=== PATIENT | male | born 1950 | race Caucasian/White ===

== ENCOUNTER → 2018-12-05 10:11 | Outpatient (CLI) | payer MEDICARE, OTHER, SELFPAY ==
[2015-08-01 06:24] VITALS: BMI 40.6
[2018-12-05 11:59] LABS: Absolute Lymphocyte Count 2.41 X10^3/ul (0.83-4.51); Absolute Neutrophil Count 4.5 X10^3/uL (2.0-7.7); Basophil# 0.05 X10^3/uL; Basophil% 0.6 % (0-1); Eosinophils% 2.6 % (0-5); Hematocrit 49.7 % (40-54); Hemoglobin 17.2 g/dl (13.0-16.5); Lymphocyte # 2.41 X10^3/ul (4.0); Lymphocyte % 31.1 % (19-41); Mean Corp Hgb Conc 34.6 g/gl (32-36); Mean Corpuscular Hgb 31.5 pg (27.0-32.0); Mean Platelet Vol. 10.7 fl (6.2-12.0); Monocyte# 0.63 X10^3/uL; Monocyte% 8.1 % (0-10); Neutrophil # 4.45 X10^3/uL (2.7-7.7); Neutrophil % 57.5 % (47-70); Platelet Count 287 K/mm3 (150-450); RBC Distribution Width CV 12.7 % (11.6-14.6); RBC Distribution Width SD 42.2 fl (35.1-43.9); Red Blood Count 5.46 M/mm3 (4.6-6.2); White Blood Count 7.8 K/mm3 (4.4-11.0)
[2018-12-05 12:04] LABS: POSITIVE COUNT NO; POSITIVE DIFFERENTIAL NO; POSITIVE MORPHOLOGY NO
[2018-12-05 12:33] LABS: AST(SGOT) 21 U/L (15-37); Alanine Aminotransfer ALT/SGPT 34 U/L (16-61); Albumin, Serum 3.6 g/dL (3.2-5.0); Alkaline Phosphatase 85 U/L (45-117); Bilirubin, Direct 0.07 mg/dL (0.00-0.30); Globulin 4.1 g/dL (2.2-4.2); Protein, Total 7.7 g/dL (6.4-8.2)
== END ==
PROVIDERS: Family Provider Family Medicine; PCP Family Medicine; Referring Provider Dermatology; Visit Provider Dermatology
DX: Z79.899 Other long term (current) drug therapy (principal)
CPT/HCPCS: 36415; 80076; 85025

== ENCOUNTER → 2019-07-11 14:01 | Outpatient (CLI) | payer MEDICARE, OTHER, SELFPAY ==
--- NOTE | 2019-07-11 14:05 | CT_ITS ---
STUDY: CT ABDOMEN AND PELVIS WITHOUT CONTRAST REASON FOR EXAM: Male, 68 years old. Right lower quadrant pain. RADIATION DOSAGE (If Supplied By Facility): CTDIvol = ( 17.58 ) mGy, DLP = ( 919.71 ) mGycm TECHNIQUE: Transaxial images were obtained from the dome of the diaphragm to the symphysis pubis without oral contrast, and without intravenous contrast. Sagittal and coronal images were reconstructed. Individualized dose optimization techniques were used for this CT. COMPARISON: 07/15/2015 FINDINGS: Evaluation of the abdominal viscera is limited in the absence of intravenous contrast. The visualized lung bases are clear. The visualized portions of the heart and pericardium are within normal limits. There are subcentimeter calcified gallstones present. The liver demonstrates an unremarkable unenhanced appearance. The spleen is normal in size. The pancreas demonstrates an unremarkable unenhanced appearance. The adrenal glands are within normal limits. There are punctate bilateral nonobstructing renal collecting system stones. There are no ureteral stones. There is no hydronephrosis. Normal visualized stomach. There is no bowel obstruction or inflammation. The appendix is visualized and appears normal. The aorta is normal in caliber. There is no free air, free fluid or fluid collection. There is stable borderline retroperitoneal lymphadenopathy. There are no destructive osseous lesions. There are stable degenerative changes noted in the spine. CT/Abdomen/Pelvis without Cont IMPRESSION: Gallstones. No bowel obstruction or inflammation. Normal appendix. Punctate bilateral nonobstructing renal collecting system stones. No ureteral stones. No hydronephrosis. Stable borderline retroperitoneal lymphadenopathy. Electronically Signed: Dima Flaherty, at 21:57 EST Tel , Service support ,
== END ==
PROVIDERS: PCP Family Medicine; Referring Provider Nurse Practitioner Adult Health; Visit Provider Nurse Practitioner Adult Health
DX: R10.9 Unspecified abdominal pain (principal); Z87.442 Personal history of urinary calculi
CPT/HCPCS: 74176

== ENCOUNTER 2020-04-11 15:14 | Inpatient (IN) | payer MEDICARE, OTHER, SELFPAY ==
[2020-04-11] VITALS (7 sets, daily range): BP systolic 132–168; BP diastolic 76–90; PULSE 83–89; RESP 14–20; TEMP 36.6–38.2; O2SAT 88–98; BMI 39.2; BMI 38.0
--- NOTE | 2020-04-11 15:40 | EKG12_ITS ---
Test Reason : Blood Pressure : / mmHG Vent. Rate : 084 BPM Atrial Rate : 084 BPM P-R Int : 186 ms QRS Dur : 112 ms QT Int : 374 ms P-R-T Axes : -03 -06 009 degrees QTc Int : 441 ms Normal sinus rhythm ST & T wave abnormality, consider anterior ischemia Abnormal ECG Confirmed by SUNDAR MIR, LUCIAN ([id number]), editor & co founder SUNITA THOMAS ([id number]) on 04/14/2020 2:21:13 PM Referred By: CL Confirmed By:LUCIAN KWOK MD
--- NOTE | 2020-04-11 15:41 | ED.VIS.GEN ---
History of Present Illness Chief Complaint: Cough Informant: Patient Narrative: 69-year-old male with past medical history of psoriatic arthritis presents with concern for worsening coronavirus infection. Patient was diagnosed 14 days ago with coronavirus. States he has been worsening. Patient has been monitoring his pulse oximetry at home. States that every time that he gets up to move it drops into the mid 80s. States he has had fever, chills, cough, nausea, chest pain. Past Medical History - Allergies and Home Meds Allergies/Adverse Reactions: Allergies No Known Allergies Allergy (Verified 04/11/20 15:15) Past Medical History: - - psoriatic arthritis Lives: With Family Smoking Status: Current some day smoker Alcohol: None Drugs: None Review of Systems General: Reports: Chills, Fever. Denies: Sweats Eyes: Denies: Visual changes - bilaterally, Diplopia ENT: Denies: Rhinorrhea, Sore throat Cardiovascular: Reports: Chest pain. Denies: Palpitations Respiratory: Reports: Dyspnea, Cough. Denies: Dyspnea on exertion Gastrointestinal: Denies: Abdominal pain, Nausea, Vomiting, Diarrhea, Melena, Hematochezia Genitourinary: Denies: Dysuria, Hematuria, Frequency Musculoskeletal: Denies: Back pain, Extremity Pain Skin: Denies: Rash, Wounds Neurological: Denies: Headache, Weakness, Numbness Physical Exam Vital Signs/Narrative: Vital Signs Temp Pulse Resp BP Pulse Ox 04/11/20 15:26 99.5 F H 83 14 143/90 H 96 04/11/20 15:17 99.5 F H 85 20 H 143/90 H 88 Inital Vital Signs reviewed: Yes General: Well nourished, Well developed, No Acute Distress Head: Normocephalic, Atraumatic Eyes: Perrl, EOMI ENT: Moist mucous membranes, No rhinorrhea Neck: Supple, Nontender Cardiovascular: Regular rate, Regular rhythm, No murmurs Respiratory: No distress, CTA bilaterally, Chest nontender Abdomen: Soft, Nontender, Nondistended, Normal bowel sounds Back: Nontender, Normal Inspection Extremities: Nontender, No edema Skin: Normal color, No rash Neurological: Alert, Oriented x3, Cranial nerves II-XII grossly intact, Normal Strength, Normal Sensation Psychological: Normal affect, Normal Mood Diagnostic/Tx/Re-eval Chest X-Ray - ED: 1 View, Read by ED Physician, Read by Radiologist, Normal Clinical Impression(s) from Imaging Studies Chest X-Ray 04/11/20 16:00 IMPRESSION: No active disease. Electronically Signed: Frank Vicente MD at 16:24 EST Tel , Service support , Chest CTA 04/11/20 16:17 IMPRESSION: 1. No CT evidence of pulmonary embolism. 2. Bilateral diffuse subsegmental atelectasis or pneumonitis. Imaging features can be seen with Covid 19 pneumonia, though are nonspecific and can occur with a variety of infectious and noninfectious processes. Electronically Signed: Frank Vicente MD at 17:26 EST Tel , Service support , Laboratory Data 04/11/20 04/11/20 04/11/20 15:20 15:20 15:20 WBC 9.8 RBC 5.52 Hgb 16.6 H Hct 48.9 MCV 88.6 MCH 30.1 MCHC 33.9 RDW Std Deviation 39.4 RDW Coeff of Arthur 12.0 Plt Count 391 MPV 10.4 Immature Gran % (Auto) 0.400 Neut % (Auto) 77.9 H Lymph % (Auto) 12.7 L [place] % (Auto) 7.5 Eos % (Auto) 1.2 Baso % (Auto) 0.3 Absolute Neuts (auto) 7.6 Absolute Lymphs (auto) 1.25 Nucleated RBC % 0 D-Dimer Quant (PE/DVT) 0.87 H* Sodium 134 L Potassium 3.1 L Chloride 101 Carbon Dioxide 28.0 Anion Gap 5 BUN 14 Creatinine 1.02 Estim Creat Clear Calc 67.99 Est GFR (MDRD) Af Amer 94 Est GFR (MDRD) Non-Af 77 BUN/Creatinine Ratio 13.7 Glucose 123 H Lactic Acid Calcium 9.0 Total Bilirubin 0.70 AST 25 ALT 29 Alkaline Phosphatase 62 Lactate Dehydrogenase 377 H Troponin I < 0.015 Total Protein 8.4 H Albumin 2.5 L Globulin 5.9 H Albumin/Globulin Ratio 0.4 L 04/11/20 15:20 WBC RBC Hgb Hct MCV MCH MCHC RDW Std Deviation RDW Coeff of Arthur Plt Count MPV Immature Gran % (Auto) Neut % (Auto) Lymph % (Auto) [place] % (Auto) Eos % (Auto) Baso % (Auto) Absolute Neuts (auto) Absolute Lymphs (auto) Nucleated RBC % D-Dimer Quant (PE/DVT) Sodium Potassium Chloride Carbon Dioxide Anion Gap BUN Creatinine Estim Creat Clear Calc Est GFR (MDRD) Af Amer Est GFR (MDRD) Non-Af BUN/Creatinine Ratio Glucose Lactic Acid 1.9 Calcium Total Bilirubin AST ALT Alkaline Phosphatase Lactate Dehydrogenase Troponin I Total Protein Albumin Globulin Albumin/Globulin Ratio - Rhythm Strip Rhythm Strip: Sinus Rhythm Rate: 84 Ectopy: None - EKG Initial EKG Interpretation: Sinus Rhythm - Sinus rhythm at 84 bpm. HI interval of 186 ms. QTC of [address] changes. - Medical Decision Making Patient appears well and nontoxic. Patient has evidence of hypoxemia and was placed on 3 L. Chest x-ray negative. Lab work somewhat within normal limits. X-ray of the chest shows no evidence of pulmonary embolism. Bilateral diffuse groundglass opacities. Given the patient's coronavirus with hypoxemia he will be admitted for further treatment and evaluation. Patient given Decadron. Admitted in stable condition. Impression: 1. COVID pneumonia 2. Hypoxemia ED Disposition - Plan for ED Patient: Disposition: Acute Care [facility]
[2020-04-11 15:59] LABS: Absolute Lymphocyte Count 1.25 X10^3/uL (0.83-4.51); Absolute Neutrophil Count 7.6 X10^3/uL (2.0-7.7); Basophil# 0.03 X10^3/uL; Basophil% 0.3 % (0-1); Eosinophil# 0.12 X10^3/uL; Eosinophils% 1.2 % (0-5); Hematocrit 48.9 % (40-54); Hemoglobin 16.6 g/dL (13.0-16.5); Lymphocyte # 1.25 X10^3/ul (4.0); Lymphocyte % 12.7 % (19-41); Mean Corp Hgb Conc 33.9 g/dL (32-36); Mean Corpuscular Hgb 30.1 pg (27.0-32.0); Mean Corpuscular Volume 88.6 fL (80-94); Mean Platelet Vol. 10.4 fl (6.2-12.0); Monocyte# 0.74 X10^3/uL; Monocyte% 7.5 % (0-10); NRBC Flagged by Analyzer 0 % (0-5); Neutrophil # 7.64 X10^3/uL (2.7-7.7); Neutrophil % 77.9 % (47-70); Platelet Count 391 K/mm3 (150-450); RBC Distribution Width SD 39.4 fl (35.1-43.9); Red Blood Count 5.52 M/mm3 (4.6-6.2); White Blood Count 9.8 K/mm3 (4.4-11.0)
--- NOTE | 2020-04-11 16:00 | RAD_ITS ---
STUDY: X-RAY CHEST REASON FOR EXAM: Male, 69 years old. day 14 of covid and has gotten worse. TECHNIQUE: Single AP portable view of the chest. COMPARISON: None. FINDINGS: The lungs are clear and expanded. Elevated right hemidiaphragm. Normal size heart. Normal mediastinum and bashir. Normal visualized pulmonary arteries. Normal visualized aortic arch and descending thoracic aorta. Normal visualized thoracic spine. Normal visualized ribs, clavicles, and shoulders. There is no demonstrated abnormality of the visualized soft tissue structures of the upper abdomen. RAD/Chest 1 View (Portable) IMPRESSION: No active disease. Electronically Signed: Frank Vicente MD at 16:24 EST Tel , Service support ,
[2020-04-11 16:14] LABS: Lactic Acid 1.9 mmol/L (0.4-1.9)
[2020-04-11 16:15] LABS: D-Dimer Quantitative (DVT/PE) 0.87 FEU/ug/m (0.27-0.49)
--- NOTE | 2020-04-11 16:17 | CT_ITS ---
STUDY: CTA CHEST REASON FOR EXAM: Male, 69 years old. Dyspnea, cough, COVID day 14, sore throat, hypoxia on exertion. RADIATION DOSAGE (If Supplied By Facility): CTDIvol = ( 12.58 ) mGy, DLP = ( 494.93 ) mGycm TECHNIQUE: The examination was performed with the intravenous administration of IV 100mL [id number]-370. Post-processing of the angiographic images was performed, with multiplanar reformation and 3D reconstruction. Individualized dose optimization techniques were used for this CT. COMPARISON: None. FINDINGS: Normal enhancement of the main pulmonary artery and right and left pulmonary arteries. Normal enhancement of the bilateral peripheral pulmonary arteries. There is no demonstrated pulmonary embolism. Normal thoracic aorta and visualized great vessels. There is no demonstrated aortic dissection. Normal heart and pericardium. Normal mediastinum. Normal hilar regions. Normal visualized trachea and bronchi. The lungs are well expanded. Bilateral diffuse groundglass opacities consistent with subsegmental atelectasis or pneumonitis. Normal pleura. Normal chest wall structures. Normal osseous structures. Gallstones in dependent portion the gallbladder consistent with cholelithiasis. CT/CTA Chest W/WO Contrast IMPRESSION: 1. No CT evidence of pulmonary embolism. 2. Bilateral diffuse subsegmental atelectasis or pneumonitis. Imaging features can be seen with Covid 19 pneumonia, though are nonspecific and can occur with a variety of infectious and noninfectious processes. Electronically Signed: Frank Vicente MD at 17:26 EST Tel , Service support ,
[2020-04-11] MEDS: Acetaminophen 500 MG Tablet 1000 MG PO (16:22)
[2020-04-11 16:23] LABS: ALB/GLOB Ratio 0.4 RATIO (0.9-2.4); AST(SGOT) 25 U/L (15-37); Alanine Aminotransfer ALT/SGPT 29 U/L (16-61); Albumin, Serum 2.5 g/dL (3.2-5.0); Alkaline Phosphatase 62 U/L (45-117); Anion Gap 5 (5-15); BUN 14 mg/dL (7-18); BUN/Creat Ratio 13.7 RATIO (10-20); Chloride 101 mmol/L (98-107); Creatinine, Serum 1.02 mg/dL (0.70-1.30); EST Glomerular Filtration Rate 77 mL/min (>60); Est Glom Filt Rate - Afr Amer 94 mL/min (>60); Estimated Creatinine Clearance 67.99 ml/min; Globulin 5.9 g/dL (2.2-4.2); Glucose 123 mg/dL (74-106); LDH 377 U/L (87-241); Potassium 3.1 mmol/L (3.5-5.1); Protein, Total 8.4 g/dL (6.4-8.2); Sodium Level 134 mmol/L (136-145)
--- NOTE | 2020-04-11 18:44 | HP.PCM_ITS ---
Problem List (1) GERD (gastroesophageal reflux disease) Status: Chronic (2) Obesity (BMI 35.0-39.9 without comorbidity) Status: Chronic (3) Erectile dysfunction Status: Chronic (4) BPH (benign prostatic hyperplasia) Status: Chronic (5) Meniere disease Status: Chronic (6) Psoriasis Status: Chronic Comment: on immunosupression (7) COVID-19 Status: Acute (8) Acute respiratory insufficiency Status: Acute (9) Hypokalemia Status: Acute (10) Hyponatremia Status: Acute History of Present Illness Date of Admission: 04/11/20 Chief Complaint: SOB Mr Rodriguez is a 69 year old WM who presented to the ED on 04/11/2020 with worsening SOB and hypoxemia. He had been monitoring his O2 sats at home and his O2 dropped to the mid 80'2 with any exertion. He was diagnosed on 03/31 and his sx started about 14 days ago. His son and granddaughter had it prior to him getting infected. He has chills and low grade fevers, he had diarrhea and vomiting for 1 day on 04/08 and he has had severe fatigue and decreased appetite. Sense of smell has been WNL. He is afebrile in the ED with a Tmax of 99.5 and was 88% on RA at rest. He was 97% on 3 L. The rest of his vitals were WNL. D-dimer was elevated but CTA was neg for PE but showed B patchy, diffuse infiltrates. He appeared hemoconcentrated slightly with a hgb of 16.6. Na was 134 and K was 3.1. He was given decadron in the ED. Past Medical History Past Medical History (Chronic Problems): Chronic Problems GERD (gastroesophageal reflux disease) (Chronic) Obesity (BMI 35.0-39.9 without comorbidity) (Chronic) Erectile dysfunction (Chronic) BPH (benign prostatic hyperplasia) (Chronic) Meniere disease (Chronic) Psoriasis (Chronic) on immunosupression Allergies No Known Allergies Allergy (Verified 04/11/20 15:15) Home Medications: Ambulatory Orders Medication Instructions Recorded Multivitamins,Therapeutic 1 tablet PO DAILY 07/25/15 [Multivitamin] Cholecalciferol (Vitamin D3) 1,000 unit PO DAILY 04/11/20 [Vitamin D3] Citalopram [Celexa] 20 mg PO DAILY 04/11/20 Ixekizumab [Taltz Autoinjector] 80 mg SQ QMONTH 04/11/20 Naproxen 500 mg PO BID 04/11/20 Testosterone Cypionate 1 ml IM QMONTH 04/11/20 Zinc Sulfate (50mg elemental) 220 mg PO DAILY 04/11/20 [Zinc Sulfate] Lives: With Family Smoking Status: Current some day smoker Tobacco Use: Cigars Alcohol: None Drugs: None Review of Systems Constitutional: Reports: Anorexia, Chills, Fever, Malaise, Weakness, Fatigue. Denies: Night Sweats, Weight Change Eyes: Denies: Blurred vision, Cataracts, Drainage, Eyelid Inflammation, Pain, Redness, Vision Change HEENT: Reports: Post Nasal Drip, Sinus Congestion, Sinus Drainage. Denies: Difficulty Hearing, Difficulty Swallowing, Ear Pain, Eye Pain, Head Aches, Nasal bleeding, Nasal Congestion, Sore Throat, Visual Changes Cardiovascular: Denies: Chest Pain, Claudication, Chest Pressure, Chest Tightness, Edema, Heaviness, Light Headedness, Orthopnea, Palpitations, Paroxysmal Noc. Dyspnea, Syncope Respiratory: Reports: Cough, Shortness of Breath, Shortness of breath at rest, Shortness of breath upon exertion. Denies: Hemoptysis, Pleuritic Pain, Sputum production, Wheezing Gastrointestinal: Reports: Diarrhea, Nausea, Vomiting. Denies: Abdominal Pain, Constipation, Dyspepsia, Hematemesis, Hematochezia, Melena Genitourinary: Denies: Dysuria, Frequency, Hematuria, Hesitancy, Incontinence, Nocturia, Retention, Urgency Musculoskeletal: Denies: Back Pain, Joint Pain, Joint stiffness, Joint swelling, Joint Tenderness, Leg Pain, Muscle pain, Neck Pain Skin: Reports: Rash - psoriasis. Denies: Dryness, Jaundice, Lesions, Pruritis, Skin Changes, Wounds Neurological: Denies: Balance problems, Blurred vision, Double vision, Change in Speech, Slurred speech, Confusion, Difficulty swallowing, Focal weakness, Headaches, Incoordination, Numbness, Tingling, Tremor, Seizures Psychiatric: Denies: Anxiety, Depression Endocrine: Denies: Change in Body Habitus, Heat/ Cold Intolerance, Polydipsia, Polyuria Hematologic/ Lymphatic: Denies: Adenopathy, Anemia, Easy Bruising, Easy Bleeding, Petechiae, Purpura VTE Information - Inpt Only VTE Present on Admission: No VTE Mechan Device Prophylaxis: None VTE Pharm Prophylaxis ordered?: Yes - Physical Exam Vitals/I&O's: Vital Signs Temp Pulse Resp BP Pulse Ox 98.5 F 85 19 H 168/79 H 97 04/11/20 18:07 04/11/20 18:07 04/11/20 18:07 04/11/20 18:07 04/11/20 18:07 Oxygen Flow Rate (L/min) 3 Oxygen Delivery Method Nasal Cannula Weight: 117.1 kg Body Mass Index (BMI) 39.2 General: Alert, Oriented x3, Cooperative, No apparent distress, Well developed, Well nourished, - - Obese WM lying in bed, appears ill but non toxic HEENT: Atraumatic, PERRLA, EOMI, Normocephalic, EAC Clear Oral: No Gingival or Mucosal Lesions/ Ulcerations, Dry Mucosa, - - Mallampati 3 Neck: Supple, No JVD, Negative Carotid Bruits, Negative Hepatojugular Reflux, No Nodes, No Nuchal Rigidity, Trachea Midline, Thyroid Normal Size and Texture Lungs: No rhonchi, No wheeze, - - scattered crackles Cardiovascular: Regular rate, Regular Rhythm, Normal S1, Normal S2, No murmurs, No Ectopic Activity, No rub noted, No Gallop Abdomen: Bowel Sounds Present, Soft, Non Tender, Non-Distended, No Hepato- splenomegaly, Obese, No hernias noted Extremities: No clubbing, No cyanosis, No edema, Capillary Refill Less than 3 Seconds, Peripheral Pulses Normal Skin: No rashes, No breakdown Musculoskeletal: No Tenderness to Palpation of Joints or Extremities, No Muscle Wasting, Arthritic Changes Lymphatic: No Cervical, Supraclavicular, or Inguinal Adenopathy Neurological: Cranial nerves II-XII grossly intact, Deep Tendon Reflexes 2+/4 and Symmetrical, Neuro grossly intact, Motor Exam 5/5 strength throughout, Muscle tone normal, Sensory exam intact to light touch and pain, Coordination normal Psych/Mental Status: Normal Affect, Appropriate Laboratory Results 04/11/20 15:20: WBC 9.8, RBC 5.52, Hgb 16.6 H, Hct 48.9, MCV 88.6, MCH 30.1, MCHC 33.9, RDW Std Deviation 39.4, RDW Coeff of Arthur 12.0, Plt Count 391, MPV 10.4, Immature Gran % (Auto) 0.400, Neut % (Auto) 77.9 H, Lymph % (Auto) 12.7 L, [place] % (Auto) 7.5, Eos % (Auto) 1.2, Baso % (Auto) 0.3, Absolute Neuts (auto) 7.6, Absolute Lymphs (auto) 1.25, Nucleated RBC % 0 04/11/20 15:20: D-Dimer Quant (PE/DVT) 0.87 H* 04/11/20 15:20: Sodium 134 L, Potassium 3.1 L, Chloride 101, Carbon Dioxide 28.0, Anion Gap 5, BUN 14, Creatinine 1.02, Estim Creat Clear Calc 67.99, Est GFR (MDRD) Af Amer 94, Est GFR (MDRD) Non-Af 77, BUN/Creatinine Ratio 13.7, Glucose 123 H, Calcium 9.0, Total Bilirubin 0.70, AST 25, ALT 29, Alkaline Phosphatase 62, Lactate Dehydrogenase 377 H, Troponin I < 0.015, Total Protein 8.4 H, Albumin 2.5 L, Globulin 5.9 H, Albumin/Globulin Ratio 0.4 L 04/11/20 15:20: Lactic Acid 1.9 04/11/20 15:20: Fibrinogen Pending Current Medications Iopamidol (Contrast Allergy Safety Check) 0 ml IV X1 [place] Assessment/Plan All Active Problems COVID-19 (Acute) Acute respiratory insufficiency (Acute) Hypokalemia (Acute) Hyponatremia (Acute) Acute Respiratory Insufficiency 2/2 COVID-19 -no O2 at baseline -now on 3 L -wean as able -Eliquis 5 mg BID -Start Decadron -?Remdesivir and plasma -pt is immunosuppressed at baseline -ID consult Hypokalemia -replace and recheck in am -mag in am Hyponatremia -suspect 2/2 COVID -mild -monitor D-Dimer Elevation -CTA neg for PE -Eliquis BID Obesity -BMI 38 -recommend wgt loss Immunocompromised state -on TALTZ for psoriasis -hold Psoriasis -hold home meds Depression cont Celexa DVT Prophylaxis -Eliquis BID Code Status -FUll Inpatient E&M: 25905 Init Hosp L3
[2020-04-11 19:13] LABS: Fibrinogen > 900 mg/dl (203-444)
[2020-04-11] MEDS: dexAMETHasone 4 MG Tablet 6 MG PO (22:05)
[2020-04-11] MEDS: APIXABAN 5 MG TABLET PO (22:05)
[2020-04-11] MEDS: Acetaminophen 325 MG Tablet 650 MG PO (22:05)
[2020-04-12] VITALS (9 sets, daily range): BP systolic 134–148; BP diastolic 67–76; PULSE 63–81; RESP 18–20; TEMP 35.8–36.7; O2SAT 89–94
[2020-04-12] MEDS: BENZOCAINE/MENTHOL 1 LOZENGE MUCOUS MEM (06:12)
[2020-04-12 09:15] LABS: Absolute Lymphocyte Count 0.71 X10^3/uL (0.83-4.51); Absolute Neutrophil Count 6.6 X10^3/uL (2.0-7.7); Basophil# 0.02 X10^3/uL; Basophil% 0.3 % (0-1); Hematocrit 45.3 % (40-54); Hemoglobin 15.4 g/dL (13.0-16.5); Lymphocyte # 0.71 X10^3/ul (4.0); Lymphocyte % 9.1 % (19-41); Mean Corpuscular Hgb 30.5 pg (27.0-32.0); Mean Corpuscular Volume 89.7 fL (80-94); Mean Platelet Vol. 10.6 fl (6.2-12.0); Monocyte# 0.45 X10^3/uL; Monocyte% 5.8 % (0-10); NRBC Flagged by Analyzer 0 % (0-5); Neutrophil # 6.61 X10^3/uL (2.7-7.7); Neutrophil % 84.4 % (47-70); Platelet Count 400 K/mm3 (150-450); RBC Distribution Width CV 12.3 % (11.6-14.6); RBC Distribution Width SD 40.6 fl (35.1-43.9); Red Blood Count 5.05 M/mm3 (4.6-6.2); White Blood Count 7.8 K/mm3 (4.4-11.0)
[2020-04-12 09:47] LABS: ALB/GLOB Ratio 0.4 RATIO (0.9-2.4); AST(SGOT) 25 U/L (15-37); Alanine Aminotransfer ALT/SGPT 26 U/L (16-61); Albumin, Serum 2.1 g/dL (3.2-5.0); Alkaline Phosphatase 58 U/L (45-117); Anion Gap 5 (5-15); BUN 13 mg/dL (7-18); BUN/Creat Ratio 14.6 RATIO (10-20); Calcium,Total 8.6 mg/dL (8.5-10.1); Chloride 104 mmol/L (98-107); Creatinine, Serum 0.89 mg/dL (0.70-1.30); EST Glomerular Filtration Rate 91 mL/min (>60); Est Glom Filt Rate - Afr Amer 110 mL/min (>60); Estimated Creatinine Clearance 77.92 ml/min; Globulin 5.8 g/dL (2.2-4.2); Glucose 187 mg/dL (74-106); Magnesium 2.6 mg/dL (1.6-2.6); Phosphorus 2.1 mg/dL (2.5-4.9); Protein, Total 7.9 g/dL (6.4-8.2); Sodium Level 134 mmol/L (136-145)
[2020-04-12] MEDS: dexAMETHasone 4 MG Tablet 6 MG PO (10:36)
[2020-04-12] MEDS: Citalopram 20 MG Tablet PO (10:36)
[2020-04-12] MEDS: APIXABAN 5 MG TABLET PO (10:37)
[2020-04-12] MEDS: Multivitamins,Therapeutic Tablet 1 TABLET PO (10:37)
--- NOTE | 2020-04-12 13:28 | PCM.PROGNOTE ---
Patient Problems: Active and Suspected Problems COVID-19 (Acute) Acute respiratory insufficiency (Acute) Hypokalemia (Acute) Hyponatremia (Acute) Subjective: Patient was seen and examined today, he appears comfortable at rest, he is requiring 5 L via nasal cannula at this time. I talked briefly with infectious diseases by phone today-they did not recommend any additional treatment at this time such as remdesivir or convalescent plasma. - Physical Exam Vitals/I&O's: Vital Signs Temp Pulse Resp BP Pulse Ox 97.7 F L 71 20 H 148/71 H 92 04/12/20 10:38 04/12/20 10:38 04/12/20 10:38 04/12/20 10:38 04/12/20 10:38 Oxygen Flow Rate (L/min) 5 Oxygen Delivery Method Nasal Cannula Weight: 113.443 kg Body Mass Index (BMI) 38.0 General: Alert, Oriented x3, Cooperative, No apparent distress, Well developed, Well nourished HEENT: Atraumatic, PERRLA, EOMI, Normocephalic Oral: Moist Mucosa Neck: Supple, No JVD, Trachea Midline, Thyroid Normal Size and Texture Lungs: Clear to auscultation, Normal air movement, No rhonchi, No wheeze, No rales Cardiovascular: Regular rate, Regular Rhythm, Normal S1, Normal S2, No murmurs, PMI Normal, No rub noted, No Gallop Abdomen: Bowel Sounds Present, Soft, Non Tender, Non-Distended Extremities: No clubbing, No cyanosis, No edema, Capillary Refill Less than 3 Seconds Skin: No rashes, No breakdown Musculoskeletal: No Tenderness to Palpation of Joints or Extremities Neurological: Cranial nerves II-XII grossly intact, Neuro grossly intact, Sensory exam intact to light touch and pain, Coordination normal Psych/Mental Status: Normal Affect, Appropriate, Alert and oriented to time, place, person, mood and affect Laboratory Results 04/11/20 15:20: WBC 9.8, RBC 5.52, Hgb 16.6 H, Hct 48.9, MCV 88.6, MCH 30.1, MCHC 33.9, RDW Std Deviation 39.4, RDW Coeff of Arthur 12.0, Plt Count 391, MPV 10.4, Immature Gran % (Auto) 0.400, Neut % (Auto) 77.9 H, Lymph % (Auto) 12.7 L, [place] % (Auto) 7.5, Eos % (Auto) 1.2, Baso % (Auto) 0.3, Absolute Neuts (auto) 7.6, Absolute Lymphs (auto) 1.25, Nucleated RBC % 0 04/11/20 15:20: D-Dimer Quant (PE/DVT) 0.87 H* 04/11/20 15:20: Sodium 134 L, Potassium 3.1 L, Chloride 101, Carbon Dioxide 28.0, Anion Gap 5, BUN 14, Creatinine 1.02, Estim Creat Clear Calc 67.99, Est GFR (MDRD) Af Amer 94, Est GFR (MDRD) Non-Af 77, BUN/Creatinine Ratio 13.7, Glucose 123 H, Calcium 9.0, Total Bilirubin 0.70, AST 25, ALT 29, Alkaline Phosphatase 62, Lactate Dehydrogenase 377 H, Troponin I < 0.015, Total Protein 8.4 H, Albumin 2.5 L, Globulin 5.9 H, Albumin/Globulin Ratio 0.4 L 04/11/20 15:20: Lactic Acid 1.9 04/11/20 15:20: Fibrinogen > 900 H 04/12/20 08:30: WBC 7.8, RBC 5.05, Hgb 15.4, Hct 45.3, MCV 89.7, MCH 30.5, MCHC 34.0, RDW Std Deviation 40.6, RDW Coeff of Arthur 12.3, Plt Count 400, MPV 10.6, Immature Gran % (Auto) 0.400, Neut % (Auto) 84.4 H, Lymph % (Auto) 9.1 L, [place] % (Auto) 5.8, Eos % (Auto) 0.0, Baso % (Auto) 0.3, Absolute Neuts (auto) 6.6, Absolute Lymphs (auto) 0.71 L, Nucleated RBC % 0 04/12/20 08:30: Sodium 134 L, Potassium 4.0, Chloride 104, Carbon Dioxide 25.0, Anion Gap 5, BUN 13, Creatinine 0.89, Estim Creat Clear Calc 77.92, Est GFR (MDRD) Af Amer 110, Est GFR (MDRD) Non-Af 91, BUN/Creatinine Ratio 14.6, Glucose 187 H, Calcium 8.6, Phosphorus 2.1 L, Magnesium 2.6, Total Bilirubin 0.50, AST 25, ALT 26, Alkaline Phosphatase 58, Total Protein 7.9, Albumin 2.1 L, Globulin 5.8 H, Albumin/Globulin Ratio 0.4 L Current Medications Acetaminophen (Acetaminophen 325 Mg Tablet) 650 mg PO Q6H PRN PRN PRN Reason: Pain Score 1-10/Temp > 100.7 F Last Admin: 04/11/20 22:05 Dose: 650 mg Documented by: Al Hydroxide/Mg Hydroxide (Mag Hydrox/Al Hydrox/Simeth 30 Ml Udc) 30 ml PO Q6H PRN PRN PRN Reason: Gastric Burning Albuterol Sulfate (Albuterol 2.5 Mg/3 Ml Vial.Neb.) 2.5 mg INHALATION Q2H PRN PRN PRN Reason: Shortness of Breath/Wheezing Apixaban (Apixaban 5 Mg Tablet) 5 mg PO BID [facility] Last Admin: 04/12/20 10:37 Dose: 5 mg Documented by: Citalopram Hydrobromide (Citalopram 20 Mg Tablet) 20 mg PO DAILY [facility] Last Admin: 04/12/20 10:36 Dose: 20 mg Documented by: Dexamethasone (Dexamethasone 4 Mg Tablet) 6 mg PO DAILY@0800 [facility] Last Admin: 04/12/20 10:36 Dose: 6 mg Documented by: Labetalol HCl (Labetalol (Prefilled) 20 Mg/4 Ml) 20 mg IV Q4H PRN PRN PRN Reason: SBP>160 Melatonin (Melatonin 3 Mg Tablet) 3 mg PO QHS PRN PRN PRN Reason: INSOMNIA Multivitamins (Multivitamins,Therapeutic Tablet) 1 tablet PO DAILY [facility] Last Admin: 04/12/20 10:37 Dose: 1 tablet Documented by: Nicotine (Nicotine 14 Mg Patch) 14 mg TRANSDERM. DAILY [facility] Last Admin: 04/12/20 11:29 Dose: Not Given Documented by: Ondansetron HCl (Ondansetron 4 Mg/2 Ml Vial) 4 mg IV Q8H PRN PRN PRN Reason: NAUSEA/VOMITING Senna/Docusate Sodium (Senna/Docusate Sodium 1 Tablet) 2 tablet PO BID PRN PRN PRN Reason: Constipation Sodium Chloride (0.9% Saline Lock 10 Ml Syringe) 10 - 40 ml IV UD PRN PRN Reason: SALINE FLUSH Throat Lozenges (Benzocaine/Menthol 1 Lozenge) 1 lozenge MUCOUS MEM Q2H PRN PRN PRN Reason: SORE THROAT Last Admin: 04/12/20 06:12 Dose: 1 lozenge Documented by: Zinc Sulfate (Zinc Sulfate (50mg Elemental) 220 Mg Capsule) 220 mg PO DAILY [place] Last Admin: 04/12/20 10:37 Dose: 220 mg Documented by: Medical Necessity - Tobacco Use Smoking Status: Current some day smoker Tobacco Use: Cigars Assessment/Plan All Active Problems COVID-19 (Acute) Acute respiratory insufficiency (Acute) Hypokalemia (Acute) Hyponatremia (Acute) #1 COVID-19 pneumonia-continue dexamethasone at this time, as needed aerosol treatments #2 hypoxic respiratory failure secondary to COVID-19 pneumonia-O2 sat will be monitored #3 psoriasis #4 hypokalemia-patient's potassium this morning was normal Patient's Eliquis was stopped, he was placed on Lovenox for DVT prophylaxis/Covid VTE prophylaxis Inpatient E&M: 27022 Subs Hosp L2
[2020-04-12] MEDS: Enoxaparin 40 MG/0.4 ML Syringe SC (20:12)
[2020-04-13] MEDS: Acetaminophen 325 MG Tablet 650 MG PO (00:16)
[2020-04-13 02:10] VITALS: BP 124/68; PULSE 62; RESP 18; TEMP 36.7; O2SAT 93
[2020-04-13 08:10] VITALS: BP 126/88; PULSE 64; RESP 16; TEMP 35.9; O2SAT 90
[2020-04-13 08:31] VITALS: O2SAT 93
[2020-04-13] MEDS: Enoxaparin 40 MG/0.4 ML Syringe SC ×2 (08:37→19:59)
[2020-04-13] MEDS: dexAMETHasone 4 MG Tablet 6 MG PO (08:38)
[2020-04-13] MEDS: Citalopram 20 MG Tablet PO (08:39)
--- NOTE | 2020-04-13 09:27 | PCM.PROGNOTE ---
Patient Problems: Active and Suspected Problems COVID-19 (Acute) Acute respiratory insufficiency (Acute) Hypokalemia (Acute) Hyponatremia (Acute) Subjective: Patient was seen and examined today, his oxygen requirement is now at 6 L, he does not complain of any shortness of breath at rest, he has no complaints of any chills, fever, or chest pain. Objective: General: Alert, Oriented x3, Cooperative, No apparent distress, Well developed, Well nourished HEENT: Atraumatic, PERRLA, EOMI, Normocephalic Oral: Moist Mucosa Neck: Supple, No JVD, Trachea Midline, Thyroid Normal Size and Texture Lungs: Clear to auscultation, Normal air movement, No rhonchi, No wheeze, No rales Cardiovascular: Regular rate, Regular Rhythm, Normal S1, Normal S2, No murmurs, PMI Normal, No rub noted, No Gallop Abdomen: Bowel Sounds Present, Soft, Non Tender, Non-Distended Extremities: No clubbing, No cyanosis, No edema, Capillary Refill Less than 3 Seconds Skin: No rashes, No breakdown Musculoskeletal: No Tenderness to Palpation of Joints or Extremities Neurological: Cranial nerves II-XII grossly intact, Neuro grossly intact, Sensory exam intact to light touch and pain, Coordination normal Psych/Mental Status: Normal Affect, Appropriate, Alert and oriented to time, place, person, mood and affect - Physical Exam Vitals/I&O's: Vital Signs Temp Pulse Resp BP Pulse Ox 96.6 F L 64 16 126/88 H 93 04/13/20 08:10 04/13/20 08:10 04/13/20 08:10 04/13/20 08:10 04/13/20 08:31 Oxygen Flow Rate (L/min) 6 Oxygen Delivery Method Nasal Cannula Weight: 113.443 kg Body Mass Index (BMI) 38.0 Intake and Output for Last 24 Hours 04/11/20 04/12/20 04/13/20 23:59 23:59 23:59 Intake Total 780 / 780 Balance 780 / 780 Laboratory Results 04/12/20 08:30: Sodium 134 L, Potassium 4.0, Chloride 104, Carbon Dioxide 25.0, Anion Gap 5, BUN 13, Creatinine 0.89, Estim Creat Clear Calc 77.92, Est GFR (MDRD) Af Amer 110, Est GFR (MDRD) Non-Af 91, BUN/Creatinine Ratio 14.6, Glucose 187 H, Calcium 8.6, Phosphorus 2.1 L, Magnesium 2.6, Total Bilirubin 0.50, AST 25, ALT 26, Alkaline Phosphatase 58, Total Protein 7.9, Albumin 2.1 L, Globulin 5.8 H, Albumin/Globulin Ratio 0.4 L Current Medications Acetaminophen (Acetaminophen 325 Mg Tablet) 650 mg PO Q6H PRN PRN PRN Reason: Pain Score 1-10/Temp > 100.7 F Last Admin: 04/13/20 00:16 Dose: 650 mg Documented by: Albuterol Sulfate (Albuterol 2.5 Mg/3 Ml Vial.Neb.) 2.5 mg INHALATION Q2H PRN PRN PRN Reason: Shortness of Breath/Wheezing Citalopram Hydrobromide (Citalopram 20 Mg Tablet) 20 mg PO DAILY [facility] Last Admin: 04/13/20 08:39 Dose: 20 mg Documented by: Dexamethasone (Dexamethasone 4 Mg Tablet) 6 mg PO DAILY@0800 [facility] Last Admin: 04/13/20 08:38 Dose: 6 mg Documented by: Enoxaparin Sodium (Enoxaparin 40 Mg/0.4 Ml Syringe) 40 mg SC BID [facility] Last Admin: 04/13/20 08:37 Dose: 40 mg Documented by: Melatonin (Melatonin 3 Mg Tablet) 3 mg PO QHS PRN PRN PRN Reason: INSOMNIA Nicotine (Nicotine 14 Mg Patch) 14 mg TRANSDERM. DAILY [facility] Last Admin: 04/13/20 08:39 Dose: Not Given Documented by: Ondansetron HCl (Ondansetron 4 Mg/2 Ml Vial) 4 mg IV Q8H PRN PRN PRN Reason: NAUSEA/VOMITING Senna/Docusate Sodium (Senna/Docusate Sodium 1 Tablet) 2 tablet PO BID PRN PRN PRN Reason: Constipation Sodium Chloride (0.9% Saline Lock 10 Ml Syringe) 10 - 40 ml IV UD PRN PRN Reason: SALINE FLUSH Throat Lozenges (Benzocaine/Menthol 1 Lozenge) 1 lozenge MUCOUS MEM Q2H PRN PRN PRN Reason: SORE THROAT Last Admin: 04/12/20 06:12 Dose: 1 lozenge Documented by: Zinc Sulfate (Zinc Sulfate (50mg Elemental) 220 Mg Capsule) 220 mg PO DAILY [facility] Last Admin: 04/13/20 08:39 Dose: 220 mg Documented by: Medical Necessity - Tobacco Use Smoking Status: Current some day smoker Tobacco Use: Cigars Assessment/Plan All Active Problems COVID-19 (Acute) Acute respiratory insufficiency (Acute) Hypokalemia (Acute) Hyponatremia (Acute) #1 COVID-19 pneumonia-continue dexamethasone at this time, as needed aerosol treatments #2 hypoxic respiratory failure secondary to COVID-19 pneumonia-O2 sat will be monitored #3 psoriasis #4 hypokalemia-resolved Inpatient E&M: 29181 Subs Hosp L2
[2020-04-13 10:04] VITALS: BP 161/80; PULSE 68; RESP 20; TEMP 35.9; O2SAT 92
[2020-04-13 13:32] VITALS: BP 145/67; PULSE 60; RESP 20; TEMP 36; O2SAT 94
[2020-04-13 19:56] VITALS: BP 159/76; PULSE 72; RESP 18; TEMP 36.5; O2SAT 94
[2020-04-13] MEDS: MELATONIN 3 MG TABLET PO (19:59)
[2020-04-14 01:48] VITALS: BP 139/65; PULSE 69; RESP 20; TEMP 36.5; O2SAT 94
[2020-04-14 08:32] VITALS: BP 147/72; PULSE 59; RESP 18; TEMP 36.4; O2SAT 93
[2020-04-14] MEDS: dexAMETHasone 4 MG Tablet 6 MG PO (08:37)
[2020-04-14] MEDS: Citalopram 20 MG Tablet PO (08:38)
[2020-04-14] MEDS: Enoxaparin 40 MG/0.4 ML Syringe SC ×2 (08:38→20:03)
[2020-04-14] MEDS: 0.9% Saline Lock 10 ML Syringe IV (08:39)
[2020-04-14 08:44] LABS: Absolute Lymphocyte Count 1.04 X10^3/uL (0.83-4.51); Absolute Neutrophil Count 10.9 X10^3/uL (2.0-7.7); Basophil# 0.02 X10^3/uL; Basophil% 0.2 % (0-1); Hematocrit 42.4 % (40-54); Hemoglobin 14.5 g/dL (13.0-16.5); Lymphocyte # 1.04 X10^3/ul (4.0); Mean Corp Hgb Conc 34.2 g/dL (32-36); Mean Corpuscular Hgb 30.3 pg (27.0-32.0); Mean Corpuscular Volume 88.5 fL (80-94); Mean Platelet Vol. 10.4 fl (6.2-12.0); Monocyte# 0.92 X10^3/uL; Monocyte% 7.1 % (0-10); NRBC Flagged by Analyzer 0 % (0-5); Neutrophil % 84.1 % (47-70); Platelet Count 519 K/mm3 (150-450); RBC Distribution Width CV 11.9 % (11.6-14.6); RBC Distribution Width SD 38.3 fl (35.1-43.9); Red Blood Count 4.79 M/mm3 (4.6-6.2)
--- NOTE | 2020-04-14 08:55 | PCM.PROGNOTE ---
Patient Problems: Active and Suspected Problems COVID-19 (Acute) Acute respiratory insufficiency (Acute) Hypokalemia (Acute) Hyponatremia (Acute) Subjective: Patient was seen and examined today, he still requires oxygen at 6 L to maintain his pulse ox. Patient has no complaints of any fevers, chills, or chest discomfort. Patient does not complain of any increased shortness of breath from yesterday. Objective: General: Alert, Oriented x3, Cooperative, No apparent distress, Well developed, Well nourished HEENT: Atraumatic, PERRLA, EOMI, Normocephalic Oral: Moist Mucosa Neck: Supple, No JVD, Trachea Midline, Thyroid Normal Size and Texture Lungs: Clear to auscultation, Normal air movement, No rhonchi, No wheeze, No rales Cardiovascular: Regular rate, Regular Rhythm, Normal S1, Normal S2, No murmurs, PMI Normal, No rub noted, No Gallop Abdomen: Bowel Sounds Present, Soft, Non Tender, Non-Distended Extremities: No clubbing, No cyanosis, No edema, Capillary Refill Less than 3 Seconds Skin: No rashes, No breakdown Musculoskeletal: No Tenderness to Palpation of Joints or Extremities Neurological: Cranial nerves II-XII grossly intact, Neuro grossly intact, Sensory exam intact to light touch and pain, Coordination normal Psych/Mental Status: Normal Affect, Appropriate, Alert and oriented to time, place, person, mood and affect - Physical Exam Vitals/I&O's: Vital Signs Temp Pulse Resp BP Pulse Ox 97.5 F L 59 L 18 147/72 H 93 04/14/20 08:32 04/14/20 08:32 04/14/20 08:32 04/14/20 08:32 04/14/20 08:32 Oxygen Flow Rate (L/min) 6 Oxygen Delivery Method Nasal Cannula Weight: 113.443 kg Body Mass Index (BMI) 38.0 Intake and Output for Last 24 Hours 04/12/20 04/13/20 04/14/20 23:59 23:59 23:59 Intake Total 780 / 780 900 / 900 Balance 780 / 780 900 / 900 Microbiology Past 72 Hours 04/11/20 15:20 Blood Culture (Wb) - Anticubital Left Blood Culture - Preliminary No growth in 48 hours. 04/11/20 15:25 Blood Culture (Wb) - Right Hand Blood Culture - Preliminary No growth in 48 hours. Laboratory Results 04/14/20 08:23: WBC 13.0 H, RBC 4.79, Hgb 14.5, Hct 42.4, MCV 88.5, MCH 30.3, MCHC 34.2, RDW Std Deviation 38.3, RDW Coeff of Arthur 11.9, Plt Count 519 H, MPV 10.4, Immature Gran % (Auto) 0.600, Neut % (Auto) 84.1 H, Lymph % (Auto) 8.0 L, [place] % (Auto) 7.1, Eos % (Auto) 0.0, Baso % (Auto) 0.2, Absolute Neuts (auto) 10.9 H, Absolute Lymphs (auto) 1.04, Nucleated RBC % 0 04/14/20 08:23: Sodium Pending, Potassium Pending, Chloride Pending, Carbon Dioxide Pending, Anion Gap Pending, BUN Pending, Creatinine Pending, Est GFR (MDRD) Af Amer Pending, Est GFR (MDRD) Non-Af Pending, BUN/Creatinine Ratio Pending, Glucose Pending, Calcium Pending, Phosphorus Pending, Total Bilirubin Pending, AST Pending, ALT Pending, Alkaline Phosphatase Pending, Total Protein Pending, Albumin Pending Current Medications Acetaminophen (Acetaminophen 325 Mg Tablet) 650 mg PO Q6H PRN PRN PRN Reason: Pain Score 1-10/Temp > 100.7 F Last Admin: 04/13/20 00:16 Dose: 650 mg Documented by: Albuterol Sulfate (Albuterol 2.5 Mg/3 Ml Vial.Neb.) 2.5 mg INHALATION Q2H PRN PRN PRN Reason: Shortness of Breath/Wheezing Citalopram Hydrobromide (Citalopram 20 Mg Tablet) 20 mg PO DAILY [facility] Last Admin: 04/14/20 08:38 Dose: 20 mg Documented by: Dexamethasone (Dexamethasone 4 Mg Tablet) 6 mg PO DAILY@0800 [facility] Last Admin: 04/14/20 08:37 Dose: 6 mg Documented by: Enoxaparin Sodium (Enoxaparin 40 Mg/0.4 Ml Syringe) 40 mg SC BID [facility] Last Admin: 04/14/20 08:38 Dose: 40 mg Documented by: Melatonin (Melatonin 3 Mg Tablet) 3 mg PO QHS PRN PRN PRN Reason: INSOMNIA Last Admin: 04/13/20 19:59 Dose: 3 mg Documented by: Nicotine (Nicotine 14 Mg Patch) 14 mg TRANSDERM. DAILY [facility] Last Admin: 04/14/20 08:38 Dose: Not Given Documented by: Ondansetron HCl (Ondansetron 4 Mg/2 Ml Vial) 4 mg IV Q8H PRN PRN PRN Reason: NAUSEA/VOMITING Senna/Docusate Sodium (Senna/Docusate Sodium 1 Tablet) 2 tablet PO BID PRN PRN PRN Reason: Constipation Sodium Chloride (0.9% Saline Lock 10 Ml Syringe) 10 - 40 ml IV UD PRN PRN Reason: SALINE FLUSH Last Admin: 04/14/20 08:39 Dose: 10 ml Documented by: Throat Lozenges (Benzocaine/Menthol 1 Lozenge) 1 lozenge MUCOUS MEM Q2H PRN PRN PRN Reason: SORE THROAT Last Admin: 04/12/20 06:12 Dose: 1 lozenge Documented by: Zinc Sulfate (Zinc Sulfate (50mg Elemental) 220 Mg Capsule) 220 mg PO DAILY [facility] Last Admin: 04/14/20 08:38 Dose: 220 mg Documented by: Medical Necessity - Tobacco Use Smoking Status: Current some day smoker Tobacco Use: Cigars Assessment/Plan All Active Problems COVID-19 (Acute) Acute respiratory insufficiency (Acute) Hypokalemia (Acute) Hyponatremia (Acute) #1 COVID-19 pneumonia-continue dexamethasone at this time, as needed aerosol treatments #2 hypoxic respiratory failure secondary to COVID-19 pneumonia-O2 sat will be monitored, patient's oxygen requirement is too high for discharge home at this time. #3 psoriasis #4 hypokalemia-resolved Inpatient E&M: 14560 Subs Hosp L2
[2020-04-14 09:06] LABS: ALB/GLOB Ratio 0.4 RATIO (0.9-2.4); AST(SGOT) 15 U/L (15-37); Alanine Aminotransfer ALT/SGPT 29 U/L (16-61); Albumin, Serum 2.2 g/dL (3.2-5.0); Alkaline Phosphatase 57 U/L (45-117); Anion Gap 5 (5-15); BUN 22 mg/dL (7-18); BUN/Creat Ratio 25.5 RATIO (10-20); Calcium,Total 8.7 mg/dL (8.5-10.1); Chloride 102 mmol/L (98-107); Creatinine, Serum 0.86 mg/dL (0.70-1.30); EST Glomerular Filtration Rate 94 mL/min (>60); Est Glom Filt Rate - Afr Amer 113 mL/min (>60); Estimated Creatinine Clearance 80.64 ml/min; Globulin 5.1 g/dL (2.2-4.2); Glucose 182 mg/dL (74-106); Phosphorus 2.8 mg/dL (2.5-4.9); Potassium 3.9 mmol/L (3.5-5.1); Protein, Total 7.3 g/dL (6.4-8.2); Sodium Level 135 mmol/L (136-145)
[2020-04-14 13:22] VITALS: BP 118/70; PULSE 75; RESP 20; TEMP 36.4; O2SAT 90
--- NOTE | 2020-04-14 15:05 | CASEMGMT ---
RN CM called patient for initial transition planning/care coordination assessment. RN CM introduced self and role at [facility]. Patient is alert and oriented. Patient willing to participate in assessment and is able to answer all questions appropriately. Care providers, pharmacy, and demographics verified. Patient wishes to discharge home, denies need for home health at this time. Patient states he has no further needs or concerns at this time. CM to follow for discharge planning needs that may arise. PCP: Jay Specialists: none Preferred Pharmacy: [facility] at discharge. Insurance: [facility], [facility] [place] Benefit: yes Living Will/HPOA: yes, son Bacilio Rodriguez LNOK: , son Living Arrangements: Patient lives with in a single story home with 2 steps and railing to enter the home. Patient states he is independent at home. Patient states he and isolating at home. Patient states he has someone that can bring supplies and groceries to house. Transportation: self DME/HHC: Patient state they have shower chair, raised toilet, cane, and walker at home. Patient prefers [employer] for oxygen needs. Will monitor for need for home oxygen. Disposition Plan: Patient to discharge home with family support and follow-up plans in place. Sharon SABILLON, RN, CM
[2020-04-14 15:25] VITALS: O2SAT 89
[2020-04-14 16:41] VITALS: BP 152/88; PULSE 64; RESP 18; TEMP 36.4; O2SAT 94
--- NOTE | 2020-04-14 17:02 | CON.PCM_ITS ---
Problem List (1) COVID-19 Status: Acute Reason for Consult: covid Consulted by: Dr. Quezada History of Present Illness: The patient is a 69 year old M started 03/28 to have fever, chills, headache, change in taste, aches, cough, dyspnea, loss of appetite, and fatigue. Had one day of diarrhea. was sick with covid in the spring. Sx persisted until they got so bad he had EMS take him to [facility] on 04/11. On dex, feeling better today. Full ROS Performed and neg except as noted above. - Medical History Past Medical History (Chronic Problems): Chronic Problems GERD (gastroesophageal reflux disease) (Chronic) Obesity (BMI 35.0-39.9 without comorbidity) (Chronic) Erectile dysfunction (Chronic) BPH (benign prostatic hyperplasia) (Chronic) Meniere disease (Chronic) Psoriasis (Chronic) on immunosupression Allergies/Adverse Reactions: Allergies No Known Allergies Allergy (Verified 04/11/20 15:15) Home Medications: Ambulatory Orders Medication Instructions Recorded Multivitamins,Therapeutic 1 tablet PO DAILY 07/25/15 [Multivitamin] Cholecalciferol (Vitamin D3) 1,000 unit PO DAILY 04/11/20 [Vitamin D3] Citalopram [Celexa] 20 mg PO DAILY 04/11/20 Ixekizumab [Taltz Autoinjector] 80 mg SQ QMONTH 04/11/20 Naproxen 500 mg PO BID 04/11/20 Testosterone Cypionate 1 ml IM QMONTH 04/11/20 Zinc Sulfate (50mg elemental) 220 mg PO DAILY 04/11/20 [Zinc Sulfate] - Social History SMOKING STATUS:: Current some day smoker Vital Signs Temp Pulse Resp BP Pulse Ox 97.6 F L 64 18 152/88 H 94 04/14/20 16:41 04/14/20 16:41 04/14/20 16:41 04/14/20 16:41 04/14/20 16:41 Oxygen Flow Rate (L/min) 8 Oxygen Delivery Method Nasal Cannula Weight: 113.443 kg Body Mass Index (BMI) 38.0 Microbiology Past 72 Hours 04/11/20 15:20 Blood Culture - Preliminary Blood Culture (Wb) - Anticubital Left No growth in 48 hours. 04/11/20 15:25 Blood Culture - Preliminary Blood Culture (Wb) - Right Hand No growth in 48 hours. Laboratory Tests Past 24 Hrs 04/14/20 04/14/20 08:23 08:23 WBC 13.0 H RBC 4.79 Hgb 14.5 Hct 42.4 MCV 88.5 MCH 30.3 MCHC 34.2 RDW Std Deviation 38.3 RDW Coeff of Arthur 11.9 Plt Count 519 H MPV 10.4 Immature Gran % (Auto) 0.600 Neut % (Auto) 84.1 H Lymph % (Auto) 8.0 L [place] % (Auto) 7.1 Eos % (Auto) 0.0 Baso % (Auto) 0.2 Absolute Neuts (auto) 10.9 H Absolute Lymphs (auto) 1.04 Nucleated RBC % 0 Sodium 135 L Potassium 3.9 Chloride 102 Carbon Dioxide 28.0 Anion Gap 5 BUN 22 H Creatinine 0.86 Estim Creat Clear Calc 80.64 Est GFR (MDRD) Af Amer 113 Est GFR (MDRD) Non-Af 94 BUN/Creatinine Ratio 25.5 H Glucose 182 H Calcium 8.7 Phosphorus 2.8 Total Bilirubin 0.50 AST 15 ALT 29 Alkaline Phosphatase 57 Total Protein 7.3 Albumin 2.2 L Globulin 5.1 H Albumin/Globulin Ratio 0.4 L - Other Studies Radiology: [] reviewed Other Studies: [] Route of nutrition/ use of supplements: [] Nutritional Intake: [] IV Site: [] Cast Catheter: [] - Physical Exam General: Alert, Oriented x3, Cooperative, No apparent distress HEENT: Atraumatic, PERRLA, EOMI Neck: Supple, No Nodes Lungs: Clear to auscultation, Diminished Cardiovascular: Regular rate, Regular Rhythm Abdomen: Soft, Non Tender, Non-Distended Extremities: No edema Skin: No rashes Musculoskeletal: No Tenderness to Palpation of Joints or Extremities Neurological: Cranial nerves II-XII grossly intact - Assessment/Plan Antibiotics: [] Assessment/Plan: [] Active and Suspected Problems COVID-19 (Acute) Acute respiratory insufficiency (Acute) Hypokalemia (Acute) Hyponatremia (Acute) covid with hypoxia - sx stated 03/28, improving on dex. No fever overnight. CT neg for PE. Covid (+) 03/31. Plan on 10 days total dex. Checking BNP in AM. Will follow, thank you
[2020-04-14 20:09] VITALS: BP 163/89; PULSE 65; RESP 18; TEMP 36.5; O2SAT 92
[2020-04-14] MEDS: MELATONIN 3 MG TABLET PO (20:09)
[2020-04-14] MEDS: Senna/Docusate Sodium 1 Tablet 2 TABLET PO (20:09)
[2020-04-15] VITALS (7 sets, daily range): BP systolic 107–157; BP diastolic 76–88; PULSE 55–63; RESP 18–20; TEMP 35.8–36.6; O2SAT 89–95
[2020-04-15 06:44] LABS: Absolute Lymphocyte Count 1.32 X10^3/uL (0.83-4.51); Absolute Neutrophil Count 9.5 X10^3/uL (2.0-7.7); Basophil# 0.02 X10^3/uL; Basophil% 0.2 % (0-1); Eosinophil# 0.01 X10^3/uL; Eosinophils% 0.1 % (0-5); Hematocrit 44.8 % (40-54); Hemoglobin 15.3 g/dL (13.0-16.5); Lymphocyte # 1.32 X10^3/ul (4.0); Lymphocyte % 10.9 % (19-41); Mean Corp Hgb Conc 34.2 g/dL (32-36); Mean Corpuscular Hgb 30.4 pg (27.0-32.0); Mean Corpuscular Volume 88.9 fL (80-94); Mean Platelet Vol. 10.3 fl (6.2-12.0); Monocyte# 1.08 X10^3/uL; NRBC Flagged by Analyzer 0 % (0-5); Neutrophil # 9.49 X10^3/uL (2.7-7.7); Neutrophil % 78.6 % (47-70); Platelet Count 516 K/mm3 (150-450); RBC Distribution Width CV 11.9 % (11.6-14.6); RBC Distribution Width SD 39.2 fl (35.1-43.9); Red Blood Count 5.04 M/mm3 (4.6-6.2); White Blood Count 12.1 K/mm3 (4.4-11.0)
[2020-04-15 07:11] LABS: ALB/GLOB Ratio 0.4 RATIO (0.9-2.4); AST(SGOT) 11 U/L (15-37); Alanine Aminotransfer ALT/SGPT 30 U/L (16-61); Albumin, Serum 2.2 g/dL (3.2-5.0); Alkaline Phosphatase 59 U/L (45-117); Anion Gap 6 (5-15); BUN 22 mg/dL (7-18); BUN/Creat Ratio 27.9 RATIO (10-20); Chloride 102 mmol/L (98-107); Creatinine, Serum 0.79 mg/dL (0.70-1.30); EST Glomerular Filtration Rate 104 mL/min (>60); Est Glom Filt Rate - Afr Amer 126 mL/min (>60); Estimated Creatinine Clearance 69.35 ml/min; Globulin 5.2 g/dL (2.2-4.2); Glucose 195 mg/dL (74-106); Potassium 4.4 mmol/L (3.5-5.1); Protein, Total 7.4 g/dL (6.4-8.2); Sodium Level 135 mmol/L (136-145)
[2020-04-15] MEDS: Enoxaparin 40 MG/0.4 ML Syringe SC ×2 (08:21→20:42)
[2020-04-15 08:22] LABS: BNP,B-Type NATRIURETIC PEPTIDE 91.3 pg/mL (0-100)
[2020-04-15] MEDS: dexAMETHasone 4 MG Tablet 6 MG PO (08:23)
[2020-04-15] MEDS: Citalopram 20 MG Tablet PO (08:23)
[2020-04-15] MEDS: 0.9% Saline Lock 10 ML Syringe IV (08:23)
--- NOTE | 2020-04-15 14:59 | PN_ITS ---
Patient Problems: Active and Suspected Problems COVID-19 (Acute) Acute respiratory insufficiency (Acute) Hypokalemia (Acute) Hyponatremia (Acute) Subjective: Patient was seen and examined today, he does not complain of any chills, fever, or severe shortness of breath-patient is on 8 to 9 L of oxygen however to maintain his pulse ox. Objective: General: Alert, Oriented x3, Cooperative, No apparent distress, Well developed, Well nourished HEENT: Atraumatic, PERRLA, EOMI, Normocephalic Oral: Moist Mucosa Neck: Supple, No JVD, Trachea Midline, Thyroid Normal Size and Texture Lungs: Clear to auscultation, Normal air movement, No rhonchi, No wheeze, No rales Cardiovascular: Regular rate, Regular Rhythm, Normal S1, Normal S2, No murmurs, PMI Normal, No rub noted, No Gallop Abdomen: Bowel Sounds Present, Soft, Non Tender, Non-Distended Extremities: No clubbing, No cyanosis, No edema, Capillary Refill Less than 3 Seconds Skin: No rashes, No breakdown Musculoskeletal: No Tenderness to Palpation of Joints or Extremities Neurological: Cranial nerves II-XII grossly intact, Neuro grossly intact, Sensory exam intact to light touch and pain, Coordination normal Psych/Mental Status: Normal Affect, Appropriate, Alert and oriented to time, place, person, mood and affect - Physical Exam Vitals/I&O's: Vital Signs Temp Pulse Resp BP Pulse Ox 97.6 F L 59 L 18 137/76 H 95 04/15/20 14:36 04/15/20 14:36 04/15/20 14:36 04/15/20 14:36 04/15/20 14:36 Oxygen Flow Rate (L/min) 9 Oxygen Delivery Method Nasal Cannula Weight: 113.443 kg Body Mass Index (BMI) 38.0 Intake and Output for Last 24 Hours 04/13/20 04/14/20 04/15/20 23:59 23:59 23:59 Intake Total 900 / 900 600 / 600 Balance 900 / 900 600 / 600 Microbiology Past 72 Hours 04/11/20 15:20 Blood Culture (Wb) - Anticubital Left Blood Culture - Preliminary No growth in 48 hours. 04/11/20 15:25 Blood Culture (Wb) - Right Hand Blood Culture - Preliminary No growth in 48 hours. Laboratory Results 04/15/20 06:12: WBC 12.1 H, RBC 5.04, Hgb 15.3, Hct 44.8, MCV 88.9, MCH 30.4, MCHC 34.2, RDW Std Deviation 39.2, RDW Coeff of Arthur 11.9, Plt Count 516 H, MPV 10.3, Immature Gran % (Auto) 1.200 H, Neut % (Auto) 78.6 H, Lymph % (Auto) 10.9 L, [place] % (Auto) 9.0, Eos % (Auto) 0.1, Baso % (Auto) 0.2, Absolute Neuts (auto) 9.5 H, Absolute Lymphs (auto) 1.32, Nucleated RBC % 0 04/15/20 06:12: Sodium 135 L, Potassium 4.4, Chloride 102, Carbon Dioxide 27.0, Anion Gap 6, BUN 22 H, Creatinine 0.79, Estim Creat Clear Calc 69.35, Est GFR (MDRD) Af Amer 126, Est GFR (MDRD) Non-Af 104, BUN/Creatinine Ratio 27.9 H, Glucose 195 H, Calcium 9.0, Total Bilirubin 0.40, AST 11 L, ALT 30, Alkaline Phosphatase 59, Total Protein 7.4, Albumin 2.2 L, Globulin 5.2 H, [place] min/Globulin Ratio 0.4 L 04/15/20 06:12: B-Natriuretic Peptide 91.3 Current Medications Acetaminophen (Acetaminophen 325 Mg Tablet) 650 mg PO Q6H PRN PRN PRN Reason: Pain Score 1-10/Temp > 100.7 F Last Admin: 04/13/20 00:16 Dose: 650 mg Documented by: Albuterol Sulfate (Albuterol 2.5 Mg/3 Ml Vial.Neb.) 2.5 mg INHALATION Q2H PRN PRN PRN Reason: Shortness of Breath/Wheezing Citalopram Hydrobromide (Citalopram 20 Mg Tablet) 20 mg PO DAILY [facility] Last Admin: 04/15/20 08:23 Dose: 20 mg Documented by: Dexamethasone (Dexamethasone 4 Mg Tablet) 6 mg PO DAILY [facility] Enoxaparin Sodium (Enoxaparin 40 Mg/0.4 Ml Syringe) 40 mg SC BID [facility] Last Admin: 04/15/20 08:21 Dose: 40 mg Documented by: Melatonin (Melatonin 3 Mg Tablet) 3 mg PO QHS PRN PRN PRN Reason: INSOMNIA Last Admin: 04/14/20 20:09 Dose: 3 mg Documented by: Nicotine (Nicotine 14 Mg Patch) 14 mg TRANSDERM. DAILY [facility] Last Admin: 04/15/20 08:23 Dose: Not Given Documented by: Ondansetron HCl (Ondansetron 4 Mg/2 Ml Vial) 4 mg IV Q8H PRN PRN PRN Reason: NAUSEA/VOMITING Senna/Docusate Sodium (Senna/Docusate Sodium 1 Tablet) 2 tablet PO BID PRN PRN PRN Reason: Constipation Last Admin: 04/14/20 20:09 Dose: 2 tablet Documented by: Sodium Chloride (0.9% Saline Lock 10 Ml Syringe) 10 - 40 ml IV UD PRN PRN Reason: SALINE FLUSH Last Admin: 04/15/20 08:23 Dose: 10 ml Documented by: Throat Lozenges (Benzocaine/Menthol 1 Lozenge) 1 lozenge MUCOUS MEM Q2H PRN PRN PRN Reason: SORE THROAT Last Admin: 04/12/20 06:12 Dose: 1 lozenge Documented by: Zinc Sulfate (Zinc Sulfate (50mg Elemental) 220 Mg Capsule) 220 mg PO DAILY [facility] Last Admin: 04/15/20 08:23 Dose: 220 mg Documented by: Medical Necessity - Tobacco Use Smoking Status: Current some day smoker Tobacco Use: Cigars Assessment/Plan All Active Problems COVID-19 (Acute) Acute respiratory insufficiency (Acute) Hypokalemia (Acute) Hyponatremia (Acute) #1 COVID-19 pneumonia-continue dexamethasone at this time, as needed aerosol treatments #2 hypoxic respiratory failure secondary to COVID-19 pneumonia-O2 sat will be monitored, patient's oxygen requirement is too high for discharge home at this time. #3 psoriasis #4 hypokalemia-resolved Inpatient E&M: 25379 Subs Hosp L2
[2020-04-15] MEDS: Acetaminophen 325 MG Tablet 650 MG PO (15:35)
[2020-04-15] MEDS: MELATONIN 3 MG TABLET PO (20:42)
[2020-04-16] VITALS (9 sets, daily range): BP systolic 119–139; BP diastolic 73–95; PULSE 61–73; RESP 16–18; TEMP 36.5–36.8; O2SAT 92–96
[2020-04-16] MEDS: Citalopram 20 MG Tablet PO (09:36)
[2020-04-16] MEDS: Enoxaparin 40 MG/0.4 ML Syringe SC ×2 (09:36→22:28)
[2020-04-16] MEDS: dexAMETHasone 4 MG Tablet 6 MG PO (09:36)
--- NOTE | 2020-04-16 14:22 | PN_ITS ---
Patient Problems: Active and Suspected Problems COVID-19 (Acute) Acute respiratory insufficiency (Acute) Hypokalemia (Acute) Hyponatremia (Acute) Subjective: Doing well, feels better than when he came in. Continues to require 8 L nasal cannula and become short of breath with ambulation Vitals/I&O's: Vital Signs Temp Pulse Resp BP Pulse Ox 97.7 F L 73 16 125/78 H 94 04/16/20 12:43 04/16/20 12:43 04/16/20 12:43 04/16/20 12:43 04/16/20 12:43 Oxygen Flow Rate (L/min) 8 Oxygen Delivery Method Nasal Cannula Weight: 250 lb 1.6 oz Body Mass Index (BMI) 38.0 Intake and Output for Last 24 Hours 04/14/20 04/15/20 04/16/20 23:59 23:59 23:59 Intake Total 600 / 1095 1015 / 1015 Balance 600 / 1095 1015 / 1015 General: Alert, Oriented x3, Cooperative, No apparent distress HEENT: Atraumatic, PERRLA, EOMI, Normocephalic Oral: Moist Mucosa Neck: Supple, No JVD Lungs: Clear to auscultation, Normal air movement, No rhonchi, No wheeze, No rales, Diminished Cardiovascular: Regular rate, Regular Rhythm, Normal S1, Normal S2, No murmurs Abdomen: Soft, Non Tender, Non-Distended, No Hepato-splenomegaly Extremities: No edema, Capillary Refill Less than 3 Seconds Skin: No rashes, No breakdown Neurological: Neuro grossly intact, Sensory exam intact to light touch and pain Psych/Mental Status: Normal Affect, Appropriate Microbiology Past 72 Hours 04/11/20 15:20 Blood Culture (Wb) - Anticubital Left Blood Culture - Preliminary No growth in 48 hours. 04/11/20 15:25 Blood Culture (Wb) - Right Hand Blood Culture - Preliminary No growth in 48 hours. Current Medications Acetaminophen (Acetaminophen 325 Mg Tablet) 650 mg PO Q6H PRN PRN PRN Reason: Pain Score 1-10/Temp > 100.7 F Last Admin: 04/15/20 15:35 Dose: 650 mg Documented by: Albuterol Sulfate (Albuterol 2.5 Mg/3 Ml Vial.Neb.) 2.5 mg INHALATION Q2H PRN PRN PRN Reason: Shortness of Breath/Wheezing Citalopram Hydrobromide (Citalopram 20 Mg Tablet) 20 mg PO DAILY [facility] Last Admin: 04/16/20 09:36 Dose: 20 mg Documented by: Dexamethasone (Dexamethasone 4 Mg Tablet) 6 mg PO DAILY [facility] Last Admin: 04/16/20 09:36 Dose: 6 mg Documented by: Enoxaparin Sodium (Enoxaparin 40 Mg/0.4 Ml Syringe) 40 mg SC BID [facility] Last Admin: 04/16/20 09:36 Dose: 40 mg Documented by: Melatonin (Melatonin 3 Mg Tablet) 3 mg PO QHS PRN PRN PRN Reason: INSOMNIA Last Admin: 04/15/20 20:42 Dose: 3 mg Documented by: Nicotine (Nicotine 14 Mg Patch) 14 mg TRANSDERM. DAILY [facility] Last Admin: 04/16/20 09:37 Dose: Not Given Documented by: Ondansetron HCl (Ondansetron 4 Mg/2 Ml Vial) 4 mg IV Q8H PRN PRN PRN Reason: NAUSEA/VOMITING Senna/Docusate Sodium (Senna/Docusate Sodium 1 Tablet) 2 tablet PO BID PRN PRN PRN Reason: Constipation Last Admin: 04/14/20 20:09 Dose: 2 tablet Documented by: Sodium Chloride (0.9% Saline Lock 10 Ml Syringe) 10 - 40 ml IV UD PRN PRN Reason: SALINE FLUSH Last Admin: 04/15/20 08:23 Dose: 10 ml Documented by: Throat Lozenges (Benzocaine/Menthol 1 Lozenge) 1 lozenge MUCOUS MEM Q2H PRN PRN PRN Reason: SORE THROAT Last Admin: 04/12/20 06:12 Dose: 1 lozenge Documented by: Zinc Sulfate (Zinc Sulfate (50mg Elemental) 220 Mg Capsule) 220 mg PO DAILY [facility] Last Admin: 04/16/20 09:36 Dose: 220 mg Documented by: STROKE Vital Signs/Narrative: Vital Signs Temp Pulse Resp BP Pulse Ox 04/16/20 12:43 97.7 F L 73 16 125/78 H 94 Medical Necessity - Tobacco Use Smoking Status: Current some day smoker Tobacco Use: Cigars Assessment/Plan All Active Problems COVID-19 (Acute) Acute respiratory insufficiency (Acute) Hypokalemia (Acute) Hyponatremia (Acute) 1. Acute hypoxic respiratory failure secondary to COVID-19 pneumonia -Continue with Decadron, ID has been consulted -Symptoms started almost 20 days ago therefore he is unlikely to have any benefit for remdesivir convalescent plasma -Have an elevated D-dimer with a normal CTA -Continue with Lovenox -Continue with incentive spirometer 2. Psoriasis -He has had a little bit of an immunocompromised state as he is on ixekizumab for his psoriasis 3. Anxiety/depression -Stable -Continue with Celexa DVT: Lovenox Inpatient E&M: 01933 Subs Hosp L2
--- NOTE | 2020-04-16 16:16 | PCM.PN.ID ---
Patient Problems: Active and Suspected Problems COVID-19 (Acute) Acute respiratory insufficiency (Acute) Hypokalemia (Acute) Hyponatremia (Acute) Subjective: Feeling a little better, no fever, breathing about the same, mild cough. - Physical Exam Vitals/I&O's: Vital Signs Temp Pulse Resp BP Pulse Ox 97.7 F L 73 16 125/78 H 94 04/16/20 12:43 04/16/20 12:43 04/16/20 12:43 04/16/20 12:43 04/16/20 12:43 Oxygen Flow Rate (L/min) 8 Oxygen Delivery Method Nasal Cannula Weight: 113.443 kg Body Mass Index (BMI) 38.0 Intake and Output for Last 24 Hours 04/14/20 04/15/20 04/16/20 23:59 23:59 23:59 Intake Total 600 / 1095 1015 / 1015 Balance 600 / 1095 1015 / 1015 General: Alert, Cooperative, No apparent distress Lungs: Diminished Cardiovascular: Regular rate, Regular Rhythm Abdomen: Soft, Non Tender, Non-Distended Skin: No rashes Current Medications Acetaminophen (Acetaminophen 325 Mg Tablet) 650 mg PO Q6H PRN PRN PRN Reason: Pain Score 1-10/Temp > 100.7 F Last Admin: 04/15/20 15:35 Dose: 650 mg Documented by: Albuterol Sulfate (Albuterol 2.5 Mg/3 Ml Vial.Neb.) 2.5 mg INHALATION Q2H PRN PRN PRN Reason: Shortness of Breath/Wheezing Citalopram Hydrobromide (Citalopram 20 Mg Tablet) 20 mg PO DAILY [facility] Last Admin: 04/16/20 09:36 Dose: 20 mg Documented by: Dexamethasone (Dexamethasone 4 Mg Tablet) 6 mg PO DAILY [facility] Last Admin: 04/16/20 09:36 Dose: 6 mg Documented by: Enoxaparin Sodium (Enoxaparin 40 Mg/0.4 Ml Syringe) 40 mg SC BID [facility] Last Admin: 04/16/20 09:36 Dose: 40 mg Documented by: Melatonin (Melatonin 3 Mg Tablet) 3 mg PO QHS PRN PRN PRN Reason: INSOMNIA Last Admin: 04/15/20 20:42 Dose: 3 mg Documented by: Nicotine (Nicotine 14 Mg Patch) 14 mg TRANSDERM. DAILY [facility] Last Admin: 04/16/20 09:37 Dose: Not Given Documented by: Ondansetron HCl (Ondansetron 4 Mg/2 Ml Vial) 4 mg IV Q8H PRN PRN PRN Reason: NAUSEA/VOMITING Senna/Docusate Sodium (Senna/Docusate Sodium 1 Tablet) 2 tablet PO BID PRN PRN PRN Reason: Constipation Last Admin: 04/14/20 20:09 Dose: 2 tablet Documented by: Sodium Chloride (0.9% Saline Lock 10 Ml Syringe) 10 - 40 ml IV UD PRN PRN Reason: SALINE FLUSH Last Admin: 04/15/20 08:23 Dose: 10 ml Documented by: Throat Lozenges (Benzocaine/Menthol 1 Lozenge) 1 lozenge MUCOUS MEM Q2H PRN PRN PRN Reason: SORE THROAT Last Admin: 04/12/20 06:12 Dose: 1 lozenge Documented by: Zinc Sulfate (Zinc Sulfate (50mg Elemental) 220 Mg Capsule) 220 mg PO DAILY [facility] Last Admin: 04/16/20 09:36 Dose: 220 mg Documented by: Medical Necessity - Tobacco Use Smoking Status: Current some day smoker Tobacco Use: Cigars Route of nutrition/ use of supplements: [] Nutritional Intake: [] IV Site: [] Cast Catheter: [] - Assessment/Plan Antibiotics: [] Assessment/Plan: [] Active and Suspected Problems COVID-19 (Acute) Acute respiratory insufficiency (Acute) Hypokalemia (Acute) Hyponatremia (Acute) covid with hypoxia - sx stated 03/28, improving on dex. No fever overnight. CT neg for PE. Covid (+) 03/31. Plan on 10 days total dex. On 8L today. Will follow
[2020-04-16] MEDS: MELATONIN 3 MG TABLET PO (22:27)
[2020-04-17] VITALS (10 sets, daily range): BP systolic 104–137; BP diastolic 67–84; PULSE 61–75; RESP 18–22; TEMP 36.4–36.6; O2SAT 90–95
[2020-04-17] MEDS: Enoxaparin 40 MG/0.4 ML Syringe SC ×2 (09:45→21:50)
[2020-04-17] MEDS: dexAMETHasone 4 MG Tablet 6 MG PO (09:45)
[2020-04-17] MEDS: Citalopram 20 MG Tablet PO (09:45)
[2020-04-17] MEDS: NYSTATIN 500,000 UNIT/5 ML UDC 500000 UNIT PO ×3 (12:02→21:50)
--- NOTE | 2020-04-17 12:13 | PCM.PN.HOSP ---
Patient Problems: Active and Suspected Problems COVID-19 (Acute) Acute respiratory insufficiency (Acute) Hypokalemia (Acute) Hyponatremia (Acute) Subjective: Well, no issues overnight. Still needs 8 L nasal cannula Vitals/I&O's: Vital Signs Temp Pulse Resp BP Pulse Ox 97.5 F L 72 20 H 110/72 94 04/17/20 11:40 04/17/20 11:40 04/17/20 11:40 04/17/20 11:40 04/17/20 11:40 Oxygen Flow Rate (L/min) 8 Oxygen Delivery Method Nasal Cannula Weight: 250 lb 1.6 oz Body Mass Index (BMI) 38.0 Intake and Output for Last 24 Hours 04/15/20 04/16/20 04/17/20 23:59 23:59 23:59 Intake Total 600 / 1095 1615 / 2415 1040 / 1040 Balance 600 / 1095 1615 / 2415 1040 / 1040 General: Alert, Oriented x3, Cooperative, No apparent distress HEENT: Atraumatic, PERRLA, EOMI, Normocephalic Oral: Moist Mucosa Neck: Supple, No JVD Lungs: Clear to auscultation, Normal air movement, No rhonchi, No wheeze, No rales, Diminished Cardiovascular: Regular rate, Regular Rhythm, Normal S1, Normal S2, No murmurs Abdomen: Soft, Non Tender, Non-Distended, No Hepato-splenomegaly Extremities: No edema, Capillary Refill Less than 3 Seconds Skin: No rashes, No breakdown Neurological: Neuro grossly intact, Sensory exam intact to light touch and pain Psych/Mental Status: Normal Affect, Appropriate Microbiology Past 72 Hours 04/11/20 15:20 Blood Culture (Wb) - Anticubital Left Blood Culture - Final No growth in 5 days. 04/11/20 15:25 Blood Culture (Wb) - Right Hand Blood Culture - Final No growth in 5 days. Current Medications Acetaminophen (Acetaminophen 325 Mg Tablet) 650 mg PO Q6H PRN PRN PRN Reason: Pain Score 1-10/Temp > 100.7 F Last Admin: 04/15/20 15:35 Dose: 650 mg Documented by: Albuterol Sulfate (Albuterol 2.5 Mg/3 Ml Vial.Neb.) 2.5 mg INHALATION Q2H PRN PRN PRN Reason: Shortness of Breath/Wheezing Citalopram Hydrobromide (Citalopram 20 Mg Tablet) 20 mg PO DAILY [facility] Last Admin: 04/17/20 09:45 Dose: 20 mg Documented by: Dexamethasone (Dexamethasone 4 Mg Tablet) 6 mg PO DAILY [facility] Last Admin: 04/17/20 09:45 Dose: 6 mg Documented by: Enoxaparin Sodium (Enoxaparin 40 Mg/0.4 Ml Syringe) 40 mg SC BID [facility] Last Admin: 04/17/20 09:45 Dose: 40 mg Documented by: Melatonin (Melatonin 3 Mg Tablet) 3 mg PO QHS PRN PRN PRN Reason: INSOMNIA Last Admin: 04/16/20 22:27 Dose: 3 mg Documented by: Nicotine (Nicotine 14 Mg Patch) 14 mg TRANSDERM. DAILY [facility] Last Admin: 04/17/20 09:44 Dose: Not Given Documented by: Nystatin (Nystatin 500,000 Unit/5 Ml Udc) 500,000 unit PO 4X/DAY [facility] Last Admin: 04/17/20 12:02 Dose: 500,000 unit Documented by: Ondansetron HCl (Ondansetron 4 Mg/2 Ml Vial) 4 mg IV Q8H PRN PRN PRN Reason: NAUSEA/VOMITING Senna/Docusate Sodium (Senna/Docusate Sodium 1 Tablet) 2 tablet PO BID PRN PRN PRN Reason: Constipation Last Admin: 04/14/20 20:09 Dose: 2 tablet Documented by: Sodium Chloride (0.9% Saline Lock 10 Ml Syringe) 10 - 40 ml IV UD PRN PRN Reason: SALINE FLUSH Last Admin: 04/15/20 08:23 Dose: 10 ml Documented by: Throat Lozenges (Benzocaine/Menthol 1 Lozenge) 1 lozenge MUCOUS MEM Q2H PRN PRN PRN Reason: SORE THROAT Last Admin: 04/12/20 06:12 Dose: 1 lozenge Documented by: Zinc Sulfate (Zinc Sulfate (50mg Elemental) 220 Mg Capsule) 220 mg PO DAILY [facility] Last Admin: 04/17/20 09:45 Dose: 220 mg Documented by: STROKE Vital Signs/Narrative: Vital Signs Temp Pulse Resp BP Pulse Ox 04/17/20 11:40 97.5 F L 72 20 H 110/72 94 04/17/20 09:40 97.7 F L 75 22 H 137/70 H 91 Medical Necessity - Tobacco Use Smoking Status: Current some day smoker Tobacco Use: Cigars Assessment/Plan All Active Problems COVID-19 (Acute) Acute respiratory insufficiency (Acute) Hypokalemia (Acute) Hyponatremia (Acute) 1. Acute hypoxic respiratory failure secondary to COVID-19 pneumonia -Continue with Decadron, ID has been consulted -Symptoms started almost 20 days ago therefore he is unlikely to have any benefit for remdesivir convalescent plasma -Have an elevated D-dimer with a normal CTA -Continue with Lovenox -Continue with incentive spirometer 2. Psoriasis -He has had a little bit of an immunocompromised state as he is on ixekizumab for his psoriasis 3. Anxiety/depression -Stable -Continue with Celexa DVT: Lovenox Inpatient E&M: 11775 Subs Hosp L2
[2020-04-17] MEDS: MELATONIN 3 MG TABLET PO (21:50)
[2020-04-17] MEDS: 0.9% Saline Lock 10 ML Syringe IV (21:50)
[2020-04-18] VITALS (9 sets, daily range): BP systolic 108–127; BP diastolic 65–76; PULSE 63–75; RESP 18–20; TEMP 35.4–36.6; O2SAT 85–95
[2020-04-18 06:00] LABS: Basophil# 0.03 X10^3/uL; Basophil% 0.2 % (0-1); Eosinophil# 0.02 X10^3/uL; Eosinophils% 0.1 % (0-5); Hematocrit 47.7 % (40-54); Hemoglobin 16.2 g/dL (13.0-16.5); Lymphocyte % 12.2 % (19-41); Mean Corpuscular Hgb 29.8 pg (27.0-32.0); Mean Corpuscular Volume 87.7 fL (80-94); Mean Platelet Vol. 9.9 fl (6.2-12.0); Monocyte# 1.19 X10^3/uL; Monocyte% 7.6 % (0-10); NRBC Flagged by Analyzer 0 % (0-5); Neutrophil # 12.03 X10^3/uL (2.7-7.7); Neutrophil % 77.2 % (47-70); Platelet Count 608 K/mm3 (150-450); RBC Distribution Width CV 11.9 % (11.6-14.6); Red Blood Count 5.44 M/mm3 (4.6-6.2); White Blood Count 15.6 K/mm3 (4.4-11.0)
[2020-04-18 06:34] LABS: Anion Gap 6 (5-15); BUN 24 mg/dL (7-18); BUN/Creat Ratio 26.8 RATIO (10-20); Calcium,Total 8.8 mg/dL (8.5-10.1); Chloride 95 mmol/L (98-107); Creatinine, Serum 0.89 mg/dL (0.70-1.30); EST Glomerular Filtration Rate 90 mL/min (>60); Est Glom Filt Rate - Afr Amer 109 mL/min (>60); Estimated Creatinine Clearance 77.92 ml/min; Glucose 205 mg/dL (74-106); Potassium 4.3 mmol/L (3.5-5.1); Sodium Level 130 mmol/L (136-145)
[2020-04-18] MEDS: Citalopram 20 MG Tablet PO (09:37)
[2020-04-18] MEDS: dexAMETHasone 4 MG Tablet 6 MG PO (09:37)
[2020-04-18] MEDS: NYSTATIN 500,000 UNIT/5 ML UDC 500000 UNIT PO ×4 (09:38→20:40)
[2020-04-18] MEDS: Enoxaparin 40 MG/0.4 ML Syringe SC ×2 (09:38→20:40)
--- NOTE | 2020-04-18 10:52 | PN_ITS ---
Patient Problems: Active and Suspected Problems COVID-19 (Acute) Acute respiratory insufficiency (Acute) Hypokalemia (Acute) Hyponatremia (Acute) Subjective: Doing very well, he is down from 8 L to 4 L nasal cannula to maintain his oxygen sat Vitals/I&O's: Vital Signs Temp Pulse Resp BP Pulse Ox 97.6 F L 69 18 108/65 93 04/18/20 09:30 04/18/20 09:30 04/18/20 09:30 04/18/20 09:30 04/18/20 10:46 Oxygen Flow Rate (L/min) [ 4 AMBULATING on Room Air] Oxygen Flow Rate (L/min) [ 6 AMBULATION with Oxygen] Oxygen Flow Rate (L/min) [At 4 REST on Room Air] Oxygen Flow Rate (L/min) 4 Oxygen Delivery Method Nasal Cannula Weight: 250 lb 1.584 oz Body Mass Index (BMI) 38.0 Intake and Output for Last 24 Hours 04/16/20 04/17/20 04/18/20 23:59 23:59 23:59 Intake Total 1615 / 2415 1540 / 1540 200 / 200 Balance 1615 / 2415 1540 / 1540 200 / 200 General: Alert, Oriented x3, Cooperative, No apparent distress HEENT: Atraumatic, PERRLA, EOMI, Normocephalic Oral: Moist Mucosa Neck: Supple, No JVD Lungs: Clear to auscultation, Normal air movement, No rhonchi, No wheeze, No rales, Diminished Cardiovascular: Regular rate, Regular Rhythm, Normal S1, Normal S2, No murmurs Abdomen: Soft, Non Tender, Non-Distended, No Hepato-splenomegaly Extremities: No edema, Capillary Refill Less than 3 Seconds Skin: No rashes, No breakdown Neurological: Neuro grossly intact, Sensory exam intact to light touch and pain Psych/Mental Status: Normal Affect, Appropriate Microbiology Past 72 Hours 04/11/20 15:20 Blood Culture (Wb) - Anticubital Left Blood Culture - Final No growth in 5 days. 04/11/20 15:25 Blood Culture (Wb) - Right Hand Blood Culture - Final No growth in 5 days. Laboratory Results 04/18/20 05:34: WBC 15.6 H, RBC 5.44, Hgb 16.2, Hct 47.7, MCV 87.7, MCH 29.8, MCHC 34.0, RDW Std Deviation 38.0, RDW Coeff of Arthur 11.9, Plt Count 608 H, MPV 9.9, Immature Gran % (Auto) 2.700 H, Neut % (Auto) 77.2 H, Lymph % (Auto) 12.2 L , [place] % (Auto) 7.6, Eos % (Auto) 0.1, Baso % (Auto) 0.2, Absolute Neuts (auto) 12.0 H, Absolute Lymphs (auto) 1.90, Nucleated RBC % 0 04/18/20 05:34: Sodium 130 L, Potassium 4.3, Chloride 95 L, Carbon Dioxide 29.0, Anion Gap 6, BUN 24 H, Creatinine 0.89, Estim Creat Clear Calc 77.92, Est GFR (MDRD) Af Amer 109, Est GFR (MDRD) Non-Af 90, BUN/Creatinine Ratio 26.8 H, Glucose 205 H, Calcium 8.8 Current Medications Acetaminophen (Acetaminophen 325 Mg Tablet) 650 mg PO Q6H PRN PRN PRN Reason: Pain Score 1-10/Temp > 100.7 F Last Admin: 04/15/20 15:35 Dose: 650 mg Documented by: Albuterol Sulfate (Albuterol 2.5 Mg/3 Ml Vial.Neb.) 2.5 mg INHALATION Q2H PRN PRN PRN Reason: Shortness of Breath/Wheezing Citalopram Hydrobromide (Citalopram 20 Mg Tablet) 20 mg PO DAILY [facility] Last Admin: 04/18/20 09:37 Dose: 20 mg Documented by: Dexamethasone (Dexamethasone 4 Mg Tablet) 6 mg PO DAILY [facility] Last Admin: 04/18/20 09:37 Dose: 6 mg Documented by: Enoxaparin Sodium (Enoxaparin 40 Mg/0.4 Ml Syringe) 40 mg SC BID [facility] Last Admin: 04/18/20 09:38 Dose: 40 mg Documented by: Melatonin (Melatonin 3 Mg Tablet) 3 mg PO QHS PRN PRN PRN Reason: INSOMNIA Last Admin: 04/17/20 21:50 Dose: 3 mg Documented by: Nicotine (Nicotine 14 Mg Patch) 14 mg TRANSDERM. DAILY [facility] Last Admin: 04/18/20 09:38 Dose: Not Given Documented by: Nystatin (Nystatin 500,000 Unit/5 Ml Udc) 500,000 unit PO 4X/DAY [facility] Last Admin: 04/18/20 09:38 Dose: 500,000 unit Documented by: Ondansetron HCl (Ondansetron 4 Mg/2 Ml Vial) 4 mg IV Q8H PRN PRN PRN Reason: NAUSEA/VOMITING Senna/Docusate Sodium (Senna/Docusate Sodium 1 Tablet) 2 tablet PO BID PRN PRN PRN Reason: Constipation Last Admin: 04/14/20 20:09 Dose: 2 tablet Documented by: Sodium Chloride (0.9% Saline Lock 10 Ml Syringe) 10 - 40 ml IV UD PRN PRN Reason: SALINE FLUSH Last Admin: 04/17/20 21:50 Dose: 10 ml Documented by: Throat Lozenges (Benzocaine/Menthol 1 Lozenge) 1 lozenge MUCOUS MEM Q2H PRN PRN PRN Reason: SORE THROAT Last Admin: 04/12/20 06:12 Dose: 1 lozenge Documented by: Zinc Sulfate (Zinc Sulfate (50mg Elemental) 220 Mg Capsule) 220 mg PO DAILY [facility] Last Admin: 04/18/20 09:37 Dose: 220 mg Documented by: STROKE Vital Signs/Narrative: Vital Signs Temp Pulse Resp BP Pulse Ox Pulse Ox Pulse Ox 04/18/20 10:46 86 90 04/18/20 09:32 85 04/18/20 09:30 97.6 F L 69 18 108/65 90 04/18/20 08:43 92 Pulse Ox 04/18/20 10:46 93 04/18/20 09:32 91 04/18/20 09:30 04/18/20 08:43 Medical Necessity - Tobacco Use Smoking Status: Current some day smoker Tobacco Use: Cigars Assessment/Plan All Active Problems COVID-19 (Acute) Acute respiratory insufficiency (Acute) Hypokalemia (Acute) Hyponatremia (Acute) 1. Acute hypoxic respiratory failure secondary to COVID-19 pneumonia -Continue with Decadron, ID has been consulted -Symptoms started almost 20 days ago therefore he is unlikely to have any benefit for remdesivir convalescent plasma -Have an elevated D-dimer with a normal CTA -Continue with Lovenox -Continue with incentive spirometer -Continue with Decadron on discharge, will obtain an ambulatory pulse ox discharge planning 2. Psoriasis -He has had a little bit of an immunocompromised state as he is on ixekizumab for his psoriasis 3. Anxiety/depression -Stable -Continue with Celexa DVT: Lovenox Inpatient E&M: 65529 Subs Hosp L2
--- NOTE | 2020-04-18 14:57 | CASEMGMT ---
GER MOLINA Note: patient told PT that his gets therapy through [facility] and he also would like this when he goes home. Call to [facility] in [place] and this is only aide service company. Called to patient to discuss this. Patient said a nurse comes out and therapy for his . GER MOLINA asked if this was a different company because [facility] in [place] does not provide skilled services for RN or therapy. GER MOLINA also asked patient what he felt he needed on discharge and began to review therapy notes stating no therapy was recommended. Pt states the [facility] was from [place] but now I'm pissed so forget it. GER MOLINA offered to contact them, but patient refused and declined further home health discussion. Andrew SABILLON RN ACM
--- NOTE | 2020-04-18 15:43 | PN.ID_ITS ---
Patient Problems: Active and Suspected Problems COVID-19 (Acute) Acute respiratory insufficiency (Acute) Hypokalemia (Acute) Hyponatremia (Acute) Subjective: Feeling better, O2 much improved, no fever - Physical Exam Vitals/I&O's: Vital Signs Temp Pulse Resp BP Pulse Ox 97.6 F L 69 18 108/65 93 04/18/20 09:30 04/18/20 09:30 04/18/20 09:30 04/18/20 09:30 04/18/20 10:46 Oxygen Flow Rate (L/min) [ 4 AMBULATING on Room Air] Oxygen Flow Rate (L/min) [ 6 AMBULATION with Oxygen] Oxygen Flow Rate (L/min) [At 4 REST on Room Air] Oxygen Flow Rate (L/min) 4 Oxygen Delivery Method Nasal Cannula Weight: 113.443 kg Body Mass Index (BMI) 38.0 Intake and Output for Last 24 Hours 04/16/20 04/17/20 04/18/20 23:59 23:59 23:59 Intake Total 1615 / 2415 1540 / 1540 200 / 200 Balance 1615 / 2415 1540 / 1540 200 / 200 General: Alert, Cooperative, No apparent distress Lungs: Clear to auscultation, Diminished Cardiovascular: Regular rate, Regular Rhythm Abdomen: Soft, Non Tender, Non-Distended Skin: No rashes Microbiology Past 72 Hours 04/11/20 15:20 Blood Culture (Wb) - Anticubital Left Blood Culture - Final No growth in 5 days. 04/11/20 15:25 Blood Culture (Wb) - Right Hand Blood Culture - Final No growth in 5 days. Laboratory Results 04/18/20 05:34: WBC 15.6 H, RBC 5.44, Hgb 16.2, Hct 47.7, MCV 87.7, MCH 29.8, MCHC 34.0, RDW Std Deviation 38.0, RDW Coeff of Arthur 11.9, Plt Count 608 H, MPV 9.9, Immature Gran % (Auto) 2.700 H, Neut % (Auto) 77.2 H, Lymph % (Auto) 12.2 L , [place] % (Auto) 7.6, Eos % (Auto) 0.1, Baso % (Auto) 0.2, Absolute Neuts (auto) 12.0 H, Absolute Lymphs (auto) 1.90, Nucleated RBC % 0 04/18/20 05:34: Sodium 130 L, Potassium 4.3, Chloride 95 L, Carbon Dioxide 29.0, Anion Gap 6, BUN 24 H, Creatinine 0.89, Estim Creat Clear Calc 77.92, Est GFR (MDRD) Af Amer 109, Est GFR (MDRD) Non-Af 90, BUN/Creatinine Ratio 26.8 H, Glucose 205 H, Calcium 8.8 Current Medications Acetaminophen (Acetaminophen 325 Mg Tablet) 650 mg PO Q6H PRN PRN PRN Reason: Pain Score 1-10/Temp > 100.7 F Last Admin: 04/15/20 15:35 Dose: 650 mg Documented by: Albuterol Sulfate (Albuterol 2.5 Mg/3 Ml Vial.Neb.) 2.5 mg INHALATION Q2H PRN PRN PRN Reason: Shortness of Breath/Wheezing Citalopram Hydrobromide (Citalopram 20 Mg Tablet) 20 mg PO DAILY [facility] Last Admin: 04/18/20 09:37 Dose: 20 mg Documented by: Dexamethasone (Dexamethasone 4 Mg Tablet) 6 mg PO DAILY [facility] Last Admin: 04/18/20 09:37 Dose: 6 mg Documented by: Enoxaparin Sodium (Enoxaparin 40 Mg/0.4 Ml Syringe) 40 mg SC BID [facility] Last Admin: 04/18/20 09:38 Dose: 40 mg Documented by: Melatonin (Melatonin 3 Mg Tablet) 3 mg PO QHS PRN PRN PRN Reason: INSOMNIA Last Admin: 04/17/20 21:50 Dose: 3 mg Documented by: Nicotine (Nicotine 14 Mg Patch) 14 mg TRANSDERM. DAILY [facility] Last Admin: 04/18/20 09:38 Dose: Not Given Documented by: Nystatin (Nystatin 500,000 Unit/5 Ml Udc) 500,000 unit PO 4X/DAY [facility] Last Admin: 04/18/20 15:41 Dose: 500,000 unit Documented by: Ondansetron HCl (Ondansetron 4 Mg/2 Ml Vial) 4 mg IV Q8H PRN PRN PRN Reason: NAUSEA/VOMITING Senna/Docusate Sodium (Senna/Docusate Sodium 1 Tablet) 2 tablet PO BID PRN PRN PRN Reason: Constipation Last Admin: 04/14/20 20:09 Dose: 2 tablet Documented by: Sodium Chloride (0.9% Saline Lock 10 Ml Syringe) 10 - 40 ml IV UD PRN PRN Reason: SALINE FLUSH Last Admin: 04/17/20 21:50 Dose: 10 ml Documented by: Throat Lozenges (Benzocaine/Menthol 1 Lozenge) 1 lozenge MUCOUS MEM Q2H PRN PRN PRN Reason: SORE THROAT Last Admin: 04/12/20 06:12 Dose: 1 lozenge Documented by: Zinc Sulfate (Zinc Sulfate (50mg Elemental) 220 Mg Capsule) 220 mg PO DAILY [facility] Last Admin: 04/18/20 09:37 Dose: 220 mg Documented by: Medical Necessity - Tobacco Use Smoking Status: Current some day smoker Tobacco Use: Cigars Route of nutrition/ use of supplements: [] Nutritional Intake: [] IV Site: [] Cast Catheter: [] - Assessment/Plan Antibiotics: [] Assessment/Plan: [] Active and Suspected Problems COVID-19 (Acute) Acute respiratory insufficiency (Acute) Hypokalemia (Acute) Hyponatremia (Acute) covid with hypoxia - sx stated 03/28, improving on dex. No fever overnight. CT neg for PE. Covid (+) 03/31. Plan on 10 days total dex. On 4L today,much improved. Will follow
[2020-04-18] MEDS: 0.9% Saline Lock 10 ML Syringe IV ×2 (15:49→20:42)
[2020-04-18] MEDS: MELATONIN 3 MG TABLET PO (20:40)
[2020-04-19 04:26] VITALS: BP 104/66; PULSE 61; RESP 18; TEMP 36.4; O2SAT 94
[2020-04-19 07:42] VITALS: O2SAT 91
[2020-04-19 08:49] VITALS: BP 112/70; PULSE 62; RESP 14; TEMP 36.2; O2SAT 96
--- NOTE | 2020-04-19 09:53 | DCINST_ITS ---
- Discharge Diagnoses Current Active Problems: Current Active and Chronic Problems GERD (gastroesophageal reflux disease) (Chronic) Obesity (BMI 35.0-39.9 without comorbidity) (Chronic) Erectile dysfunction (Chronic) BPH (benign prostatic hyperplasia) (Chronic) Meniere disease (Chronic) Psoriasis (Chronic) on immunosupression COVID-19 (Acute) Acute respiratory insufficiency (Acute) Hypokalemia (Acute) Hyponatremia (Acute) You will use the following diet at home:: Regular Your food should be the consistency of: Regular Your liquids should be the consistency of: Regular/Thin Discharge Activity: Return to Normal Activity Call your doctor if you observe: Fever of 101 or Higher, Shortness of breath, Dizziness, Fainting spells, Swelling in the ankles, Chest pain, Increased palpitations (irregular heartbeat) Allergies/Adverse Reactions: Allergies No Known Allergies Allergy (Verified 04/11/20 15:15) Medications to take at Discharge Multivitamins,Therapeutic [Multivitamin] 1 tablet PO DAILY 07/25/15 Cholecalciferol (Vitamin D3) [Vitamin D3] 1,000 unit PO DAILY 04/11/20 Citalopram [Celexa] 20 mg PO DAILY 04/11/20 Ixekizumab [Taltz Autoinjector] 80 mg SQ QMONTH 04/11/20 Naproxen 500 mg PO BID 04/11/20 Testosterone Cypionate 1 ml IM QMONTH 04/11/20 Zinc Sulfate (50mg elemental) [Zinc Sulfate] 220 mg PO DAILY 04/11/20 Aspirin 81 mg PO DAILY #14 tab.chew 04/19/20 Dexamethasone [Decadron] 6 mg PO DAILY #3 tab 04/19/20 The following prescriptions were given: Aspirin 81 mg PO DAILY #14 tab.chew Transmission Status: Pending to [facility] Dexamethasone [Decadron] 6 mg PO DAILY #3 tab Transmission Status: Pending to [facility] Primary Care Physician: Leeroy Thompson DO [Primary Care Provider] - Please follow up with your Primary Care Physician in: 3-5 days Test Results: Test results from this visit will be discussed in further detail at your follow- up appointment, if applicable. Please Follow Up With: Ritesh Chou MD - For O2 evaluation When: 2 weeks
[2020-04-19] MEDS: dexAMETHasone 4 MG Tablet 6 MG PO (10:01)
[2020-04-19] MEDS: Citalopram 20 MG Tablet PO (10:01)
[2020-04-19] MEDS: NYSTATIN 500,000 UNIT/5 ML UDC 500000 UNIT PO (10:02)
[2020-04-19] MEDS: Enoxaparin 40 MG/0.4 ML Syringe SC (10:02)
[2020-04-19] MEDS: 0.9% Saline Lock 10 ML Syringe IV (10:06)
--- NOTE | 2020-04-19 10:45 | CM.UR ---
Addendum entered by Ricarda Jimenez 04/19/20 11:10: [facility] returned call stating they are working on it. Jose Jimeenz RN, CCM. Original Note: Vet has discharge order in. Completed order for home o2 and faxed to Alberto at [phone]. Called and lvm on [facility] and faxed to number on fax cover left with green sheet. [facility] gave another phone number to call for urgent needs. Called that number [phone] and spoke with rep to set up o2. He asked that I fax information to [phone]. Completed at this time. Jose Jimenez RN, CCM.
--- NOTE | 2020-04-19 13:07 | DS.PCM_ITS ---
Discharge Date and Diagnosis - Problem List Patient Problems: Active and Suspected Problems COVID-19 (Acute) Acute respiratory insufficiency (Acute) Hypokalemia (Acute) Hyponatremia (Acute) Date of Admission: 04/11/20 Date of Discharge: 04/19/20 - Primary Discharge Diagnosis Acute Problems: Active Problems COVID-19 (Acute) Acute respiratory insufficiency (Acute) Hypokalemia (Acute) Hyponatremia (Acute) - Secondary Discharge Diagnosis Chronic Problems: Chronic Problems GERD (gastroesophageal reflux disease) (Chronic) Obesity (BMI 35.0-39.9 without comorbidity) (Chronic) Erectile dysfunction (Chronic) BPH (benign prostatic hyperplasia) (Chronic) Meniere disease (Chronic) Psoriasis (Chronic) on immunosupression Hospital Course and Treatment Imaging Results: Clinical Impression(s) from Imaging Studies Chest X-Ray 04/11/20 16:00 IMPRESSION: No active disease. Electronically Signed: Frank Vicente MD at 16:24 EST Tel , Service support , Chest CTA 04/11/20 16:17 IMPRESSION: 1. No CT evidence of pulmonary embolism. 2. Bilateral diffuse subsegmental atelectasis or pneumonitis. Imaging features can be seen with Covid 19 pneumonia, though are nonspecific and can occur with a variety of infectious and noninfectious processes. Electronically Signed: Frank Vicente MD at 17:26 EST Tel , Service support , Consults: ID Operations: None Procedures: None Summary of Care Provided: Per HPI: Mr Rodriguez is a 69 year old WM who presented to the ED on 04/11/2020 with worsening SOB and hypoxemia. He had been monitoring his O2 sats at home and his O2 dropped to the mid 80'2 with any exertion. He was diagnosed on 03/31 and his sx started about 14 days ago. His son and granddaughter had it prior to him getting infected. He has chills and low grade fevers, he had diarrhea and vomiting for 1 day on 04/08 and he has had severe fatigue and decreased appetite. Sense of smell has been WNL. He is afebrile in the ED with a Tmax of 99.5 and was 88% on RA at rest. He was 97% on 3 L. The rest of his vitals were WNL. D- dimer was elevated but CTA was neg for PE but showed B patchy, diffuse infiltrates. He appeared hemoconcentrated slightly with a hgb of 16.6. Na was 134 and K was 3.1. He was given decadron in the ED. Hospital Course: 1. Acute hypoxic respiratory failure secondary to COVID-19 pneumonia -Continue with Decadron, ID has been consulted -Symptoms started almost 20 days ago therefore he is unlikely to have any benefit for remdesivir convalescent plasma -Have an elevated D-dimer with a normal CTA -Continue with Lovenox -Continue with incentive spirometer -He has had improved oxygen requirements and he is down to 3 L nasal cannula. He will require oxygen to go home with. Plan will be to complete 10 days of Decadron, so he will need 2 more doses. Given his elevated D-dimer we will proceed with aspirin daily for 2 weeks. I discussed with him the plan for discharge today and he expressed understanding of the risks and benefits of going home. 2. Psoriasis -He has had a little bit of an immunocompromised state as he is on ixekizumab for his psoriasis 3. Anxiety/depression -Stable -Continue with Celexa Patient Problems: Active and Suspected Problems COVID-19 (Acute) Acute respiratory insufficiency (Acute) Hypokalemia (Acute) Hyponatremia (Acute) - Physical Exam Vitals/I&O's: Vital Signs Temp Pulse Resp BP Pulse Ox 97.2 F L 62 14 112/70 96 04/19/20 08:49 04/19/20 08:49 04/19/20 08:49 04/19/20 08:49 04/19/20 08:49 Oxygen Flow Rate (L/min) [ 4 AMBULATING on Room Air] Oxygen Flow Rate (L/min) [ 6 AMBULATION with Oxygen] Oxygen Flow Rate (L/min) [At 4 REST on Room Air] Oxygen Flow Rate (L/min) 3 Oxygen Delivery Method Nasal Cannula Weight: 250 lb 1.584 oz Body Mass Index (BMI) 38.0 Intake and Output for Last 24 Hours 04/17/20 04/18/20 04/19/20 23:59 23:59 23:59 Intake Total 1540 / 1540 700 / 1300 1400 / 1400 Balance 1540 / 1540 700 / 1300 1400 / 1400 General: Alert, Oriented x3, Cooperative, No apparent distress HEENT: Atraumatic, PERRLA, EOMI, Normocephalic Oral: Moist Mucosa Neck: Supple, No JVD Lungs: Clear to auscultation, Normal air movement, No rhonchi, No wheeze, No rales, Diminished Cardiovascular: Regular rate, Regular Rhythm, Normal S1, Normal S2, No murmurs Abdomen: Soft, Non Tender, Non-Distended, No Hepato-splenomegaly Extremities: No edema, Capillary Refill Less than 3 Seconds Skin: No rashes, No breakdown Neurological: Neuro grossly intact, Sensory exam intact to light touch and pain Psych/Mental Status: Normal Affect, Appropriate Microbiology Past 72 Hours 04/11/20 15:20 Blood Culture (Wb) - Anticubital Left Blood Culture - Final No growth in 5 days. 04/11/20 15:25 Blood Culture (Wb) - Right Hand Blood Culture - Final No growth in 5 days. Current Medications Acetaminophen (Acetaminophen 325 Mg Tablet) 650 mg PO Q6H PRN PRN PRN Reason: Pain Score 1-10/Temp > 100.7 F Last Admin: 04/15/20 15:35 Dose: 650 mg Documented by: Albuterol Sulfate (Albuterol 2.5 Mg/3 Ml Vial.Neb.) 2.5 mg INHALATION Q2H PRN PRN PRN Reason: Shortness of Breath/Wheezing Citalopram Hydrobromide (Citalopram 20 Mg Tablet) 20 mg PO DAILY COUNTS INCLUDE 234 BEDS AT THE [facility] Last Admin: 04/19/20 10:01 Dose: 20 mg Documented by: Dexamethasone (Dexamethasone 4 Mg Tablet) 6 mg PO DAILY COUNTS INCLUDE 234 BEDS AT THE [facility] Last Admin: 04/19/20 10:01 Dose: 6 mg Documented by: Enoxaparin Sodium (Enoxaparin 40 Mg/0.4 Ml Syringe) 40 mg SC BID COUNTS INCLUDE 234 BEDS AT THE [facility] Last Admin: 04/19/20 10:02 Dose: 40 mg Documented by: Melatonin (Melatonin 3 Mg Tablet) 3 mg PO QHS PRN PRN PRN Reason: INSOMNIA Last Admin: 04/18/20 20:40 Dose: 3 mg Documented by: Nicotine (Nicotine 14 Mg Patch) 14 mg TRANSDERM. DAILY COUNTS INCLUDE 234 BEDS AT THE [facility] Last Admin: 04/19/20 10:02 Dose: Not Given Documented by: Nystatin (Nystatin 500,000 Unit/5 Ml Udc) 500,000 unit PO 4X/DAY COUNTS INCLUDE 234 BEDS AT THE [facility] Last Admin: 04/19/20 10:02 Dose: 500,000 unit Documented by: Ondansetron HCl (Ondansetron 4 Mg/2 Ml Vial) 4 mg IV Q8H PRN PRN PRN Reason: NAUSEA/VOMITING Senna/Docusate Sodium (Senna/Docusate Sodium 1 Tablet) 2 tablet PO BID PRN PRN PRN Reason: Constipation Last Admin: 04/14/20 20:09 Dose: 2 tablet Documented by: Sodium Chloride (0.9% Saline Lock 10 Ml Syringe) 10 - 40 ml IV UD PRN PRN Reason: SALINE FLUSH Last Admin: 04/19/20 10:06 Dose: 10 ml Documented by: Throat Lozenges (Benzocaine/Menthol 1 Lozenge) 1 lozenge MUCOUS MEM Q2H PRN PRN PRN Reason: SORE THROAT Last Admin: 04/12/20 06:12 Dose: 1 lozenge Documented by: Zinc Sulfate (Zinc Sulfate (50mg Elemental) 220 Mg Capsule) 220 mg PO DAILY COUNTS INCLUDE 234 BEDS AT THE [facility] Last Admin: 04/19/20 10:02 Dose: 220 mg Documented by: Discharge Activity: Return to Normal Activity Call your doctor if you observe: Fever of 101 or Higher, Shortness of breath, Dizziness, Fainting spells, Swelling in the ankles, Chest pain, Increased palpitations (irregular heartbeat) Home Medications: Medications to take at Discharge Multivitamins,Therapeutic [Multivitamin] 1 tablet PO DAILY 07/25/15 Cholecalciferol (Vitamin D3) [Vitamin D3] 1,000 unit PO DAILY 04/11/20 Citalopram [Celexa] 20 mg PO DAILY 04/11/20 Ixekizumab [Taltz Autoinjector] 80 mg SQ QMONTH 04/11/20 Naproxen 500 mg PO BID 04/11/20 Testosterone Cypionate 1 ml IM QMONTH 04/11/20 Zinc Sulfate (50mg elemental) [Zinc Sulfate] 220 mg PO DAILY 04/11/20 Aspirin 81 mg PO DAILY #14 tab.chew 04/19/20 Dexamethasone [Decadron] 6 mg PO DAILY #3 tab 04/19/20 Following Prescriptions Were Given to Patient: Aspirin 81 mg PO DAILY #14 tab.chew Transmission Status: Received by [facility] Dexamethasone [Decadron] 6 mg PO DAILY #3 tab Transmission Status: Received by [facility] Primary Care Physician: Leeroy Thompson DO [Primary Care Provider] - Please follow up with your Primary Care Physician in: 3-5 days Please Follow Up With: Ritesh Chou MD - For O2 evaluation When: 2 weeks Disposition: Home Minutes spent on discharge:: 35 Patient Condition:: Stable Medical Necessity - Tobacco Use Smoking Status: Current some day smoker Tobacco Use: Cigars Meaningful Use Info Meaningful Use Diagnoses (Choose all that apply): None applicable Inpatient E&M: 32460 Disch Hosp
[2020-04-19 14:09] VITALS: BP 124/72; PULSE 51; RESP 16; TEMP 36.2; O2SAT 95
== END 2020-04-19 14:55 | disposition home or self-care (01) | DRG 177 ==
LOC: ED 15:54 → MS2 18:40
PROVIDERS: Internal Medicine; Internal Medicine Infectious Disease; Admitting Provider Internal Medicine; Emergency Provider Emergency Medicine; PCP Family Medicine; Visit Provider Family Medicine
DX: U07.1 COVID-19 (principal); J96.01 Acute respiratory failure with hypoxia; J12.89 Other viral pneumonia; E43 Unspecified severe protein-calorie malnutrition; E87.1 Hypo-osmolality and hyponatremia; L40.50 Arthropathic psoriasis, unspecified; F17.290 Nicotine dependence, other tobacco product, uncomplicated; K21.9 Gastro-esophageal reflux disease without esophagitis; E66.9 Obesity, unspecified; N40.0 Benign prostatic hyperplasia without lower urinary tract symptoms; Z68.39 Body mass index [BMI] 39.0-39.9, adult; E87.6 Hypokalemia; F32.9 Major depressive disorder, single episode, unspecified; F41.9 Anxiety disorder, unspecified
CPT/HCPCS: 36415; 71045; 71275; 80048; 80053; 83605; 83615; 83735; 83880; 84100; 84484; 85025; 85379; 85384; 87040; 93005; 97110; 97116; 97162; 97530; 97802; 97803; 99251; 99285; 99406; J7030; Q9967; A4216; G0463

== ENCOUNTER → 2020-08-04 10:47 | Outpatient (CLI) | payer MEDICARE, OTHER, SELFPAY ==
[2020-04-24 10:14] VITALS: BMI 39.5
--- NOTE | 2020-08-04 14:01 | PFTCOMP ---
COMPLETE PULMONARY FUNCTION TEST INTERPRETATION Brief HPI: Patient is a 69 year old male, currently under the care of myself, who presents to [facility] for complete pulmonary function tests secondary to diagnosis of dyspnea with recent COVID-19. Respiratory therapist reports good effort and reproducible results. Interpretation: Forced expiration spirometry shows no large airways obstructive ventilatory defect with an FEV1 of 131% predicted. There is no significant bronchodilator response by strict ATS criteria. Spirograms are of good quality and plateau normally. The respiratory flow volume loop shows a normal pattern. Lung volumes by body plethysmography show an elevated total lung capacity at 7.46 L, 123% predicted. All other lung volumes are within normal limits. Diffusion capacity by carbon monoxide is normal at 93% predicted. The airway resistance is normal. No previous pulmonary function tests were available for review. Impression: These pulmonary function tests are within normal limits.
== END ==
PROVIDERS: PCP Family Medicine; Referring Provider Internal Medicine Critical Care Medicine; Visit Provider Internal Medicine Critical Care Medicine
DX: U07.1 COVID-19 (principal)
CPT/HCPCS: 94060; 94726; 94729

== ENCOUNTER → 2020-08-05 11:07 | Outpatient (CLI) | payer MEDICARE, OTHER, SELFPAY ==
[2020-04-24 10:14] VITALS: BMI 39.5
[2020-08-05 11:30] VITALS: PULSE 101; PULSE 103; PULSE 104; PULSE 107; PULSE 108; PULSE 75; PULSE 79; O2SAT 92; O2SAT 93; O2SAT 94; O2SAT 95; O2SAT 97; O2SAT 98
--- NOTE | 2020-08-05 13:40 | PCM.PSN.6M ---
PSN 6 Minute Walk Test - 6 Minute Walk Test 6 Minute Walk Test: 6 Minute Walk Test PSN:6-Minute Walk Test Start: 08/05/20 11:29 Freq: Status: Active Protocol: [id number].6MINW Document 08/05/20 11:30 FR (Rec: 08/05/20 11:34 FR [id number]) 6 Minute Walk Test Date Performed 08/05/20 Time Performed 11:15 Height 5 ft 8 in Weight: 120.202 kg Weight in Pounds 265.[address]: Dr. Chou Assistive device used: None Pre-test Oxygen Delivery Method Room Air Pulse Ox (%) 98 Pulse Rate (60-100 beats/min) 75 Dyspnea Alfredo Scale (0-10) 1.5 Exertion Alfredo Scale (6-20) 8 1st minute Oxygen Delivery Method Room Air Pulse Ox (%) 97 Pulse Rate (60-100 beats/min) 101 H 2nd minute Oxygen Delivery Method Room Air Pulse Ox (%) 95 Pulse Rate (60-100 beats/min) 107 H 3rd minute Oxygen Delivery Method Room Air Pulse Ox (%) 92 Pulse Rate (60-100 beats/min) 101 H 4th minute Oxygen Delivery Method Room Air Pulse Ox (%) 94 Pulse Rate (60-100 beats/min) 104 H 5th minute Oxygen Delivery Method Room Air Pulse Ox (%) 93 Pulse Rate (60-100 beats/min) 108 H 6th minute Oxygen Delivery Method Room Air Pulse Ox (%) 94 Pulse Rate (60-100 beats/min) 103 H Dyspnea Alfrdeo Scale (0-10) 1.5 Exertion Alfredo Scale (6-20) 8 Post-test Oxygen Delivery Method Room Air Pulse Ox (%) 97 Pulse Rate (60-100 beats/min) 79 Full Laps Walked 23 Partial Lap, Number of Tiles Walked 9 Total Distance Walked (ft) 1366 - Interpretation Interpretation: The patient was able to ambulate 1366 feet over the course of 6 minutes on room air with no assistive devices or breaks. The patient did experience significant desaturation from a baseline of 98 to as low as 92%. Patient did have persistent tachycardia throughout testing with a peak heart rate of 108 bpm. These findings are consistent with a respiratory limitation exercise tolerance. - Recommendations Recommendations: No supplemental oxygen is indicated at this time.
== END ==
PROVIDERS: PCP Family Medicine; Referring Provider Internal Medicine Critical Care Medicine; Visit Provider Internal Medicine Critical Care Medicine
DX: U07.1 COVID-19 (principal)
CPT/HCPCS: 94618

== ENCOUNTER → 2020-11-18 13:11 | Outpatient (CLI) | payer MEDICARE, OTHER, SELFPAY ==
[2020-08-27 10:00] VITALS: BMI 40.3
[2020-11-18 13:58] LABS: Absolute Lymphocyte Count 2.39 X10^3/uL (0.83-4.51); Absolute Neutrophil Count 3.8 X10^3/uL (2.0-7.7); Basophil# 0.05 X10^3/uL; Basophil% 0.7 % (0-1); Eosinophil# 0.19 X10^3/uL; Eosinophils% 2.7 % (0-5); Hematocrit 46.1 % (40-54); Hemoglobin 15.9 g/dL (13.0-16.5); Lymphocyte # 2.39 X10^3/ul (0.83-4.51); Lymphocyte % 34.5 % (19-41); Mean Corp Hgb Conc 34.5 g/dL (32-36); Mean Corpuscular Hgb 30.9 pg (27.0-32.0); Mean Corpuscular Volume 89.7 fL (80-94); Mean Platelet Vol. 10.5 fl (6.2-12.0); Monocyte# 0.49 X10^3/uL; Monocyte% 7.1 % (0-10); NRBC Flagged by Analyzer 0 % (0-5); Neutrophil # 3.79 X10^3/uL (2.7-7.7); Neutrophil % 54.7 % (47-70); Platelet Count 303 K/mm3 (150-450); RBC Distribution Width CV 12.2 % (11.6-14.6); RBC Distribution Width SD 40.1 fl (35.1-43.9); Red Blood Count 5.14 M/mm3 (4.6-6.2); White Blood Count 6.9 K/mm3 (4.4-11.0)
[2020-11-18 14:22] LABS: AST(SGOT) 28 U/L (15-37); Alanine Aminotransfer ALT/SGPT 50 U/L (16-61); Albumin, Serum 3.7 g/dL (3.2-5.0); Alkaline Phosphatase 87 U/L (45-117); Bilirubin, Direct 0.16 mg/dL (0.00-0.30); Globulin 3.9 g/dL (2.2-4.2); Protein, Total 7.6 g/dL (6.4-8.2)
[2020-11-21 03:07] LABS: QNTFERON TB Mitogen Value > 10.00 IU/mL (.); QNTFERON TB Nil Value 0 IU/mL (.); QNTFERON TB1+ Ag Value 0 IU/mL (.); QNTFERON TB2+ Ag Value 0.02 IU/mL (.)
[2020-11-21 08:03] LABS: QNTIFERON TB Positive Criteria Negative (Negative)
== END ==
PROVIDERS: PCP Family Medicine; Referring Provider Dermatology; Visit Provider Dermatology
DX: L40.0 Psoriasis vulgaris (principal); L40.8 Other psoriasis; Z79.899 Other long term (current) drug therapy
CPT/HCPCS: 36415; 80076; 85025; 86480

== ENCOUNTER 2022-02-21 12:08 | Inpatient (IN) | payer MEDICARE, OTHER, SELFPAY ==
[2022-02-21] VITALS (9 sets, daily range): BP systolic 112–172; BP diastolic 71–116; PULSE 64–76; RESP 14–20; TEMP 36.1–36.5; O2SAT 97–99; BMI 38.7; BMI 37.0
--- NOTE | 2022-02-21 12:26 | EKG12_ITS ---
Test Reason : CP Blood Pressure : / mmHG Vent. Rate : 071 BPM Atrial Rate : 071 BPM P-R Int : 188 ms QRS Dur : 104 ms QT Int : 382 ms P-R-T Axes : -09 -16 011 degrees QTc Int : 415 ms Sinus rhythm with occasional Premature ventricular complexes Nonspecific ST abnormality Abnormal ECG Confirmed by KRISTINE MIR, JESSICA ([id number]), metropolitan editor SUNITA THOMAS ([id number]) on 02/22/2022 10:49:24 AM Referred By: Confirmed By:JESSICA CARMONA MD
--- NOTE | 2022-02-21 12:35 | ED.VIS.CHEST ---
HPI <CLEMENT Nash - Last Filed: 02/21/22 13:45> History of Present Illness Chief Complaint: Chest Pain Narrative Narrative: 71-year-old male with PMH of DM2, GERD presents with chest pain. He states in December he had his first episode of midsternal chest squeezing while he was sitting and he vomited. Since then he has had them intermittently but it seem more frequent this month. It often is during exertion such as walking his dogs but it also could occur at night or after eating. He often dry heaves and has difficulty breathing. Last night he developed midsternal chest squeezing while having sex and the pain radiated to his jaw. He had similar pain with radiation to the jaw this morning while walking his dogs which prompted him to come in. Pain lasted 10 minutes and is now subsided. He states he had a stress test many years ago but has no known cardiac history. He smokes a cigar on the weekends. His dad and paternal grandfather had heart attacks in their 50s. PFSH <CLEMENT Nash - Last Filed: 02/21/22 13:45> [facility] Medical History (Updated 02/21/22 @ 13:44 by CLEMENT Nash) Acute respiratory insufficiency BPH (benign prostatic hyperplasia) COVID-19 Erectile dysfunction GERD (gastroesophageal reflux disease) Hypokalemia Hyponatremia Meniere disease Obesity (BMI 35.0-39.9 without comorbidity) Psoriasis Home Medications citalopram 20 mg tablet 20 mg PO DAILY DEPRESSION 04/11/20 [History Last Taken 2 Days Ago ~04/09/20] ixekizumab 80 mg/mL subcutaneous auto-injector 80 mg SQ QMONTH AUTO IMMUNE 04/11/20 [History Last Taken 03/20/20] naproxen 500 mg tablet,delayed release 500 mg PO BID PAIN 04/11/20 [History Last Taken 2 Days Ago ~04/09/20] testosterone cypionate 200 mg/mL intramuscular oil 1 ml IM QMONTH TESTOSTERONE 04/11/20 [History Last Taken 1 Month Ago ~03/11/20] Allergy/AdvReac Type Severity Reaction Status Date / Time No Known Allergies Allergy Verified 02/21/22 12:11 Family History Father Small cell carcinoma Mother Sepsis Surgical History H/O knee surgery H/O rotator cuff surgery H/O shoulder surgery Social History (Updated 08/27/20 @ 11:[address] Ritesh Chou MD) Smoking Status: Current some day smoker tobacco type: cigars ROS <CLEMENT Nash - Last Filed: 02/21/22 13:45> ROS ED ROS Narrative Constitutional: Negative for fever, chills, malaise. Eyes: Negative for visual change. ENT: Negative for sore throat, ear pain, rhinorrhea. CVS: Positive for chest pain. Negative for syncope. Respiratory: Positive for shortness of breath. Negative for cough, orthopnea. GI: Positive for nausea. Negative for vomiting. : Negative for dysuria, hematuria or frequency. Neuro: Negative for headache, motor/sensory dysfunction. Skin: Negative for rash, abscess, or wound. Musc: Negative for joint pain, swelling, trauma. Heme: Negative for easy bruising, bleeding, lymphadenopathy. EXAM <CLEMENT Nash - Last Filed: 02/21/22 13:45> Physical Exam Narrative Exam Narrative: CONST: Patient sitting in no acute distress. EYES: Normal inspection. NECK: Normal inspection. RESP: No respiratory distress, CTAB. CVS: Regular rate and rhythm, no murmur, no gallop. ABD: Soft and nontender, no guarding or rebound, nondistended. SKIN: Color normal, no rash, warm, dry, intact. EXTREMITIES: Normal appearance, no pedal edema. NEURO: Oriented x4. PSYCH: Normal affect. Const Vital Signs: 02/21/22 12:09 02/21/22 12:16 02/21/22 12:16 Temperature 97.0 F L Temperature Source Temporal Pulse Rate 76 76 Respiratory Rate 20 H 15 Respiratory Effort Normal Non-Labored Blood Pressure 172/116 H 158/72 H Blood Pressure Mean 134 100 Pulse Ox 98 Oxygen Delivery Method Room Air 02/21/22 12:36 Temperature Temperature Source Pulse Rate Respiratory Rate Respiratory Effort Blood Pressure Blood Pressure Mean Pulse Ox Oxygen Delivery Method Room Air <Dr. Juan M Gomez DO - Last Filed: 02/21/22 13:55> Physical Exam Const Vital Signs: 02/21/22 12:09 02/21/22 12:16 02/21/22 12:16 Temperature 97.0 F L Temperature Source Temporal Pulse Rate 76 76 Respiratory Rate 20 H 15 Respiratory Effort Normal Non-Labored Blood Pressure 172/116 H 158/72 H Blood Pressure Mean 134 100 Pulse Ox 98 Oxygen Delivery Method Room Air 02/21/22 12:36 Temperature Temperature Source Pulse Rate Respiratory Rate Respiratory Effort Blood Pressure Blood Pressure Mean Pulse Ox Oxygen Delivery Method Room Air <CLEMENT Nash - Last Filed: 02/21/22 13:45> Heart Score History: Highly Suspicious ECG: Nonspecific Repolarization Age: >/= 65 years Risk Factors: 1 or 2 Risk Factors Troponin: >/=3 x Normal Limit Score: 8 <Dr. Juan M Gomez DO - Last Filed: 02/21/22 13:55> Heart Score ECG: Normal Score: 7 MDM <CLEMENT Nash - Last Filed: 02/21/22 13:45> MDM MDM Narrative Medical decision making narrative: Patient presents with intermittent chest pain over the last few months that worsened today with radiation to his jaw. He appears well and nontoxic with normal vital signs. EKG is sinus rhythm with nonspecific ST changes. No STEMI. Labs show glucose of 234 with known history of diabetes. First troponin elevated 83. Delta is pending. Patient is chest pain-free at this time. He had received aspirin upon arrival and cardiology recommended initiating heparin for NSTEMI. Case discussed with the hospitalist for admission. Lab Data Attestation: I reviewed the patient's lab results. Labs: Laboratory Results - last 24 hr 02/21/22 02/21/22 12:35 12:35 WBC 7.0 RBC 4.87 Hgb 15.2 Hct 43.9 MCV 90.1 MCH 31.2 MCHC 34.6 RDW Std Deviation 38.9 RDW Coeff of Arthur 11.9 Plt Count 291 MPV 10.4 Immature Gran % (Auto) 0.100 Neut % (Auto) 63.8 Lymph % (Auto) 24.4 Slope % (Auto) 8.7 Eos % (Auto) 2.3 Baso % (Auto) 0.7 Absolute Neuts (auto) 4.5 Absolute Lymphs (auto) 1.72 Nucleated RBC % 0 Sodium 140 Potassium 4.0 Chloride 106 Carbon Dioxide 28.0 Anion Gap 6 BUN 17 Creatinine 0.84 Estim Creat Clear Calc 80.30 Est GFR (MDRD) Af Amer 116 Est GFR (MDRD) Non-Af 96 BUN/Creatinine Ratio 20.1 H Glucose 234 H Calcium 8.9 Troponin I High Sens 83 H Radiography Chest X-Ray - ED: 1 View, Read by ED Physician, Read by Radiologist and Normal Diagnostic Testing: Clinical Impression(s) from Imaging Studies Chest X-Ray 02/21/22 12:40 IMPRESSION: No active disease. Electronically Signed: Frank Vicente MD at 12:58 EDT , ED attending interpretation of 1 view chest shows normal heart size, no acute infiltrate, edema, or effusion. <Dr. Juan M Gomez, DO - Last Filed: 02/21/22 13:55> MDM MDM Narrative Medical decision making narrative: This patient was seen with a PA/RESIDENTIAL SALES ASSOCIATE Individually assessed they patient including history and physical. I have reviewed everything on the chart that is available and agree with the documentation provided by the PA/RESIDENTIAL SALES ASSOCIATE including discussion about the assessment, treatment plan, discussion, and return precautions. 71-year-old male with history of chest pain which feels like pressure and has been going on for months now. It is episodic. HEART score 7. Patient does admit to family history of cardiac disease. He has no known cardiac disease himself. Patient states today it was worse and he noted some radiation to the jaw. EKG was obtained and on my interpretation this is a sinus rhythm with a ventricular rate of 71 bpm with occasional PVCs. Lab work done today shows a normal CBC and BMP with exception of an elevated glucose at 234. Patient has no history of diabetes. There is no anion gap noted. Chest x-ray on my interpretation shows no acute cardiopulmonary process and the radiologist does agree. High-sensitivity troponin elevated 83. Patient was discussed with cardiology and the hospitalist for admission. Cardiology recommended heparin drip. Impression: 1. NSTEMI 2. Hyperglycemia Lab Data Labs: Laboratory Results - last 24 hr 02/21/22 02/21/22 12:35 12:35 WBC 7.0 RBC 4.87 Hgb 15.2 Hct 43.9 MCV 90.1 MCH 31.2 MCHC 34.6 RDW Std Deviation 38.9 RDW Coeff of Arthur 11.9 Plt Count 291 MPV 10.4 Immature Gran % (Auto) 0.100 Neut % (Auto) 63.8 Lymph % (Auto) 24.4 Slope % (Auto) 8.7 Eos % (Auto) 2.3 Baso % (Auto) 0.7 Absolute Neuts (auto) 4.5 Absolute Lymphs (auto) 1.72 Nucleated RBC % 0 Sodium 140 Potassium 4.0 Chloride 106 Carbon Dioxide 28.0 Anion Gap 6 BUN 17 Creatinine 0.84 Estim Creat Clear Calc 80.30 Est GFR (MDRD) Af Amer 116 Est GFR (MDRD) Non-Af 96 BUN/Creatinine Ratio 20.1 H Glucose 234 H Calcium 8.9 Troponin I High Sens 83 H Radiography Diagnostic Testing: Clinical Impression(s) from Imaging Studies Chest X-Ray 02/21/22 12:40 IMPRESSION: No active disease. Electronically Signed: Frank Vicente MD at 12:58 EDT , Treatment and Re-Evaluation Narrative: Patient presents with intermittent chest pain over the last few months that worsened today with radiation to his jaw. He appears well and nontoxic with normal vital signs. EKG is sinus rhythm with nonspecific ST changes. No STEMI. Labs show glucose of 234 with known history of diabetes. First troponin elevated 83. Delta is pending. Patient is chest pain-free at this time. He had received aspirin upon arrival and cardiology recommended initiating heparin for NSTEMI. Case discussed with the hospitalist for admission. Discharge Plan Triage Chief Complaint: Chest Pain ED Midlevel Provider: Kelle Larkin ED Provider: Juan M Gomez Dx/Rx/DC Orders Clinical Impression: Non-ST elevation MN (NSTEMI), Diabetes mellitus with hyperglycemia Prescriptions: No Action ixekizumab 80 MG/ML auto-injector 80 mg SQ QMONTH citalopram 20 MG tablet 20 mg PO DAILY naproxen 500 MG tablet,delayed release (DR/EC) 500 mg PO BID testosterone cypionate 200 MG/ML oil 1 ml IM QMONTH Primary Care Provider: Leeroy Thompson Referrals: Leeroy Thompson DO [Primary Care Provider] - Disposition Disposition: Acute Care Hospital
[2022-02-21] MEDS: Aspirin 81 MG TAB.CHEW 324 MG PO (12:37)
--- NOTE | 2022-02-21 12:40 | RAD_ITS ---
STUDY: X-RAY CHEST REASON FOR EXAM: Male, 71 years old. chest pain TECHNIQUE: Single AP portable view of the chest. COMPARISON: 04/11/2020 FINDINGS: The lungs are clear and expanded. Elevated right hemidiaphragm which is unchanged. Normal size heart. Normal mediastinum and bashir. Normal visualized pulmonary arteries. Normal visualized aortic arch and descending thoracic aorta. Normal visualized thoracic spine. Normal visualized ribs, clavicles, and shoulders. There is no demonstrated abnormality of the visualized soft tissue structures of the upper abdomen. RAD/Chest 1 View (Portable) IMPRESSION: No active disease. Electronically Signed: Frank Vicente MD at 12:58 EDT ,
[2022-02-21 12:55] LABS: Absolute Lymphocyte Count 1.72 X10^3/uL (0.83-4.51); Absolute Neutrophil Count 4.5 X10^3/uL (2.0-7.7); Basophil# 0.05 X10^3/uL; Basophil% 0.7 % (0-1); Eosinophil# 0.16 X10^3/uL; Eosinophils% 2.3 % (0-5); Hematocrit 43.9 % (40-54); Hemoglobin 15.2 g/dL (13.0-16.5); Lymphocyte # 1.72 X10^3/ul (0.83-4.51); Lymphocyte % 24.4 % (19-41); Mean Corp Hgb Conc 34.6 g/dL (32-36); Mean Corpuscular Hgb 31.2 pg (27.0-32.0); Mean Corpuscular Volume 90.1 fL (80-94); Mean Platelet Vol. 10.4 fl (6.2-12.0); Monocyte# 0.61 X10^3/uL; Monocyte% 8.7 % (0-10); NRBC Flagged by Analyzer 0 % (0-5); Neutrophil # 4.49 X10^3/uL (2.7-7.7); Neutrophil % 63.8 % (47-70); Platelet Count 291 K/mm3 (150-450); RBC Distribution Width CV 11.9 % (11.6-14.6); RBC Distribution Width SD 38.9 fl (35.1-43.9); Red Blood Count 4.87 M/mm3 (4.6-6.2)
[2022-02-21 13:12] LABS: Anion Gap 6 (5-15); BUN 17 mg/dL (7-18); BUN/Creat Ratio 20.1 RATIO (10-20); Calcium,Total 8.9 mg/dL (8.5-10.1); Chloride 106 mmol/L (98-107); Creatinine, Serum 0.84 mg/dL (0.70-1.30); EST Glomerular Filtration Rate 96 mL/min (>60); Est Glom Filt Rate - Afr Amer 116 mL/min (>60); Glucose 234 mg/dL (74-106); Sodium Level 140 mmol/L (136-145); Troponin-I HS (w/2H Reflex) 83 pg/mL (3.0-78.0)
--- NOTE | 2022-02-21 13:39 | HP.PCM.HOS_ITS ---
HPI - General General Date of Admission: 02/21/22 HPI Narrative JESSICA RANDALL, is a 71 M who presents to the hospital with chest pain. He says that he had chest pain for the first time in December while he was just sitting down and this led to an episode of emesis. Since then he has been having it intermittently but it seems to get also been getting more frequent recently. He says with these episode he gets shortness of breath and has difficulty breathing. He presented today because last night he developed some midsternal chest pain while having sex and this pain radiated to his jaw, and then he had a similar pain today while walking his dogs which also led to radiation to his jaw. He says that the pain today lasted for about 10 minutes and is now subsided. [facility] Medical History (Updated 02/21/22 @ 13:44 by CLEMENT Nash) Acute respiratory insufficiency BPH (benign prostatic hyperplasia) COVID-19 Erectile dysfunction GERD (gastroesophageal reflux disease) Hypokalemia Hyponatremia Meniere disease Obesity (BMI 35.0-39.9 without comorbidity) Psoriasis Home Medications citalopram 20 mg tablet 20 mg PO DAILY DEPRESSION 04/11/20 [History Last Taken 2 Days Ago ~04/09/20] ixekizumab 80 mg/mL subcutaneous auto-injector 80 mg SQ QMONTH AUTO IMMUNE 04/11/20 [History Last Taken 03/20/20] naproxen 500 mg tablet,delayed release 500 mg PO BID PAIN 04/11/20 [History Last Taken 2 Days Ago ~04/09/20] testosterone cypionate 200 mg/mL intramuscular oil 1 ml IM QMONTH TESTOSTERONE 04/11/20 [History Last Taken 1 Month Ago ~03/11/20] Allergy/AdvReac Type Severity Reaction Status Date / Time No Known Allergies Allergy Verified 02/21/22 12:11 Family History Father Small cell carcinoma Mother Sepsis Surgical History H/O knee surgery H/O rotator cuff surgery H/O shoulder surgery Social History (Updated 08/27/20 @ 11:[address] Ritesh Chou MD) Smoking Status: Current some day smoker tobacco type: cigars ROS Constitutional Constitutional: Denies chills, fatigue, fever(s) or malaise Eyes Eyes: Denies blurry vision ENT HEENT: Denies headache(s) or nasal discharge Cardiovascular Cardiovascular: Reports chest pain; Denies dyspnea on exertion or syncope Respiratory/Chest Respiratory/Chest: Reports shortness of breath at rest; Denies cough or shortness of breath with exertion Gastrointestinal Gastrointestinal: Denies constipation, diarrhea, nausea or vomiting Genitourinary Genitourinary: Denies dysuria Neurologic Neurologic: Denies focal weakness, numbness or tremor(s) Psychiatric Psychiatric: Denies anxiety or depression Vital Signs Vital Signs Vital Signs: 02/21/22 12:09 02/21/22 12:16 02/21/22 12:16 Temperature 97.0 F L Temperature Source Temporal Pulse Rate 76 76 Respiratory Rate 20 H 15 Respiratory Effort Normal Non-Labored Blood Pressure 172/116 H 158/72 H Blood Pressure Mean 134 100 Pulse Ox 98 Oxygen Delivery Method Room Air 02/21/22 12:36 Temperature Temperature Source Pulse Rate Respiratory Rate Respiratory Effort Blood Pressure Blood Pressure Mean Pulse Ox Oxygen Delivery Method Room Air Weight Weight: 255 lb Body Mass Index (BMI) 38.7 Physical Exam Narrative General: Alert, Oriented x3, Cooperative, No apparent distress HEENT: Atraumatic, PERRLA, EOMI, Normocephalic Oral: Moist Mucosa Neck: Supple, No JVD Lungs: Clear to auscultation, Normal air movement, No rhonchi, No wheeze, No rales Cardiovascular: Regular rate, Regular Rhythm, Normal S1, Normal S2, No murmurs Abdomen: Soft, Non Tender, Non-Distended, No Hepato-splenomegaly Extremities: No edema, Capillary Refill Less than 3 Seconds Skin: No rashes, No breakdown Musculoskeletal: No Tenderness to Palpation of Joints or Extremities Neurological: Cranial nerves II-XII grossly intact, Motor Exam 5/5 strength throughout, Sensory exam intact to light touch and pain Psych/Mental Status: Normal Affect, Appropriate Results Lab / Micro Data Result Diagrams: 02/21/22 12:35 02/21/22 12:35 Labs: Laboratory Results - last 24 hr 02/21/22 12:35: WBC 7.0, RBC 4.87, Hgb 15.2, Hct 43.9, MCV 90.1, MCH 31.2, MCHC 34.6, RDW Std Deviation 38.9, RDW Coeff of Arthur 11.9, Plt Count 291, MPV 10.4, Immature Gran % (Auto) 0.100, Neut % (Auto) 63.8, Lymph % (Auto) 24.4, [place] % (Auto) 8.7, Eos % (Auto) 2.3, Baso % (Auto) 0.7, Absolute Neuts (auto) 4.5, Absolute Lymphs (auto) 1.72, Nucleated RBC % 0 02/21/22 12:35: Sodium 140, Potassium 4.0, Chloride 106, Carbon Dioxide 28.0, Anion Gap 6, BUN 17, Creatinine 0.84, Estim Creat Clear Calc 80.30, Est GFR (MDRD) Af Amer 116, Est GFR (MDRD) Non-Af 96, BUN/Creatinine Ratio 20.1 H, Glucose 234 H, Calcium 8.9, Troponin I High Sens 83 H Radiology Impression Chest X-Ray 02/21/22 12:40 IMPRESSION: No active disease. Electronically Signed: Frank Vicente MD at 12:58 EDT , Assessment & Plan Assessment/Plan (1) Non-STEMI (non-ST elevated myocardial infarction): PLAN: Plan 1. Non-STEMI ? Fairly significant family history of cardiac disease in his father and grandfather ? Initial troponin on admission was 83, will recheck ? We will consult cardiology ? We will place him on a heparin drip ? He did receive a dose of aspirin in the ER ? Currently pain is resolved 2. Psoriasis ? Stable ? He is on monoclonal antibodies every month 3. Anxiety/depression ? Stable ? Continue citalopram DVT: Heparin drip Charges/Coding Visit Charges Inpatient E&M: 93372 Init Hosp L2
[2022-02-21] MEDS: Nitroglycerin SL (ED/IMG/CATH) 0.4 MG TABLET SL (14:17)
[2022-02-21] MEDS: HEPARIN/D5w 25,000 UNITS 25,000 UNITS/250 ML IV.SOLN. 16 UNITS CONT INF (14:29)
[2022-02-21] MEDS: Heparin Injection (Vial) 5,000 UNIT/ML VIAL 9500 UNIT IV (14:30)
[2022-02-21 14:38] LABS: International Normalized Ratio 1.1; Partial Thromboplast Time 25.7 Seconds (24.1-36.2); Prothrombin Time (Protime)PT. 14.1 SECONDS (11.7-14.9)
[2022-02-21 14:43] LABS: Reflex Troponin-HS? (from REC) Y
[2022-02-21 15:28] LABS: Troponin-I HS 149 pg/mL (3.0-78.0)
--- NOTE | 2022-02-21 15:39 | EKG12_ITS ---
Test Reason : CP REPEAT Blood Pressure : / mmHG Vent. Rate : 058 BPM Atrial Rate : 058 BPM P-R Int : 228 ms QRS Dur : 106 ms QT Int : 396 ms P-R-T Axes : 010 -09 030 degrees QTc Int : 388 ms Sinus bradycardia with 1st degree A-V block Nonspecific ST abnormality Abnormal ECG When compared with ECG of 21-FEB-2022 12:15, MANUAL COMPARISON REQUIRED, DATA IS UNCONFIRMED Confirmed by KRISTINE MIR, JESSICA ([id number]), multimedia editor DARA PEREZ ([id number]) on 02/22/2022 1:51:20 PM Referred By: Confirmed By:JESSICA CARMONA MD
[2022-02-21 18:46] LABS: Troponin-I HS 159 pg/mL (3.0-78.0)
[2022-02-21 21:38] LABS: Partial Thromboplast Time 105.7 Seconds (24.1-36.2)
[2022-02-22] VITALS (16 sets, daily range): BP systolic 98–151; BP diastolic 54–93; PULSE 57–96; RESP 16; TEMP 36.3–37.1; O2SAT 94–100
--- NOTE | 2022-02-22 05:00 | EKG12_ITS ---
Test Reason : AM EKG Blood Pressure : / mmHG Vent. Rate : 062 BPM Atrial Rate : 062 BPM P-R Int : 222 ms QRS Dur : 106 ms QT Int : 398 ms P-R-T Axes : -04 -12 010 degrees QTc Int : 403 ms Sinus rhythm with 1st degree A-V block Nonspecific ST abnormality Abnormal ECG When compared with ECG of 21-FEB-2022 16:19, MANUAL COMPARISON REQUIRED, DATA IS UNCONFIRMED Confirmed by KRISTINE MIR, JESSICA ([id number]), senior technical editor DARA PEREZ ([id number]) on 02/22/2022 1:50:34 PM Referred By: Confirmed By:JESSICA CARMONA MD
[2022-02-22 06:45] LABS: Absolute Neutrophil Count 3.9 X10^3/uL (2.0-7.7); Basophil# 0.06 X10^3/uL; Basophil% 0.9 % (0-1); Hematocrit 43.5 % (40-54); Hemoglobin 14.8 g/dL (13.0-16.5); Lymphocyte % 29.6 % (19-41); Mean Corpuscular Hgb 31.2 pg (27.0-32.0); Mean Corpuscular Volume 91.8 fL (80-94); Mean Platelet Vol. 10.3 fl (6.2-12.0); Monocyte# 0.61 X10^3/uL; NRBC Flagged by Analyzer 0 % (0-5); Neutrophil # 3.86 X10^3/uL (2.7-7.7); Neutrophil % 57.2 % (47-70); Platelet Count 262 K/mm3 (150-450); RBC Distribution Width CV 11.9 % (11.6-14.6); RBC Distribution Width SD 40.2 fl (35.1-43.9); Red Blood Count 4.74 M/mm3 (4.6-6.2); White Blood Count 6.8 K/mm3 (4.4-11.0)
[2022-02-22 07:05] LABS: Partial Thromboplast Time 42.8 Seconds (24.1-36.2)
[2022-02-22 07:09] LABS: Anion Gap 7 (5-15); BUN 20 mg/dL (7-18); BUN/Creat Ratio 25.1 RATIO (10-20); Calcium,Total 8.6 mg/dL (8.5-10.1); Chloride 103 mmol/L (98-107); EST Glomerular Filtration Rate 102 mL/min (>60); Est Glom Filt Rate - Afr Amer 124 mL/min (>60); Estimated Creatinine Clearance 84.31 ml/min; Glucose 193 mg/dL (74-106); Potassium 3.9 mmol/L (3.5-5.1); Sodium Level 138 mmol/L (136-145)
--- NOTE | 2022-02-22 08:02 | PCM.CONS.C ---
Assessment & Plan Assessment/Plan (1) Non-ST elevation TN (NSTEMI): PLAN: He does present with chest discomfort which is typical and concerning. He did have a non-ST elevation myocardial infarction. I would recommend at this time that we proceed with a left heart catheterization and depending on the findings further recommendations will be made. Addendum And cardiac catheterization today demonstrated normal left main coronary artery Left anterior descending artery with severe mid segment disease and also involving the first diagonal branch. Left circumflex artery with severe disease in the midsegment and second obtuse marginal branch. Dominant large right coronary artery with severe proximal to mid disease and severe distal disease. Preserved left ventricular systolic function. Next based on the above angiographic findings I would recommend coronary artery bypass surgery. Arrangements will be made to transfer the patient to a tertiary care facility for the above. HPI Consult Data Date of Consult: 02/22/22 HPI Narrative HPI Narrative: JESSICA RANDALL, is a 71 M who presents to the hospital with chest discomfort. He says that he first experienced it a few months ago and since then he has been having chest discomfort intermittently it appears to occur with exertion and goes away with rest. Last night he developed some chest discomfort while he was having some activity and it radiated to the jaw. He also had a similar discomfort when he was walking his dogs. He presented to the hospital his EKG was noted to be normal he has had no dizziness or diaphoresis no near syncope or syncope. He did have mildly abnormal cardiac enzymes. [facility] Medical History Acute respiratory insufficiency BPH (benign prostatic hyperplasia) COVID-19 Erectile dysfunction GERD (gastroesophageal reflux disease) Hypokalemia Hyponatremia Meniere disease Obesity (BMI 35.0-39.9 without comorbidity) Psoriasis Home Medications citalopram 20 mg tablet 20 mg PO DAILY DEPRESSION 04/11/20 [History Last Taken 2 Days Ago ~04/09/20] ixekizumab 80 mg/mL subcutaneous auto-injector 80 mg SQ QMONTH AUTO IMMUNE 04/11/20 [History Last Taken 03/20/20] naproxen 500 mg tablet,delayed release 500 mg PO BID PAIN 04/11/20 [History Last Taken 2 Days Ago ~04/09/20] testosterone cypionate 200 mg/mL intramuscular oil 1 ml IM QMONTH TESTOSTERONE 04/11/20 [History Last Taken 1 Month Ago ~03/11/20] metformin 500 mg tablet 500 mg PO BID 02/21/22 [History Last Taken Unknown] Allergy/AdvReac Type Severity Reaction Status Date / Time No Known Allergies Allergy Verified 02/21/22 12:11 Family History Father Small cell carcinoma Mother Sepsis Surgical History H/O knee surgery H/O rotator cuff surgery H/O shoulder surgery Social History Smoking Status: Current some day smoker tobacco type: cigars ROS Constitutional Constitutional: Denies fever(s) or weight loss Eyes Eyes: Reports systems reviewed and no addt'l complaints, except as documented ENT HEENT: Reports systems reviewed and no addt'l complaints, except as documented Cardiovascular Cardiovascular: Reports chest pain at rest and chest pain with activity; Denies dyspnea at rest, dyspnea on exertion, edema, palpitations or paroxysmal nocturnal dyspnea Respiratory/Chest Respiratory/Chest: Denies dyspnea on exertion, productive cough, shortness of breath at rest or shortness of breath with exertion Gastrointestinal Gastrointestinal: Denies change in bowel habits, nausea, vomiting or weight changes Genitourinary Genitourinary: Denies difficulty urinating Musculoskeletal Musculoskeletal: Denies joint stiffness or muscle weakness Integumentary Integumentary: Denies lesions Neurologic Neurologic: Denies dizziness or syncope Psychiatric Psychiatric: Denies anxiety Endocrine Endocrinology: Denies excessive sweating or fatigue Hematologic/Lymphatic Hematologic/Lymphatic: Denies anemia Allergic/Immunologic Allergic/Immunologic: Denies seasonal rhinorrhea Risk Stratification Risk Stratification Applicable: Yes Age >/= 65: Yes >/= 3 CAD Risk Factors (HTN, HLD, DM, family hx of CAD, or current smoker): No Aspirin Use in the Past 7 Days: No Severe Angina (>/= episodes in 24 hours): No EKG ST Changes >/= 0.5mm: No Positive Cardiac Marker: Yes SOHEILA Risk Stratification Score: 2 SOHEILA % Risk: 8% Risk Objective Data Vital Signs: Vital Signs Temp Pulse Resp BP Pulse Ox O2 Del Method 97.4 F L 67 16 124/69 H 98 Room Air 02/22/22 03:04 02/22/22 07:00 02/22/22 03:04 02/22/22 03:04 02/22/22 03:04 02/22/22 03:04 Oxygen Delivery Method Room Air Weight: 244 lb Body Mass Index (BMI) 37.0 Intake & Output: Intake and Output for Last 24 Hours 02/20/22 02/21/22 02/22/22 23:59 23:59 23:59 Intake Total 115.47 / 115.47 104.65 / 104.65 Balance 115.47 / 115.47 104.65 / 104.65 Lab / Micro Data Result Diagrams: 02/22/22 06:10 02/22/22 06:10 Labs: Laboratory Results - last 24 hr 02/21/22 12:35: WBC 7.0, RBC 4.87, Hgb 15.2, Hct 43.9, MCV 90.1, MCH 31.2, MCHC 34.6, RDW Std Deviation 38.9, RDW Coeff of Arthur 11.9, Plt Count 291, MPV 10.4, Immature Gran % (Auto) 0.100, Neut % (Auto) 63.8, Lymph % (Auto) 24.4, [place] % (Auto) 8.7, Eos % (Auto) 2.3, Baso % (Auto) 0.7, Absolute Neuts (auto) 4.5, Absolute Lymphs (auto) 1.72, Nucleated RBC % 0 02/21/22 12:35: Sodium 140, Potassium 4.0, Chloride 106, Carbon Dioxide 28.0, Anion Gap 6, BUN 17, Creatinine 0.84, Estim Creat Clear Calc 80.30, Est GFR (MDRD) Af Amer 116, Est GFR (MDRD) Non-Af 96, BUN/Creatinine Ratio 20.1 H, Glucose 234 H, Calcium 8.9, Troponin I High Sens 83 H 02/21/22 14:10: PT 14.1, INR 1.1, APTT 25.7 02/21/22 14:50: Troponin I High Sens 149 H* 02/21/22 18:02: Troponin I High Sens 159 H* 02/21/22 20:41: APTT 105.7 H* 02/22/22 06:10: WBC 6.8, RBC 4.74, Hgb 14.8, Hct 43.5, MCV 91.8, MCH 31.2, MCHC 34.0, RDW Std Deviation 40.2, RDW Coeff of Arthur 11.9, Plt Count 262, MPV 10.3, Immature Gran % (Auto) 0.300, Neut % (Auto) 57.2, Lymph % (Auto) 29.6, [place] % (Auto) 9.0, Eos % (Auto) 3.0, Baso % (Auto) 0.9, Absolute Neuts (auto) 3.9, Absolute Lymphs (auto) 2.00, Nucleated RBC % 0 02/22/22 06:10: Sodium 138, Potassium 3.9, Chloride 103, Carbon Dioxide 28.0, Anion Gap 7, BUN 20 H, Creatinine 0.80, Estim Creat Clear Calc 84.31, Est GFR (MDRD) Af Amer 124, Est GFR (MDRD) Non-Af 102, BUN/Creatinine Ratio 25.1 H, Glucose 193 H, Calcium 8.6 02/22/22 06:10: APTT 42.8 H Cardiology Labs/Tests 02/21/22 12:35: WBC 7.0, RBC 4.87, Hgb 15.2, Hct 43.9, MCV 90.1, MCH 31.2, MCHC 34.6, Plt Count 291, MPV 10.4, Immature Gran % (Auto) 0.100, Neut % (Auto) 63.8, Lymph % (Auto) 24.4, [place] % (Auto) 8.7, Eos % (Auto) 2.3, Baso % (Auto) 0.7, Absolute Neuts (auto) 4.5, Nucleated RBC % 0 02/21/22 12:35: Sodium 140, Potassium 4.0, Chloride 106, Carbon Dioxide 28.0, Anion Gap 6, BUN 17, Creatinine 0.84, Est GFR (MDRD) Af Amer 116, Est GFR (MDRD) Non-Af 96, BUN/Creatinine Ratio 20.1 H, Glucose 234 H, Calcium 8.9 02/21/22 14:10: PT 14.1, INR 1.1, APTT 25.7 02/21/22 20:41: APTT 105.7 H* 02/22/22 06:10: WBC 6.8, RBC 4.74, Hgb 14.8, Hct 43.5, MCV 91.8, MCH 31.2, MCHC 34.0, Plt Count 262, MPV 10.3, Immature Gran % (Auto) 0.300, Neut % (Auto) 57.2, Lymph % (Auto) 29.6, [place] % (Auto) 9.0, Eos % (Auto) 3.0, Baso % (Auto) 0.9, Absolute Neuts (auto) 3.9, Nucleated RBC % 0 02/22/22 06:10: Sodium 138, Potassium 3.9, Chloride 103, Carbon Dioxide 28.0, Anion Gap 7, BUN 20 H, Creatinine 0.80, Est GFR (MDRD) Af Amer 124, Est GFR (MDRD) Non-Af 102, BUN/Creatinine Ratio 25.1 H, Glucose 193 H, Calcium 8.6 02/22/22 06:10: APTT 42.8 H Rhythm: EKG: ECHO: Stress Test: Cardiac Cath: PCI: CT Surgery: Holter monitor: EPS: PPM: CXR: Chest CT Scan: Radiography Diagnostic Testing: Radiology Impression Chest X-Ray 02/21/22 12:40 IMPRESSION: No active disease. Electronically Signed: Frank Vicente MD at 12:58 EDT ,
--- NOTE | 2022-02-22 08:04 | PN.HOSP_ITS ---
Subjective Subjective Follow-up for non-STEMI. Patient is admitted with chest discomfort. Patient had chest pressure/discomfort started few months ago that intermittently, worse with exertion, relieved with rest. Admitted yesterday but last night on exertion with radiation to jaw. Chest pain characteristic is of unstable angina quality Objective Data Objective Data Vital Signs: Vital Signs Temp Pulse Resp BP Pulse Ox O2 Del Method 97.4 F L 67 16 124/69 H 98 Room Air 02/22/22 03:04 02/22/22 07:00 02/22/22 03:04 02/22/22 03:04 02/22/22 03:04 02/22/22 03:04 Oxygen Delivery Method Room Air Weight: 244 lb Body Mass Index (BMI) 37.0 Intake & Output: Intake and Output for Last 24 Hours 02/20/22 02/21/22 02/22/22 23:59 23:59 23:59 Intake Total 115.47 / 115.47 104.65 / 104.65 Balance 115.47 / 115.47 104.65 / 104.65 Lab / Micro Data Result Diagrams: 02/22/22 06:10 02/22/22 06:10 Labs: Laboratory Results - last 24 hr 02/21/22 12:35: WBC 7.0, RBC 4.87, Hgb 15.2, Hct 43.9, MCV 90.1, MCH 31.2, MCHC 34.6, RDW Std Deviation 38.9, RDW Coeff of Arthur 11.9, Plt Count 291, MPV 10.4, Immature Gran % (Auto) 0.100, Neut % (Auto) 63.8, Lymph % (Auto) 24.4, [place] % (Auto) 8.7, Eos % (Auto) 2.3, Baso % (Auto) 0.7, Absolute Neuts (auto) 4.5, Absolute Lymphs (auto) 1.72, Nucleated RBC % 0 02/21/22 12:35: Sodium 140, Potassium 4.0, Chloride 106, Carbon Dioxide 28.0, Anion Gap 6, BUN 17, Creatinine 0.84, Estim Creat Clear Calc 80.30, Est GFR (MDRD) Af Amer 116, Est GFR (MDRD) Non-Af 96, BUN/Creatinine Ratio 20.1 H, Glucose 234 H, Calcium 8.9, Troponin I High Sens 83 H 02/21/22 14:10: PT 14.1, INR 1.1, APTT 25.7 02/21/22 14:50: Troponin I High Sens 149 H* 02/21/22 18:02: Troponin I High Sens 159 H* 02/21/22 20:41: APTT 105.7 H* 02/22/22 06:10: WBC 6.8, RBC 4.74, Hgb 14.8, Hct 43.5, MCV 91.8, MCH 31.2, MCHC 34.0, RDW Std Deviation 40.2, RDW Coeff of Arthur 11.9, Plt Count 262, MPV 10.3, Immature Gran % (Auto) 0.300, Neut % (Auto) 57.2, Lymph % (Auto) 29.6, [place] % (Auto) 9.0, Eos % (Auto) 3.0, Baso % (Auto) 0.9, Absolute Neuts (auto) 3.9, Absolute Lymphs (auto) 2.00, Nucleated RBC % 0 02/22/22 06:10: Sodium 138, Potassium 3.9, Chloride 103, Carbon Dioxide 28.0, Anion Gap 7, BUN 20 H, Creatinine 0.80, Estim Creat Clear Calc 84.31, Est GFR (MDRD) Af Amer 124, Est GFR (MDRD) Non-Af 102, BUN/Creatinine Ratio 25.1 H, Glucose 193 H, Calcium 8.6 02/22/22 06:10: APTT 42.8 H Radiography Diagnostic Testing: Radiology Impression Chest X-Ray 02/21/22 12:40 IMPRESSION: No active disease. Physical Exam Narrative General: Alert, Oriented x3, Cooperative HEENT: Atraumatic, PERRLA, EOMI, Normocephalic Oral: No Gingival or Mucosal Lesions/ Ulcerations Neck: Supple, No JVD, Negative Carotid Bruits Lungs: Air entry diminished in bilateral lung bases. No crepitation/rhonchi Cardiovascular: Regular rate, Regular Rhythm, Normal S1, Normal S2, No murmurs Abdomen: Bowel Sounds Present, Soft, Non Tender, Non-Distended : No renal angle tenderness. No suprapubic tenderness. Extremities: No edema, Capillary Refill Less than 3 Seconds Skin: Right radial artery access for cath. No hematoma. No bruise Musculoskeletal: No Tenderness to Palpation of Joints or Extremities Neurological: Cranial nerves II-XII grossly intact, DTR 2+/4 and Symmetrical, Neuro grossly intact Psych/Mental Status: Normal Affect, Appropriate. Assessment & Plan Assessment/Plan (1) Non-STEMI (non-ST elevated myocardial infarction): PLAN: Plan This is a 71-year-old gentleman admitted with chest pressure started few months ago intermittently but got worse on exertion 1 day before admission. Troponins elevated. 1. Non-STEMI: Patient is admitted in PCU. EKG does not show acute ST-T changes. Troponins elevated. Discussed with the oracle developer. Heparin drip discontinued prior to heart cath. On aspirin. BP and heart rate normal, heart rate 65/min. Nitro as needed. Patient cardiac cath which shows LVEF 60% by LV gram. Normal LV wall motion and systolic function. Severe triple-vessel disease with preserved LV systolic function. Surgery consult for coronary revascularization recommended. Dr. Gagnon is facilitating transfer to [facility] after discussion with surgeon. Cath findings discussed with the patient 2. Psoriasis ? Stable ? He is on monoclonal antibodies every month 3. Anxiety/depression ? Stable ? Continue citalopram DVT: Heparin drip discontinued prior to heart cath Charges/Coding Visit Charges Inpatient E&M: 09745 Subs Hosp L2
[2022-02-22] MEDS: 0.9% Saline Lock 10 ML Syringe IV (09:00)
--- NOTE | 2022-02-22 10:27 | NURSING ---
Called report to Mario in laboratory aide
--- NOTE | 2022-02-22 11:35 | CASEMGMT ---
Patient has a Healthcare Power of Quality Control Auditor and a Healthcare Living Will on file at [facility]. Patient's son Bacilio is his Healthcare Power of Quality Control Auditor. Katya HAY
--- NOTE | 2022-02-22 12:21 | CL.D_ITS ---
Patient Name: JESSICA RANDALL Study Date: 02/22/2022 Performing: Jabari Gagnon MD Ht: 68 inches 172.72 cm : 1950 Wt: 244.01 lbs 110.68 kg Age: 71 Gender: male BSA: 2.22 PROCEDURE(S) PERFORMED [id number])LHC/COR/LV CLINICAL PROFILE AND INDICATIONS Indications: Suspected CAD Heart Failure: None Stress/Imaging Stress/Image Study Performed: No CONCLUSIONS Severe triple-vessel disease with preserved left ventricular systolic function RECOMMENDATIONS Surgery consult for coronary revascularization DESCRIPTION OF PROCEDURE The patient arrived to the procedure lab. The risks and benefits of the procedure as well as a full description of our services here and current unavailability of surgical backup were fully explained to the patient and/or their significant other prior to the catheterization. The Timeout was completed, verifying the correct patient and procedure. The patient's procedural site was prepped and draped in the usual fashion. Local anesthetic was given subcutaneously to right radial region with Lidocaine 2%. Local anesthetic was given subcutaneously to right groin region with Lidocaine 2%. Using a modified Seldinger technique, arterial access was obtained via the right radial artery, a 6Fr sheath was inserted., arterial access was obtained via the right femoral artery, a 5Fr sheath was inserted. Left Coronary Artery selective angiography was performed in multiple views using a 5 Fr. 4.0 Stanley catheter. Right Coronary Artery selective angiography was then performed in multiple views using a 5 Fr. 3DRC (Felix) catheter. Right Coronary Artery selective angiography was then performed in multiple views using a 5 Fr. JR 5 catheter. Left Ventriculography was performed in PEGUERO projection using a 5 Fr. Pigtail catheter.The arterial sheath was pulled and a TR Band was applied for hemostasis CORONARY ANGIOGRAPHY DOMINANCE: Right Dominant LEFT HEART ASSESSMENT Left Ventricular Ejection Fraction: by LV Gram 60 % Normal LV wall motion Normal Left Ventricular systolic function LEFT MAIN: Angiographically normal LEFT ANTERIOR DESCENDING ARTERY: This is a severely diseased vessel with a first diagonal vessel with 80% proximal stenosis and a mid 80 to 90% stenotic lesion and distal 50% stenosis. CIRCUMFLEX ARTERY: This is a nondominant vessel but large with moderate proximal disease and moderate stenosis involving the first obtuse marginal branch for the second obtuse marginal branch diffusely diseased with high-grade stenosis of up to 80% and mid segment disease of the left circumflex artery up to 80%. 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 COMPLICATIONS No Complications PROCEDURE MEDICATIONS Fentanyl 50 mcg IV Versed 1 mg IV Versed 1 mg IV Fentanyl 25 mcg IV Oxygen: 2 L/min via nasal cannula Baby Aspirin (81mg) 1 Tabs PO @ 02/22/2022 11:02:47 Heparin given IA 02/22/2022 11:21:38 Verapamil 2.5mg, Ntg 100mcgs, 3000 units of Heparin given IA 02/22/2022 11:21:38 SUMMARY OF HEMODYNAMIC DATA Time AIR REST ECG 11:01:02 AO 91/54 (69) SA 11:26:58 AO 124/71 (92) 11:35:14 LV 139/7, 13 12:04:13 LV 135/7, 13 12:04:21 LV 121/4, 11 12:06:24 LV 123/6, 13 12:06:32 LVp 145/10, 17 12:07:55 AOp 147/73 (102) 12:08:02 Signed By Jabari Gagnon MD On 02/22/2022 12:21:07 Jabari Gagnon MD
--- NOTE | 2022-02-22 14:55 | DS.PCM_ITS ---
Providers Date of Admission: 02/21/22 Date of Discharge: 02/23/22 Primary Care Physician: Dr. Leeroy Thompson, Consultations 02/21/22 14:55 Consult: Cardiology Routine Consulting Provider: Svetlana Spear Reason for Consult: NSTEMI EMERGENT Consult: No MD Notified: Yes Date Notified: 02/21/22 Time Notified: 13:38 Method of Notification: ED Physician Initiated Reason For Visit: NSTEMI Diagnosis Discharge Diagnosis (1) Non-STEMI (non-ST elevated myocardial infarction): Status: Acute Code(s): I21.4 - Non-ST elevation (NSTEMI) myocardial infarction Medications at Discharge Home Medications citalopram 20 mg tablet 20 mg PO DAILY DEPRESSION 04/11/20 ixekizumab 80 mg/mL subcutaneous auto-injector 80 mg SQ QMONTH AUTO IMMUNE 04/11/20 naproxen 500 mg tablet,delayed release 500 mg PO BID PAIN 04/11/20 testosterone cypionate 200 mg/mL intramuscular oil 1 ml IM QMONTH TESTOSTERONE 04/11/20 metformin 500 mg tablet 500 mg PO BID 02/21/22 Hospital Course Summary of Care Provided Hospital Course: This is a 71-year-old gentleman admitted with chest pressure started few months ago intermittently but got worse on exertion 1 day before admission. Troponins elevated. Initial admitting diagnosis non-STEMI. 1. Non-STEMI: Patient was admitted in PCU. EKG does not show acute ST-T changes. Troponins elevated. President And Chief Operating Officer was consulted and discussed with him. Heparin drip discontinued prior to heart cath. On aspirin. BP and heart rate normal, heart rate 65/min. Nitro as needed. Patient cardiac cath which shows LVEF 60% by LV gram. Normal LV wall motion and systolic function. Severe triple-vessel disease with preserved LV systolic function. Surgery consult for coronary revascularization recommended. Dr. Gagnon for sleep. Transfer to [facility] after discussion with surgeon. Cath findings discussed with th e patient. Later on I talked to patient's accepting cardiac surgeon Dr. Ousmane Zamudio and exchanged clinical information about history, hospital course and [facility] findings. Patient does not have much comorbidities except psoriasis which is controlled. 2. Psoriasis ? Controlled ? He is on monoclonal antibodies every month 3. Anxiety/depression ? Does not have panic attack or acute severe depression. ? Continue citalopram DVT: Heparin ip discontinued prior to heart cath Transfer papers signed. Patient is being [facility]. Continue baby aspirin. Medication reconciliation done. Total time spent, exact 35 minutes on exchange of clinical information for transfer, meds reconciliation, examination, coordination of care with nurses and ancillary staff, review of imaging and blood test and discussion with the patient on follow-up instructions. Physical Exam Narrative Seen and examined on the day of discharge. Patient does not have chest pain or shortness of breath. Continue baby aspirin. General: Alert, Oriented x3, Cooperative HEENT: Atraumatic, PERRLA, EOMI, Normocephalic Oral: No Gingival or Mucosal Lesions/ Ulcerations Neck: Supple, No JVD, Negative Carotid Bruits Lungs: Air entry equal in bilateral lung bases. No crepitation/rhonchi Cardiovascular: Regular rate, Regular Rhythm, Normal S1, Normal S2, No murmurs Abdomen: Bowel Sounds Present, Soft, Non Tender, Non-Distended : No renal angle tenderness. No suprapubic tenderness. Extremities: No edema, Capillary Refill Less than 3 Seconds Skin: Right radial artery access for cath. No hematoma. No bruise Musculoskeletal: No Tenderness to Palpation of Joints or Extremities Neurological: Cranial nerves II-XII grossly intact, DTR 2+/4 and Symmetrical, Neuro grossly intact Psych/Mental Status: Normal Affect, Appropriate. Weight / BMI Weight Weight: 244 lb Body Mass Index (BMI) 37.0 ABG / Lab / Microbiology Data Result Diagrams: 02/23/22 07:05 02/23/22 05:55 Laboratory: Laboratory Results - last 24 hr 02/21/22 14:50: Troponin I High Sens 149 H* 02/21/22 18:02: Troponin I High Sens 159 H* 02/21/22 20:41: APTT 105.7 H* 02/22/22 06:10: WBC 6.8, RBC 4.74, Hgb 14.8, Hct 43.5, MCV 91.8, MCH 31.2, MCHC 34.0, RDW Std Deviation 40.2, RDW Coeff of Arthur 11.9, Plt Count 262, MPV 10.3, Immature Gran % (Auto) 0.300, Neut % (Auto) 57.2, Lymph % (Auto) 29.6, [place] % (Auto) 9.0, Eos % (Auto) 3.0, Baso % (Auto) 0.9, Absolute Neuts (auto) 3.9, Absolute Lymphs (auto) 2.00, Nucleated RBC % 0 02/22/22 06:10: Sodium 138, Potassium 3.9, Chloride 103, Carbon Dioxide 28.0, Anion Gap 7, BUN 20 H, Creatinine 0.80, Estim Creat Clear Calc 84.31, Est GFR (MDRD) Af Amer 124, Est GFR (MDRD) Non-Af 102, BUN/Creatinine Ratio 25.1 H, Glucose 193 H, Calcium 8.6 02/22/22 06:10: APTT 42.8 H Meaningful Use Info Meaningful Use Diagnoses (Choose all that apply): None applicable Discharge Plan Admission Admit Date/Time: 02/21/22 13:35 Attending Provider: Camilo Rodriguez Primary Care Provider: Leeroy Thompson Consulting Providers: Svetlana Spear ; Chucho Santos Discharge Orders/Prescriptions Prescriptions: No Action ixekizumab 80 MG/ML auto-injector 80 mg SQ QMONTH citalopram 20 MG tablet 20 mg PO DAILY naproxen 500 MG tablet,delayed release (DR/EC) 500 mg PO BID testosterone cypionate 200 MG/ML oil 1 ml IM QMONTH metformin 500 mg Tablet 500 mg PO BID Referrals / Follow Up: Leeroy Thompson DO [Primary Care Provider] - Disposition Discharge Orders: Discharge Patient (Routine); Ordered 02/22/22 Ordered By: Dr. Camilo Rodriguez Charges/Coding Visit Charges Inpatient E&M: 30456 Disch Hosp
[2022-02-23] VITALS (7 sets, daily range): BP systolic 100–116; BP diastolic 68–91; PULSE 83–95; RESP 16–18; TEMP 36.4–36.9; O2SAT 93–97
[2022-02-23] MEDS: Ondansetron 4 MG/2 ML Vial IV (00:03)
[2022-02-23] MEDS: 0.9% Saline Lock 10 ML Syringe IV (00:03)
[2022-02-23] MEDS: Morphine 2 MG/ML Syringe IV (02:25)
--- NOTE | 2022-02-23 02:30 | EKG12_ITS ---
Test Reason : CP Blood Pressure : / mmHG Vent. Rate : 091 BPM Atrial Rate : 091 BPM P-R Int : 198 ms QRS Dur : 102 ms QT Int : 352 ms P-R-T Axes : 032 -13 003 degrees QTc Int : 432 ms Normal sinus rhythm Nonspecific ST abnormality Abnormal ECG Confirmed by SUNDAR MIR, LUCIAN ([id number]), medical transcription editor SUNITA THOMAS ([id number]) on 02/24/2022 11:17:44 AM Referred By: RAQUEL Confirmed By:LUCIAN KWOK MD
[2022-02-23] MEDS: Nitroglycerin (INPATIENT USE) 0.4 MG TAB.SUBL SL (02:36)
[2022-02-23 07:01] LABS: Anion Gap 7 (5-15); BUN 17 mg/dL (7-18); BUN/Creat Ratio 21.4 RATIO (10-20); Calcium,Total 8.7 mg/dL (8.5-10.1); Chloride 107 mmol/L (98-107); EST Glomerular Filtration Rate 103 mL/min (>60); Est Glom Filt Rate - Afr Amer 124 mL/min (>60); Estimated Creatinine Clearance 84.31 ml/min; Glucose 175 mg/dL (74-106); Potassium 4.2 mmol/L (3.5-5.1); Sodium Level 137 mmol/L (136-145)
[2022-02-23 07:36] LABS: Hematocrit 42.9 % (40-54); Hemoglobin 14.9 g/dL (13.0-16.5); Mean Corp Hgb Conc 34.7 g/dL (32-36); Mean Corpuscular Hgb 31.4 pg (27.0-32.0); Mean Corpuscular Volume 90.3 fL (80-94); Mean Platelet Vol. 9.9 fl (6.2-12.0); Platelet Count 261 K/mm3 (150-450); RBC Distribution Width CV 11.8 % (11.6-14.6); RBC Distribution Width SD 38.7 fl (35.1-43.9); Red Blood Count 4.75 M/mm3 (4.6-6.2); White Blood Count 7.3 K/mm3 (4.4-11.0)
[2022-02-23 08:04] LABS: International Normalized Ratio 1.2; Partial Thromboplast Time 27.1 Seconds (24.1-36.2); Prothrombin Time (Protime)PT. 14.5 SECONDS (11.7-14.9)
[2022-02-23] MEDS: Aspirin E.C. 81 MG Tablet PO (10:25)
== END 2022-02-23 15:35 | disposition short-term general hospital (02) | DRG 282 ==
LOC: ED 13:59 → PCU 02-22 02:30
PROVIDERS: Internal Medicine Cardiovascular Disease; Physician Assistant; Admitting Provider Family Medicine; Emergency Provider Student in an Organized Health Care Education/Training Program; PCP Family Medicine; Visit Provider Internal Medicine
DX: I21.4 Non-ST elevation (NSTEMI) myocardial infarction (principal); E11.65 Type 2 diabetes mellitus with hyperglycemia; F17.290 Nicotine dependence, other tobacco product, uncomplicated; L40.9 Psoriasis, unspecified; F41.9 Anxiety disorder, unspecified; K21.9 Gastro-esophageal reflux disease without esophagitis; Z86.16 Personal history of COVID-19; F32.A Depression, unspecified; Z79.84 Long term (current) use of oral hypoglycemic drugs; Z79.82 Long term (current) use of aspirin; Z79.899 Other long term (current) drug therapy; E66.9 Obesity, unspecified; Z68.38 Body mass index [BMI] 38.0-38.9, adult; N40.0 Benign prostatic hyperplasia without lower urinary tract symptoms
CPT/HCPCS: 36415; 71045; 80048; 84484; 85025; 85027; 85610; 85730; 93005; 93458; 99152; 99153; 99285; 99406; J7050; Q9967; A4216; C1769; C1894; J2405

== ENCOUNTER 2022-03-19 17:30 | Inpatient (IN) | payer MEDICARE, OTHER, SELFPAY ==
[2022-03-19 17:47] VITALS: BP 123/78; PULSE 100; RESP 18; TEMP 36.6; O2SAT 95; BMI 34.2
[2022-03-19] MEDS: Atorvastatin Calcium 40 MG Tablet PO (21:18)
[2022-03-19] MEDS: APIXABAN 5 MG TABLET PO (21:18)
[2022-03-19] MEDS: Senna/Docusate Sodium 1 Tablet 2 TABLET PO (21:18)
[2022-03-19 21:34] VITALS: BP 118/73; PULSE 97
[2022-03-19] MEDS: Metoprolol Tartrate 25 MG Tablet 12.5 MG PO (21:34)
[2022-03-19 21:55] LABS: Bedside Glucose 142 mg/dL (74-106)
--- NOTE | 2022-03-20 03:59 | NURSING ---
Addendum entered by Francheska Cherry 03/20/22 06:48: pt was taking celexa 20 mg daily--not cymbalta Original Note: pt became tearful and upset when asked if he was sleeping well, pt stated he misses his dogs and is wondering if he will be able to take care of them, pt also stated that he hasnt been taking his cymbalta 20 mg daily that he was taking for years before the surgery.
[2022-03-20 06:50] LABS: Hemoglobin 10.9 g/dL (13.0-16.5); Mean Corpuscular Hgb 30.9 pg (27.0-32.0); Mean Corpuscular Volume 93.5 fL (80-94); Mean Platelet Vol. 10.4 fl (6.2-12.0); Platelet Count 380 K/mm3 (150-450); RBC Distribution Width CV 13.9 % (11.6-14.6); RBC Distribution Width SD 46.9 fl (35.1-43.9); Red Blood Count 3.53 M/mm3 (4.6-6.2); White Blood Count 7.1 K/mm3 (4.4-11.0)
[2022-03-20 07:10] LABS: Bedside Glucose 116 mg/dL (74-106)
[2022-03-20 07:23] VITALS: BP 103/69; PULSE 113; RESP 16; TEMP 36.7; O2SAT 98
[2022-03-20 07:27] LABS: ALB/GLOB Ratio 0.5 RATIO (0.9-2.4); AST(SGOT) 22 U/L (15-37); Alanine Aminotransfer ALT/SGPT 42 U/L (16-61); Albumin, Serum 2.7 g/dL (3.2-5.0); Alkaline Phosphatase 74 U/L (45-117); Anion Gap 5 (5-15); BUN 14 mg/dL (7-18); BUN/Creat Ratio 19.7 RATIO (10-20); Calcium,Total 9.6 mg/dL (8.5-10.1); Chloride 105 mmol/L (98-107); Creatinine, Serum 0.71 mg/dL (0.70-1.30); EST Glomerular Filtration Rate 116 mL/min (>60); Est Glom Filt Rate - Afr Amer 141 mL/min (>60); Estimated Creatinine Clearance 67.45 ml/min; Globulin 5.3 g/dL (2.2-4.2); Glucose 143 mg/dL (74-106); Phosphorus 3.2 mg/dL (2.5-4.9); Potassium 4.3 mmol/L (3.5-5.1); Sodium Level 137 mmol/L (136-145)
[2022-03-20 07:46] VITALS: PULSE 113
[2022-03-20] MEDS: Pantoprazole Sodium 40 MG Tablet PO (07:46)
[2022-03-20] MEDS: APIXABAN 5 MG TABLET PO ×2 (07:46→22:01)
[2022-03-20] MEDS: metFORMIN HCl 500 MG Tablet PO ×2 (07:46→17:16)
[2022-03-20] MEDS: Prenatal Vits Tablet 1 TABLET PO (07:46)
[2022-03-20] MEDS: Metoprolol Tartrate 25 MG Tablet 12.5 MG PO ×2 (07:46→22:02)
[2022-03-20] MEDS: Aspirin 81 MG TAB.CHEW PO (07:46)
[2022-03-20 08:00] VITALS: PULSE 115; RESP 15; O2SAT 98
[2022-03-20 08:04] VITALS: O2SAT 97
--- NOTE | 2022-03-20 10:54 | HP.PCM_ITS ---
[facility] - General General Date of Admission: 03/19/22 Date of Service: 03/20/22 Chief Complaint: Debility due to recent CABG with prolonged intubation (2 weeks) post op. HPI Narrative JESSICA RANDALL, is a 71 YO M with a PMH of diabetes mellitus type 2, hypertension, psoriasis, psoriatic arthritis, anxiety, hypogonadism and coronary artery disease. He presented to the emergency department at [facility] on 02/21/2022 c/o substernal CP with sex the preceding night and recurrent pain while walking his dogs that morning. He had been having intermittent chest pain since December 2021. The pain had been increasing in frequency and was a ssociated with shortness of breath. Troponin in the emergency room was elevated at 83. He was admitted to the hospital with a diagnosis of NSTEMI. Consultation was obtained with cardiology and a cardiac catheterization was recommended and performed. Catheterization showed severe triple-vessel disease with a preserved left ventricular systolic function. He was transferred to [facility] on 02/23/2022 and was seen by Dr. Ousmane Zamudio from cardiothoracic surgery. He was taken to surgery on 02/25/2022 and underwent coronary bypass grafting x5 with a left internal mammary A. graft to the left anterior descending and reverse saphenous vein grafts to the posterolateral branch, obtuse marginal #3, obtuse marginal #2 and diagonal branch. He was transferred to the acute inpt rehab unit at [facility] on 03/19/22 for 3 hours of therapy daily to restore function/independence at or near his level prior to CABG. All lab done this AM was personally reviewed. Hemoglobin is decreased at 10.9, more likely than not secondary to acute blood loss from recent surgery. The white blood cell count is within normal limits and platelets are also normal. The BUN is 14 with a creatinine of 0.51. Potassium is within normal limits at 4.3. Magnesium is 2 and the phosphorus is within normal limits. LFTs are unremarkable. Calcium corrected for hypoalbuminemia is high at 11.3. The medication list was reviewed. Blood sugar record was reviewed and the blood sugars so far have been less than 150. He is on Apixaban for DVT that developed in the left leg post-operatively. The Vein graft was harvested from the left leg. Has been off Celexa and is having trouble sleeping and emotional lability with tearful periods. His of 51 years suddenly in December. [facility] Medical History (Updated 03/22/22 @ 10:[address] Jo Ann Apple, ) Acute respiratory insufficiency, postoperative (02/25/22) Atherosclerosis of coronary artery without angina pectoris BPH (benign prostatic hyperplasia) COVID-19 Deep vein thrombosis of left lower extremity (02/28/22) Erectile dysfunction GERD (gastroesophageal reflux disease) Meniere disease Multiple pulmonary nodules Non-STEMI (non-ST elevated myocardial infarction) (02/21/22) Obesity (BMI 30.0-34.9) Psoriasis Tobacco use disorder Home Medications metformin 500 mg tablet 500 mg PO BID dm 02/21/22 [History Last Taken Unknown] acetaminophen 325 mg tablet (Tylenol) 650 mg PO Q6H PRN Pain 03/19/22 [History Last Taken Unknown] albuterol sulfate 2.5 mg/3 mL (0.083 %) solution for nebulization 2.5 mg inhalation Q6H PRN Wheezing 03/19/22 [History Last Taken Unknown] apixaban 5 mg tablet (Eliquis) 5 mg PO BID blood thinner 03/19/22 [History Last Taken Unknown] aspirin 81 mg chewable tablet 81 mg PO DAILY heart 03/19/22 [History Last Taken Unknown] atorvastatin 40 mg tablet 40 mg PO QHS cholesterol 03/19/22 [History Last Taken Unknown] budesonide 0.5 mg/2 mL suspension for nebulization 0.5 mg inhalation BID post cabg 03/19/22 [History Last Taken Unknown] hydrocodone-acetaminophen 5-325mg 5mg-325mg 1 tab PO Q8H PRN Pain 03/19/22 [History Last Taken Unknown] ipratropium 0.5 mg-albuterol 3 mg (2.5 mg base)/3 mL nebulization soln 3 ml inhalation Q6H PRN sob 03/19/22 [History Last Taken Unknown] metoprolol tartrate 25 mg tablet 12.5 mg PO BID bp 03/19/22 [History Last Taken Unknown] pantoprazole 40 mg tablet,delayed release (Protonix) 40 mg PO DAILY gerd 03/19/22 [History Last Taken Unknown] vit 122-ferrous fumarate 27 mg iron-folic acid 800 mcg tablet ( Multi) 1 tab PO DAILY vitamin 03/19/22 [History Last Taken Unknown] Allergy/AdvReac Type Severity Reaction Status Date / Time No Known Allergies Allergy Verified 02/21/22 12:11 Family History Father Small cell carcinoma Mother Sepsis Surgical History H/O coronary artery bypass surgery (02/25/22) H/O knee surgery H/O rotator cuff surgery H/O shoulder surgery History of left heart catheterization (02/22/22) Social History (Updated 03/20/22 @ 12:[address] Jo Ann Apple DO) household members: other details: Lives alone with his 2 dogs. passes away in December 2021. number of children: 2 current occupational status: retired current occupation: Retire [employer]. 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 pets and animals: Yes (2 dogs) leisure activities: other other: Likes motorcycles Smoking Status: Current some day smoker tobacco type: cigars per week: 1 substance use type: does not use what type of physical activity do you participate in: walking ROS Constitutional Constitutional: Reports change in weight, fatigue, poor appetite and weakness; Denies chills, fever(s) or night sweats Eyes Eyes: Denies blurry vision, change in vision, eye pain or loss of vision ENT HEENT: Reports post nasal drip and sore throat; Denies abnormal hearing, dysphagia, headache(s), hearing loss or nasal congestion Cardiovascular Cardiovascular: Reports dyspnea on exertion; Denies chest pain, edema, lightheadedness, orthopnea, palpitations, paroxysmal nocturnal dyspnea or syncope Respiratory/Chest Respiratory/Chest: Reports shortness of breath with exertion; Denies cough, dyspnea, shortness of breath at rest or wheezing Gastrointestinal Gastrointestinal: Reports constipation; Denies abdominal pain, diarrhea, dyspep tatyana, hematemesis, hematochezia, nausea or vomiting Genitourinary Genitourinary: Reports dysuria and urinary frequency; Denies hematuria, nocturia, urinary hesitancy, urinary incontinence or urinary urgency Musculoskeletal Musculoskeletal: Reports muscle weakness; Denies back pain, joint pain, joint sw elling, muscle cramps or neck pain Integumentary Integumentary: Denies jaundice or rash Neurologic Neurologic: Denies confusion, disequilibrium, dizziness, focal weakness, headache(s), paresthesias, restless legs, seizures, sensory deficit or tremor(s) Psychiatric Psychiatric: Reports abnormal sleep pattern, change in appetite, depression, difficulty concentrating and other Details: Insomnia ; Denies anxiety, homicidal ideation or suicidal ideation Endocrine Endocrinology: Denies change in body appearance, polydipsia or polyuria Hematologic/Lymphatic Hematologic/Lymphatic: Denies easy bleeding, easy bruising or lymphadenopathy Allergic/Immunologic Allergic/Immunologic: Reports rhinitis and other Details: Psoriasis and psoriatic arthritis ; Denies eczemia or asthma Vital Signs Vital Signs Vital Signs: 03/19/22 17:47 03/19/22 21:34 03/19/22 22:00 Temperature 97.8 F Temperature Source Oral Pulse Rate 100 97 Respiratory Rate 18 Respiratory Pattern Blood Pressure 123/78 H 118/73 Blood Pressure Mean 93 Blood Pressure Source Monitor Blood Pressure Position Semi-Fowlers Blood Pressure Location Left Arm Pulse Ox 95 Oxygen Delivery Method Room Air Room Air 03/20/22 07:23 03/20/22 07:46 03/20/22 08:04 Temperature 98.0 F Temperature Source Oral Pulse Rate 113 H 113 H Respiratory Rate 16 Respiratory Pattern Blood Pressure 103/69 Blood Pressure Mean 80 Blood Pressure Source Monitor Blood Pressure Position Sitting Blood Pressure Location Left Arm Pulse Ox 98 97 Oxygen Delivery Method Room Air 03/20/22 08:00 03/20/22 08:00 Temperature Temperature Source Pulse Rate 115 H Respiratory Rate 15 Respiratory Pattern Normal Blood Pressure Blood Pressure Mean Blood Pressure Source Blood Pressure Position Blood Pressure Location Pulse Ox 98 Oxygen Delivery Method Room Air Weight Weight: 224 lb 13.944 oz Body Mass Index (BMI) 34.2 Physical Exam Const alert, oriented x3 and no apparent distress Constitutional Narrative: He has a depressed affect and is tearful at times. Make good eye contact most of the time. He is cooperative and talkative. HEENT normocephalic and hearing grossly normal bilaterally HEENT Narrative: Dry MM Eyes PERRL, EOMs intact bilaterally, conjunctivae normal and no scleral icterus Neck no lymphadenopathy, supple and no carotid bruits General: trachea midline Chest Chest Narrative: The chest incisions are healing and there is no dehiscence, erythema or purulent DC. Resp normal respiratory effort and clear to auscultation bilaterally Resp Narrative: No conversational dyspnea. No accessory muscle use. Effort and Inspection: able to speak in complete sentences Cardio regular rhythm, S1 normal heart sound, S2 normal heart sound, no murmurs, no rub and no gallops Cardio Narrative: Increased resting heart rate. Denies lightheadedness and palpitations. GI normal to inspection, nondistended, normoactive bowel sounds, soft to palpation and non-tender GI Narrative: No guarding with palpation. No flank pain. no CVA tenderness Extremity full ROM, normal capillary refill, no calf tenderness and no pedal edema Skin General Skin Exam: no breakdown Rashes: no rashes Wound Narrative: All incisions in the chest and upper abdomen are healing and intact. There is no evidence of dehiscence, no erythema and no purulent discharge. Neuro oriented x3, CN's II-XII intact bilaterally and moves all extremities Psych mental status grossly normal, thought process normal, cooperative, activity/motor behavior normal, denies hallucinations, denies homicidal ideation and denies suicidal ideation Appearance: grossly normal and appropriate Attitude: calm Activity / Motor Behavior: appropriate eye contact; Negative for psychomotor agitation, psychomotor slowing, fidgetting or restless Speech: normal speech Mood & Affect: depressed and tearful Insight: insight good Results Lab / Micro Data Result Diagrams: 03/20/22 06:35 03/20/22 06:35 Labs: Laboratory Results - last 24 hr 03/19/22 21:26: POC Glucose 142 H 03/20/22 06:35: WBC 7.1, RBC 3.53 L, Hgb 10.9 L, Hct 33.0 L, MCV 93.5, MCH 30.9, MCHC 33.0, RDW Std Deviation 46.9 H, RDW Coeff of Arthur 13.9, Plt Count 380, MPV 10.4 03/20/22 06:35: Sodium 137, Potassium 4.3, Chloride 105, Carbon Dioxide 27.0, Anion Gap 5, BUN 14, Creatinine 0.71, Estim Creat Clear Calc 67.45, Est GFR (MDRD) Af Amer 141, Est GFR (MDRD) Non-Af 116, BUN/Creatinine Ratio 19.7, G lucose 143 H, Calcium 9.6, Phosphorus 3.2, Magnesium 2.0, Total Bilirubin 0.80, AST 22, ALT 42, Alkaline Phosphatase 74, Total Protein 8.0, Albumin 2.7 L, Globulin 5.3 H, Albumin/Globulin Ratio 0.5 L 03/20/22 06:51: POC Glucose 116 H Assessment & Plan Assessment/Plan (1) Debility: (2) Triple vessel coronary artery disease: PLAN: NSTEMI 02/21/22. (3) H/O coronary artery bypass surgery: PLAN: CABG X 5 on 02/25/22 at [facility]. Prolonged intubation post op. (4) Deep vein thrombosis of left lower extremity: PLAN: Will continue Apixaban. (5) Acute blood loss as cause of postoperative anemia: (6) Malnutrition: (7) Type II diabetes mellitus with complication: PLAN: Triple vessel CAD, S/P CABG x5. (8) Tobacco use disorder: PLAN: Smoking cessation counselling given and he was receptive. (9) Depression: PLAN: Restart Citalopram. in December of 2021 and he is tearful, depressed, not sleeping and not eating well. (10) Insomnia: PLAN: Start 50 mg of Trazodone at HS. PVR was 0. (11) Multiple pulmonary nodules: PLAN: Will need F/U CT scan in 3-6 months. Will refer to pulmonary medicine following DC from rehab. (12) Dysuria: PLAN: Plan PLAN PT for gait stability OT for ADL's ST for evaluation - had dysphagia following extubation Analgesics as needed Bowel protocol Fall precautions Assess for Anxiety/Depression - Restart Celexa 20 mg daily GI prophylaxis with pantoprazole Continue Apixaban for DVT LLE Follow up with Dr. Gagnon, PCP and Dr. Zamudio following DC from IP Rehab AM lab including CMP, CBC, Mag and Phos - all personally reviewed Check a UA and if he has pyuria get a urine culture No TALZ or Testosterone - he was taking Testosterone for ED. Tells me it really didn't work and he does not plan on resuming. Would consider Viagra or a similar drug in the future after healing has occured and he has discussed this with Dr. Gagnon. He prefers to follow up with cardiology in [place] rather than going to [facility]. Trazodone 50 mg AT HS for insomnia. UA and urine culture if any significant pyuria. Unit Exclusion This patient is an acute care inpatient being housed in the excluded unit because of capacity issues related to the disaster or emergency.: Yes Charges/Coding Visit Charges Inpatient E&M: 19882 Init Hosp L3
--- NOTE | 2022-03-20 11:16 | PCM.RU.PYE ---
Admission Information Primary Diagnosis:: Debility due to CABGX5 with prolonged intubation post operatively. Status Changes from Prescreening?: No changes Identified Actual Problem List:: DVT, Skin Intergrity, Depression, Alteration in Sleep, Mobility Impaired, Self Care Deficit, Diabetes, Hyperglycemia and Alteration-Leisure Activ. Potential Problem List:: DVT, Bleeding, Infection, UTI, Aspiration, Falls, Skin Integrity and Depression Risk of Complications DVT: AARTI Hose and - (Eliquis 5 mg p.o. every 12 hours.) Bleeding: Monitor Lab Values, Nursing to Teach Precautions for anti-coagulation therapy., Wound, if applicable, to be assessed every shift. and Stroke patients assessed for lethargy or change in status. Infection: Clinical Staff to Monitor for S/S of infection: and S/S of infection include fever, redness, warmth, etc. Urinary Tract Infection: Monitor for frequency, burning, discomfort, or incontinence. and Nursing will obtain urine sample for urinalysis and C&S when ordered. Aspiration: Clinical staff will monitor for coughing, drooling, congestion., Speech will evaluate swallowing and dsyphasia. and Nursing will monitor patient swallowing during meals. Falls: Patient will be evaluated for Fall Precautions and Patient will be placed on Fall Precautions as indicated per protocol. Skin Breakdown: Nursing will assess skin daily using assessment tool. and Nursing will place on Skin Breakdown Precautions as indicated. Pain: Clinical staff will assess patient's pain level per protocol., Medications will be given, if needed, and the pain level reassessed. and Other methods: Massage, distraction, decrease stimulus, etc. used PRN. Plan of Care Patient requires physician specializing in physical medicine and rehab oversight to provide close medical supervision of rehab issues including: Pain Management, Sleep Problems, Bowel and Bladder, Medical and co-morbidity Management, DVT prophylaxis, Rehabilitation Leadership and Coordination of treatment team Patient needs Physical Therapy: For a minimum of 1 hour and At least 5 out of 7 days Patient needs Physical Therapy to improve:: Mobility, Strengthening, Transfers, Stretching, ROM, Endurance, Stairs, Gait and Balance Patient needs Occupational Therapy: For a minimum of 1 hour and At least 5 out of 7 days Patient needs Occupational Therapy to improve ADL's incl.: Eating, Grooming, Bathing, Dressing, Toileting, Toilet transfers, Community Reintegration, Higher functioning activities, Household tasks, Adaptive Equipment, Splinting and Other activities as determined Patient requires speech therapy: For a minimum of 1 hour and At least 5 out of 7 days Patient requires speech therapy for: Swallowing, Cognition, Language Skills and Compensatory Strategies Patient requires 24/ Rehabilitation Nursing for: Pain Issues, Identifying and preventing risk factors, Monitoring and reporting current medical conditions, Assisting with ambulation, transfer, and all ADL's, Teaching patients about disease process and medications, Family teaching, Providing safe environment, Bowel and Bladder Issues, Skin integrity and Medication Management Patient needs Medical Charge Entry Specialist/ Case Management for: Discharge Planning, Arranging Home Equipment or Services and Family Interventions Patient needs Dietary and Nutrition Services for: Adequate Nutrition, Nutritional Supplements and Nutritional Education Goals Patient will remain: free from falls and or injury at time of discharge. Patient will perform bed mobility at: MOD I level of assist. Patient will complete transfers from bed to chair at: MOD I level of assist. Patient will ambulate: with LRD and - (150 feet) Patient will complete upper body dressing at: MOD I level of assist. Patient will complete lower body dressing at: MOD I level of assist. Patient will complete toileting at: MOD I level of assist. Patient will perform bathing at: MOD I level of assist. Patient will complete grooming at: MOD I level of assist. Patient will complete home management skills at: MOD I level of assist. Patient will achieve: - (1 curb step) Patient will have pain level of: of 3 or less Patient's skin will: remain intact Patient will receive: adequate nutrition. Discharge Planning Pt Prognosis for Sig. Practical Improv. w/in Reasonable Time: Good Estimated Length of stay (days): 21 Anticipated D/C Destination: Home Was Preadmission Assessment Accurate?: Yes
[2022-03-20 12:36] LABS: Bedside Glucose 129 mg/dL (74-106)
[2022-03-20] MEDS: Citalopram 20 MG Tablet PO (14:06)
[2022-03-20 14:10] LABS: Bacteria 0 SEEN /hpf (None Seen); Red Blood Cells-Urine 0 SEEN /hpf (0-5)
[2022-03-20 14:14] LABS: Color, Urine Yellow (Yellow); Glucose, Dipstick Normal (Normal); Ketone-Dipstick Negative (Negative); Leukocyte Esterase-Dipstick 25 /ul (Negative); Nitrite-Dipstick Negative (Negative); Occult Blood-Urine Negative /ul (Negative); Protein-Dipstick 15 mg/dl (Negative); Specific Gravity, Urine 1.015 (1.002-1.030); Urine Bilirubin Dipstick Negative (Negative); Urine Clarity Clear (Clear); Urine Urobilinogen Normal (Normal)
[2022-03-20 14:24] LABS: Mucous, Urine 1+ /hpf (<or=2+); Squamous Epithelial Cells - UA 0-5 SEEN /hpf (0-5)
[2022-03-20 14:25] LABS: White Blood Cells 0-5 SEEN /hpf (0-5)
[2022-03-20 16:21] LABS: Bedside Glucose 146 mg/dL (74-106)
[2022-03-20 21:55] VITALS: BP 111/61; PULSE 102; RESP 16; TEMP 36.6; O2SAT 96
[2022-03-20] MEDS: traZODone 50 MG Tablet PO (22:01)
[2022-03-20 22:02] VITALS: PULSE 102
[2022-03-20] MEDS: Atorvastatin Calcium 40 MG Tablet PO (22:02)
[2022-03-20 22:10] LABS: Bedside Glucose 153 mg/dL (74-106)
[2022-03-21 06:46] LABS: Bedside Glucose 135 mg/dL (74-106)
[2022-03-21 07:23] VITALS: BP 102/51; PULSE 95; RESP 16; TEMP 36.6; O2SAT 99
[2022-03-21 08:12] VITALS: PULSE 95
[2022-03-21] MEDS: Aspirin 81 MG TAB.CHEW PO (08:12)
[2022-03-21] MEDS: Pantoprazole Sodium 40 MG Tablet PO (08:12)
[2022-03-21] MEDS: Metoprolol Tartrate 25 MG Tablet 12.5 MG PO ×2 (08:12→20:48)
[2022-03-21] MEDS: metFORMIN HCl 500 MG Tablet PO ×2 (08:12→17:15)
[2022-03-21] MEDS: Prenatal Vits Tablet 1 TABLET PO (08:12)
[2022-03-21] MEDS: APIXABAN 5 MG TABLET PO ×2 (08:13→20:47)
[2022-03-21] MEDS: Citalopram 20 MG Tablet PO (08:16)
[2022-03-21 08:28] VITALS: O2SAT 96
[2022-03-21 12:35] LABS: Bedside Glucose 135 mg/dL (74-106)
[2022-03-21 17:31] LABS: Bedside Glucose 148 mg/dL (74-106)
[2022-03-21 19:57] VITALS: BP 121/90; PULSE 95; RESP 17; TEMP 36.7; O2SAT 91
[2022-03-21] MEDS: Atorvastatin Calcium 40 MG Tablet PO (20:47)
[2022-03-21] MEDS: traZODone 50 MG Tablet PO (20:47)
[2022-03-21 20:48] VITALS: BP 121/90; PULSE 95
[2022-03-21 21:50] LABS: Bedside Glucose 156 mg/dL (74-106)
[2022-03-22] VITALS (7 sets, daily range): BP systolic 105–138; BP diastolic 68–80; PULSE 76–98; RESP 16–18; TEMP 36.2–36.7; O2SAT 96–97
[2022-03-22 07:26] LABS: Bedside Glucose 133 mg/dL (74-106)
[2022-03-22] MEDS: APIXABAN 5 MG TABLET PO ×2 (08:16→21:42)
[2022-03-22] MEDS: Aspirin 81 MG TAB.CHEW PO (08:16)
[2022-03-22] MEDS: Pantoprazole Sodium 40 MG Tablet PO (08:16)
[2022-03-22] MEDS: Senna/Docusate Sodium 1 Tablet 2 TABLET PO (08:16)
[2022-03-22] MEDS: metFORMIN HCl 500 MG Tablet PO ×2 (08:16→16:13)
[2022-03-22] MEDS: Prenatal Vits Tablet 1 TABLET PO (08:16)
[2022-03-22] MEDS: Metoprolol Tartrate 25 MG Tablet 12.5 MG PO ×2 (08:16→21:41)
--- NOTE | 2022-03-22 09:25 | PN_ITS ---
Subjective Subjective Afebrile VSS Maintaining appropriate oxygen saturation on RA Oral intake is fair........ he has lost 19.1 pounds over the past month and has been diagnosed by the dietitian with severe, acute malnutrition due to acute illness. Intake is improving. He ate 75 to 100% of his breakfast this morning. The blood sugar record was reviewed and the blood sugars are well controlled with no hypoglycemia. Discussed with nursing - no problems that need addressed Reviewed the PT/OT/ST notes-he was advanced to regular textures with thin liquids over the weekend by speech therapy. Medication list reviewed. UA done Tuesday had 0-5 WBCs per high-power field and urine culture has no growth. J denies chest pain, shortness of breath, palpitations, lightheadedness, calf pain, dysuria, nausea/vomiting, diarrhea/constipation. He c/o trouble with thought process/memory since the surgery......ST notified and will evaluate cognitive function as well as follow for dysphagia. He tells me that he is sleeping well with Trazodone 50 mg and has no hangover in the AM. He had a visit with his dog yesterday and this cheered him up. He is having pain on the r foot with a stage I pressure ulcer between the 4th and 5th toes due to rubbing together. Objective Data Objective Data Vital Signs: Vital Signs Temp Pulse Resp BP Pulse Ox O2 Del Method 97.1 F L 95 16 106/68 97 Room Air 03/22/22 07:48 03/22/22 09:10 03/22/22 07:48 03/22/22 07:48 03/22/22 09:10 03/22/22 09:10 Oxygen Delivery Method Room Air Weight: 223 lb 12.8 oz Body Mass Index (BMI) 34.2 Intake & Output: Intake and Output for Last 24 Hours 03/20/22 03/21/22 03/22/22 23:59 23:59 23:59 Intake Total 1000 / 1000 1160 / 1160 480 / 480 Output Total 2500 / 2650 1000 / 1000 1150 / 1150 Balance -1500 / -1650 160 / 160 -670 / -670 Medical Nutrition Assessment Dietitian: Malnutrition Criteria Met Start: 03/20/22 11:30 Freq: Status: Active Protocol: Document 03/20/22 11:30 AG (Rec: 03/20/22 11:30 [id number]) Nutrition Malnutrition Evidence of Malnutrition Exists Yes Malnutrition (severe): Acute Illness/Injury Evidenced By Suboptimal Energy Intake ( Severe),Weight Loss (Severe) Clinical Problem Acute Disease or Injury Related Malnutrition Etiology severe, acute malnutrition r/t inadequate energy intake w/ acute illness Signs/Symptoms as evidenced by estimated energy intake meeting <75% of estimated energy needs x 1 month; unintentional 19.1#/8% wt loss x 1 month Status Active Problem Recommendation Dietitian Recommendations/Changes continue cardiac diet- textures/consistency per SENIOR SAS DEVELOPER; Consider CHO controlled diet if hyperglycemia evident; will defer ONS at this time until further PO intake is established. Pt states he would like to continue gradual wt loss. Lab / Micro Data Result Diagrams: 03/20/22 06:35 03/20/22 06:35 Labs: Laboratory Results - last 24 hr 03/21/22 12:10: POC Glucose 135 H 03/21/22 16:59: POC Glucose 148 H 03/21/22 21:28: POC Glucose 156 H 03/22/22 06:56: POC Glucose 133 H Micro: Microbiology 03/21/22 07:23 Urine, Clean Catch Urine Culture - Preliminary Culture exhibits no growth. Physical Exam Const alert, oriented x3 and no apparent distress Constitutional Narrative: Sitting in the recliner at the bedside and appears comfortable. General Appearance: cooperative HEENT moist oral mucous membranes Resp normal respiratory effort and clear to auscultation bilaterally Cardio regular rate, regular rhythm, S1 normal heart sound, S2 normal heart sound and no gallops GI normal to inspection, nondistended, normoactive bowel sounds, soft to palpation and non-tender Extremity no calf tenderness General Extremity: Negative for cyanosis or edema Skin General Skin Exam: no breakdown Rashes: no rashes Wound Narrative: All incisions are healing well with no erythema and no purulent DC. No dehiscence. On the R foot between the 4th and fifth toes he is noted to have a stage I pressure ulcer and a 2X2 gauze has been placed between his toes. Assessment & Plan Assessment/Plan (1) Debility: (2) H/O coronary artery bypass surgery: (3) Acute blood loss as cause of postoperative anemia: (4) Malnutrition: (5) Type II diabetes mellitus with complication: (6) Depression: (7) Stage I pressure ulcer: PLAN: Plan 1. Continue therapy 2. Change the Accu-Cheks to twice daily prior to breakfast and prior to supper. 3. Continue to place a gauze pad between the fourth and fifth toes of the right foot and continue to monitor for any progression of the pressure ulcer. Charges/Coding Visit Charges Inpatient E&M: 68197 Subs Hosp L2
[2022-03-22] MEDS: Citalopram 20 MG Tablet PO (10:20)
[2022-03-22 16:40] LABS: Bedside Glucose 131 mg/dL (74-106)
[2022-03-22] MEDS: traZODone 50 MG Tablet PO (21:42)
[2022-03-22] MEDS: Atorvastatin Calcium 40 MG Tablet PO (21:42)
[2022-03-23 06:40] LABS: Bedside Glucose 118 mg/dL (74-106)
[2022-03-23 08:05] VITALS: PULSE 90
[2022-03-23] MEDS: metFORMIN HCl 500 MG Tablet PO ×2 (08:05→16:46)
[2022-03-23] MEDS: Citalopram 20 MG Tablet PO (08:05)
[2022-03-23] MEDS: Metoprolol Tartrate 25 MG Tablet 12.5 MG PO ×2 (08:05→21:41)
[2022-03-23] MEDS: Pantoprazole Sodium 40 MG Tablet PO (08:05)
[2022-03-23] MEDS: Prenatal Vits Tablet 1 TABLET PO (08:05)
[2022-03-23] MEDS: Aspirin 81 MG TAB.CHEW PO (08:05)
[2022-03-23] MEDS: APIXABAN 5 MG TABLET PO ×2 (08:05→21:43)
[2022-03-23 08:16] VITALS: BP 92/63; PULSE 95; RESP 20; TEMP 36.8; O2SAT 93
--- NOTE | 2022-03-23 10:04 | PN_ITS ---
Subjective Subjective Afebrile VSS blood pressure today is on the low side at 92/63 however the mean arterial pressure is good at 72. Heart rate is in the 98 and 100 range. His only antihypertensive is metoprolol 12.5 mg p.o. twice daily. Maintaining appropriate oxygen saturation on RA Oral intake is improved Discussed with nursing - no problems that need addressed Reviewed the PT/OT/ST notes Medication list reviewed. Patrick tells me that he slept well last night. He denies lightheadedness, cephalgia, chest pain, shortness of breath, cough, nausea, vomiting, abdominal pain, dysuria, calf pain. He is having regular bowel movements. Overall he is feeling much better since he has had good sleep at night with the addition of Tr azodone to his drug regimen. No problems with urine retention. Starting to feel more + about going home. Objective Data Objective Data Vital Signs: Vital Signs Temp Pulse Resp BP Pulse Ox O2 Del Method 98.2 F 95 20 H 92/63 93 Room Air 03/23/22 08:16 03/23/22 08:16 03/23/22 08:16 03/23/22 08:16 03/23/22 08:16 03/23/22 08:16 Oxygen Delivery Method Room Air Weight: 223 lb 12.8 oz Body Mass Index (BMI) 34.2 Intake & Output: Intake and Output for Last 24 Hours 03/21/22 03/22/22 03/23/22 23:59 23:59 23:59 Intake Total 1160 / 1160 1040 / 1040 800 / 800 Output Total 1000 / 1000 2850 / 3200 600 / 600 Balance 160 / 160 -1810 / -2160 200 / 200 Medical Nutrition Assessment Dietitian: Malnutrition Criteria Met Start: 03/20/22 11:30 Freq: Status: Active Protocol: Document 03/20/22 11:30 AG (Rec: 03/20/22 11:30 [id number]) Nutrition Malnutrition Evidence of Malnutrition Exists Yes Malnutrition (severe): Acute Illness/Injury Evidenced By Suboptimal Energy Intake ( Severe),Weight Loss (Severe) Clinical Problem Acute Disease or Injury Related Malnutrition Etiology severe, acute malnutrition r/t inadequate energy intake w/ acute illness Signs/Symptoms as evidenced by estimated energy intake meeting <75% of estimated energy needs x 1 month; unintentional 19.1#/8% wt loss x 1 month Status Active Problem Recommendation Dietitian Recommendations/Changes continue cardiac diet- textures/consistency per SUPERVISOR INSPECTION ROOM; Consider CHO controlled diet if hyperglycemia evident; will defer ONS at this time until further PO intake is established. Pt states he would like to continue gradual wt loss. Lab / Micro Data Result Diagrams: 03/20/22 06:35 03/20/22 06:35 Labs: Laboratory Results - last 24 hr 03/22/22 16:15: POC Glucose 131 H 03/23/22 06:14: POC Glucose 118 H Micro: Microbiology 03/21/22 07:23 Urine, Clean Catch Urine Culture - Final Mixed Gram Positive Organisms Physical Exam Const alert, oriented x3 and no apparent distress Constitutional Narrative: Sitting in the recliner at the bedside. Pleasant. Talkative. General Appearance: cooperative Resp normal respiratory effort, normal air movement and clear to auscultation bilaterally Resp Narrative: Diminished in the bases somewhat. Effort and Inspection: Negative for tachypneic or respiratory distress Cardio regular rate, regular rhythm and no gallops GI normal to inspection, nondistended, normoactive bowel sounds, soft to palpation and non-tender Extremity Extremity Narrative: Trace ankle edema BL General Extremity: Negative for edema Skin General Skin Exam: no breakdown Rashes: no rashes Wound Narrative: The sternal incision is healing well and there is no edema and no DC from the incision. There is no erythema. There is dehiscence of the incision in the RUQ of the abd. There is no odor and no purulent DC. There is no significant erythema around the incision. All other incisions are healing and intact. Neuro CN's II-XII intact bilaterally and no focal motor deficits Psych thought process normal and cooperative Psych Narrative: No longer tearful. He is able to talk about his without crying. Appearance: appropriate Assessment & Plan Assessment/Plan (1) Debility: (2) Triple vessel coronary artery disease: (3) H/O coronary artery bypass surgery: (4) Acute blood loss as cause of postoperative anemia: (5) Deep vein thrombosis of left lower extremity: (6) Depression: PLAN: 1. Continue therapy 2. Continue Trazodone and Citalopram 3. Consult the wound care nurse for the wound dehiscence and apply steri strips today. 4. Recheck an HH prior to DC 5. Will need an US of the LLE in 3 months and if no clot would DC the Eliquis.....the DVT was provoked. 6. Wants to follow up with [facility] at DC. Will ask nursing to schedule and appt for him. (7) Surgical wound dehiscence: Charges/Coding Visit Charges Inpatient E&M: 52582 Subs Hosp L2
[2022-03-23 10:10] VITALS: BP 103/74; BP 113/65; BP 117/89; PULSE 100; PULSE 92; PULSE 99
[2022-03-23 17:20] LABS: Bedside Glucose 140 mg/dL (74-106)
[2022-03-23 21:26] VITALS: BP 101/63; PULSE 100; RESP 16; TEMP 36.8; O2SAT 98
[2022-03-23 21:41] VITALS: BP 101/63; PULSE 100
[2022-03-23] MEDS: traZODone 50 MG Tablet PO (21:41)
[2022-03-23] MEDS: Atorvastatin Calcium 40 MG Tablet PO (21:42)
[2022-03-23] MEDS: Senna/Docusate Sodium 1 Tablet 2 TABLET PO (21:42)
--- NOTE | 2022-03-24 04:17 | NURSING ---
Reviewed and agree with Boris BEAULIEU's, documentation and assessment charting.
[2022-03-24 07:26] LABS: Bedside Glucose 130 mg/dL (74-106)
[2022-03-24 08:00] VITALS: O2SAT 97
[2022-03-24 08:33] VITALS: BP 112/69; PULSE 89; RESP 16; TEMP 36.6; O2SAT 94
[2022-03-24 09:08] VITALS: BP 112/69; PULSE 89
[2022-03-24] MEDS: APIXABAN 5 MG TABLET PO ×2 (09:08→19:55)
[2022-03-24] MEDS: Prenatal Vits Tablet 1 TABLET PO (09:08)
[2022-03-24] MEDS: Metoprolol Tartrate 25 MG Tablet 12.5 MG PO ×2 (09:08→19:54)
[2022-03-24] MEDS: Pantoprazole Sodium 40 MG Tablet PO (09:08)
[2022-03-24] MEDS: metFORMIN HCl 500 MG Tablet PO ×2 (09:08→16:36)
[2022-03-24] MEDS: Citalopram 20 MG Tablet PO (09:08)
[2022-03-24] MEDS: Aspirin 81 MG TAB.CHEW PO (09:08)
--- NOTE | 2022-03-24 15:23 | WOUNDNOTE ---
wound photo: right upper abdomen
[2022-03-24 17:05] LABS: Bedside Glucose 115 mg/dL (74-106)
[2022-03-24 19:15] VITALS: BP 123/81; PULSE 90; RESP 16; TEMP 36.7; O2SAT 96
[2022-03-24 19:54] VITALS: PULSE 89
[2022-03-24] MEDS: Atorvastatin Calcium 40 MG Tablet PO (19:55)
[2022-03-24] MEDS: traZODone 50 MG Tablet PO (19:55)
[2022-03-25 06:56] LABS: Bedside Glucose 128 mg/dL (74-106)
[2022-03-25 07:27] VITALS: BP 104/52; PULSE 96; RESP 16; TEMP 36.1; O2SAT 100
[2022-03-25] MEDS: Prenatal Vits Tablet 1 TABLET PO (08:01)
[2022-03-25] MEDS: Citalopram 20 MG Tablet PO (08:01)
[2022-03-25] MEDS: metFORMIN HCl 500 MG Tablet PO ×2 (08:01→17:28)
[2022-03-25] MEDS: Aspirin 81 MG TAB.CHEW PO (08:01)
[2022-03-25 08:02] VITALS: BP 104/52; PULSE 96
[2022-03-25] MEDS: Pantoprazole Sodium 40 MG Tablet PO (08:02)
[2022-03-25] MEDS: Metoprolol Tartrate 25 MG Tablet 12.5 MG PO ×2 (08:02→21:11)
[2022-03-25] MEDS: APIXABAN 5 MG TABLET PO ×2 (08:02→21:11)
[2022-03-25] MEDS: Senna/Docusate Sodium 1 Tablet 2 TABLET PO (08:03)
--- NOTE | 2022-03-25 13:23 | CASEMGMT ---
Social Work IDT met with patient, dtr and son for Team meeting. Discussed patient's progress in PT/OT/ST/SN. Educated to Medicare approval of 11 days with DC 03/30. Pts goal is to return home. Offered outpatient or HHC, until pt follows up with Materials Clerk for possible order of cardiac rehab. recommending HHC. Pt agreeable. [facility] printed skilled HHC list of providers including quality and resource data via [employer]. No DME needs. Son to transport. Plan: DC home 03/30, HHC PT/OT/SN Mirella Conner, JADE MCKEONW
--- NOTE | 2022-03-25 16:27 | PCM.PROGNOTE ---
Subjective Subjective Patrick was seen on team rounds today. His son Bacilio was present in the room and his granddaughter. Afebrile VSS Maintaining appropriate oxygen saturation on RA Oral intake is good Discussed with nursing - no problems that need addressed Reviewed the PT/OT/ST notes Medication list reviewed. Patrick denies chest pain, shortness of breath at rest, palpitations, lightheadedness, calf pain, abdominal pain, fever/chills. He is sleeping well. He is complaining of some pain between the fourth and fifth toes on his right foot. Objective Data Objective Data Vital Signs: Vital Signs Temp Pulse Resp BP Pulse Ox O2 Del Method 97.0 F L 96 16 104/52 L 100 Room Air 03/25/22 07:27 03/25/22 08:02 03/25/22 07:27 03/25/22 08:02 03/25/22 07:27 03/25/22 07:27 Oxygen Delivery Method Room Air Weight: 225 lb 4.999 oz Body Mass Index (BMI) 34.2 Intake & Output: Intake and Output for Last 24 Hours 03/23/22 03/24/22 03/25/22 23:59 23:59 23:59 Intake Total 1440 / 1440 1540 / 1540 1340 / 1340 Output Total 2150 / 2150 1999 1350 / 1350 Balance -710 / -710 -460 / -460 -10 / -10 Medical Nutrition Assessment Dietitian: Malnutrition Criteria Met Start: 03/20/22 11:30 Freq: Status: Active Protocol: Document 03/20/22 11:30 (Rec: 03/20/22 11:30 [id number]) Nutrition Malnutrition Evidence of Malnutrition Exists Yes Malnutrition (severe): Acute Illness/Injury Evidenced By Suboptimal Energy Intake ( Severe),Weight Loss (Severe) Clinical Problem Acute Disease or Injury Related Malnutrition Etiology severe, acute malnutrition r/t inadequate energy intake w/ acute illness Signs/Symptoms as evidenced by estimated energy intake meeting <75% of estimated energy needs x 1 month; unintentional 19.1#/8% wt loss x 1 month Status Active Problem Recommendation Dietitian Recommendations/Changes continue cardiac diet- textures/consistency per DIESEL ENGINE ASSEMBLER; Consider CHO controlled diet if hyperglycemia evident; will defer ONS at this time until further PO intake is established. Pt states he would like to continue gradual wt loss. Lab / Micro Data Result Diagrams: 10/15/22 06:35 03/20/22 06:35 Labs: Laboratory Results - last 24 hr 03/24/22 16:35: POC Glucose 115 H 03/25/22 06:30: POC Glucose 128 H Micro: Microbiology 03/21/22 07:23 Urine, Clean Catch Urine Culture - Final Mixed Gram Positive Organisms Physical Exam Const alert, oriented x3 and no apparent distress General Appearance: cooperative Resp normal respiratory effort, normal air movement and clear to auscultation bilaterally Resp Narrative: air exchange in the bases is much better than at admission. He gets mildly SOB with exertion but, it is improving. Cardio regular rate, regular rhythm, no rub and no gallops GI GI Narrative: The wound in the RUQ of the abd has dehisced. There are Steri-Strips in place. The wound is healing. There is no discharge and there is no erythema. The wound does not appear to be infected. He was seen by the wound care nurse yesterday and the steri strips are in place and the margins of the incision are approximated well. Skin Rashes: no rashes Wound Narrative: there is a stage I pressure ulcer between the 4th and 5th toes on the R foot........I placed a 2X2 between the toes. Neuro CN's II-XII intact bilaterally and no focal motor deficits Assessment & Plan Assessment/Plan (1) Debility: PLAN: Continue therapy. Discharge is planned for 03/30/2022 and he will have home health care upon discharge. Will need to follow-up with cardiothoracic surgeon and will follow-up with [facility] for cardiology needs in the future. (2) H/O coronary artery bypass surgery: (3) Insomnia: PLAN: Resolved with the addition of trazodone to his drug regimen at night. (4) Malnutrition: PLAN: The dietitian is following along and providing supplements. He is also being educated on a proper diet, low-salt, carb control, low-fat. (5) Stage I pressure ulcer: PLAN: Continue padding the space between the 4th and 5th toes on the R foot........may need a shoe with a wider toe box in the future. (6) Surgical wound dehiscence: PLAN: No sign of infection and the margins are approximated well. Continue with the steri strips.....reapply today since they are not sticking well. PLAN: Plan I will complete his son's FMLA papers and return them to him. All questions were answered. Charges/Coding Visit Charges Inpatient E&M: 89713 Subs Hosp L2
[2022-03-25 17:50] LABS: Bedside Glucose 155 mg/dL (74-106)
[2022-03-25 21:08] VITALS: BP 101/75; PULSE 95; RESP 16; TEMP 36.8; O2SAT 96
[2022-03-25] MEDS: Atorvastatin Calcium 40 MG Tablet PO (21:10)
[2022-03-25] MEDS: traZODone 50 MG Tablet PO (21:10)
[2022-03-25 21:11] VITALS: PULSE 95
[2022-03-26 07:05] LABS: Bedside Glucose 121 mg/dL (74-106)
[2022-03-26] MEDS: Citalopram 20 MG Tablet PO (07:53)
[2022-03-26] MEDS: Prenatal Vits Tablet 1 TABLET PO (07:53)
[2022-03-26] MEDS: Pantoprazole Sodium 40 MG Tablet PO (07:53)
[2022-03-26] MEDS: metFORMIN HCl 500 MG Tablet PO ×2 (07:53→16:16)
[2022-03-26] MEDS: APIXABAN 5 MG TABLET PO ×2 (07:53→21:16)
[2022-03-26 07:54] VITALS: PULSE 87
[2022-03-26] MEDS: Aspirin 81 MG TAB.CHEW PO (07:54)
[2022-03-26] MEDS: Metoprolol Tartrate 25 MG Tablet 12.5 MG PO ×2 (07:54→21:18)
[2022-03-26 08:26] VITALS: BP 99/61; PULSE 98; RESP 16; TEMP 36.5; O2SAT 95
--- NOTE | 2022-03-26 09:44 | CASEMGMT ---
Social Work Followed up with pt on HHC agency. Pt prefers [facility]. Referral made via [facility]. Mirella Conner MSW GIRLS [employer] COACH
[2022-03-26 10:00] VITALS: PULSE 87; RESP 18; O2SAT 98
[2022-03-26 16:35] LABS: Bedside Glucose 123 mg/dL (74-106)
[2022-03-26 19:17] VITALS: BP 105/63; PULSE 80; RESP 17; TEMP 36.7; O2SAT 97
[2022-03-26 20:20] VITALS: O2SAT 98
[2022-03-26] MEDS: traZODone 50 MG Tablet PO (21:16)
[2022-03-26] MEDS: Senna/Docusate Sodium 1 Tablet 2 TABLET PO (21:16)
[2022-03-26] MEDS: Atorvastatin Calcium 40 MG Tablet PO (21:16)
[2022-03-26 21:18] VITALS: BP 118/71; PULSE 81
[2022-03-27 07:06] LABS: Bedside Glucose 134 mg/dL (74-106)
[2022-03-27 08:26] VITALS: BP 98/59; PULSE 85; RESP 16; TEMP 36.6; O2SAT 97
[2022-03-27 09:06] VITALS: PULSE 86
[2022-03-27] MEDS: APIXABAN 5 MG TABLET PO ×2 (09:06→22:26)
[2022-03-27] MEDS: Metoprolol Tartrate 25 MG Tablet 12.5 MG PO ×2 (09:06→22:25)
[2022-03-27] MEDS: metFORMIN HCl 500 MG Tablet PO ×2 (09:06→17:08)
[2022-03-27] MEDS: Pantoprazole Sodium 40 MG Tablet PO (09:07)
[2022-03-27] MEDS: Citalopram 20 MG Tablet PO (09:07)
[2022-03-27] MEDS: Prenatal Vits Tablet 1 TABLET PO (09:07)
[2022-03-27] MEDS: Aspirin 81 MG TAB.CHEW PO (09:07)
[2022-03-27 16:21] LABS: Bedside Glucose 147 mg/dL (74-106)
[2022-03-27 19:09] VITALS: BP 144/80; PULSE 83; RESP 18; TEMP 36.7; O2SAT 96
[2022-03-27 22:00] VITALS: PULSE 82; RESP 16; O2SAT 96
[2022-03-27 22:25] VITALS: PULSE 83
[2022-03-27] MEDS: Atorvastatin Calcium 40 MG Tablet PO (22:25)
[2022-03-27] MEDS: traZODone 50 MG Tablet PO (22:25)
--- NOTE | 2022-03-28 06:25 | NURSING ---
Nursing Staff assist x1 with pt to ambulate around unit for exercise.
[2022-03-28 06:40] LABS: Bedside Glucose 132 mg/dL (74-106)
[2022-03-28] MEDS: Prenatal Vits Tablet 1 TABLET PO (08:00)
[2022-03-28] MEDS: Pantoprazole Sodium 40 MG Tablet PO (08:00)
[2022-03-28] MEDS: metFORMIN HCl 500 MG Tablet PO ×2 (08:00→17:13)
[2022-03-28] MEDS: Aspirin 81 MG TAB.CHEW PO (08:00)
[2022-03-28] MEDS: APIXABAN 5 MG TABLET PO ×2 (08:00→20:48)
[2022-03-28 08:01] VITALS: PULSE 70
[2022-03-28] MEDS: Metoprolol Tartrate 25 MG Tablet 12.5 MG PO ×2 (08:01→20:47)
[2022-03-28] MEDS: Citalopram 20 MG Tablet PO (08:04)
[2022-03-28 10:00] VITALS: BP 124/70; PULSE 80; RESP 16; TEMP 36.6; O2SAT 96
[2022-03-28 16:25] LABS: Bedside Glucose 110 mg/dL (74-106)
[2022-03-28 19:36] VITALS: BP 126/76; PULSE 85; RESP 16; TEMP 36.7; O2SAT 98
[2022-03-28 20:47] VITALS: PULSE 83
[2022-03-28] MEDS: Senna/Docusate Sodium 1 Tablet 2 TABLET PO (20:47)
[2022-03-28] MEDS: traZODone 50 MG Tablet PO (20:48)
[2022-03-28] MEDS: Atorvastatin Calcium 40 MG Tablet PO (20:48)
[2022-03-28 22:00] VITALS: PULSE 67; RESP 16; O2SAT 96
[2022-03-29 06:56] LABS: Bedside Glucose 115 mg/dL (74-106)
[2022-03-29 07:17] VITALS: BP 102/63; PULSE 81; RESP 18; TEMP 36.8; O2SAT 93
[2022-03-29] MEDS: Prenatal Vits Tablet 1 TABLET PO (07:44)
[2022-03-29] MEDS: Pantoprazole Sodium 40 MG Tablet PO (07:45)
[2022-03-29] MEDS: Aspirin 81 MG TAB.CHEW PO (07:45)
[2022-03-29] MEDS: metFORMIN HCl 500 MG Tablet PO ×2 (07:45→17:10)
[2022-03-29] MEDS: Citalopram 20 MG Tablet PO (07:45)
[2022-03-29] MEDS: APIXABAN 5 MG TABLET PO ×2 (07:45→21:38)
[2022-03-29 10:37] VITALS: PULSE 80
[2022-03-29] MEDS: Metoprolol Tartrate 25 MG Tablet 12.5 MG PO ×2 (10:37→21:38)
--- NOTE | 2022-03-29 11:41 | PCM.PROGNOTE ---
Subjective Subjective Afebrile VSS Maintaining appropriate oxygen saturation on RA Oral intake is good Denies any urinary hesitancy and has no constipation. Discussed with nursing - no problems that need addressed Reviewed the PT/OT/ST notes - He is going to be able to set him pill boxes up with no assistance per ST. Medication list reviewed. Rafi complains of a little shortness of breath with exercise today however he has excellent pace and made several laps around the unit. He has no shortness of breath at rest and he denies orthopnea. He denies lightheadedness, palpitations, chest pain, nausea, calf pain, dysuria and abdominal pain. He tells me he is a little anxious about going home. Depression is improving and he was talking on the phone with a friend and only got tearful when talking about his dog. He is concerned about a cord in the Left medial distal thigh in the area of the vein harvest. I felt the area and it feels ropey. There is no erythema and no increased warmth to touch.......it may be a muscle or tissue reaction.......will re-examine prior to DC. Objective Data Objective Data Vital Signs: Vital Signs Temp Pulse Resp BP Pulse Ox O2 Del Method 98.2 F 80 18 102/63 93 Room Air 03/29/22 07:17 03/29/22 10:37 03/29/22 07:17 03/29/22 07:17 03/29/22 07:17 03/29/22 07:17 Oxygen Delivery Method Room Air Weight: 225 lb 15.581 oz Body Mass Index (BMI) 34.2 Intake & Output: Intake and Output for Last 24 Hours 03/27/22 03/28/22 03/29/22 23:59 23:59 23:59 Intake Total 2550 / 2550 1950 / 1950 120 / 120 Output Total 2800 / 2800 2100 / 2100 1000 / 1000 Balance -250 / -250 -150 / -150 -880 / -880 Medical Nutrition Assessment Dietitian: Malnutrition Criteria Met Start: 03/20/22 11:30 Freq: Status: Active Protocol: Document 03/26/22 12:50 SLA (Rec: 03/26/22 12:50 SLA [id number]) Nutrition Malnutrition Evidence of Malnutrition Exists Yes Malnutrition (moderate): Acute Illness/Injury Evidenced By Suboptimal Energy Intake ( Moderate),Weight Loss (Severe) Clinical Problem Acute Disease or Injury Related Malnutrition Etiology acute malnutrition r/t inadequate energy intake w/ acute illness Signs/Symptoms as evidenced by estimated energy intake meeting <75% of estimated energy needs x 1 month clinical studies specialist; 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 Status Active Problem Recommendation Dietitian Recommendations/Changes Continue Cardiac / CHO steady diet as ordered. Pt states he would like to continue gradual wt loss. Lab / Micro Data Result Diagrams: 03/20/22 06:35 03/20/22 06:35 Labs: Laboratory Results - last 24 hr 03/28/22 16:00: POC Glucose 110 H 03/29/22 06:32: POC Glucose 115 H Micro: Microbiology 03/21/22 07:23 Urine, Clean Catch Urine Culture - Final Mixed Gram Positive Organisms Physical Exam Const alert, oriented x3 and no apparent distress Constitutional Narrative: Making good eye contact. Pleasant and calm. General Appearance: cooperative HEENT moist oral mucous membranes Eyes PERRL and EOMs intact bilaterally Neck supple and no JVD Resp normal respiratory effort, normal air movement and clear to auscultation bilaterally Resp Narrative: Excellent air exchange in the bases now. Effort and Inspection: Negative for tachypneic Cardio regular rate, regular rhythm, no murmurs, no rub and no gallops Cardio Narrative: No ectopy GI normal to inspection, nondistended, normoactive bowel sounds, soft to palpation and non-tender GI Narrative: No guarding with palpation Extremity no clubbing, cyanosis or edema Extremity Narrative: He has no tenderness in the left medial thigh.....just concerned that it feels like a a cord and wonders if he should be concerned about it. No redness and no warmth to touch. Doubt DVT.......he is on Eliquis for a DVT in the L gastrocnemius M. It is in the area of the incision made for the saphenous V harvest. Reassured him this is not something to worry about......may be a muscle spasm or just tissue reaction form the VV harvest. Skin Skin Narrative: The wound dehiscence in the RUQ of the abd is healing and the steri strips have been effective and closing in incision. There is no erythema and no DC from the area and also no swelling. The area between the 4th and 5th toes on the R foot is doing better and the purple discoloration is minimal......it is no longer tender to touch. There is a tender area between the 3rd and 4th toe that is irritated by the nail rubbing against the medial side of the 3rd toe.....his nails are omid and will debride the nails prior to DC when I get the equipment I need. Neuro CN's II-XII intact bilaterally and no focal motor deficits Speech: speech normal Psych thought process normal and cooperative Psych Narrative: No tears today. Admits to being a little anxious about going home. Appearance: appropriate Assessment & Plan Assessment/Plan (1) Debility: (2) H/O coronary artery bypass surgery: (3) Acute blood loss as cause of postoperative anemia: (4) Deep vein thrombosis of left lower extremity: (5) Depression: (6) Insomnia: (7) Surgical wound dehiscence: (8) Stage I pressure ulcer: (9) Malnutrition: PLAN: Plan 1. DC tomorrow 2. RX is [facility] [place] 3. Has an appt scheduled for follow up with cardiothoracic surgery and will follow up with [facility] for cardiology care going forward. 4. will follow up with Dr. Thompson 5. Went over the medications he will be discharged on today and what they do. 6. will need a venous US of the LLE in 2 -3 months to evaluate the DVT in the gastrocnemius muscle........if the clot has resolved he will be able to come off the Eliquis at that time. 7. Check a CBC, BMP and mag today Charges/Coding Visit Charges Inpatient E&M: 03184 Subs Hosp L2
--- NOTE | 2022-03-29 12:14 | PCM.DC ---
Discharge Instructions Diet Discharge Diet: Low fat / Low cholesterol, 4000 mg Sodium Diet and Carb Control Diet Activity Discharge Activity: May Not Drive (No driving until released by the cardiothoracic surgeon.) and May Shower May resume sexual activity in: 8 weeks Weight Bearing Status: Full weight bearing Dressing / Incision Call your doctor if your incision/area has: Continuous Slow Oozing, Sudden Increased Bleeding, Increased Pain/ Swelling, Increased Redness, Foul Smelling Discharge and Swelling at the incision site Call your doctor if you observe: Fever of 101 or Higher, Inability to urinate, Shortness of breath, Dizziness, Fainting spells, Swelling in the ankles, Chest pain, Increased palpitations (irregular heartbeat), Calf discomfort and Uncontrolled pain Suture Line Care: Avoid Pulling/Pushing and Avoid Pinching/Bending Cleanse incision/area with: Soap & Water Additional Dressing/Incision Instructions:: Do not remove the steri strips....they will fall off by themselves. Follow Up Care Please Follow Up With: Leeroy Thompson DO When: 5-10 days. Test Results: Test results from this visit will be discussed in further detail at your follow-up appointment, if applicable. 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 Attending Provider: Jo Ann Apple Primary Care Provider: Leeroy Thompson Instructions Patient Instructions: DVT Dc, After Bypass Surg Cardiac Rehab, After Bypass Surg Recovery Additional Instructions / Restrictions: 1. The wound in the R upper abdomen is healing nicely. We put new steri strips on the wound prior to DC and they will fall off by themselves. IF the incision opens up again please see your PCP or call the heart surgeon's office. 2. Your blood sugars have been very good on your current diet and the Metformin (Glucophage) twice a day so stick to the recommendations the diet clerk gave you for eating a healthy diet. Learn to make better choices about the foods that you eat. 3. Get some exercise EVERY day. Do the exercises given to you by the therapists at least once a day. The heart doctor you will see on 04/05/22 will let you know when you can start cardiac rehab. At cardiac rehab they will gradually advance your exercise as your exercise tolerance improves. Do not sit for longer than 1 hour at home without getting up to take a walk in the house. 4. You had a blood clot in your left leg after the heart bypass. You are taking a blood thinner (also called an anticoagulant) called Eliquis and you will take this medication every 12 H. You will be on this medication for at least 3 months after the day of your surgery and Dr. Thompson will want to get and ultrasound of your left leg to make sure the clot is gone prior to discontinuing the Eliquis. Call your family doctor if any unusual bleeding such as bleeding from the gums, blood from the anus, blood in the urine, nose bleeds, large bruises or bleeding from the vagina if female. 5. You still need to be careful with the sternal incision......we certainly do NOT want that to breakdown. STERNAL PRECAUTIONS: a. Do NOT lift more than 8 lbs (this is roughly the weight of a gallon of milk. b. Do not pull with your arms. c. Shower daily and cleanse the incision with soap and water. d. No swimming or bathing in a bath tub. e. IF you notice any drainage from the incision call the cardiothoracic surgeon. f. Do NOT use any creams or lotions on the incision. JUST SOAP AND WATER. 6. It has been a pleasure meeting you and I am happy that we were able to help you recover from your heart surgery. Now you must do your part in taking care of yourself so the bypasses don't become occluded. there are some numbers I ALWAYS want you to know. a. Your HGBA1C (this tells us how good your blood sugar control is) should be less than 7.0. Carb control, exercise and wt loss help to bring the blood sugars down. b. The LDL (bad cholesterol) should be less than 70. c. Your BP should be less than 130/80. It is a good idea to have a BP cuff at home so you can monitor how well your BP is being controlled. 7. You had a CT scan of your chest that showed nodules. There are many things that can cause pulmonary nodules and there is no need to worry at this time. You may have had these for many years. Many people who live in the area of the [place] have pulmonary nodules. I recommend that you have a follow up CT scan of the chest in 3 months.......Dr. Thompson will be able to order this for you.....to see if the nodules are changing. 8. IF you have ANY questions after you leave the rehab unit please do not hesitate to call me. Office: [phone] Discharge Orders/Prescriptions Prescriptions: New trazodone 50 mg Tablet 50 mg PO QHS Qty: 30 0RF citalopram 20 mg Tablet 20 mg PO DAILY Qty: 30 0RF Continued metformin 500 mg Tablet 500 mg PO BID acetaminophen [Tylenol] 325 mg Tablet 650 mg PO Q6H PRN (Reason: Pain) aspirin 81 mg Tablet,Chewable 81 mg PO DAILY atorvastatin 40 mg Tablet 40 mg PO QHS Qty: 30 0RF Rx Instructions: Take this at bedtime to control cholesterol. hydrocodone-acetaminophen 5-325 mg Tablet 1 tab PO Q8H PRN (Reason: Pain) 7 Days Qty: 10 0RF pantoprazole [Protonix] 40 mg Tablet,Delayed Release (Dr/Ec) 40 mg PO DAILY Qty: 30 0RF metoprolol tartrate 25 mg Tablet 12.5 mg PO BID Qty: 30 0RF Rx Instructions: Take 1/2 tablet twice a day. apixaban 5 mg tablet 5 mg PO BID Qty: 60 0RF Multi 27-800 mg-mcg Tablet 1 tab PO DAILY Qty: 90 0RF Discontinued ipratropium-albuterol [DuoNeb] 0.5 mg-3 mg(2.5 mg base)/3 mL Solution For Nebulization 3 ml INHALATION Q6H PRN (Reason: sob) albuterol sulfate 2.5 mg /3 mL (0.083 %) Solution For Nebulization 2.5 mg INHALATION Q6H PRN (Reason: Wheezing) budesonide 0.5 mg/2 mL Suspension For Nebulization 0.5 mg INHALATION BID Referrals / Follow Up: [facility] [Other] - 04/07/22 10:30 am chest xray [Other] - 04/07/22 9:00 am [facility] [Provider Group] - 04/05/22 1:00 pm Leeroy Thompson DO [Primary Care Provider] - 04/02/22 2:50 pm Disposition Disposition (needs filled in before D/C Order can be placed): Home Health Service
[2022-03-29 16:20] LABS: Bedside Glucose 109 mg/dL (74-106)
[2022-03-29 16:31] LABS: Hematocrit 33.6 % (40-54); Hemoglobin 11.1 g/dL (13.0-16.5)
[2022-03-29 16:46] LABS: Anion Gap 4 (5-15); BUN 12 mg/dL (7-18); BUN/Creat Ratio 17.5 RATIO (10-20); Calcium,Total 9.3 mg/dL (8.5-10.1); Chloride 104 mmol/L (98-107); Creatinine, Serum 0.68 mg/dL (0.70-1.30); EST Glomerular Filtration Rate 122 mL/min (>60); Est Glom Filt Rate - Afr Amer 147 mL/min (>60); Estimated Creatinine Clearance 67.45 ml/min; Glucose 111 mg/dL (74-106); Magnesium 1.8 mg/dL (1.6-2.6); Potassium 3.9 mmol/L (3.5-5.1); Sodium Level 138 mmol/L (136-145)
[2022-03-29 20:51] VITALS: BP 101/56; PULSE 80; RESP 16; TEMP 36.7; O2SAT 97
[2022-03-29 21:38] VITALS: PULSE 83
[2022-03-29] MEDS: Atorvastatin Calcium 40 MG Tablet PO (21:38)
[2022-03-29] MEDS: traZODone 50 MG Tablet PO (21:38)
[2022-03-29 21:48] VITALS: PULSE 72; RESP 15; O2SAT 95
[2022-03-30 06:15] LABS: Bedside Glucose 114 mg/dL (74-106)
[2022-03-30 07:25] VITALS: BP 108/69; PULSE 82; RESP 16; TEMP 36.9; O2SAT 97
[2022-03-30 09:09] VITALS: PULSE 82
[2022-03-30] MEDS: Citalopram 20 MG Tablet PO (09:09)
[2022-03-30] MEDS: Metoprolol Tartrate 25 MG Tablet 12.5 MG PO (09:09)
[2022-03-30] MEDS: APIXABAN 5 MG TABLET PO (09:10)
[2022-03-30] MEDS: Prenatal Vits Tablet 1 TABLET PO (09:10)
[2022-03-30] MEDS: metFORMIN HCl 500 MG Tablet PO (09:10)
[2022-03-30] MEDS: Aspirin 81 MG TAB.CHEW PO (09:10)
[2022-03-30] MEDS: Pantoprazole Sodium 40 MG Tablet PO (09:10)
--- NOTE | 2022-03-30 14:05 | PCM.DC.SUM ---
Providers Date of Admission: 03/19/22 Date of Discharge: 03/30/22 Primary Care Physician: Dr. Leeroy Thompson DO Reason For Visit: CABG Diagnosis Discharge Diagnosis (1) Debility: Status: Acute Code(s): R53.81 - Other malaise (2) H/O coronary artery bypass surgery: Status: Acute Code(s): Z95.1 - Presence of aortocoronary bypass graft Plan: At [facility] by Dr. Zamudio on 02/25/22 (3) Acute blood loss as cause of postoperative anemia: Status: Acute Code(s): D62 - Acute posthemorrhagic anemia Plan: Stable at [place]. (4) Deep vein thrombosis of left lower extremity: Status: Acute Code(s): I82.402 - Acute embolism and thrombosis of unspecified deep veins of left lower extremity Plan: Left gastrocnemius vein postoperatively. Eliquis 5 mg BID at [place]. (5) Depression: Status: Acute Code(s): F32.A - Depression, unspecified Plan: Had been off Citalopram for almost a month at the time he arrived on rehab and it was restarted. (6) Insomnia: Status: Acute Code(s): G47.00 - Insomnia, unspecified Plan: Resolved with Trazodone 50 mg (7) Surgical wound dehiscence: Status: Acute Code(s): T81.31XA - Disruption of external operation (surgical) wound, not elsewhere classified, initial encounter Plan: RUQ of the abdomen incision. Healing with margins well approximated with steri strips at [place]. No infection. (8) Stage I pressure ulcer: Status: Acute Code(s): L89.91 - Pressure ulcer of unspecified site, stage 1 Plan: Between the R 4th and 5th toes. (9) Malnutrition: Status: Acute Code(s): E46 - Unspecified protein-calorie malnutrition (10) Type II diabetes mellitus with complication: Status: Acute Code(s): E11.8 - Type 2 diabetes mellitus with unspecified complications Plan: Well controlled on a carb control diet with Metformin 500 mg BID with NO hypoglycemia. (11) Multiple pulmonary nodules: Status: Acute Code(s): R91.8 - Other nonspecific abnormal finding of lung field Plan: He had COVID PNA in April of 2020. CT at that time showed diffuse BL ground glass infiltrates and no nodules. Nodules on the CT of the chest at [facility] in February of 2022 my be due to scarring from previous COVID infection. He should have a follow up CT chest in 3 months to make sure the nodules are not changing. (12) Tobacco use disorder: Status: Chronic Code(s): F17.200 - Nicotine dependence, unspecified, uncomplicated Plan: Occasional Cigar.......plans on quitting. Smoking cessation counselling was given. Plan 1. DC home with [facility] 2. RX 's faxed to [facility] in [place] 3. Has an appt scheduled for follow up with cardiothoracic surgery and will follow up with [facility] for cardiology care going forward. 4. Follow up with Dr. Thompson in 5-10 days 5. Went over the medications he will be discharged on again and what each medication is treating. 6. Will need a venous US of the LLE in 2 -3 months to evaluate the DVT in the gastrocnemius muscle........if the clot has resolved he will be able to come off the Eliquis at that time. Medications at Discharge Home Medications metformin 500 mg tablet 500 mg PO BID dm 02/21/22 acetaminophen 325 mg tablet (Tylenol) 650 mg PO Q6H PRN Pain 03/19/22 aspirin 81 mg chewable tablet 81 mg PO DAILY heart 03/19/22 apixaban 5 mg tablet 5 mg PO BID #60 tabs 03/30/22 atorvastatin 40 mg tablet 40 mg PO QHS cholesterol #30 tabs 03/30/22 citalopram 20 mg tablet 20 mg PO DAILY #30 tabs 03/30/22 hydrocodone-acetaminophen 5-325mg 5mg-325mg 1 tab PO Q8H PRN Pain 7 days #10 tabs 03/30/22 metoprolol tartrate 25 mg tablet 12.5 mg PO BID bp #30 tabs 03/30/22 pantoprazole 40 mg tablet,delayed release (Protonix) 40 mg PO DAILY gerd #30 tabs 03/30/22 vit 122-ferrous fumarate 27 mg iron-folic acid 800 mcg tablet ( Multi) 1 tab PO DAILY vitamin #90 tabs 03/30/22 trazodone 50 mg tablet 50 mg PO QHS #30 tabs 03/30/22 Hospital Course Operations - (CABG X 5 on 02/25/22 at [facility] by Dr. Zamudio. ) Procedures None Summary of Care Provided Minutes Spent on Discharge: 45 Hospital Course: JESSICA RANDALL, is a 71 YO M with a PMH of diabetes mellitus type 2, hypertension, psoriasis, psoriatic arthritis, anxiety, hypogonadism, ED and coronary artery disease.? He presented to the emergency department at [facility] on 02/21/2022 c/o substernal CP associated with MICHELLE and fatigue that had been recurring over the preceding few months with exertion.? The pain had been increasing in frequency and was associated with shortness of breath.? Troponin in the emergency room was elevated at 83.? He was admitted to the hospital with a diagnosis of NSTEMI.? Consultation was obtained with cardiology and a cardiac catheterization was recommended and performed.? Catheterization showed severe triple-vessel disease with a preserved left ventricular systolic fraction.? He was transferred to [facility] on 02/23/2022 and was seen by Dr. Ousmane Zamudio from cardiothoracic surgery.? He was taken to surgery on 02/25/2022 and underwent coronary bypass grafting x5 with a left internal mammary A. graft to the left anterior descending and reverse saphenous vein grafts to the posterolateral branch, obtuse marginal #3, obtuse marginal #2 and diagonal branch.?The saphenous vein graft was taken from the left lower extremity and J developed a DVT in the gastrocnemius muscle of the left lower extremity postoperatively. He was placed on Eliquis 5 mg p.o. twice daily. He was transferred to the acute inpt rehab unit at [facility] on 03/19/22 for 3 hours of therapy daily to restore function/independence at or near his level prior to CABG. He had a prolonged intubation following surgery and was on the ventilator for about [address] scan of the chest showed no pulmonary emboli but did show multiple pulmonary nodules which were not present on a CT chest done at [facility] in April 2020 when he had COVID. He was started on aerosolized bronchodilators and budesonide and eventually was extubated. At the time he arrived at rehab he was on room air. He was transferred to [facility] acute rehab unit on 03/20/2022 for 3 hours of therapy daily to restore independence/function at or near his level prior to the NSTEMI and CABG x5 vessels. He lives alone in [place] but, he has many relatives who live in [place] and will be able to help him at [place] from rehab. Jessica complained of insomnia at admission and he had been off citalopram which had been taking prior to the NSTEMI. He also c/o of feeling depressed and he was quite tearful. Citalopram was restarted and he was placed on Trazodone 50 mg at [place] and this was effective in resolving the insomnia. The small incision in the RUQ of the abdomen dehisced while he was in rehab and the margins were approximated with steri strips. There was no infection. At the time of discharge the wound was healing and the margins of the incision was intact. Jessica had no other complications while in rehab and did quite well. At the time of discharge she was able to ambulate 362 feet at mod I with a front wheeled walker. He was also able to do a curb step with a front wheel walker independently. He was independent with eating and grooming and required only minimal assistance with bathing. He was independent with upper body and lower body dressing. He was modified independent with toilet transfer and standby assist for toileting. He was also standby assist for tub/shower transfer. He was discharged home on 03/30/2022 and will have home health care with [facility] health care agency. He has a follow-up appointment with cardiothoracic surgery scheduled and also a follow-up appointment with CLEMENT Scales from the [facility] for ongoing cardiology care. He will see Dr. Thompson in 5 to 10 days. He will need a lipid panel and liver panel in mid April. His blood sugars are under excellent control on a carb controlled diet with low fat and low salt. He will need a follow-up left lower extremity ultrasound in 2 to 3 months to make sure the clot has resolved. He will also need a CT scan of his chest in 3 months to document stability of the pulmonary nodules. The nodules may be a result of COVID-pneumonia which she had in April 2020 with diffuse groundglass infiltrates. Physical Exam Const alert, oriented x3 and no apparent distress Constitutional Narrative: He is a little anxious today. General Appearance: cooperative and well developed HEENT normocephalic and moist oral mucous membranes Eyes PERRL and EOMs intact bilaterally Neck no lymphadenopathy, supple, no JVD and no carotid bruits General: trachea midline Chest Chest Narrative: The chest incisions are healing and there is no dehiscence, erythema or purulent DC. Resp normal respiratory effort, normal air movement and clear to auscultation bilaterally Resp Narrative: Excellent air exchange in the bases now....he was diminished at admission to rehab. Effort and Inspection: able to speak in complete sentences; Negative for tachypneic or respiratory distress Cardio regular rate, regular rhythm, S1 normal heart sound, S2 normal heart sound, no murmurs, no rub and no gallops Cardio Narrative: No ectopy GI normal to inspection, nondistended, normoactive bowel sounds, soft to palpation and non-tender GI Narrative: No guarding with palpation no CVA tenderness Extremity full ROM, normal capillary refill, no clubbing, cyanosis or edema, no calf tenderness and no pedal edema General Extremity: cyanosis; Negative for edema Skin Skin Narrative: The wound dehiscence in the RUQ of the abd is healing and the steri strips have been effective in closing the incision. There is no erythema and no DC from the area and also no swelling. The area between the 4th and 5th toes on the R foot is doing better and the purple discoloration is minimal......it is no longer tender to touch. There is a tender area between the 3rd and 4th toe that is irritated by the nail rubbing against the medial side of the 3rd toe.....his nails are omid and will debride the nails prior to DC when I get the equipment I need. General Skin Exam: no breakdown Rashes: no rashes Neuro oriented x3, CN's II-XII intact bilaterally, moves all extremities and no focal motor deficits Speech: speech normal Psych mental status grossly normal, thought process normal, cooperative, activity/motor behavior normal, denies hallucinations, denies homicidal ideation and denies suicidal ideation Psych Narrative: No tears today. Admits to being a little anxious about going home. Appearance: grossly normal and appropriate Attitude: calm Activity / Motor Behavior: appropriate eye contact; Negative for psychomotor agitation, psychomotor slowing, fidgetting or restless Speech: normal speech Mood & Affect: depressed and tearful Insight: insight good Medical Records Data Medical Nutrition Assessment Dietitian: Malnutrition Criteria Met Start: 03/20/22 11:30 Freq: Status: Active Protocol: Document 03/26/22 12:50 SLA (Rec: 03/26/22 12:50 SLA [id number]) Nutrition Malnutrition Evidence of Malnutrition Exists Yes Malnutrition (moderate): Acute Illness/Injury Evidenced By Suboptimal Energy Intake ( Moderate),Weight Loss (Severe) Clinical Problem Acute Disease or Injury Related Malnutrition Etiology acute malnutrition r/t inadequate energy intake w/ acute illness Signs/Symptoms as evidenced by estimated energy intake meeting <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 Status Active Problem Recommendation Dietitian Recommendations/Changes Continue Cardiac / CHO steady diet as ordered. Pt states he would like to continue gradual wt loss. Weight / BMI Weight Weight: 226 lb 3.108 oz Body Mass Index (BMI) 34.2 ABG / Lab / Microbiology Data Result Diagrams: 03/29/22 16:20 03/29/22 16:20 Laboratory: Laboratory Results - last 24 hr 03/29/22 15:57: POC Glucose 109 H 03/29/22 16:20: Hgb 11.1 L, Hct 33.6 L 03/29/22 16:20: Sodium 138, Potassium 3.9, Chloride 104, Carbon Dioxide 30.0, Anion Gap 4 L, BUN 12, Creatinine 0.68 L, Estim Creat Clear Calc 67.45, Est GFR (MDRD) Af Amer 147, Est GFR (MDRD) Non-Af 122, BUN/Creatinine Ratio 17.5, Glucose 111 H, Calcium 9.3, Magnesium 1.8 03/30/22 05:51: POC Glucose 114 H Microbiology: Microbiology 03/21/22 07:23 Urine, Clean Catch Urine Culture - Final Mixed Gram Positive Organisms D/C Instructions Discharge Diet: Low fat / Low cholesterol, 4000 mg Sodium Diet and Carb Control Diet May resume sexual activity in: 8 weeks Weight Bearing Status: Full weight bearing Call your doctor if your incision/area has: Continuous Slow Oozing, Sudden Increased Bleeding, Increased Pain/ Swelling, Increased Redness, Foul Smelling Discharge and Swelling at the incision site Call your doctor if you observe: Fever of 101 or Higher, Inability to urinate, Shortness of breath, Dizziness, Fainting spells, Swelling in the ankles, Chest pain, Increased palpitations (irregular heartbeat), Calf discomfort and Uncontrolled pain Suture Line Care: Avoid Pulling/Pushing and Avoid Pinching/Bending Cleanse incision/area with: Soap & Water Additional Dressing/Incision Instructions: Do not remove the steri strips....they will fall off by themselves. Pending Tests Upon Discharge: none Please Follow Up With: Leeroy Thompson DO When: 5-10 days. Meaningful Use Info Meaningful Use Diagnoses (Choose all that apply): None applicable Discharge Plan Admission Admit Date/Time: 03/19/22 17:30 Primary Reason for Your Visit: Debility due to NSTEMI followed by a CABG X 5 vessels and a LLE DVT. Attending Provider: Jo Ann Apple Primary Care Provider: Leeroy Thompson Instructions Patient Instructions: DVT Dc, After Bypass Surg Cardiac Rehab, After Bypass Surg Recovery Additional Instructions / Restrictions: 1. The wound in the R upper abdomen is healing nicely. We put new steri strips on the wound prior to DC and they will fall off by themselves. IF the incision opens up again please see your PCP or call the heart surgeon's office. 2. Your blood sugars have been very good on your current diet and the Metformin (Glucophage) twice a day so stick to the recommendations the ciaio counter molder gave you for eating a healthy diet. Learn to make better choices about the foods that you eat. 3. Get some exercise EVERY day. Do the exercises given to you by the therapists at least once a day. The heart doctor you will see on 04/05/22 will let you know when you can start cardiac rehab. At cardiac rehab they will gradually advance your exercise as your exercise tolerance improves. Do not sit for longer than 1 hour at home without getting up to take a walk in the house. 4. You had a blood clot in your left leg after the heart bypass. You are taking a blood thinner (also called an anticoagulant) called Eliquis and you will take this medication every 12 H. You will be on this medication for at least 3 months after the day of your surgery and Dr. Thompson will want to get and ultrasound of your left leg to make sure the clot is gone prior to discontinuing the Eliquis. Call your family doctor if any unusual bleeding such as bleeding from the gums, blood from the anus, blood in the urine, nose bleeds, large bruises or bleeding from the vagina if female. 5. You still need to be careful with the sternal incision......we certainly do NOT want that to breakdown. STERNAL PRECAUTIONS: a. Do NOT lift more than 8 lbs (this is roughly the weight of a gallon of milk. b. Do not pull with your arms. c. Shower daily and cleanse the incision with soap and water. d. No swimming or bathing in a bath tub. e. IF you notice any drainage from the incision call the cardiothoracic surgeon. f. Do NOT use any creams or lotions on the incision. JUST SOAP AND WATER. 6. It has been a pleasure meeting you and I am happy that we were able to help you recover from your heart surgery. Now you must do your part in taking care of yourself so the bypasses don't become occluded. there are some numbers I ALWAYS want you to know. a. Your HGBA1C (this tells us how good your blood sugar control is) should be less than 7.0. Carb control, exercise and wt loss help to bring the blood sugars down. b. The LDL (bad cholesterol) should be less than 70. c. Your BP should be less than 130/80. It is a good idea to have a BP cuff at home so you can monitor how well your BP is being controlled. 7. You had a CT scan of your chest that showed nodules. There are many things that can cause pulmonary nodules and there is no need to worry at this time. You may have had these for many years. Many people who live in the area of the country have pulmonary nodules. I recommend that you have a follow up CT scan of the chest in 3 months.......Dr. Thompson will be able to order this for you.....to see if the nodules are changing. 8. IF you have ANY questions after you leave the rehab unit please do not hesitate to call me. Office: [phone] Discharge Orders/Prescriptions Prescriptions: New trazodone 50 mg Tablet 50 mg PO QHS Qty: 30 0RF citalopram 20 mg Tablet 20 mg PO DAILY Qty: 30 0RF Continued metformin 500 mg Tablet 500 mg PO BID acetaminophen [Tylenol] 325 mg Tablet 650 mg PO Q6H PRN (Reason: Pain) aspirin 81 mg Tablet,Chewable 81 mg PO DAILY atorvastatin 40 mg Tablet 40 mg PO QHS Qty: 30 0RF Rx Instructions: Take this at bedtime to control cholesterol. hydrocodone-acetaminophen 5-325 mg Tablet 1 tab PO Q8H PRN (Reason: Pain) 7 Days Qty: 10 0RF pantoprazole [Protonix] 40 mg Tablet,Delayed Release (Dr/Ec) 40 mg PO DAILY Qty: 30 0RF metoprolol tartrate 25 mg Tablet 12.5 mg PO BID Qty: 30 0RF Rx Instructions: Take 1/2 tablet twice a day. apixaban 5 mg tablet 5 mg PO BID Qty: 60 0RF Multi 27-800 mg-mcg Tablet 1 tab PO DAILY Qty: 90 0RF Discontinued ipratropium-albuterol [DuoNeb] 0.5 mg-3 mg(2.5 mg base)/3 mL Solution For Nebulization 3 ml INHALATION Q6H PRN (Reason: sob) albuterol sulfate 2.5 mg /3 mL (0.083 %) Solution For Nebulization 2.5 mg INHALATION Q6H PRN (Reason: Wheezing) budesonide 0.5 mg/2 mL Suspension For Nebulization 0.5 mg INHALATION BID Referrals / Follow Up: [facility] [Other] - 04/07/22 10:30 am chest xray [Other] - 04/07/22 9:00 am [facility] [Provider Group] - 04/05/22 1:00 pm Leeroy Thompson DO [Primary Care Provider] - 04/02/22 2:50 pm Disposition Disposition (needs filled in before D/C Order can be placed): Home Health Service Charges/Coding Visit Charges Inpatient E&M: 69819 Disch Hosp
[2022-03-30 16:00] VITALS: BP 108/69; PULSE 87; RESP 16; TEMP 36.9; O2SAT 97
--- NOTE | 2022-03-30 16:41 | NURSING ---
Discharged home with son. discharged instructions, medications, and appointments reviewed with pt, denies questions or concerns.
== END 2022-03-30 16:00 | disposition home health service (06) | DRG 949 ==
PROVIDERS: Admitting Provider Internal Medicine; PCP Family Medicine; Visit Provider Internal Medicine
DX: Z48.812 Encounter for surgical aftercare following surgery on the circulatory system (principal); I21.4 Non-ST elevation (NSTEMI) myocardial infarction; E43 Unspecified severe protein-calorie malnutrition; T81.31XA Disruption of external operation (surgical) wound, not elsewhere classified, initial encounter; I82.462 Acute embolism and thrombosis of left calf muscular vein; E11.9 Type 2 diabetes mellitus without complications; L40.50 Arthropathic psoriasis, unspecified; F41.9 Anxiety disorder, unspecified; F17.290 Nicotine dependence, other tobacco product, uncomplicated; I25.10 Atherosclerotic heart disease of native coronary artery without angina pectoris; I10 Essential (primary) hypertension; L89.891 Pressure ulcer of other site, stage 1; G47.00 Insomnia, unspecified; Z63.4 Disappearance and death of family member; F32.A Depression, unspecified; Z79.01 Long term (current) use of anticoagulants; Z79.899 Other long term (current) drug therapy; Z79.84 Long term (current) use of oral hypoglycemic drugs; Z79.82 Long term (current) use of aspirin; N40.0 Benign prostatic hyperplasia without lower urinary tract symptoms; E66.9 Obesity, unspecified; Z68.34 Body mass index [BMI] 34.0-34.9, adult; R91.8 Other nonspecific abnormal finding of lung field; Z86.16 Personal history of COVID-19
CPT/HCPCS: 36415; 80048; 80053; 81001; 82962; 83735; 84100; 85014; 85018; 85027; 87086; 87088; 92507; 92523; 92526; 92610; 94640; 97110; 97116; 97129; 97130; 97162; 97166; 97530; 97535; 97802; 97803; 99406

== ENCOUNTER → 2022-05-10 | Outpatient (CLI) | payer MEDICARE, OTHER, SELFPAY ==
--- NOTE | 2022-05-10 13:53 | CR.HP_ITS ---
CR - History & Physical - General Arrival date:: 05/10/22 Arrival time:: 13:53 Date of Referral:: 04/27/22 Date of CR Evaluation:: 05/10/22 Referring Physician: Dr. Jabari Gagnon Primary Diagnosis: CABG - History of Present Cardiac Event Onset Date: Enter Onset Date of cardiac illnesses in Comment field below Coronary Artery Bypass Graft:: Yes - 02/25/22 Vessel: AYALA to LAD,SVG to posterior lateral, SVG to obtuse marginal, SVG to diagon - Sleep Disorder Evaluation Hx of Sleep Apnea: No Do you snore loudly (louder than talking or can be heard through closed doors)?: Yes Do you often feel tired/ fatigued/ sleepy during daytime?: No Has anyone observed you stop breathing during sleep?: No History of Hypertension (for STOP score): No STOP Results: Negative - Medications Home Medications: Ambulatory Orders Medication Instructions Recorded metformin 500 mg tablet 500 mg PO BID dm 02/21/22 acetaminophen 325 mg tablet 650 mg PO Q6H PRN Pain 03/19/22 (Tylenol) aspirin 81 mg chewable tablet 81 mg PO DAILY heart 03/19/22 apixaban 5 mg tablet 5 mg PO BID #60 tabs 03/30/22 citalopram 20 mg tablet 20 mg PO DAILY #30 tabs 03/30/22 hydrocodone-acetaminophen 5-325mg 1 tab PO Q8H PRN Pain 7 days #10 03/30/22 5mg-325mg tabs pantoprazole 40 mg tablet,delayed 40 mg PO DAILY gerd #30 tabs 03/30/22 release (Protonix) vit 122-ferrous fumarate 1 tab PO DAILY vitamin #90 tabs 03/30/22 27 mg iron-folic acid 800 mcg tablet ( Multi) trazodone 50 mg tablet 50 mg PO QHS #30 tabs 03/30/22 atorvastatin 40 mg tablet 40 mg PO QHS cholesterol #90 tabs 04/05/22 metoprolol tartrate 25 mg tablet 12.5 mg PO BID bp #90 tabs 04/05/22 - Allergies Allergies/Adverse Reactions: Allergies No Known Allergies Allergy (Verified 04/05/22 12:57) Advanced Directives - Advanced Directives Power of Receiving Teller: Yes Living Will: Yes Advance Directives Information Provided: Yes Advance Directives on File: No DNR Order?:: No Past Medical History - Covid-19 Screening 65 years or older:: Yes Has a serious heart condition:: Yes - Past Medical Illness Medical History: Past Medical History (Last Reviewed 04/05/22 @ 13:36 by Becky VAUGHAN, PA) Acute respiratory insufficiency, postoperative Onset Date: 02/25/22 J95.89 Atherosclerosis of coronary artery without angina pectoris I25.10 BPH (benign prostatic hyperplasia) N40.0 COVID-19 U07.1 Deep vein thrombosis of left lower extremity Onset Date: 02/28/22 I82.402 Acute calf deep vein thrombosis in the gastrocnemius veins. Occlusive thrombus seen in the gastrocnemius veins. per [facility] 02/28/22 Depression F32.A Erectile dysfunction N52.9 GERD (gastroesophageal reflux disease) K21.9 Meniere disease H81.09 Multiple pulmonary nodules R91.[address] 02/24/22 Non-STEMI (non-ST elevated myocardial infarction) Onset Date: 02/21/22 I21.4 Obesity (BMI 30.0-34.9) E66.9 Psoriasis L40.9 on immunosupression Tobacco use disorder F17.200 cigars Triple vessel coronary artery disease I25.10 Type II diabetes mellitus with complication E11.8 - Past Surgical History Surgical History: Past Surgical History (Last Reviewed 04/05/22 @ 13:36 by Becky VAUGHAN, PA) H/O coronary artery bypass surgery Onset Date: 02/25/22 Z95.1 CABG X 5: AYALA-LAD, SVG-RPDA, SVG-OM2, SCG-OM3, SVG-D1 02/25/2022 H/O knee surgery Z98.890 H/O rotator cuff surgery Z98.890 H/O shoulder surgery Z98.890 History of left heart catheterization Onset Date: 02/22/22 Z98.890 - Family History Summary Family History: Family History (Last Reviewed 04/05/22 @ 13:36 by Becky VAUGHAN, PA) Father Small cell carcinoma Mother Sepsis Social History - Smoking History Smoking Status: Current every day smoker Years Smokin - cigars Hx Tobacco Use: Yes - Alcohol Use Alcohol Usage: Yes - socially - Occupation Occupation (List type of work in comments):: Retired - Hobbies, Recreation, Social Activities Hobbies: Other - motocycles Recreational Activities: I am able to engage in all my recreational activities Social Environment - Status Marital Status: - Current Living Arrangements Living Environment:: Family - Children How many children do you have?: 2 Do any of your children live nearby?: Yes - Safety Do you feel safe in your surroundings?: Yes - Assistance Do you need any assistance at home?: no Review of Systems - Review of Systems Hints: Right click = Denies (Slash). Left click = Reports ([place]) Review of Present Symptoms: Reports: Dizziness/Lightheadedness, Fatigue, Appetite - Special Diet, Sleep - Normal. Denies: Shortness of Breath at Rest, Shortness of Breath with Exertion, PVD, Operative Discomfort, Angina, Wound Healing, Heart Arrhythmia/Irregularities, Appetite - Normal, Sexual Changes - Pain Is Patient Pain Free?: Yes Pain Location: none Risk Factor Assessment - Vital Signs Pulse Ox: 97 - Pulse Pulse Rate: 74 Pulse Rhythm: Regular - Hypertension Blood Pressure Sitting - Right Arm: 106/60 - Stress Stress: Home/Family - Diabetes Diabetic History: Type II Nutrition Referral for Diabetes: No - Obesity Height: 5 ft 8 in Weight:: 104.326 kg Weight in Pounds: 230.0 lbs Body Mass Index (BMI): 34.9 Nutritional Referral for Obesity: No - declines - Physical Inactivity Physical Inactivity: Reg Exercise 30 min/day - Risk Stratification Risk Guidelines: Moderate Risk: Risk Factor for Dyslipidemia, Risk Factor for Diabetes, Risk Factor for Hypertension, Risk Factor for Sedentary Lifestyle, Highest Risk: Risk Factor for Smoking, Risk Factor for Obesity - Family History Family History: Family History (Last Reviewed 04/05/22 @ 13:36 by Becky VAUGHAN, PA) Father Small cell carcinoma Mother Sepsis Motivation - Motivation to Participate On a scale of 1 to 10, how prepared are you to commit to attending program?: 10 What do you see as barriers to successfully being able to complete the program?: nothing What do you see as the benefits of succesfully completing the program? In other words, what do you hope to get out of participating in the program?: strength, s tamina, energy Are there issues you are dealing with that will interfere with completing the program?: no Do you have a spouse or signficant other, family or friends who will help support you to complete the program?: family
[2022-05-10 14:37] VITALS: BP 106/60; PULSE 74; O2SAT 97; BMI 34.9
--- NOTE | 2022-05-10 14:37 | CR.ITP_ITS ---
Diagnosis - General Information Admitting Diagnosis: CABG Personal Learning Style:: Audio/Visual, Demonstration, Group, Individual Preference, Written Stage of change r/t lifestyle modifications:: Contemplation Gave educational material for:: Treating Heart Disease, Emotions & Heart Disease, Stress Management & Relaxation, Sleep Disorders & Heart Disease, How The Heart Works, What it means to have Heart Disease, How Coronary Artery Disease is Diagnosed, Heart Procedures, What Heart Medications Do, Risk Factors & Modifications, Living an Active Life, Nutrition - Education/Goals Cardiac Rehabilitation Goals: 1. Maintain the individual as the primary focus of care. 2. To improve the patient's quality of life. 3. Identification of cardiac risk factors and provide cardiac risk factor management. 4. Enhance the psychosocial status of the patient. 5. Reconditioning enough to allow the patient to resume customary activities. 6. Control symptoms of cardiac disease Personal Goals: Initial Assessment: Improve energy level, Get back to work, or to resume activities faster, Improve muscle strength and endurance, Control risk factors (learn risk factor modification) Scale for measuring improvement of personal goals: Enter appropriate number in Comments. 2 = Unchanged. 3 = Slightly Better. 4 = Moderate Improvement. 5 = Met my Goal - Diagnosis & Disease Process Outcomes/Goals: Pt IDs own risk factors & lifestyle modifications by Session 10, Verbalizes symptoms of angina & response by session 3., Pt independently manages, Other Additional Outcomes/Goals: Plan/Interventions: Assist Pt to ID & engage in lifestyle modification to reduce CVD risk, Instruct on individual risk factors, Review symptoms of angina & emergency actions, Review secondary diagnosis & identify educational needs., Other see comment 30 day Reassessments:: Not Met 30 day Reassessments:: Not Met 30 day Reassessments:: Not Met 30 day Reassessments:: Not Met Final Reassessments:: Not Met - Safety Referral to Physical Therapy: No Referral to [facility] Case Management: No Fall Risk Assessed:: Yes Assistive Devices:: Cane Exercise - Initial Assessment - Visit Date of Eval: 05/10/22 - initial eval Mets: Pre-: >3 METS for 30 minutes by discharge, >5 METS for 30 minutes by discharge, >7 METS for 30 minutes by discharge, Unable to meet goal due to: (see comment below) - Physician Prescribed Exercise Modalities: Treadmill, Airdyne, NuStep, SciFit, Lateral [employer] Project Manager Frequency: 3x/week for 12 weeks [36 sessions] Intensity: 60-80% of age predicted maximum heart rate reserve Current METSs:: 3 Target Heart Rate:: 98-113 Resting Blood Pressure: 106/60 EKG Type: NSR - Outcomes & Goals Goals:: Verbalizes understanding of THR, RPE & goal METS by session 6, Documents in home exercise log/reports 30 min aerobic 5 day/wk by DC, Demonstrates accurate pulse taking by DC, Other additional outcome/goals: see below - Intervention & Plan Exercise Program Goals: Instruct on personal THR & RPE, Instruct on MET level & personal MET goal, Show patient to take own pulse /validate performance until accurate, Instruct on home exercise, Other additional plan/int - Physical Activity Home Exercise Physical Activity - Home Exercise: Safe Exercise, Warm-up, Self-monitoring, Cool-Down, Home Exercise > 30 min Daily, Sitting Time <3 hours/daily - Outcomes & Goals Outcomes/Goals: Demonstrates correct Warm-up/exercise Cool-Down (S3) if = 2.5 METs, Verbalizes symptoms of exercise intolerance by Session 3 (S3), Demonstrate safe equipment use (S3) & follows exercise prescrition (6), Other: See below - Intervention & Plan Plan/Intervention: Instruct warm-up & cool-down if exercising at > 2 METs, Instruct on symptoms of exercise intolerance & actions to take, Instruct & monitor on saf, Assess intial functional capacity & safety risk, Other See below Nutrition - Initial Assessment - Program Goals Nutrition Program Goals: LDL <100 optimal. 100 - 129 Near optimal. 130 - 159 Borderline High. 160 - 189 High. Total Cholesterol <200 desirable. 200 - 239 Borderline High. >/= 240 High. HDL < 40 Low >/=60 High. Triglycerides <150 desirable. <199 optimal. VlDL 5 - 40. HgbA1C <7%. BMI <25 Patient has diagnosis of Hyperlipidemia (ICD E78)?: No - Visit Date of Assessment:: 05/10/22 - initial eval - Cholesterol/Lipids (Other Core Measures) Determine presence & major risk factors that modify LDL goal: Cigarette smoking, Hypertension or hypertensive medication, Low HDL cholesterol <40 mg/dL*, Family history of premature CHD in Male < 55 years: female <65 yearsFa, Age men > 45 years; women >/= 55 years Outcomes/Goals: Pt IDs own risk factors & lifestyle modifications by Session 10, Verbalizes symptoms of angina & response by session 3., Pt independently manages, Other Additional Outcomes/Goals: Intervention/Plan: Advocate for lipid panel cholesterol medication if applicable, Instruct on personal lipid levels & lipid goals/NCEP guidelines, Instruct on cholesterol, Other additional plan/int Referral to dietitian:: No - declines - Diabetes (Other Core Measures) Diabetes Type: Diagnosis Type II ICD-10 E11 Insulin dependent injection/pump?: No Non-Insulin Dependent?: Yes Do you monitor your blood sugar at home?: No Referral to Diabetic Clinic:: No - declines Outcomes/Goals:: Able to state symptoms of, Able to state, Able to state, Other additional Intervention/Plan:: Instruct on, Refer to, Instruct on, Other - Weight Mgt (Other Care) Height: 5 ft 8 in Weight:: 104.326 kg BMI: 34.9 Diagnosis Overweight/Obesity BMI> 30% ICD-10 E66: Yes Outcomes/Goals: Pt sets, maintains & shows weight loss goal & trend during rehab, Other additional outcomes/goals Intervention/Plan: Instruct on ideal BMI & set weight loss goal w/patient, Assist pt to ID & incorporate diet changes for weight loss by S9, Refer to Structured Weight Loss program as appropriate, Encourage goal of using 250- 300dcal per session for weight loss, Other additional plan/interventions - Healthy Eating Habits Will attend diet classes:: Yes Outcomes/Goals:: Consume diet rich in vegs,fruits,whole grain/high fiber,fish,lean meat, Limit sat/trans fats,cholesterol & added salts & sugars, Other additional outcome/goals: Intervention/Plan:: Assess current eating habits, Other Additional plan/interventions - Education Gave educational materials for:: Signs & symptoms of hypoglycemia, Signs & symptoms of hyperglycemia, Relate diabetes to coronary artery disease, Healthy eating Nutrition - 30-Day Assessment Nutrition - 60-Day Assessment Nutrition - 90-Day Assessment Nutrition - Final Assessment Core - Initial Assessment - Visit Date of Eval: 05/10/22 - initial eval - Medication Compliance Preventative Medication(s):: Aspirin, Statin/lipid, Beta jemima, Eliquis H/O mental health issues: depression, anxiety, or addiction?: No Doesn?t believe in the benefits of treatment?: No Believes medications are unnecessary or harmful?: No Has a concern about medication side effects?: No Expresses concern over the cost of medications?: No Outcomes/Goals: Verbalizes medications,desired effect & common side effects @ DC, Pt self-reports following medication regimen, Keeps card in wallet w/medications listed by DC, Other additional outcome/goals: Interventions/plans: Instruct on medication effects & side effects, Review medication list w/patient every two weeks, Instruct importance of taking meds as ordered & assist problem solving, Other additional - Tobacco Use Tobacco Use: Cigars How long ago did you quit using tobacco products?: Less than 6 months ago Outcomes/Goals: Smoking cessation achieved or maintained by discharge, Identify aids/strategies for achieving smoking cessation by session 6, Other additional outcome/goals Interventions/plan: Instruct on effects of smoking & provide smoking cessation resource, Assist pt to set quit date & provide encouragement, Assist pt to develop strategies to achieve/maintain quit date, Assist pt w/nicotine replacement & medication for cessation success, Other additional plan/interventions - Hypertension Resting Blood Pressure:: 106/60 [place] [employer] Hypertension Guidelines: [place] [employer] Hypertension Guidelines. Normal BP Less than 120/80. Elevated BP 120/80. Hypertension Stage 1: BP 130-139/80-89. Hypertesnion Stage 2: BP 140 or higher/90 or higher. Hypertension Crisis: BP higher than 180/120 Outcomes/Goals: Able to verbalize/achieve optimal blood pressure <130/80, Incorporates diet changes & exercise for blood pressure control by DC, Other additional outcomes/goals Interventions/plan: Instruct on optimal blood pressure, hypertension & medications, Instruct on effects of sodium, alcohol, stress, exercise &hypertension, Other additional plan/interventions - Tobacco Cessation Referral Smoking Cessation Referral:: No Individual Education/Counseling:: No Education Schedule Given:: Yes Core - 30-Day Assessment Core - 60-Day Assessment Core - 90 Day Assessment Core - Final Assessment Psychosocial - Initial Assess - VIsit Date of Eval: 05/10/22 - initial eval History of previous Mental disease:: No - Outcomes/Goals: See list Psychosocial Outcomes/Goals:: ID's personal stressors & 2 strategies to manage stress by discharge, Other Additional outcome/goals: - Intervention/Plan: See List Interventions/Plan:: Assess stressors,coping strategies & signs of derpression on admission, Instruct/assist pt to develop coping & personal stress Mgt strategies, Refer to Behavioral Health if appropriate, Refer to Physician if appropriate, Instruct patient to recognize signs & symptoms of depression, Instruct patient to recog, Other additional plan/intervention Psychosocial - 30-Day Assess Psychosocial - 60-Day Assess Psychosocial - 90-Day Assess Psychosocial - Final Assessmen Patient Health Questionnaire Initial Assessment 1. Little interest or pleasure in doing things: Not at all 2. Feeling down, depressed, or hopeless: Not at all 3. Trouble falling or staying asleep, or sleeping too much: Several days 4. Feeling tired or having little energy: Several days 5. Poor appetite or overeating: Not at all 6. Feeling bad about yourself -- or that you are a failure or have let yourself or your family down: Not at all 7. Trouble concentrating on things, such as reading the newspaper or watching television: Not at all 8. Moving or speaking so slowly that other people could have noticed. Or the opposite - being so fidgety or restless that you have been moving around a lot more than usual: Not at all 9. Thoughts that you would be better off , or of hurting yourself in some way: Not at all How difficult have these problems made it for you to do your work, take care of things at home, or get along with other people?: Not difficult at all Total Score: 2 DAVID-Q SV Test - Statements CAD is a disease of the arteries in the heart: False Examples of risk factors for heart disease: True Angina is chest pain or discomfort: True The benefits of resistance training include: True Eating more meat and dairy products: False Anti-platelet medications such as aspirin are important: True The only effective way to manage stress: False An exercise warm-up slowly increases heart rate: True Prepared, processed foods usually have high sodium: True Depression is common after a heart attack: True The statin medications lower cholesterol: True To control blood pressure, lower the amount of sodium: True If someone gets chest discomfort during walking: False Transfats are partially hydrogenated vegetable oils: True Sleep apnea that is not treated increases the risk: False To control cholesterol, one should become a vegetarian: False Someone knows if he/she is exercising at the right level: True Diabetes cannot be prevented with exercise & health eating: True Stress is a large risk for heart attack: True A diet that can help lower blood pressure is rich in: True - Total Score Total Correct Responses: 19 Self-Efficacy Initial Assessment We would like to know how confident you are in doing certain activities. Please select your confidence level for:: Select your confidence level for the following using the scale 1-10 where 1 is not at all confident and 10 is totally confident. Your score is the average of all 6 responses. Fatigue: How confident are you that you can keep the fatigue caused by your disease from interfering with the things you want to do? Select Number: 10 Physical Discomfort or Pain: How confident are you that you can keep the physical discomfort or pain of your disease from interfering with the things you want to do? Select Number: 10 Emotional Distress: How confident are you that you can keep the emotional distress caused by your disease from interfering with the things you want to do? Select Number: 10 Other Symptoms or Health Problems: How confident are you that you can keep other symptoms or health problems from interfering with the things you want to do? Select Number: 9 Different Tasks and Activities: How confident are you that you can do the different tasks and activities needed to manage your health condition so as to reduce your need to see a doctor? Select Number: 10 Medication: How confident are you that you can do things other than just taking medication to reduce how much your illness affects your everyday life? Select Number: 10 Total Score:: 9 Nutrition Survey - Nutrition Survey Initial Have you lost >10 lbs over the past 2 months without trying?: Yes Are you following a special diet at home for diabetes, low fat, or low salt?: Yes Are you interested in meeting with a dietitian for help understanding your diet?: No Do you eat less than 3 meals a day?: No Do you eat fatty meats (paz, sausage, ribs, etc), fried foods, desserts, large amounts of salad dressings, margarine, butter, or cheese most days?: No Do you have food allergies? [Enter types in comment field]: No Do you eat in restaurants more than 3 times a week?: Yes
[2022-05-10 14:50] VITALS: BP 106/60; BMI 34.9
== END | disposition home or self-care (01) ==
LOC: CR 13:43
PROVIDERS: PCP Family Medicine; Referring Provider Internal Medicine Cardiovascular Disease; Visit Provider Internal Medicine Cardiovascular Disease
DX: Z95.1 Presence of aortocoronary bypass graft (principal)

== ENCOUNTER 2022-06-04 10:30 | Outpatient (RCR) | payer MEDICARE, OTHER, SELFPAY ==
[2022-05-10 14:50] VITALS: BMI 34.9
== END 2022-06-05 23:59 ==
LOC: CR 10:30
PROVIDERS: PCP Family Medicine; Referring Provider Internal Medicine Cardiovascular Disease; Visit Provider Internal Medicine Cardiovascular Disease
DX: T81.31XD Disruption of external operation (surgical) wound, not elsewhere classified, subsequent encounter (principal); I82.402 Acute embolism and thrombosis of unspecified deep veins of left lower extremity; L89.91 Pressure ulcer of unspecified site, stage 1; D62 Acute posthemorrhagic anemia; Z95.1 Presence of aortocoronary bypass graft
CPT/HCPCS: 93798

== ENCOUNTER 2022-07-05 10:30 | Outpatient (RCR) | payer MEDICARE, OTHER, SELFPAY ==
[2022-05-10 14:50] VITALS: BMI 34.9
--- NOTE | 2022-06-11 12:31 | PCM.CR.ITP ---
Diagnosis Exercise - 30-day Assessment - Visit Date of Eval: 06/11/22 Session #:: 11 Comments:: Interrupted by holiday breaks - Physician Prescribed Exercise Modalities: Treadmill, NuStep, Lateral Ruling Machine Set Up Operator Frequency: 3x/week for 12 weeks [36 sessions] Intensity: 60-80% of age predicted maximum heart rate reserve Duration: 30 - 45 minutes Current METSs:: 4 Target Heart Rate:: 98-113 Current RPE:: 11-12 Maximum Excercise HR:: 100 Resting Blood Pressure: 108/68 Maximum Exercise Blood Pressure: 152/74 EKG Type: NSR to sinus tach w/occasional PVC Current Physical Activity or Exercising minutes: 45:40 - Outcomes & Goals Goals:: Verbalizes understanding of THR, RPE & goal METS by session 6, Documents in home exercise log/reports 30 min aerobic 5 day/wk by DC, Demonstrates accurate pulse taking by DC - Intervention & Plan Exercise Program Goals: Instruct on personal THR & RPE, Instruct on MET level & personal MET goal, Show patient to take own pulse /validate performance until accurate, Instruct on home exercise - 30-day Reassessments 30 day Reassessments:: Met - Physical Activity Home Exercise Physical Activity - Home Exercise: Safe Exercise, Warm-up, Self-monitoring, Cool-Down, Home Exercise > 30 min Daily, Sitting Time <3 hours/daily - Outcomes & Goals Outcomes/Goals: Demonstrates correct Warm-up/exercise Cool-Down (S3) if = 2.5 METs, Verbalizes symptoms of exercise intolerance by Session 3 (S3), Demonstrate safe equipment use (S3) & follows exercise prescrition (6) - Intervention & Plan Plan/Intervention: Instruct warm-up & cool-down if exercising at > 2 METs, Instruct on symptoms of exercise intolerance & actions to take, Instruct & monitor on saf, Assess intial functional capacity & safety risk - 30-day Reassessments 30 day Reassessments:: Met Nutrition - Initial Assessment Nutrition - 30-Day Assessment - Program Goals Nutrition Program Goals: LDL <100 optimal. 100 - 129 Near optimal. 130 - 159 Borderline High. 160 - 189 High. Total Cholesterol <200 desirable. 200 - 239 Borderline High. >/= 240 High. HDL < 40 Low >/=60 High. Triglycerides <150 desirable. <199 optimal. VlDL 5 - 40. HgbA1C <7%. BMI <25 Patient has diagnosis of Hyperlipidemia (ICD E78)?: Yes - Visit Date of Assessment:: 06/11/22 Session #:: 11 - no labs - Cholesterol/Lipids (Other Core Measures) Determine presence & major risk factors that modify LDL goal: Hypertension or hypertensive medication, Family history of premature CHD in Male < 55 years: female <65 yearsFa, Age men > 45 years; women >/= 55 years Outcomes/Goals: Pt IDs own risk factors & lifestyle modifications by Session 10, Verbalizes symptoms of angina & response by session 3., Pt independently manages Intervention/Plan: Instruct on personal lipid levels & lipid goals/NCEP guidelines, Instruct on cholesterol Referral to dietitian:: Yes - Medical Nutrition Therapy 30-day Reassessments:: Progressing - Diabetes (Other Core Measures) Diabetes Type: Not Applicable - Weight Mgt (Other Care) Not Applicable: No Height: 5 ft 8 in Weight:: 233 lb BMI: 35.4 Diagnosis Overweight/Obesity BMI> 30% ICD-10 E66: Yes Diagnosis High BMI/Morbid Obesity BMI> 35% ICD-10 Z68: Yes Outcomes/Goals: Pt sets, maintains & shows weight loss goal & trend during rehab Intervention/Plan: Instruct on ideal BMI & set weight loss goal w/patient, Assist pt to ID & incorporate diet changes for weight loss by S9, Refer to Structured Weight Loss program as appropriate, Encourage goal of using 250-300dcal per session for weight loss 30 day Reassessments:: Progressing - Healthy Eating Habits Will attend diet classes:: Yes Outcomes/Goals:: Consume diet rich in vegs,fruits,whole grain/high fiber,fish,lean meat, Limit sat/trans fats,cholesterol & added salts & sugars Intervention/Plan:: Assess current eating habits 30-day Reassessments:: Progressing - Education Gave educational materials for:: Healthy eating Nutrition - 60-Day Assessment Nutrition - 90-Day Assessment Nutrition - Final Assessment Core - Initial Assessment Core - 30-Day Assessment - Visit Date of Eval: 06/11/22 Session #:: 11 - Medication Compliance Preventative Medication(s):: Aspirin, Statin/lipid, Beta jemima, Eliquis H/O mental health issues: depression, anxiety, or addiction?: No Doesn?t believe in the benefits of treatment?: No Believes medications are unnecessary or harmful?: No Has a concern about medication side effects?: No Expresses concern over the cost of medications?: No Outcomes/Goals: Verbalizes medications,desired effect & common side effects @ DC, Pt self-reports following medication regimen, Keeps card in wallet w/medications listed by DC Interventions/plans: Instruct on medication effects & side effects, Review medication list w/patient every two weeks, Instruct importance of taking meds as ordered & assist problem solving 30-day Reassessments:: Progressing - Tobacco Use Tobacco Use: Cigarettes Outcomes/Goals: Smoking cessation achieved or maintained by discharge, Identify aids/strategies for achieving smoking cessation by session 6 Interventions/plan: Instruct on effects of smoking & provide smoking cessation resource, Assist pt to set quit date & provide encouragement, Assist pt to develop strategies to achieve/maintain quit date, Assist pt w/nicotine replacement & medication for cessation success 30-day Reassessments:: Progressing - Hypertension Hypertension Diagnosis:: Hypertension ICD-10 I10 [place] [employer] Hypertension Guidelines: [place] [employer] Hypertension Guidelines. Normal BP Less than 120/80. Elevated BP 120/80. Hypertension Stage 1: BP 130-139/80-89. Hypertesnion Stage 2: BP 140 or higher/90 or higher. Hypertension Crisis: BP higher than 180/120 Outcomes/Goals: Able to verbalize/achieve optimal blood pressure <130/80, Incorporates diet changes & exercise for blood pressure control by DC Interventions/plan: Instruct on optimal blood pressure, hypertension & medications, Instruct on effects of sodium, alcohol, stress, exercise &hypertension 30 day Reassessments:: Progressing - Tobacco Cessation Referral Smoking Cessation Referral:: Yes Individual Education/Counseling:: Yes - Smoking Cessation Program Education Schedule Given:: Yes Core - 60-Day Assessment Core - 90 Day Assessment Core - Final Assessment Psychosocial - Initial Assess Psychosocial - 30-Day Assess - VIsit Date of Eval: 06/11/22 Session #:: 11 Not Applicable: Yes History of previous Mental disease:: No - Psychosocial Test Tool Used:: PHQ-9 Questionnaire phq-9 Severity: Severity. 1-4 Minimal Depression. 5-9 Mild Depression. 10-14 Moderate Depression. 15-19 Moderately Sever Depression. 20-27 Severe Depression. Rule: - Referral to Behavioral Health PS - Interventions: Yes Attend Stress Management Classes, No Referral to Behavioral Health if PHQ-9 score >9:, No Referral to [facility], No Referral to Physician if PHQ-9 if score is 5-9: - Outcomes/Goals: See list Psychosocial Outcomes/Goals:: ID's personal stressors & 2 strategies to manage stress by discharge - Intervention/Plan: See List Interventions/Plan:: Assess stressors,coping strategies & signs of derpression on admission, Instruct/assist pt to develop coping & personal stress Mgt strategies, Instruct patient to recognize signs & symptoms of depression, Instruct patient to recog - 30-day Reassessments: 30 day Reassessments:: Progressing Psychosocial - 60-Day Assess Psychosocial - 90-Day Assess Psychosocial - Final Assessmen Patient Health Questionnaire 30-Day Re-eval Assessment 1. Little interest or pleasure in doing things: Not at all 2. Feeling down, depressed, or hopeless: Not at all 3. Trouble falling or staying asleep, or sleeping too much: Several days 4. Feeling tired or having little energy: Not at all 5. Poor appetite or overeating: Not at all 6. Feeling bad about yourself -- or that you are a failure or have let yourself or your family down: Not at all 7. Trouble concentrating on things, such as reading the newspaper or watching television: Not at all 8. Moving or speaking so slowly that other people could have noticed. Or the opposite - being so fidgety or restless that you have been moving around a lot more than usual: Not at all 9. Thoughts that you would be better off , or of hurting yourself in some way: Not at all How difficult have these problems made it for you to do your work, take care of things at home, or get along with other people?: Somewhat difficult Total Score: 1 Self-Efficacy 30-Day Re-eval Assessment We would like to know how confident you are in doing certain activities. Please select your confidence level for:: Select your confidence level for the following using the scale 1-10 where 1 is not at all confident and 10 is totally confident. Your score is the average of all 6 responses. Fatigue: How confident are you that you can keep the fatigue caused by your disease from interfering with the things you want to do? Select Number: 10 Physical Discomfort or Pain: How confident are you that you can keep the physical discomfort or pain of your disease from interfering with the things you want to do? Select Number: 10 Emotional Distress: How confident are you that you can keep the emotional distress caused by your disease from interfering with the things you want to do? Select Number: 10 Other Symptoms or Health Problems: How confident are you that you can keep other symptoms or health problems from interfering with the things you want to do? Select Number: 10 Different Tasks and Activities: How confident are you that you can do the different tasks and activities needed to manage your health condition so as to reduce your need to see a doctor? Select Number: 10 Medication: How confident are you that you can do things other than just taking medication to reduce how much your illness affects your everyday life? Select Number: 10 Total Score:: 10 Nutrition Survey
[2022-06-11 12:38] VITALS: BP 108/68; BMI 35.4
== END 2022-07-06 23:59 ==
LOC: CR 10:30
PROVIDERS: PCP Family Medicine; Referring Provider Internal Medicine Cardiovascular Disease; Visit Provider Internal Medicine Cardiovascular Disease
DX: Z95.1 Presence of aortocoronary bypass graft (principal); D62 Acute posthemorrhagic anemia; I82.402 Acute embolism and thrombosis of unspecified deep veins of left lower extremity; L89.91 Pressure ulcer of unspecified site, stage 1
CPT/HCPCS: 93798

== ENCOUNTER 2022-08-02 10:30 | Outpatient (RCR) | payer MEDICARE, OTHER, SELFPAY ==
[2022-06-11 12:38] VITALS: BMI 35.4
[2022-07-07 00:36] VITALS: BP 108/68
--- NOTE | 2022-07-08 09:55 | PCM.CR.ITP ---
Diagnosis Exercise - 60-day Assessment - Visit Date of Eval: 07/08/22 Session #:: 22 - Physician Prescribed Exercise Modalities: Treadmill, NuStep, Lateral [place] Frequency: 3x/week for 12 weeks [36 sessions] Intensity: 60-80% of age predicted maximum heart rate reserve Duration: 30 - 45 minutes Current METSs:: 5.0 Target Heart Rate:: 98-113 Current RPE:: 13 Maximum Excercise HR:: 99 Resting Blood Pressure: 98/68 Maximum Exercise Blood Pressure: 142/74 EKG Type: NSR to sinus tach occasional PACs PVCs - Outcomes & Goals Goals:: Verbalizes understanding of THR, RPE & goal METS by session 6, Documents in home exercise log/reports 30 min aerobic 5 day/wk by DC, Demonstrates accurate pulse taking by DC - Intervention & Plan Exercise Program Goals: Instruct on personal THR & RPE, Instruct on MET level & personal MET goal, Show patient to take own pulse /validate performance until accurate, Instruct on home exercise - 30-day Reassessments 30 day Reassessments:: Met - Physical Activity Home Exercise Physical Activity - Home Exercise: Safe Exercise, Warm-up, Self-monitoring, Cool-Down, Home Exercise > 30 min Daily, Sitting Time <3 hours/daily - Outcomes & Goals Outcomes/Goals: Demonstrates correct Warm-up/exercise Cool-Down (S3) if = 2.5 METs, Verbalizes symptoms of exercise intolerance by Session 3 (S3), Demonstrate safe equipment use (S3) & follows exercise prescrition (6) - Intervention & Plan Plan/Intervention: Instruct warm-up & cool-down if exercising at > 2 METs, Instruct on symptoms of exercise intolerance & actions to take, Instruct & monitor on saf, Assess intial functional capacity & safety risk - 30-day Reassessments 30 day Reassessments:: Met Nutrition - Initial Assessment Nutrition - 30-Day Assessment Nutrition - 60-Day Assessment - Program Goals Nutrition Program Goals: LDL <100 optimal. 100 - 129 Near optimal. 130 - 159 Borderline High. 160 - 189 High. Total Cholesterol <200 desirable. 200 - 239 Borderline High. >/= 240 High. HDL < 40 Low >/=60 High. Triglycerides <150 desirable. <199 optimal. VlDL 5 - 40. HgbA1C <7%. BMI <25 Patient has diagnosis of Hyperlipidemia (ICD E78)?: Yes - Visit Date of Assessment:: 07/08/22 Session #:: 22 - Cholesterol/Lipids (Other Core Measures) Determine presence & major risk factors that modify LDL goal: Hypertension or hypertensive medication, Family history of premature CHD in Male < 55 years: female <65 yearsFa, Age men > 45 years; women >/= 55 years Outcomes/Goals: Pt IDs own risk factors & lifestyle modifications by Session 10, Verbalizes symptoms of angina & response by session 3., Pt independently manages Intervention/Plan: Instruct on personal lipid levels & lipid goals/NCEP guidelines, Instruct on cholesterol Referral to dietitian:: No - 30-day Reassessments:: Progressing - Diabetes (Other Core Measures) Diabetes Type: Not Applicable - Weight Mgt (Other Care) Not Applicable: No Height: 5 ft 8 in - Weight:: 235 lb 8 oz BMI: 35.8 Diagnosis Overweight/Obesity BMI> 30% ICD-10 E66: Yes Diagnosis High BMI/Morbid Obesity BMI> 35% ICD-10 Z68: Yes Outcomes/Goals: Pt sets, maintains & shows weight loss goal & trend during rehab Intervention/Plan: Instruct on ideal BMI & set weight loss goal w/patient, Assist pt to ID & incorporate diet changes for weight loss by S9, Refer to Structured Weight Loss program as appropriate, Encourage goal of using 250-300dcal per session for weight loss 30 day Reassessments:: Progressing - Healthy Eating Habits Will attend diet classes:: Yes Outcomes/Goals:: Consume diet rich in vegs,fruits,whole grain/high fiber,fish,lean meat, Limit sat/trans fats,cholesterol & added salts & sugars Intervention/Plan:: Assess current eating habits 30-day Reassessments:: Not Met - Education Gave educational materials for:: Healthy eating Nutrition - 90-Day Assessment Nutrition - Final Assessment Core - Initial Assessment Core - 30-Day Assessment Core - 60-Day Assessment - Visit Date of Eval: 07/08/22 Session #:: 22 - Medication Compliance Preventative Medication(s):: Aspirin, Statin/lipid, Beta jemima H/O mental health issues: depression, anxiety, or addiction?: No Doesn?t believe in the benefits of treatment?: No Believes medications are unnecessary or harmful?: No Has a concern about medication side effects?: No Expresses concern over the cost of medications?: No Outcomes/Goals: Verbalizes medications,desired effect & common side effects @ DC, Pt self-reports following medication regimen, Keeps card in wallet w/medications listed by DC Interventions/plans: Instruct on medication effects & side effects, Review medication list w/patient every two weeks, Instruct importance of taking meds as ordered & assist problem solving 30-day Reassessments:: Met - Tobacco Use Tobacco Use: Non-smoker - Hypertension Hypertension Diagnosis:: Hypertension ICD-10 I10 Resting Blood Pressure:: 98/68 [place] [employer] Hypertension Guidelines: [place] [employer] Hypertension Guidelines. Normal BP Less than 120/80. Elevated BP 120/80. Hypertension Stage 1: BP 130-139/80-89. Hypertesnion Stage 2: BP 140 or higher/90 or higher. Hypertension Crisis: BP higher than 180/120 Peak Exercise Blood Pressure:: 142/74 Outcomes/Goals: Able to verbalize/achieve optimal blood pressure <130/80, Incorporates diet changes & exercise for blood pressure control by DC Interventions/plan: Instruct on optimal blood pressure, hypertension & medications, Instruct on effects of sodium, alcohol, stress, exercise &hypertension 30 day Reassessments:: Met - Tobacco Cessation Referral Smoking Cessation Referral:: No Individual Education/Counseling:: No Education Schedule Given:: Yes Core - 90 Day Assessment Core - Final Assessment Psychosocial - Initial Assess Psychosocial - 30-Day Assess Psychosocial - 60-Day Assess - VIsit Date of Eval: 07/08/22 Session #:: 22 Not Applicable: Yes History of previous Mental disease:: No - Psychosocial Test Tool Used:: PHQ-9 Questionnaire phq-9 Severity: Severity. 1-4 Minimal Depression. 5-9 Mild Depression. 10-14 Moderate Depression. 15-19 Moderately Sever Depression. 20-27 Severe Depression. Rule: - Referral to Behavioral Health PS - Interventions: Yes Attend Stress Management Classes, No Referral to Behavioral Health if PHQ-9 score >9:, No Referral to [facility], No Referral to Physician if PHQ-9 if score is 5-9: - Outcomes/Goals: See list Psychosocial Outcomes/Goals:: ID's personal stressors & 2 strategies to manage stress by discharge - Intervention/Plan: See List Interventions/Plan:: Assess stressors,coping strategies & signs of derpression on admission, Instruct/assist pt to develop coping & personal stress Mgt strategies, Instruct patient to recognize signs & symptoms of depression, Instruct patient to recog - 30-day Reassessments: 30 day Reassessments:: Met Psychosocial - 90-Day Assess Psychosocial - Final Assessmen Patient Health Questionnaire 60-Day Re-eval Assessment 1. Little interest or pleasure in doing things: Not at all 2. Feeling down, depressed, or hopeless: Not at all 3. Trouble falling or staying asleep, or sleeping too much: Several days 4. Feeling tired or having little energy: Not at all 5. Poor appetite or overeating: Not at all 6. Feeling bad about yourself -- or that you are a failure or have let yourself or your family down: Not at all 7. Trouble concentrating on things, such as reading the newspaper or watching television: Not at all 8. Moving or speaking so slowly that other people could have noticed. Or the opposite - being so fidgety or restless that you have been moving around a lot more than usual: Not at all 9. Thoughts that you would be better off , or of hurting yourself in some way: Not at all How difficult have these problems made it for you to do your work, take care of things at home, or get along with other people?: Not difficult at all Total Score: 1 Self-Efficacy 60-Day Re-eval Assessment We would like to know how confident you are in doing certain activities. Please select your confidence level for:: Select your confidence level for the following using the scale 1-10 where 1 is not at all confident and 10 is totally confident. Your score is the average of all 6 responses. Fatigue: How confident are you that you can keep the fatigue caused by your disease from interfering with the things you want to do? Select Number: 10 Physical Discomfort or Pain: How confident are you that you can keep the physical discomfort or pain of your disease from interfering with the things you want to do? Select Number: 10 Emotional Distress: How confident are you that you can keep the emotional distress caused by your disease from interfering with the things you want to do? Select Number: 10 Other Symptoms or Health Problems: How confident are you that you can keep other symptoms or health problems from interfering with the things you want to do? Select Number: 10 Different Tasks and Activities: How confident are you that you can do the different tasks and activities needed to manage your health condition so as to reduce your need to see a doctor? Select Number: 10 Medication: How confident are you that you can do things other than just taking medication to reduce how much your illness affects your everyday life? Select Number: 10 Total Score:: 10 Nutrition Survey
[2022-07-08 10:01] VITALS: BP 142/74; BP 98/68; BMI 35.8
== END 2022-08-03 23:59 ==
LOC: CR 10:30
PROVIDERS: PCP Family Medicine; Referring Provider Internal Medicine Cardiovascular Disease; Visit Provider Internal Medicine Cardiovascular Disease
DX: Z95.1 Presence of aortocoronary bypass graft (principal); D62 Acute posthemorrhagic anemia; I82.402 Acute embolism and thrombosis of unspecified deep veins of left lower extremity; L89.91 Pressure ulcer of unspecified site, stage 1; T81.31XA Disruption of external operation (surgical) wound, not elsewhere classified, initial encounter
CPT/HCPCS: 93798

== ENCOUNTER → 2022-08-06 | Outpatient (CLI) | payer MEDICARE, OTHER, SELFPAY ==
[2022-07-08 10:01] VITALS: BMI 35.8
[2022-08-06 12:09] LABS: Absolute Lymphocyte Count 2.28 X10^3/uL (0.83-4.51); Absolute Neutrophil Count 5.3 X10^3/uL (2.0-7.7); Basophil# 0.06 X10^3/uL; Basophil% 0.7 % (0-1); Eosinophil# 0.13 X10^3/uL; Eosinophils% 1.5 % (0-5); Hematocrit 42.8 % (40-54); Hemoglobin 14.1 g/dL (13.0-16.5); Lymphocyte # 2.28 X10^3/ul (0.83-4.51); Lymphocyte % 26.6 % (19-41); Mean Corp Hgb Conc 32.9 g/dL (32-36); Mean Corpuscular Hgb 28.8 pg (27.0-32.0); Mean Corpuscular Volume 87.3 fL (80-94); Mean Platelet Vol. 10.2 fl (6.2-12.0); Monocyte% 9.3 % (0-10); NRBC Flagged by Analyzer 0 % (0-5); Neutrophil # 5.28 X10^3/uL (2.7-7.7); Neutrophil % 61.7 % (47-70); Platelet Count 342 K/mm3 (150-450); RBC Distribution Width CV 14.4 % (11.6-14.6); RBC Distribution Width SD 45.7 fl (35.1-43.9); White Blood Count 8.6 K/mm3 (4.4-11.0)
[2022-08-06 12:36] LABS: AST(SGOT) 14 U/L (15-37); Alanine Aminotransfer ALT/SGPT 23 U/L (16-61); Albumin, Serum 3.2 g/dL (3.2-5.0); Alkaline Phosphatase 76 U/L (45-117); Bilirubin, Direct 0.14 mg/dL (0.00-0.30); Globulin 4.3 g/dL (2.2-4.2); Protein, Total 7.5 g/dL (6.4-8.2)
[2022-08-10 15:09] LABS: QNTFERON TB Mitogen Value > 10.00 IU/mL (.); QNTFERON TB Nil Value 0.04 IU/mL (.); QNTFERON TB1+ Ag Value 0.05 IU/mL (.); QNTFERON TB2+ Ag Value 0.04 IU/mL (.)
[2022-08-10 15:20] LABS: QNTIFERON TB Positive Criteria Negative (Negative)
== END | disposition home or self-care (01) ==
LOC: LAB 11:29
PROVIDERS: PCP Family Medicine; Referring Provider Dermatology; Visit Provider Dermatology
DX: L40.0 Psoriasis vulgaris (principal); L40.8 Other psoriasis; Z79.899 Other long term (current) drug therapy
CPT/HCPCS: 36415; 80076; 85025; 86480

== ENCOUNTER 2022-08-30 10:30 | Outpatient (RCR) | payer MEDICARE, OTHER, SELFPAY ==
[2022-07-08 10:01] VITALS: BMI 35.8
[2022-08-04 00:24] VITALS: BP 142/74; BP 98/68
--- NOTE | 2022-08-06 08:41 | PCM.CR.ITP ---
Diagnosis Exercise - 90-day Assessment - Visit Date of Eval: 08/06/22 Session #:: 25 Comments:: Patient was out of cardiac rehab from 07/14/2022 to 08/02/2022 due to COVID-19 infection. He resumed exercise on 08/02/2022. Nutrition - Initial Assessment Nutrition - 30-Day Assessment Nutrition - 60-Day Assessment Nutrition - 90-Day Assessment Nutrition - Final Assessment Core - Initial Assessment Core - 30-Day Assessment Core - 60-Day Assessment Core - 90 Day Assessment Core - Final Assessment Psychosocial - Initial Assess Psychosocial - 30-Day Assess Psychosocial - 60-Day Assess Psychosocial - 90-Day Assess Psychosocial - Final Assessmen Nutrition Survey
== END 2022-09-03 23:59 ==
LOC: CR 10:30
PROVIDERS: PCP Family Medicine; Referring Provider Internal Medicine Cardiovascular Disease; Visit Provider Internal Medicine Cardiovascular Disease
DX: Z95.1 Presence of aortocoronary bypass graft (principal); D62 Acute posthemorrhagic anemia; I82.402 Acute embolism and thrombosis of unspecified deep veins of left lower extremity; L89.91 Pressure ulcer of unspecified site, stage 1; T81.31XA Disruption of external operation (surgical) wound, not elsewhere classified, initial encounter
CPT/HCPCS: 93798

== ENCOUNTER 2022-12-17 12:57 | Emergency (ER) | payer MEDICARE, OTHER, SELFPAY ==
[2022-07-08 10:01] VITALS: BMI 35.8
[2022-12-17 12:59] VITALS: BP 151/86; PULSE 68; RESP 18; TEMP 36.6
[2022-12-17 13:15] VITALS: BP 112/97; PULSE 61; RESP 18; O2SAT 97
--- NOTE | 2022-12-17 13:15 | EKG12_ITS ---
Test Reason : CP Blood Pressure : / mmHG Vent. Rate : 064 BPM Atrial Rate : 064 BPM P-R Int : 216 ms QRS Dur : 102 ms QT Int : 418 ms P-R-T Axes : 009 -23 025 degrees QTc Int : 431 ms Sinus rhythm with 1st degree A-V block with occasional Premature ventricular complexes Otherwise normal ECG Confirmed by KRISTINE MIR, JESSICA ([id number]), index editor SUNITA THOMAS ([id number]) on 12/27/2022 12:15:37 PM Referred By: Confirmed By:JESSICA CARMONA MD
--- NOTE | 2022-12-17 13:20 | EDS_ITS ---
HPI <CLEMENT Nash - Last Filed: 12/17/22 16:30> History of Present Illness Chief Complaint: Chest Pain Narrative Narrative: 72-year-old male with PMH of HLD, DM2, CABG in February 2022 presents with left-sided chest tightness that started about 3 hours ago. He felt like the pain moved to the right side but now its only on the left. No abdominal or back pain. When it started he was driving and not exerting himself in any way. He has no shortness of breath, nausea, vomiting, or diaphoresis. He takes aspirin 81 mg. I inquired about blood thinners because Cailin was on his medication list but he states he was only on this for 30 days after his CABG and has never had a DVT/PE. He has no leg pain or swelling, recent surgery or travel, cough or hemoptysis. PFSH <CLEMENT aNsh - Last Filed: 12/17/22 16:30> [facility] Medical History Acute respiratory insufficiency, postoperative (02/25/22) Atherosclerosis of coronary artery without angina pectoris BPH (benign prostatic hyperplasia) COVID-19 Deep vein thrombosis of left lower extremity (02/28/22) Depression Erectile dysfunction GERD (gastroesophageal reflux disease) Meniere disease Mitral regurgitation Multiple pulmonary nodules Non-STEMI (non-ST elevated myocardial infarction) (02/21/22) Obesity (BMI 30.0-34.9) Psoriasis Tobacco use disorder Triple vessel coronary artery disease Type II diabetes mellitus with complication Home Medications metformin 500 mg tablet 500 mg PO BID dm 02/21/22 [History Last Taken Unknown] acetaminophen 325 mg tablet (Tylenol) 650 mg PO Q6H PRN Pain 03/19/22 [History Last Taken Unknown] aspirin 81 mg chewable tablet 81 mg PO DAILY heart 03/19/22 [History Last Taken Unknown] apixaban 5 mg tablet 5 mg PO BID #60 tabs 03/30/22 [Rx Last Taken Unknown] citalopram 20 mg tablet 20 mg PO DAILY #30 tabs 03/30/22 [Rx Last Taken Unknown] vit 122-ferrous fumarate 27 mg iron-folic acid 800 mcg tablet ( Multi) 1 tab PO DAILY vitamin #90 tabs 03/30/22 [Rx Last Taken Unknown] atorvastatin 40 mg tablet 40 mg PO QHS cholesterol #90 tabs 04/05/22 [Rx Last Taken Unknown] metoprolol tartrate 25 mg tablet 25 mg PO BID bp #180 tabs 11/29/22 [Rx Last Taken Unknown] Allergy/AdvReac Type Severity Reaction Status Date / Time No Known Allergies Allergy Verified 05/17/22 12:50 Family History Father Small cell carcinoma Mother Sepsis Surgical History H/O coronary artery bypass surgery (02/25/22) H/O knee surgery H/O rotator cuff surgery H/O shoulder surgery History of left heart catheterization (02/22/22) Social History household members: other details: Lives alone with his 2 dogs. passes away in December 2021. number of children: 2 current occupational status: retired current occupation: [employer]. 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 pets and animals: Yes (2 dogs) leisure activities: other other: Likes motorcycles Smoking Status: Current every day smoker tobacco type: cigars per week: 1 substance use type: does not use what type of physical activity do you participate in: walking ROS <CLEMENT Nash - Last Filed: 12/17/22 16:30> ROS ED ROS Narrative Constitutional: Negative for fever, chills, malaise. CVS: Positive for chest pain. Negative for palpitations, syncope. Respiratory: Negative for shortness of breath, cough, orthopnea. GI: Negative for abdominal pain, nausea, vomiting. Musc: Negative for joint pain, swelling. EXAM <CLEMENT Nash - Last Filed: 12/17/22 16:30> Physical Exam Narrative Exam Narrative: CONST: Patient sitting in no acute distress. EYES: Normal inspection. NECK: Normal inspection. RESP: No respiratory distress, CTAB. CVS: Regular rate and rhythm, no murmur, no gallop. ABD: Soft and nontender, no guarding or rebound, nondistended. SKIN: Color normal, no rash, warm, dry, intact. EXTREMITIES: Normal appearance, no pedal edema. NEURO: Oriented x4. PSYCH: Normal affect. Const Vital Signs: 12/17/22 12:59 12/17/22 13:30 12/17/22 13:15 Temperature 97.8 F Temperature Source Temporal Pulse Rate 68 61 Respiratory Rate 18 18 Blood Pressure 151/86 H 112/97 H Blood Pressure Mean 107 102 Pulse Ox 97 Oxygen Delivery Method Room Air Room Air 12/17/22 14:00 12/17/22 15:00 12/17/22 16:29 Temperature Temperature Source Pulse Rate 62 54 L 57 L Respiratory Rate 13 7 L 14 Blood Pressure 137/75 H 130/80 H 124/82 H Blood Pressure Mean 95 96 96 Pulse Ox 98 96 98 Oxygen Delivery Method Room Air Room Air Room Air <Dr. Diony Delgadillo DO - Last Filed: 12/17/22 17:04> Physical Exam Const Vital Signs: 12/17/22 12:59 12/17/22 13:30 12/17/22 13:15 Temperature 97.8 F Temperature Source Temporal Pulse Rate 68 61 Respiratory Rate 18 18 Blood Pressure 151/86 H 112/97 H Blood Pressure Mean 107 102 Pulse Ox 97 Oxygen Delivery Method Room Air Room Air 12/17/22 14:00 12/17/22 15:00 12/17/22 16:29 Temperature Temperature Source Pulse Rate 62 54 L 57 L Respiratory Rate 13 7 L 14 Blood Pressure 137/75 H 130/80 H 124/82 H Blood Pressure Mean 95 96 96 Pulse Ox 98 96 98 Oxygen Delivery Method Room Air Room Air Room Air MDM <CLEMENT Nash - Last Filed: 12/17/22 16:30> [facility] Narrative Medical decision making narrative: Patient presented with chest tightness. History of CABG in February 2022 and he states this does not feel similar. He appears well and nontoxic. Slightly hypertensive at 151/86 with otherwise normal vital signs. His exam is unremarkable. EKG is sinus rhythm with no ischemic changes and cardiac enzymes are 7 and 6. CBC and BMP unremarkable. CXR shows no acute process. Patient has no risk factors for DVT/PE so did not do work-up for this. I discussed with him that although his cardiac work-up here is negative he has multiple cardiac risk factors with heart score of 4. He would like to go home and follow-up outpatient with his development technical lead rather than be admitted for stress test. He was given return precautions and discharged in stable condition Differential: ACS, musculoskeletal, gastric process, pneumonia among others Lab Data Attestation: I reviewed the patient's lab results. Labs: Laboratory Results - last 24 hr 12/17/22 12/17/22 13:20 15:45 WBC 7.6 RBC 4.73 Hgb 14.7 Hct 42.9 MCV 90.7 MCH 31.1 MCHC 34.3 RDW Std Deviation 40.9 RDW Coeff of Arthur 12.4 Plt Count 288 MPV 10.0 Immature Gran % (Auto) 0.100 Neut % (Auto) 57.1 Lymph % (Auto) 30.8 [place] % (Auto) 9.2 Eos % (Auto) 2.1 Baso % (Auto) 0.7 Absolute Neuts (auto) 4.4 Absolute Lymphs (auto) 2.35 Nucleated RBC % 0 Sodium 136 Potassium 4.4 Chloride 104 Carbon Dioxide 30.0 Anion Gap 2 L BUN 19 H Creatinine 0.93 Est GFR (MDRD) Af Amer 103 Est GFR (MDRD) Non-Af 85 BUN/Creatinine Ratio 20.3 H Glucose 119 H Calcium 9.3 Troponin I High Sens 7 6 Radiography Diagnostic Testing: Clinical Impression(s) from Imaging Studies Chest X-Ray 12/17/22 13:30 IMPRESSION: Stable elevation of the right hemidiaphragm. No acute abnormality is seen. Electronically Signed: Papo Jackman MD at 13:44 EDT , ED attending interpretation of 2- view chest x-ray shows normal heart size, no acute infiltrate, edema, or effusion. EKG Initial EKG: Attestation: I personally reviewed and interpreted this EKG as follows: Comments: Sinus rhythm with first-degree AV block at 64 bpm, occasional PVC No acute ischemic changes, normal intervals <Dr. Diony Delgadillo, DO - Last Filed: 12/17/22 17:04> [facility] Lab Data Attestation: I reviewed the patient's lab results. Labs: Laboratory Results - last 24 hr 12/17/22 12/17/22 13:20 15:45 WBC 7.6 RBC 4.73 Hgb 14.7 Hct 42.9 MCV 90.7 MCH 31.1 MCHC 34.3 RDW Std Deviation 40.9 RDW Coeff of Arthur 12.4 Plt Count 288 MPV 10.0 Immature Gran % (Auto) 0.100 Neut % (Auto) 57.1 Lymph % (Auto) 30.8 [place] % (Auto) 9.2 Eos % (Auto) 2.1 Baso % (Auto) 0.7 Absolute Neuts (auto) 4.4 Absolute Lymphs (auto) 2.35 Nucleated RBC % 0 Sodium 136 Potassium 4.4 Chloride 104 Carbon Dioxide 30.0 Anion Gap 2 L BUN 19 H Creatinine 0.93 Est GFR (MDRD) Af Amer 103 Est GFR (MDRD) Non-Af 85 BUN/Creatinine Ratio 20.3 H Glucose 119 H Calcium 9.3 Troponin I High Sens 7 6 Radiography Diagnostic Testing: Clinical Impression(s) from Imaging Studies Chest X-Ray 12/17/22 13:30 IMPRESSION: Stable elevation of the right hemidiaphragm. No acute abnormality is seen. Electronically Signed: Papo Jackman MD at 13:44 EDT , Treatment and Re-Evaluation :: ED attending note: I evaluated the patient in conjunction with the LETHA. I agree with his/her statements and above findings. I have personally performed a face to face assessment of the patient and have reviewed the LETHA Note. I performed a substantive portion of the visit including all aspects of the following. I personally saw the patient performed chart review, physical exam, reviewed labs, imaging (if obtained), and formulated a treatment and management plan. Brief history: 72-year-old male here with chest pain in setting of CABG, hyperlipidemia, hypertension, type 2 diabetes and tobacco abuse history. The patient denies recent surgery in the last 4 weeks or immobilization in the last 3 days, denies previous diagnosis of DVT or PE, hemoptysis, unilateral leg swelling or malignancy with treatment the last 6 months. No estrogen use noted. Patient denies sudden onset of pain, no tearing sensation, no migratory symptoms, no new numbness, weakness or loss of sensation. Patient denies family history or personal history of Marfan syndrome or Tony-Danlos Exam: Nursing triage notes reviewed, Vital signs reviewed Constitutional: please see mdm HENT: MMM Eyes: Pupils equal round and reactive to light, Extraocular muscles intact Neck: No stridor, no JVD, full neck ROM Lungs: Clear to auscultation, No wheezing or rales. No increased work of breathing, no conversational dyspnea, no accessory muscle use, no nasal flaring. No respiratory distress noted Heart: Regular rate and rhythm, No murmurs, No rubs and No gallops, 2+ distal pulses (radial, femoral, posterior tibial) in all extremities Abdomen: Soft, there is no tenderness, rigidity, rebound or guarding, no obvious peritoneal signs, no palpable pulsatile abdominal masses, no auscultated abdominal bruit : No CVAT Extremities: No edema Neuro: No focal neurological deficits, cranial nerves II through XII intact, 5/5 strength in all extremities. Intact sensation to light touch in all extremities, 2+ reflexes bilateral patella dens. Normal gait. No ataxia. Skin: No rash or lesions noted MDM/plan: Chief Complaint: Chest pain External records reviewed: Last echocardiogram shows ejection fraction 55% I considered the following differential diagnosis: 72-year-old male here with chest pain. Initial EKG showed normal sinus rhythm, normal axis, prolonged LA interval, first-degree AV block, no STEMI, occasional PVCs. We obtain labs rule out myocardial ischemia, significant anemia or electrolyte abnormalities. Obtained a chest x-ray to rule out pulmonary edema, pneumonia or pneumothorax. Labs and images were unremarkable. Patient's heart score is elevated given age, risk factors and history. We will offer admission for observation and confirmatory testing. I considered the following differential: PE less likely given low risk Wells score. Aortic dissection is thought to be less likely given no sudden ripping or tearing pain, migratory pain, palpable pulse inequalities, no focal neurologic deficits concurrent with chest pain. Chance of dissection less than 06/1999. Pericarditis less likely given no pathognomonic EKG changes (no diffuse ST elevations, LA depressions). GI etiology (i.e. Boerhaave syndrome) less likely given no chest or neck crepitus, no vomiting or forced retching. Shared decision making: I will have a discussion with the patient and or visitors regarding risk/benefits of further testing or admission. They will be made aware of of the risk/benefits inherent in this decision they will be given the opportunity to voice understanding. Consults: Discharge Plan Triage Chief Complaint: Chest Pain ED Midlevel Provider: Kelle Larkin ED Provider: Diony Delgadillo Dx/Rx/DC Orders Clinical Impression: Chest pain Instructions: Chest Pain [facility] Ch Prescriptions: No Action atorvastatin 40 mg tablet 40 mg PO QHS Qty: 90 3RF Rx Instructions: Take this at bedtime to control cholesterol. metformin 500 mg Tablet 500 mg PO BID acetaminophen [Tylenol] 325 mg Tablet 650 mg PO Q6H PRN (Reason: Pain) aspirin 81 mg Tablet,Chewable 81 mg PO DAILY citalopram 20 mg Tablet 20 mg PO DAILY Qty: 30 0RF apixaban 5 mg tablet 5 mg PO BID Qty: 60 0RF Multi 27-800 mg-mcg Tablet 1 tab PO DAILY Qty: 90 0RF metoprolol tartrate 25 mg tablet 25 mg PO BID Qty: 180 3RF Primary Care Provider: Leeroy Thompson Referrals: Leeroy Thompson DO [Primary Care Provider] - Activity Restrictions/Additional Instructions: Today all of your testing and blood work looked normal and there were no signs of acute heart attack. However you do have multiple risk factors for cardiac disease and I recommend you see your development technical lead for evaluation. If symptoms change or worsen in the interim come back to the emergency room. Disposition Disposition: Home, Self Care Discharge Date/Time: 12/17/22 16:34
[2022-12-17 13:28] LABS: Absolute Lymphocyte Count 2.35 X10^3/uL (0.83-4.51); Absolute Neutrophil Count 4.4 X10^3/uL (2.0-7.7); Basophil# 0.05 X10^3/uL; Basophil% 0.7 % (0-1); Eosinophil# 0.16 X10^3/uL; Eosinophils% 2.1 % (0-5); Hematocrit 42.9 % (40-54); Hemoglobin 14.7 g/dL (13.0-16.5); Lymphocyte # 2.35 X10^3/ul (0.83-4.51); Lymphocyte % 30.8 % (19-41); Mean Corp Hgb Conc 34.3 g/dL (32-36); Mean Corpuscular Hgb 31.1 pg (27.0-32.0); Mean Corpuscular Volume 90.7 fL (80-94); Monocyte% 9.2 % (0-10); NRBC Flagged by Analyzer 0 % (0-5); Neutrophil # 4.36 X10^3/uL (2.7-7.7); Neutrophil % 57.1 % (47-70); Platelet Count 288 K/mm3 (150-450); RBC Distribution Width CV 12.4 % (11.6-14.6); RBC Distribution Width SD 40.9 fl (35.1-43.9); Red Blood Count 4.73 M/mm3 (4.6-6.2); White Blood Count 7.6 K/mm3 (4.4-11.0)
[2022-12-17] MEDS: Aspirin 81 MG TAB.CHEW 324 MG PO (13:28)
--- NOTE | 2022-12-17 13:30 | RAD_ITS ---
STUDY: X-RAY CHEST REASON FOR EXAM: Male, 72 years old. Chest pain. TECHNIQUE: Single AP portable view of the chest. COMPARISON: Comparison is made with prior study February 21, 2022. FINDINGS: EKG electrodes are seen. Stable elevation of the right hemidiaphragm. There is no demonstrated pleural abnormality. Sternal cerclage wires and vascular clips are present from a prior sternotomy and coronary artery bypass graft procedure (CABG). Normal mediastinum and bashir. Normal visualized pulmonary arteries. There is atherosclerotic calcification of the aortic arch with tortuosity. Normal visualized thoracic spine. Normal visualized ribs, clavicles, and shoulders. There is no demonstrated abnormality of the visualized soft tissue structures of the upper abdomen. RAD/Chest 1 View (Portable) IMPRESSION: Stable elevation of the right hemidiaphragm. No acute abnormality is seen. Electronically Signed: Papo Jackman MD at 13:44 EDT ,
[2022-12-17 13:44] LABS: Anion Gap 2 (5-15); BUN 19 mg/dL (7-18); BUN/Creat Ratio 20.3 RATIO (10-20); Calcium,Total 9.3 mg/dL (8.5-10.1); Chloride 104 mmol/L (98-107); Creatinine, Serum 0.93 mg/dL (0.70-1.30); EST Glomerular Filtration Rate 85 mL/min (>60); Est Glom Filt Rate - Afr Amer 103 mL/min (>60); Glucose 119 mg/dL (74-106); Potassium 4.4 mmol/L (3.5-5.1); Sodium Level 136 mmol/L (136-145); Troponin-I HS (w/2H Reflex) 7 pg/mL (3.0-78.0)
[2022-12-17 14:00] VITALS: BP 137/75; PULSE 62; RESP 13; O2SAT 98
[2022-12-17 15:00] VITALS: BP 130/80; PULSE 54; RESP 7; O2SAT 96
[2022-12-17 15:22] LABS: Reflex Troponin-HS? (from REC) Y
[2022-12-17 16:23] LABS: Troponin-I HS 6 pg/mL (3.0-78.0)
[2022-12-17 16:29] VITALS: BP 124/82; PULSE 57; RESP 14; O2SAT 98
== END 2022-12-17 16:34 | disposition home or self-care (01) ==
PROVIDERS: Physician Assistant; Emergency Provider Emergency Medicine; PCP Family Medicine; Visit Provider Emergency Medicine
DX: R07.9 Chest pain, unspecified (principal); I25.10 Atherosclerotic heart disease of native coronary artery without angina pectoris; I25.2 Old myocardial infarction; F17.290 Nicotine dependence, other tobacco product, uncomplicated; Z95.1 Presence of aortocoronary bypass graft; Z86.16 Personal history of COVID-19; Z86.718 Personal history of other venous thrombosis and embolism
CPT/HCPCS: 71045; 80048; 84484; 85025; 93005; 99284; A4216

== ENCOUNTER 2023-08-02 09:21 | Emergency (ER) | payer MEDICARE, OTHER, SELFPAY ==
[2022-07-08 10:01] VITALS: BMI 35.8
[2023-08-02 09:22] VITALS: BP 142/92; PULSE 95; RESP 20; TEMP 35.9; O2SAT 97; BMI 36.3
--- NOTE | 2023-08-02 09:42 | EDS_ITS ---
HPI History of Present Illness Chief Complaint: General Illness Informant: patient Onset/Context/Timing Onset: Weeks (2) Context: Gradual Onset Timing: Waxes and wanes Quality: Shooting Location: Right chest and back Worsened by: Movement Relieved by: Rest Narrative Narrative: Patient presents with chest and back pain that has been waxing and waning over the past 2 weeks. Patient states the pain is under his rib cage and radiates straight into his back. Patient describes the pain as shooting. Patient states it is worse with certain movements. Patient states it is better with rest. Patient admits to a fever up to 102 at home. Patient also admits to some sweats and chills. Patient admits to a cough but denies any sputum production. Patient denies any nausea or vomiting. PFSH PFS Medical History Acute respiratory insufficiency, postoperative (02/25/22) Atherosclerosis of coronary artery without angina pectoris BPH (benign prostatic hyperplasia) COVID-19 Deep vein thrombosis of left lower extremity (02/28/22) Depression Erectile dysfunction GERD (gastroesophageal reflux disease) Meniere disease Mitral regurgitation Multiple pulmonary nodules Non-STEMI (non-ST elevated myocardial infarction) (02/21/22) Obesity (BMI 30.0-34.9) Psoriasis Tobacco use disorder Triple vessel coronary artery disease Type II diabetes mellitus with complication Home Medications metformin 500 mg tablet 500 mg PO BID dm 02/21/22 [History Last Taken Unknown] acetaminophen 325 mg tablet (Tylenol) 650 mg PO Q6H PRN Pain 03/19/22 [History Last Taken Unknown] aspirin 81 mg chewable tablet 81 mg PO DAILY heart 03/19/22 [History Last Taken Unknown] citalopram 20 mg tablet 20 mg PO DAILY #30 tabs 03/30/22 [Rx Last Taken Unknown] atorvastatin 40 mg tablet See Rx Instructions .Route .COMPLEX #90 tabs 04/18/23 [Rx Last Taken Unknown] metoprolol tartrate 25 mg tablet 25 mg PO BID bp #180 tabs 05/25/23 [Rx Last Taken Unknown] multivitamin (One Daily Multivitamin tablet) 1 tab PO DAILY 08/02/23 [History Last Taken Unknown] Allergy/AdvReac Type Severity Reaction Status Date / Time No Known Allergies Allergy Verified 08/02/23 09:24 Family History Father Small cell carcinoma Mother Sepsis Surgical History H/O coronary artery bypass surgery (02/25/22) H/O knee surgery H/O rotator cuff surgery H/O shoulder surgery History of left heart catheterization (02/22/22) Social History household members: other details: Lives alone with his 2 dogs. passes away in December 2021. 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 pets and animals: Yes (2 dogs) leisure activities: other other: Likes motorcycles Smoking Status: Never smoker substance use type: does not use what type of physical activity do you participate in: walking ROS ROS ED Constitutional Constitutional ED: Reports chills, fever(s) and sweats Eyes Eyes: Reports blurry vision; Denies diplopia ENT ENT ED: Denies rhinorrhea or sore throat Cardiovascular Cardiovascular: Reports chest pain; Denies palpitations Respiratory/Chest Respiratory/Chest: Reports cough and dyspnea Gastrointestinal Gastrointestinal: Denies nausea or vomiting Genitourinary Genitourinary ED: Denies dysuria or hematuria Musculoskeletal Musculoskeletal: Reports back pain; Denies neck pain Integumentary Reports rash; Denies abscess Neurologic Neurologic: Reports headache(s); Denies weakness Allergic/Immunologic Allergic/Immunologic ED: Denies mouth swelling or urticaria EXAM Physical Exam Const Vital Signs: 08/02/23 09:22 08/02/23 10:28 08/02/23 10:24 Temperature 96.7 F L Temperature Source Temporal Pulse Rate 95 89 Respiratory Rate 20 H 17 Respiratory Effort Normal Non-Labored Blood Pressure 142/92 H 136/94 H Blood Pressure Mean 108 108 Pulse Ox 97 99 Oxygen Delivery Method Room Air 08/02/23 12:00 Temperature Temperature Source Pulse Rate Respiratory Rate Respiratory Effort Blood Pressure 137/83 H Blood Pressure Mean 101 Pulse Ox Oxygen Delivery Method Positive well nourished and well developed General Appearance ED: well developed and NAD HEENT Reports moist mucous membranes Chest Wall inspection of chest normal Chest Narrative: There is tenderness over the right lower chest and epigastric area. There is no bony crepitance or step-off noted. There is no edema or ecchymosis noted. Resp normal respiratory effort and clear to auscultation bilaterally Cardio regular rate and regular rhythm GI non-distended Palpation: soft and tender epigastric Back/Spine Back/Spine Narrative: There is mild tenderness over the right thoracic paraspinal area. There is no edema or ecchymosis. There is no bony crepitance or step-off noted. Thoracic Spine / Upper Back: paraspinal muscle tenderness right Extremity normal to inspection Neuro oriented x3, CN's II-XII intact bilaterally and no sensory deficits noted Sensorium / Orientation: alert Motor Exam: strength 5/5 throughout Psych mental status grossly normal MDM MDM MDM Narrative Medical decision making narrative: Differential diagnosis includes pneumonia, pneumothorax, cardiac dysrhythmia, cardiac ischemia, viral bronchitis, pancreatitis, gastritis, musculoskeletal pain, and anxiety. Patient has a Wells score of 0. Therefore, I do not feel this is from a pulmonary embolism. EKG will be obtained to assess for cardiac dysrhythmia and cardiac ischemia. Chest x-ray will be obtained to assess for pneumonia and pneumothorax. CBC will be obtained to assess for leukocytosis and anemia. Comprehensive metabolic profile will be obtained to assess for hepatic function, renal function, and electrolyte abnormality. Lipase will be obtained to assess for pancreatitis. High-sensitivity troponin will be obtained to assess for cardiac ischemia. COVID-19, influenza, and RSV PCR will be obtained to assess for viral infection. Urinalysis will be obtained to assess for urinary tract infection. Lab Data Attestation: I reviewed the patient's lab results. Lab results narrative: CBC was reviewed and was within normal limits. Comprehensive metabolic profile was reviewed and was within normal limits. High-sensitivity troponin was reviewed and was normal. Lipase was reviewed and was normal. Urinalysis was reviewed. There is no evidence of urinary tract infection or hematuria. COVID- 19 PCR was reviewed and was negative. Influenza PCR was reviewed and was negative for influenza A and influenza B. RSV PCR was reviewed and was negative. Labs: Laboratory Results - last 24 hr 08/02/23 08/02/23 10:15 12:22 WBC 7.8 RBC 4.66 Hgb 13.7 Hct 40.4 MCV 86.7 MCH 29.4 MCHC 33.9 RDW Std Deviation 39.9 RDW Coeff of Arthur 12.7 Plt Count 223 MPV 9.9 Immature Gran % (Auto) 0.300 Neut % (Auto) 61.7 Lymph % (Auto) 24.7 [place] % (Auto) 12.2 H Eos % (Auto) 0.5 Baso % (Auto) 0.6 Absolute Neuts (auto) 4.8 Absolute Lymphs (auto) 1.92 Nucleated RBC % 0 Sodium 134 L Potassium 3.5 Chloride 101 Carbon Dioxide 26.0 Anion Gap 7 BUN 16 Creatinine 0.91 Estim Creat Clear Calc 90.17 Est GFR (MDRD) Af Amer 105 Est GFR (MDRD) Non-Af 87 BUN/Creatinine Ratio 17.5 Glucose 147 H Calcium 9.0 Total Bilirubin 0.90 AST 24 ALT 35 Alkaline Phosphatase 75 Troponin I High Sens 12 Total Protein 8.1 Albumin 3.1 L Globulin 5.0 H Albumin/Globulin Ratio 0.6 L Lipase 41 Urine Color Yellow Urine Clarity Clear Urine pH 8.0 Ur Specific [place] 1.010 Urine Protein 30 H Urine Glucose (UA) Normal Urine Ketones 15 H Urine Occult Blood Negative Urine Nitrite Negative Urine Bilirubin Negative Urine Urobilinogen 8 H Ur Leukocyte Esterase Negative Urine RBC 0 SEEN Urine WBC 0 SEEN Ur Squamous Epith Cells 0 SEEN Urine Bacteria 0 SEEN Urine Mucus 0 SEEN Radiography Diagnostic Testing: Clinical Impression(s) from Imaging Studies Chest X-Ray 08/02/23 09:49 IMPRESSION: Stable elevation of the right hemidiaphragm. No acute abnormality is seen. Electronically Signed: Papo Jackman MD at 10:57 EST , PA and lateral chest x-ray was obtained. There are 2 views. On my independent interpretation, lung jama are clear. There is stable elevation of the right hemidiaphragm. There is normal cardiac silhouette. Bony thorax is normal. There is no acute process noted. Radiologist also interpreted the x-ray and agrees. EKG Initial EKG: Attestation: I personally reviewed and interpreted this EKG as follows: Interpretation: Sinus Rhythm (90) and No Acute Injury Pattern Comments: EKG was obtained. On my independent interpretation, it showed a normal sinus rhythm with a rate of 90. RI interval, QRS interval, and QTc intervals were all normal. There is left axis deviation at -28. There are no acute ST or T wave changes. Prior EKG tracings: available for review Prior: Unchanged (12/17/2022) Treatment and Re-Evaluation :: Patient was given IV fluids. Patient was feeling somewhat better on reevaluation. Patient was advised of his findings. Patient was instructed to continue to drink plenty of fluids. Patient was instructed to take Tylenol or ibuprofen as needed for any pain or fevers. Patient was instructed to follow-up with his primary care physician in 5 to 7 days for further evaluation. Patient understood and was agreeable with the plan. All questions were answered. Discharge Plan Triage Chief Complaint: General Illness ED Provider: Matthew Middleton Dx/Rx/DC Orders Clinical Impression: Viral illness, Obesity (BMI 30.0-34.9) Instructions: ED Viral Syndrome (Adult) Prescriptions: No Action metformin 500 mg Tablet 500 mg PO BID acetaminophen [Tylenol] 325 mg Tablet 650 mg PO Q6H PRN (Reason: Pain) aspirin 81 mg Tablet,Chewable 81 mg PO DAILY citalopram 20 mg Tablet 20 mg PO DAILY Qty: 30 0RF multivitamin [One Daily Multivitamin] Tablet 1 tab PO DAILY atorvastatin 40 mg tablet See Rx Instructions .ROUTE .COMPLEX Qty: 90 3RF Dose Instruction: TAKE 1 TABLET BY MOUTH EVERY DAY AT BEDTIME FOR CHOLESTEROL Rx Instructions: TAKE 1 TABLET BY MOUTH EVERY DAY AT BEDTIME FOR CHOLESTEROL metoprolol tartrate 25 mg tablet 25 mg PO BID Qty: 180 3RF Primary Care Provider: Leeroy Thompson Referrals: Leeroy Thompson DO [Primary Care Provider] - 5-7 Days Disposition Disposition: Home, Self Care
--- NOTE | 2023-08-02 09:49 | EKG12_ITS ---
Test Reason : GENERAL Blood Pressure : / mmHG Vent. Rate : 090 BPM Atrial Rate : 090 BPM P-R Int : 192 ms QRS Dur : 104 ms QT Int : 368 ms P-R-T Axes : 001 -28 020 degrees QTc Int : 450 ms Normal sinus rhythm Nonspecific ST abnormality Abnormal ECG Confirmed by JESSICA MIR, ZITA ([id number]), editor in chief newspaper DARA PEREZ ([id number]) on 08/08/2023 10:08:09 AM Referred By: Confirmed By:MARTINE LOPEZ MD
--- NOTE | 2023-08-02 09:49 | RAD_ITS ---
STUDY: X-RAY CHEST REASON FOR EXAM: Male, 72 years old. Cough TECHNIQUE: PA and lateral views of the chest. COMPARISON: Comparison is made with prior study dated December 17, 2022. FINDINGS: EKG electrodes are seen. Stable elevation of the right hemidiaphragm. There is no demonstrated pleural abnormality. Sternal cerclage wires and vascular clips are present from a prior sternotomy and coronary artery bypass graft procedure (CABG). Normal mediastinum and bashir. Normal visualized pulmonary arteries. There is atherosclerotic calcification of the aortic arch with tortuosity. There are degenerative changes of the visualized thoracic spine. There is degenerative osteoarthritis of the bilateral shoulders. There is no demonstrated abnormality of the visualized soft tissue structures of the upper abdomen. RAD/Chest PA and Lateral IMPRESSION: Stable elevation of the right hemidiaphragm. No acute abnormality is seen. Electronically Signed: Papo Jackman MD at 10:57 EST ,
[2023-08-02] MEDS: 0.9% Normal Saline (1000mL) 1,000 ML 1000 ML IV (10:20)
[2023-08-02 10:24] VITALS: BP 136/94; PULSE 89; RESP 17; O2SAT 99
[2023-08-02 10:32] LABS: Absolute Lymphocyte Count 1.92 X10^3/uL (0.83-4.51); Absolute Neutrophil Count 4.8 X10^3/uL (2.0-7.7); Basophil# 0.05 X10^3/uL; Basophil% 0.6 % (0-1); Eosinophil# 0.04 X10^3/uL; Eosinophils% 0.5 % (0-5); Hematocrit 40.4 % (40-54); Hemoglobin 13.7 g/dL (13.0-16.5); Lymphocyte # 1.92 X10^3/ul (0.83-4.51); Lymphocyte % 24.7 % (19-41); Mean Corp Hgb Conc 33.9 g/dL (32-36); Mean Corpuscular Hgb 29.4 pg (27.0-32.0); Mean Corpuscular Volume 86.7 fL (80-94); Mean Platelet Vol. 9.9 fl (6.2-12.0); Monocyte# 0.95 X10^3/uL; Monocyte% 12.2 % (0-10); NRBC Flagged by Analyzer 0 % (0-5); Neutrophil % 61.7 % (47-70); Platelet Count 223 K/mm3 (150-450); RBC Distribution Width CV 12.7 % (11.6-14.6); RBC Distribution Width SD 39.9 fl (35.1-43.9); Red Blood Count 4.66 M/mm3 (4.6-6.2); White Blood Count 7.8 K/mm3 (4.4-11.0)
[2023-08-02 10:54] LABS: ALB/GLOB Ratio 0.6 RATIO (0.9-2.4); AST(SGOT) 24 U/L (15-37); Alanine Aminotransfer ALT/SGPT 35 U/L (16-61); Albumin, Serum 3.1 g/dL (3.2-5.0); Alkaline Phosphatase 75 U/L (45-117); Anion Gap 7 (5-15); BUN 16 mg/dL (7-18); BUN/Creat Ratio 17.5 RATIO (10-20); Chloride 101 mmol/L (98-107); Creatinine, Serum 0.91 mg/dL (0.70-1.30); EST Glomerular Filtration Rate 87 mL/min (>60); Est Glom Filt Rate - Afr Amer 105 mL/min (>60); Estimated Creatinine Clearance 90.17 ml/min; Glucose 147 mg/dL (74-106); Lipase 41 U/L (13-75); Potassium 3.5 mmol/L (3.5-5.1); Protein, Total 8.1 g/dL (6.4-8.2); Sodium Level 134 mmol/L (136-145); Troponin-I HS 12 pg/mL (3.0-78.0)
[2023-08-02 12:00] VITALS: BP 137/83
[2023-08-02 12:35] LABS: Bacteria 0 SEEN /hpf (None Seen); Color, Urine Yellow (Yellow); Glucose, Dipstick Normal (Normal); Ketone-Dipstick 15 mg/dl (Negative); Leukocyte Esterase-Dipstick Negative /ul (Negative); Mucous, Urine 0 SEEN /hpf (<or=2+); Nitrite-Dipstick Negative (Negative); Occult Blood-Urine Negative /ul (Negative); Protein-Dipstick 30 mg/dl (Negative); Red Blood Cells-Urine 0 SEEN /hpf (0-5); Squamous Epithelial Cells - UA 0 SEEN /hpf (0-5); Urine Bilirubin Dipstick Negative (Negative); Urine Clarity Clear (Clear); Urine Urobilinogen 8 mg/dl (Normal); White Blood Cells 0 SEEN /hpf (0-5)
[2023-08-02 13:10] VITALS: BP 140/83; PULSE 91; RESP 16; TEMP 36.6; O2SAT 95
== END 2023-08-02 13:15 | disposition home or self-care (01) ==
PROVIDERS: Emergency Provider Emergency Medicine; PCP Family Medicine; Visit Provider Emergency Medicine
DX: B34.9 Viral infection, unspecified (principal); E66.9 Obesity, unspecified; I25.10 Atherosclerotic heart disease of native coronary artery without angina pectoris; I25.2 Old myocardial infarction; Z79.82 Long term (current) use of aspirin; Z79.84 Long term (current) use of oral hypoglycemic drugs; Z79.899 Other long term (current) drug therapy; Z86.16 Personal history of COVID-19; Z86.718 Personal history of other venous thrombosis and embolism; Z95.1 Presence of aortocoronary bypass graft
CPT/HCPCS: 71046; 80053; 81001; 83690; 84484; 85025; 87631; 93005; 96360; 96361; 99284; J7030

== ENCOUNTER → 2023-08-05 | Outpatient (CLI) | payer MEDICARE, OTHER, SELFPAY ==
[2022-07-08 10:01] VITALS: BMI 35.8
[2023-08-05 15:48] LABS: Absolute Lymphocyte Count 1.95 X10^3/uL (0.83-4.51); Absolute Neutrophil Count 3.8 X10^3/uL (2.0-7.7); Basophil# 0.06 X10^3/uL; Basophil% 0.9 % (0-1); Eosinophil# 0.27 X10^3/uL; Eosinophils% 4.1 % (0-5); Hematocrit 38.4 % (40-54); Hemoglobin 12.9 g/dL (13.0-16.5); Lymphocyte # 1.95 X10^3/ul (0.83-4.51); Lymphocyte % 29.5 % (19-41); Mean Corp Hgb Conc 33.6 g/dL (32-36); Mean Corpuscular Hgb 30.3 pg (27.0-32.0); Mean Corpuscular Volume 90.1 fL (80-94); Mean Platelet Vol. 10.1 fl (6.2-12.0); Monocyte# 0.55 X10^3/uL; Monocyte% 8.3 % (0-10); NRBC Flagged by Analyzer 0 % (0-5); Neutrophil # 3.75 X10^3/uL (2.7-7.7); Neutrophil % 56.9 % (47-70); Platelet Count 319 K/mm3 (150-450); RBC Distribution Width CV 12.6 % (11.6-14.6); RBC Distribution Width SD 41.8 fl (35.1-43.9); Red Blood Count 4.26 M/mm3 (4.6-6.2); White Blood Count 6.6 K/mm3 (4.4-11.0)
[2023-08-05 16:00] LABS: Erythrocyte Sedimentation Rate 16 mm/hr (0-20)
[2023-08-09 13:08] LABS: Angiotensin Convert Enzyme 41 U/L (14-82); B. henselae IgG Negative titer (Neg:<1:320); B. henselae IgM Negative titer (Neg:<1:100); B. quintana IgG Negative titer (Neg:<1:320); B. quintana IgM Negative titer (Neg:<1:100)
== END | disposition home or self-care (01) ==
LOC: MTLAB 11:41
PROVIDERS: PCP Family Medicine; Referring Provider Ophthalmology; Visit Provider Ophthalmology
DX: H46.8 Other optic neuritis (principal)
CPT/HCPCS: 36415; 82164; 85025; 85652; 86140; 86611

== ENCOUNTER 2023-08-15 07:31 | Day surgery (SDC) | payer MEDICARE, OTHER, SELFPAY ==
[2022-07-08 10:01] VITALS: BMI 35.8
--- OUTSIDE RECORDS SUMMARY | 2023-08-15 07:43 | XMS RPT_ITS | CCD ---
Author Name Unknown Address [address] [place] [address] Organization [facility] Care Team Providers Care Housing Inspectors Name Role Phone JayGigi Primary Care Provider JAY DO, DR GIGI Santana Primary Care Physician [phone] Cecy PTKelle Unavailable Unavailable Jay DO, Gigi García Primary Care Provider JAY DO, DR GIGI Santana Primary Care Physician Jay DO, Gigi García Primary Care Provider [phone] JAY, GIGI GARCÍA Primary Care Unavailable WESLEY MARROQUIN Admitting Unavailable WESLEY MARROQUIN Attending Unavailable JAY, GIGI GARCÍA Primary Care Unavailable SAMMY VILLASEÑOR Attending Unavailable JAY, GIGI GARCÍA Primary Care Unavailable JAY DO, DR GIGI Santana Attending Unavailabl e JAY DO, DR GIGI Santana Primary Care Unavailabl e JAY DO, DR GIGI Santana Attending Unavailabl e JAY DO, DR GIGI Santana Primary Care Unavailabl WESLEY Gresham MD Attending Unavailable JAY DO, DR GIGI Santana Primary Care UnavailWESLEY Kelly MD Attending Unavailable JAY DO, DR GIGI Santana Primary Care Unavailabl e JAY DO, DR GIGI Santana Attending Unavailabl e JAY DO, DR GIGI Santana Primary Care Unavailabl e Medications Current Medications Medication Drug Class(es) Dates Sig (Normalized) Sig (Original) acetaminophen 325 mg oral tablet (16 sources) Start: 04-02-2022 Tylenol 325 mg oral tablet Dose : 650 mg = 2 tab(s), Oral, q6h, PRN as needed for pain, 0 Refill(s) Start Date: 04/02/22 Status: Ordered Completed/Discontinued Medications Medication Drug Class(es) Dates Sig (Normalized) Sig (Original) acetaminophen 325 mg / HYDROcodone bitartrate 5 mg oral tablet (3 sources) Opioid Agonist Start: 03-19-2022 End: 04-07-2022 take 1 tablet by mouth every eight hours as needed HYDROcodone-acetami nophen (NORCO) 5-325 mg per tablet Indications: Coronary artery disease involving [place] heart with angina pectoris, unspecified vessel or lesion type (HCC) Take 1 tablet by mouth every 8 hours as needed. 1 tablet 0 03/19/2022 04/07/2022 Discontinued Problems Active Problems Problem Classification Problem Date Documented Da te Episodic/Chronic Acute myocardial infarction (10 sources) Myocardial infarction; Translations: [Non-ST elevation (NSTEMI) myocardial infarction] Onset: 02-24-2022 02-24-2022 Chronic Complications of surgical procedures or medical care (1 source) Postprocedural hypoinsulinemia; Translations: [Postprocedural hypoinsulinemia] Onset: 04-07-2023 Chronic Conditions associated with dizziness or vertigo (9 sources) Meniere's disease Onset: 06-06-2006 04-26-2007 Chronic Coronary atherosclerosis and other heart disease (20 sources) Coronary arteriosclerosis; Translations: [Atherosclerotic heart disease of [place] coronary artery without angina pectoris] Onset: 02-23-2022 02-23-2022 Chronic Diabetes mellitus without complication (20 sources) Diabetes mellitus; Translations: [Type 2 diabetes mellitus] Onset: 02-24-2022 04-06-2021 Chronic Mood disorders (9 sources) Moderate major depression, single episode; Translations: [Recurrent major depressive episodes, moderate ] 03-12-2019 Chronic Nutritional deficiencies (9 sources) Deficiency of macronutrients; Translations: [Unspecified severe protein-calorie malnutrition] Onset: 03-16-2022 03-19-2022 Chronic Osteoarthritis (17 sources) Arthritis; Translations: [Osteoarthritis] Onset: 06-06-2006 04-26-2007 Chronic Other bone disease and musculoskeletal deformities (1 source) Disorder of bone, unspecified; Translations: [Disorder of bone, unspecified] Onset: 04-07-2023 Episodic Other connective tissue disease (1 source) Presence of left artificial knee joint; Translations: [Presence of left artificial knee joint] Onset: 04-26-2023 Chronic Other connective tissue disease (1 source) Artificial knee joint present; Translations: [Presence of left artificial knee joint] Chronic Other endocrine disorders (9 sources) Male hypogonadism 03-12-2019 Chronic Other inflammatory condition of skin (19 sources) Psoriasis; Translations: [Psoriasis, unspecified] Onset: 02-24-2022 04-06-2021 Chronic Other non-traumatic joint disorders (1 source) Pain in left knee; Translations: [Left knee pain, unspecified chronicity] Onset: 04-26-2023 Episodic Other non-traumatic joint disorders (1 source) Hemarthrosis, left knee; Translations: [Hemarthrosis, left knee] Onset: 04-07-2023 Episodic Other nutritional; endocrine; and metabolic disorders (9 sources) Obese class II; Translations: [Obesity, unspecified] Onset: 02-25-2022 03-19-2022 Chronic Other nutritional; endocrine; and metabolic disorders (8 sources) Obese class I; Translations: [Obesity, unspecified] Onset: 04-07-2022 Chronic Other nutritional; endocrine; and metabolic disorders (3 sources) Body mass index 30+ - obesity 02-10-2023 Chronic Other nutritional; endocrine; and metabolic disorders (3 sources) Morbid obesity 02-10-2023 Chronic Phlebitis; thrombophlebitis and thromboembolism (2 sources) Deep venous thrombosis of lower extremity 04-03-2022 Episodic Substance-related disorders (9 sources) Nicotine dependence; Translations: [Nicotine dependence, unspecified, uncomplicated] Onset: 02-25-2022 03-19-2022 Chronic Unclassified (9 sources) Patient encounter status 06-08-2021 Unclassified (6 sources) Psoriosis( Confirmed ) Onset: 06-06-2006 04-26-2007 Unclassified (3 sources) Psoriosis Onset: 06-06-2006 04-26-2007 Past or Other Problems Problem Classification Problem Date Documented Da te Episodic/Chronic Acquired foot deformities (9 sources) Right foot drop; Translations: [Foot drop, right foot] Onset: 03-14-2022 03-19-2022 Episodic Acute posthemorrhagic anemia (9 sources) Acute posthemorrhagic anemia; Translations: [Acute posthemorrhagic anemia] Onset: 02-26-2022 03-19-2022 Episodic Other gastrointestinal disorders (9 sources) Dysphagia; Translations: [Dysphagia, unspecified] Onset: 03-12-2022 03-19-2022 Episodic Respiratory failure; insufficiency; arrest (adult) (9 sources) Acute respiratory failure; Translations: [Acute respiratory failure, unspecified whether with hypoxia or hypercapnia] Onset: 03-03-2022 03-19-2022 Episodic Results Test Name Value Interpretation Reference Range Facil ity Vital Signs Date Time Vital Sign Value Performing Clinician Facility 06-22-2022 09:50-0500 Body height 172.7 cm Sammy Villaseñor APRN.DIETETICS TEACHER Work Phone: [facility] 06-22-2022 09:50-0500 Body temperature 97.59 [degF] Sammy Villaseñor APRN.DIETETICS TEACHER Work Phone: [facility] 06-22-2022 09:50-0500 Body weight 104.96 kg Sammy Villaseñor APRN.DIETETICS TEACHER Work Phone: [facility] 06-22-2022 09:50-0500 Diastolic blood pressure 92 mm[Hg] Sammy Villaseñor APRN.DIETETICS TEACHER Work Phone: [facility] 06-22-2022 09:50-0500 Heart rate 76 /min Sammy Villaseñor APRN.DIETETICS TEACHER Work Phone: [facility] 06-22-2022 09:50-0500 Respiratory rate 16 /min Sammy Villaseñor APRN.DIETETICS TEACHER Work Phone: [facility] 06-22-2022 09:50-0500 SaO2% (BldA) [Mass fraction] 95 % Sammy Villasñeor APRN.DIETETICS TEACHER Work Phone: [facility] 06-22-2022 09:50-0500 Systolic blood pressure 142 mm[Hg] Sammy Villaseñor APRN.DIETETICS TEACHER Work Phone: [facility] 04-21-2022 09:56-0500 Body height 172.7 cm Ousmane Zamudio MD Work Phone: [facility] 04-21-2022 09:56-0500 Body temperature 98.01 [degF] Ousmane Zamudio MD Work Phone: [facility] 04-21-2022 09:56-0500 Body weight 103.51 kg Ousmane Zamudio MD Work Phone: [facility] 04-21-2022 09:56-0500 Diastolic blood pressure 89 mm[Hg] Ousmane Zamudio MD Work Phone: [facility] 04-21-2022 09:56-0500 Heart rate 79 /min Ousmane Zamudio MD Work Phone: [facility] 04-21-2022 09:56-0500 Respiratory rate 16 /min Ousmane Zamudio MD Work Phone: [facility] 04-21-2022 09:56-0500 SaO2% (BldA) [Mass fraction] 99 % Ousmane Zamudio MD Work Phone: [facility] 04-21-2022 09:56-0500 Systolic blood pressure 137 mm[Hg] Ousmane Zamudio MD Work Phone: [facility] 04-07-2022 10:09-0400 Body height 172.7 cm Holly Sandy APRN.DIETETICS TEACHER Work Phone: [facility] 04-07-2022 10:09-0400 Body temperature 98.1 [degF] Holly Sandy APRN.DIETETICS TEACHER Work Phone: [facility] 04-07-2022 10:09-0400 Body weight 103.51 kg Holly Sandy APRN.DIETETICS TEACHER Work Phone: [facility] 04-07-2022 10:09-0400 Diastolic blood pressure 65 mm[Hg] Holly Sandy APRN.DIETETICS TEACHER Work Phone: [facility] 04-07-2022 10:09-0400 Heart rate 78 /min Holly Sandy APRN.DIETETICS TEACHER Work Phone: [facility] 04-07-2022 10:09-0400 Respiratory rate 16 /min Holly Du BROWNELL OPERATOR.DIETETICS TEACHER Work Phone: [facility] 04-07-2022 10:09-0400 SaO2% (BldA) [Mass fraction] 99 % Holly Sandy APRN.DIETETICS TEACHER Work Phone: [facility] 04-07-2022 10:09-0400 Systolic blood pressure 114 mm[Hg] Holly Sandy APRN.DIETETICS TEACHER Work Phone: [facility] 08-03-2021 12:32-0500 Diastolic Blood Pressure NBP 82 1 NUPUR ALAMO MD [facility] 08-03-2021 12:32-0500 Heart rate 65 /min NUPUR ALAMO MD [facility] 08-03-2021 12:32-0500 Respiratory rate 14 /min NUPUR ALAMO MD [facility] 08-03-2021 12:32-0500 Systolic Blood Pressure NBP 126 1 NUPUR ALAMO MD [facility] 08-03-2021 12:23-0500 Diastolic Blood Pressure NBP 79 1 NUPUR ALAMO MD [facility] 08-03-2021 12:23-0500 Heart rate 69 /min NUPUR ALAMO MD [facility] 08-03-2021 12:23-0500 Respiratory rate 13 /min NUPUR ALAMO MD [facility] 08-03-2021 12:23-0500 Systolic Blood Pressure NBP 114 1 NUPUR ALAMO MD [facility] 08-03-2021 12:17-0500 Diastolic Blood Pressure NBP 68 1 NUPUR ALAMO MD [facility] 08-03-2021 12:17-0500 Heart rate 80 /min NUPUR ALAMO MD [facility] 08-03-2021 12:17-0500 Respiratory rate 17 /min NUPUR ALAMO MD [facility] 08-03-2021 12:17-0500 Systolic Blood Pressure NBP 106 1 NUPUR ALAMO MD [facility] 08-03-2021 10:40-0500 Body height 172.7 cm NUPUR ALAMO MD [facility] 08-03-2021 10:40-0500 Body temperature 97.34 [degF] NUPUR ALAMO MD [facility] 08-03-2021 10:40-0500 Body weight 118.2 kg NUPUR ALAMO MD [facility] 08-03-2021 10:40-0500 diastolic 86 mm[Hg] NUPUR ALAMO MD [facility] 08-03-2021 10:40-0500 Heart rate 84 /min NUPUR ALAMO MD [facility] 08-03-2021 10:40-0500 systolic 114 mm[Hg] NUPUR ALAMO MD [facility] Encounters Encounter Date Encounter Type Care Provider Facility Start: 08-08-[address] GIGI GONZALEZ DO Facility:B Start: 08-08-2023 End: 08-08-[address] GIGI THOMPSON DO [facility] Start: 05-16-2023 End: 06-16-2023 ambulatory WESLEY MARROQUIN MD Facility:B Start: 05-16-2023 End: 06-16-2023 Physical therapy management WESLEY MARROQUIN MD [facility] Start: 04-26-2023 End: 04-26-2023 ambulatory WESLEY MARROQUIN Facility:[id number] Start: 04-07-2023 End: 04-08-2023 ambulatory GIGI GARCÍA JAY Facility:[id number] Start: 04-07-2023 Encounter for other preprocedural examination [facility] Start: 04-06-2023 End: 04-07-2023 ambulatory WELSEY MARORQUIN MD Facility:B Start: 04-06-2023 End: 04-06-2023 Patient encounter procedure WESLEY MARROQUIN MD [facility] Start: 02-10-2023 End: 02-15-[address] GIGI THOMPSON DO Facility:B Start: 08-13-2022 End: 08-14-[address] GIGI THOMPSON DO Facility:B Start: 08-13-2022 End: 08-13-[address] GIGI THOMPSON DO [facility] Start: 07-29-2022 End: 07-29-[address] GIGI THOMPSON DO [facility] Start: 06-22-2022 End: 06-22-2022 ambulatory SAMMY VILLASEÑOR Facility:[id number] Start: 06-22-2022 End: 06-22-2022 Patient encounter procedure Sammy Villaseñor BROWNELL OPERATOR.DIETETICS TEACHER Work Phone: [facility] Cardiothoracic Procedures Date Procedure Procedure Detail Performing Clinician Arthroscopy NUPURKassie ALAMO MD Plan of Treatment Date Care Activity Detail Author Start: 02-24-2023 Hepatitis B surface antibody level LDL CHOLESTEROL [facility] Start: 06-06-2022 ADVANCE DIRECTIVE DISCUSSION ADVANCE DIRECTIVE DISCUSSION [facility] Start: 06-06-2022 DEPRESSION ASSESSMENT DEPRESSION ASSESSMENT [facility] Start: 05-25-2022 Hemoglobin A1c/Hemoglobin.total in Blood HBA1C [facility] Start: 02-04-2022 Influenza vaccination INFLUENZA (#1) [facility] Start: 07-29-2021 COVID-19 VACCINE (4 - Booster for Moderna series) COVID-19 VACCINE (4 - Booster for Moderna series) [facility] Start: 06-06-2021 ADVANCE DIRECTIVE DISCUSSION ADVANCE DIRECTIVE DISCUSSION [facility] Start: 06-06-2021 DEPRESSION ASSESSMENT DEPRESSION ASSESSMENT [facility] Start: 02-19-2021 COVID-19 VACCINE (3 - Booster for Moderna series) COVID-19 VACCINE (3 - Booster for Moderna series) [facility] Start: 11-14-2020 COVID-19 VACCINE (3 - Booster for Moderna series) COVID-19 VACCINE (3 - Booster for Moderna series) [facility] Start: 11-17-2013 Urine microalbumin profile DTAP,TDAP,TD (1 - Tdap) [facility] Start: 2002 SHINGRIX VACCINE (1 of 2) SHINGRIX VACCINE (1 of 2) [facility] Start: 1997 COLOGUARD (FIT-DNA) COLOGUARD (FIT-DNA) [facility] Start: 1997 Colonoscopy COLONOSCOPY [facility] Start: 1997 COLORECTAL CANCER SCREENING COLORECTAL CANCER SCREENING [facility] Start: [address] COLONOGRAPHY [facility] Start: 1997 FECAL OCCULT BLOOD FECAL OCCULT BLOOD [facility] Start: 1997 SIGMOIDOSCOPY SIGMOIDOSCOPY [facility] Start: 1970 ANNUAL PCP TEAM CHRONIC DISEASE VISIT ANNUAL PCP TEAM CHRONIC DISEASE VISIT [facility] Start: 1970 HEPATITIS C SCREENING HEPATITIS C SCREENING [facility] Start: 1964 Adult depression screening assessment DEPRESSION SCREENING [facility] Start: 1962 3 comp foot exam completed DIABETIC FOOT EXAM [facility] Start: 1962 Hepatitis B screening URINE ALBUMIN:CREATININE RATIO [facility] Start: 1962 Hepatitis C antibody, confirmatory test DILATED RETINAL EXAM [facility] Start: 1958 PNEUMOCOCCAL: 65+ (1 - PCV) PNEUMOCOCCAL: 65+ (1 - PCV) [facility] Start: 1952 ABDOMINAL AORTIC ANEURYSM SCREENING ABDOMINAL AORTIC ANEURYSM SCREENING [facility] CARDIAC REHAB [place] CARDIAC [place] BIC Routine Coronary artery disease involving [place] coronary artery of [place] heart without angina pectoris CAD s/p CABG Ordered: 04/21/2022 [facility] Work Phone: Immunizations Immunization Date Immunization Notes Care Provider [facility] 04-02-2022 influenza, high dose seasonal, preservative-free DR GIGI THOMPSON DO [facility] 06-03-2021 SARS-CoV-2 mRNA (tozinameran) vaccine DR GIGI THOMPSON DO [facility] 05-09-2021 influenza virus vaccine, unspecified formulation DR GIGI THOMPSON DO [facility] 09-19-2020 SARS-CoV-2 (COVID-19 ) mRNA-[address] GIGI THOMPSON DO [facility] 08-22-2020 SARS-CoV-2 (COVID-19 ) mRNA-[address] GIGI THOMPSON DO [facility] 03-11-2020 influenza virus vaccine, unspecified formulation DR GIGI THOMPSON DO [facility] Payers Date Payer Category Payer Medicare [id number] 2018 Unknown MMO MMO MEDICARE SUPPLEMENT [id number] 2018-Present [phone] [address] [place] [address] Indemnity [id number] 2017 Medicare MEDICARE MEDICAR E A AND B [id number] 2017-Present [phone] [address] [address] [place] [address] Medicare [id number] 2017 Medicare [id number] 1950 Unknown [id number] 1950 Unknown [id number] 1950 Unknown [id number] 1950 Unknown [id number] 1950 Unknown [id number] Social History Date Type Detail [facility] Start: 1950 Sex Assigned At Not on file C [facility] Start: 02-13-2022 End: 04-21-2022 Exposure to SARS-CoV-2 (event) Not sure [facility] Start: 09-22-2020 End: 11-03-2020 Never smoked tobacco (finding) [facility] Clinical Notes 08-03-2021 to 04-26-2023 Patient InstructionsHoljocelin Villaseñor APRN.DIETETICS TEACHER - 06/22/2022 10:00 AM ESTTelephone Encounter - Lolytawanda Rodriguez MA - 06/18/2022 1:11 PM ESTTelephone Encounter - Yulisa Rae - 06/01/2022 10:15 AM EST Note Date & Type Note Facility 04-26-2023 Note HNO ID: [id number] Author: Charline Uriarte RN Service: Nursing Author Type: Registered Nurse Type: Nursing Progress Note Filed: 04/26/2023 2:32 PM Note Text: No 2:30 vs d/t working with [facility] 04-26-2023 Note HNO ID: [id number] Author: Rhys Ugarte APRN.CRNA Service: ? Author Type: Nurse Etcher Enameling Type: Anesthesia Procedure Notes Filed: 04/26/2023 8:26 AM Note Text: ANESTHESIOLOGY PROCEDURE NOTE Spinal Block General Information Procedure End time: 04/26/2023 7:43 AM Patient location during procedure: pre-op Timeout Performed Pre-procedure: timeout performed Consent Obtained: Yes Patient identity confirmed: arm band Reason for Block: primary surgical anesthetic Staffing Anesthesiologist: Zhou Baltazar DO ADMISSIONS SPECIALIST: Rhys Ugarte APRN.ADMISSIONS SPECIALIST SRNA: Kevin Mazariegos SRNA Performed by: SARINA Preparation Sterility Preparation: hand hygiene performed prior to procedure, sterile gloves, drapes, and procedure tray, gown used during line insertion, surgical cap used, mask used, sterile drape used during line insertion, skin prep agent completely dried prior to procedure Site Prep: chlorhexidine Procedure Details Patient Position: sitting Ultrasound Guided: No Monitoring: Pulse Ox, EKG and NIBP Approach: Midline Location: L4-5 Injection Technique: single-shot Needle Needle Type: pencil-tip Needle Gauge: 25 G Needle Length: 1.5 in CSF: CSF clear Assessment Sensory Level: T10 Events: tolerated well Comments Lot number [id number] Expiration date 2025-02-03 Pt seated on side of bed, L4-L5 interspace palpated, prepped and draped for SAB, skin wheel with 3ml of 1% lidocaine, introducer placed, #25 g dk advanced, positive CSF, negative blood, negative parasthesia. 2ml of 0.5% bupivicaine administered. Pt laid supine and expresses adequate blockade of lower extremity SIGNATURE: Rhys Ugarte APRN.CRNA, APRN.CRNA PATIENT NAME: Patrick Randall DATE: April 26, 2023 TIME: 8:21 AM CSN: [id number] [facility] 04-26-2023 Note HNO ID: [id number] Author: Zhou Baltazar DO Service: ? Author Type: Anesthesiologist Type: Anesthesia Procedure Notes Filed: 04/26/2023 7:36 AM Note Text: ANESTHESIOLOGY PROCEDURE NOTE Peripheral Nerve Block General Information Procedure Start Time/Medication Administration: 04/26/2023 7:27 AM Procedure End time: 04/26/2023 7:30 AM Patient location during procedure: pre-op Timeout Performed Pre-procedure: timeout performed Consent Obtained: Yes Patient identity confirmed: arm band and patient Reason for block: post-op pain management/at surgeon's request Staffing Anesthesiologist: Zhou Baltazar DO Performed by: anesthesiologist Preparation Sterility Preparation: hand hygiene performed prior to procedure, sterile gloves, drapes, and procedure tray, surgical cap used, mask used, sterile drape used during line insertion, skin prep agent completely dried prior to procedure Site Prep: Chloraprep Pre-Procedure Neuro Exam Location: LLE Sensory: intact Motor: intact Procedure Details Patient Position: supine Monitoring: Pulse OX, EKG and NIBP Block Type Lower Extremity: distal femoral (adductor canal) Laterality: left Injection Technique: single-shot Ultrasound Guided: Yes Image in Chart: yes Local Infiltration: Yes Needle Needle Type: echogenic Needle Length: 100 mm Needle Localization: ultrasound and anatomical landmarks Assessment Injection assessment: negative aspiration, no paresthesia on injection, incremental injection and local visualized surrounding nerve on ultrasound Paresthesia: none Medications Administered ropivacaine (PF) 5 mg/mL (0.5 %) injection (NAROPIN) - peripheral nerve block 20 mL - 04/26/2023 7:27:00 AM SIGNATURE: Zhou Baltazar DO PATIENT NAME: Patrick Randall DATE: April 26, 2023 TIME: 7:35 AM CSN: [id number] [facility] 04-25-2023 Note HNO ID: [id number] Author: Angie White RN Service: Nursing Author Type: Registered Nurse Type: Progress Notes Filed: 04/25/2023 1:36 PM Note Text: PATIENT MEDICATION INSTRUCTIONS Please read below carefully for your personalized instructions. Medications: If you are on blood thinner or anticoagulants including aspirin, please confirm with your surgical team on when to stop these medications. Unless instructed differently by your surgical team, stay on all of your medications until your surgery. Pre-Surgery Med Instructions Medication Instructions acetaminophen (TYLENOL EXTRA STRENGTH) 500 mg tablet DO NOT TAKE MORNING OF SURGERY Multivitamin capsule DO NOT TAKE MORNING OF SURGERY ixekizumab (TALTZ AUTOINJECTOR, 3 PACK,) 80 mg/mL pen Follow Prescribers Instructions metoprolol tartrate, short acting, (LOPRESSOR) 25 mg tablet Take morning of surgery with a sip of water, no other fluids citalopram (CELEXA) 20 mg tablet Take morning of surgery with a sip of water, no other fluids aspirin 81 mg chewable tablet Follow Farm Helper's instructions atorvastatin (LIPITOR) 40 mg tablet DO NOT TAKE MORNING OF SURGERY metFORMIN (GLUCOPHAGE) 500 mg tablet DO NOT TAKE MORNING OF SURGERY - No diabetic medication the morning of surgery. - Accucheck day of surgery. If you take any medications for erectile dysfunction-Cialis (Tadalafil), Levitra, Staxyn (Vardenafil) Viagra (Sildenenafil please do not take these for 48 hours before surgery. If you have any medication changes between receiving these instructions and your surgery date, please provide this updated information with the nurse who calls you the week day prior to your surgical procedure so we can update your list and provide you with updated instructions for the morning of your procedure. PRE-PROCEDURE INSTRUCTIONS TO PREPARE FOR YOUR PROCEDURE: Your arrival time for your procedure is 0530. Do NOT eat any solid foods after MIDNIGHT the night prior to your procedure - this includes gum or mints. You can drink clear liquids* up until 0330, which is 2 hours before your arrival time. *Clear liquids = water, carbohydrate drink (sports drink that is clear or yellow in color), Ensure Pre-Surgery (given by DB or your DrMoises), fruit juice without pulp (apple/cranberry), clear tea, black coffee (no cream). NO CARBONATED BEVERAGES AND NO ALCOHOL. Shower the morning of the procedure, put on clean clothes, and have clean sheets for your bed to help prevent infection after your procedure. Leave all valuables such as jewelry including rings, piercings, wallets, and purses at home. Wear comfortable, loose-fitting clothing. If you wear glasses or contacts, please bring a case. SPECIAL INSTRUCTIONS: If instructed, bring your first voided urine specimen with you. If you were provided skin preparation to use prior to your procedure, complete this as directed. If you use crutches or a walker, bring them with you. If you have a home CPAP/BIPAP machine, bring it with you. If you were instructed to complete a fleets enema or bowel prep, complete as directed. Bring copy of Living Will/Power of Access Clinician. Do not smoke or chew. If you use tobacco, quit or at least cut down before surgery. Do not smoke or chew after midnight the day before your surgery. This effects bleeding, infection, healing, and so much more. Do not take any Diet or Herbal Supplements 2 weeks prior to your surgery date. Please notify your physician if there is any change in your physical condition such as a cold, cough, fever, sore throat, or skin irritation near the surgical site. Visitors under the age of 14 are restricted in the Surgery Center. UPON ARRIVAL: Access to [facility] ([facility] is located on [address] [place] parking is available for your convenience from 5am-5pm- there is a $5.00 charge for this service. Take the elevators directly inside the entrance to the 1st Floor Surgery Lobby. Sign in at the podium located to the left when you get off the elevators. A payment may be expected at the time of service. One visitor may come back to the preoperative area with you. The preoperative staff will be reviewing your medical history, please let them know if you prefer not to have a visitor with you during this time. Once you are ready for surgery, two visitors at a time are permitted in your preoperative room. [facility] 04-22-2023 Note HNO ID: [id number] Author: Linda Delarosa APRN.PAU Service: ? Author Type: Nurse Practitioner Type: Progress Notes Filed: 04/22/2023 11:43 AM Note Text: Summary: clearances/update Cardiac clearance received from Chelsi's PA- cleared but patient must continue ASA for surgery. Medical clearance from Jay received, approved holding ASA 7 days. I did call Patrick to find out what he indeed did with his ASA and he actually stopped it 7 days ago. I instructed him to restart the ASA and to notify Chelsi's office that he did hold it for a period of time. Patient voiced understanding and he is restarting today. Communication is being sent to Jay Marroquin, and Chelsi regarding the above issue. [facility] 04-07-2023 Note HNO ID: [id number] Author: Linda Delarosa APRN.DIETETICS TEACHER Service: ? Author Type: Nurse Practitioner Type: Progress Notes Filed: 04/07/2023 3:37 PM Note Text: PACC Consult SERVICE DATE: 04/07/2023 SERVICE TIME: 10:05 AM PRIMARY CARE PHYSICIAN: Gigi Thompson DO, DO REASON FOR VISIT: Patrick Randall is a 72 year old male who is scheduled for L TKA at the request of Dr. Marroquin for PACC consult The patient has the following: ACTIVE PROBLEM LIST Cad in [place] Artery Nstemi (Non-St Elevated Myocardial Infarction) (H[facility]) Psoriasis Diabetes Mellitus, Non-Insulin Dependent (Niddm Or Type Ii) ([facility]) Nicotine use disorder, F17.2 Obesity, Class II, Bmi 35-39.9 Acute Blood Loss Anemia Dysphagia Foot Drop, Right Severe Protein-Calorie Malnutrition ([facility]) Obesity, Class I, Bmi 30-34.9 Subjective CHIEF COMPLAINT: 72yo obese male, cigar smoker. PMH: incidental pulmonary nodules, HTN, HLD, NSTEMI/ACS 02/2022 s/p emergent CABG x5 (ASA, Chelsi), DVT LLE 02/2022 (postop), psoriatic arthritis on Taltz ( of each month, Matthew), DM2, GERD, BPH, postop constipation. Post CABG was complicated by prolonged vent due to respiratory insufficiency and then c/o dysphagia after he was extubated. He was hospitalized for 24 days then d/c to an acute rehab. On ASA and does not have instructions yet. PAST MEDICAL HISTORY Diagnosis Date Constipation after anesthesia Diabetes ([facility]) followed by PCP Heart attack ([facility]) 02/2022 Hypertension bp controlled with medication- Dr. Gagnon Osteoarthritis of multiple joints Psoriatic arthritis ([facility]) followed by Eliecer Castro- Alfie Wears glasses PAST SURGICAL HISTORY Procedure Laterality Date JOINT REPLACEMENT HX Right right knee PAST SURGICAL HISTORY OF 2021 5x bypass PAST SURGICAL HISTORY OF Bilateral bilateral shoulder surgery x2 each PAST SURGICAL HISTORY OF Left 2004 partial left knee replacement No family history on file. SOCIAL HISTORY: Social History Tobacco Use Smoking status: Some Days Types: Cigars Passive exposure: Current Smokeless tobacco: Never Tobacco comments: Occassional cigar on weekends Vaping Use Vaping Use: Never used Substance Use Topics Alcohol use: Not Currently Comment: Social Outings Drug use: Never MEDICATIONS: Prior to Admission medications as of 04/07/23 0933 Medication Sig Last Dose Taking acetaminophen (TYLENOL EXTRA STRENGTH) 500 mg tablet Take 500 mg by mouth every 8 hours as needed. Yes Multivitamin capsule Take 1 capsule by mouth every evening. Last dose 04/12/23 for vitamins and supplements Yes ixekizumab (TALTZ AUTOINJECTOR, 3 PACK,) 80 mg/mL pen Inject 80 mg subcutaneously once every month. Takes on the of each month Yes metoprolol tartrate, short acting, (LOPRESSOR) 25 mg tablet Take 1 tablet by mouth twice daily. Yes citalopram (CELEXA) 20 mg tablet Take 20 mg by mouth every morning. Yes aspirin 81 mg chewable tablet Take 1 tablet by mouth once daily. Patient taking differently: Take 81 mg by mouth every morning. Last dose 04/15/23, instructed to discuss with Dr. Gagnon if OK to stop Yes atorvastatin (LIPITOR) 40 mg tablet Take 1 tablet by mouth daily at bedtime. Yes metFORMIN (GLUCOPHAGE) 500 mg tablet Take 500 mg by mouth twice daily. Yes No medication comments found. CURRENT ALLERGIES: ALLERGIES No Known Allergies REVIEW OF SYSTEMS: PAIN ASSESSMENT: Pain Pain Level: 4 Pain Location: Knee-Left Description: Aching, Sharp Frequency: Continuous Intervention/Comfort measure: Reposition, Exercise General: No weight loss, malaise or fevers. Neuro: No history of TIA's, stroke, FITTINGS FINISHER tumor, impaired sensorium, hemiplegia, paraplegia or quadraplegia. No neurological symptoms or problems. Respiratory: Positive for benign lung nodules, prolonged vent post CABG Cardiovascular: Positive for: CAD; Farm Helper: Chelsi, DVT/PE, HLD, Hypertension, DC, Open heart 02/2022 GI: Positive for GERD, post op constipation : Positive for BPH Endocrine: Diabetes Mellitus on insulin, Diabetes Mellitus on oral agent Hematology: Chronic anti-coagulation / platelet meds (Aspirin) Oncology: No history of CA metastasis, chemo within 30 days, or radiotherapy within 90 days. Has not lost 10% of body wt in 6 months. No history of oncological symptoms or problems. Psych: Anxiety Musculoskeletal: Joint pain Skin: Negative for lesions, rash and itching. Objective PHYSICAL EXAM: VITALS: BP 152/86 Pulse 59 Resp 20 Ht 5' 8 (1.73m) Wt 245 lb (111.1kg) SpO2 99% BMI 37.26 kg/(m2). General: Alert and oriented, No acute distress, Obese Skin: Normal color, no rash, no lesions. Extremities: No deformity, no edema or tenderness, no joint swelling or clubbing. Neurological: alert and oriented, flat affect, normal motor Pulses: Not examined Diagnostic tests reviewed for today's visit: CBC Latest Ref Rng AND Units 04/07/2023 WBC 3.70 - 11.00 k/uL 6.12 RBC 4.20 - (more content not included)... [facility] 04-07-2023 Note HNO ID: [id number] Author: Linda Delarosa APRN.DIETETICS TEACHER Service: ? Author Type: Nurse Practitioner Type: Progress Notes Filed: 04/07/2023 10:37 AM Note Text: Summary: dos meds PATIENT MEDICATION INSTRUCTIONS Please read below carefully for your personalized instructions. Medications: If you are on blood thinner or anticoagulants including aspirin, please confirm with your surgical team on when to stop these medications. Unless instructed differently by your surgical team, stay on all of your medications until your surgery. Pre-Surgery Med Instructions Medication Instructions acetaminophen (TYLENOL EXTRA STRENGTH) 500 mg tablet DO NOT TAKE MORNING OF SURGERY Multivitamin capsule DO NOT TAKE MORNING OF SURGERY ixekizumab (TALTZ AUTOINJECTOR, 3 PACK,) 80 mg/mL pen Follow Prescribers Instructions metoprolol tartrate, short acting, (LOPRESSOR) 25 mg tablet Take morning of surgery with a sip of water, no other fluids citalopram (CELEXA) 20 mg tablet Take morning of surgery with a sip of water, no other fluids aspirin 81 mg chewable tablet Follow Farm Helper's instructions atorvastatin (LIPITOR) 40 mg tablet DO NOT TAKE MORNING OF SURGERY metFORMIN (GLUCOPHAGE) 500 mg tablet DO NOT TAKE MORNING OF SURGERY - No diabetic medication the morning of surgery. - Accucheck day of surgery. If you take any medications for erectile dysfunction-Cialis (Tadalafil), Levitra, Staxyn (Vardenafil) Viagra (Sildenenafil please do not take these for 48 hours before surgery. If you have any medication changes between receiving these instructions and your surgery date, please provide this updated information with the nurse who calls you the week day prior to your surgical procedure so we can update your list and provide you with updated instructions for the morning of your procedure. [facility] 04-07-2023 Note HNO ID: [id number] Author: Linda Delarosa APRN.DIETETICS TEACHER Service: ? Author Type: Nurse Practitioner Type: Progress Notes Filed: 04/07/2023 10:37 AM Note Text: Summary: preanesthesia review L TKA 04/26 72yo obese male, cigar smoker. PMH: incidental pulmonary nodules, HTN, HLD, NSTEMI/ACS 02/2022 s/p emergent CABG x5 (ASA, Chelsi), DVT LLE 02/2022 (postop), psoriatic arthritis on Taltz (5th of each month, Matthew), DM2, GERD, BPH, postop constipation. Post CABG was complicated by prolonged vent due to respiratory insufficiency and then c/o dysphagia after he was extubated. He was hospitalized for 24 days then d/c to an acute rehab. On ASA and does not have instructions yet. CABG- AYALA to LAD, SVG PL branch, OM 3, OM 2, diagonal ECHO 02/2022: EF 52, concentric left ventricular perjury, stage I DD, aortic sclerosis, redundant MV with MR, mild PAH EKG 12/2022: 64bpm, SR 1st AVB, PVCs [facility] 06-22-2022 Note HNO ID: [id number] Author: Sammy Villaseñor APRN.DIETETICS TEACHER Service: ? Author Type: Nurse Practitioner Type: Progress Notes Filed: 06/22/2022 10:23 AM Note Text: Patrick Randall is a 71 year old male that returns to the office today in follow up for CAD and is s/p CABGx5 on 02/25/22. He was discharged on 03/19/22 to [facility]. He was discharged home from rehab around 03/31/22. Current Outpatient Medications Medication Sig tiZANidine (ZANAFLEX) 4 mg tablet Take 4 mg by mouth every 8 hours as needed. docusate sodium (STOOL SOFTENER) 100 mg capsule Take 100 mg by mouth twice daily as needed for constipation. metoprolol tartrate, short acting, (LOPRESSOR) 25 mg tablet Take 1 tablet by mouth every 12 hours. citalopram (CELEXA) 20 mg tablet Take by mouth once daily. apixaban (ELIQUIS) 5 mg tab(s) Take 1 tablet by mouth twice daily. aspirin 81 mg chewable tablet Take 1 tablet by mouth once daily. atorvastatin (LIPITOR) 40 mg tablet Take 1 tablet by mouth daily at bedtime. prental multivitamin 27 mg iron- 800 mcg tablet Take 1 tablet by mouth once daily. pantoprazole DR (PROTONIX) 40 mg tablet Take 1 tablet by mouth DAILY (6 AM). acetaminophen (TYLENOL) 325 mg tablet Take 2 tablets by mouth every 6 hours as needed for pain. metFORMIN (GLUCOPHAGE) 500 mg tablet Take 500 mg by mouth twice daily. traZODone (DESYREL) 50 mg tablet Take 50 mg by mouth daily at bedtime. No current facility-administered medications for this visit. Subjective: He is doing well at home. He denies any chest pain, palpitations, shortness of breath, orthopnea, or pedal edema. Concerns today include: getting strength back faster. Objective: BP 140/104 (BP Site: Right Arm, BP Position: Sitting, BP Cuff Size: Regular Adult) Pulse 76 Temp 36.4 ?C (97.6 ?F) (Temporal Artery) Resp 16 Ht 172.7 cm (5' 8 ) Wt 105 kg (231 lb 6.4 oz) SpO2 95% BMI 35.18 kg/m? Resp: Clear Cardiovascular: Regular rate AND rhythm Incision clean and dry. No drainage noted. Extremities: No edema. Assessment/Plan: CAD -s/p CABG -Doing well at home. Incisions healing nicely -Reviewed/discussed activity, hygiene, medications, cardiac rehab. HTN -blood pressure monitoring at home - reports average 115's/80's. Checks daily and during cardiac rehab. Pulmonary nodules -Incidental finding on CT of chest. -Has followed up with PCP and will continue with annual monitoring by CT. Continues with cardiac rehab. Going well. f/u with cardiology and PCP as directed. Follow up: PRN Discharge from clinic: 06/22/22 Sammy Villaseñor APRN.PAU [facility] 06-22-2022 Instructions Sammy Villaseñor APRN.PAU - 06/22/2022 10:02 AM EST MEDICATIONS Please take only the medicines on the take medications list. If it is not on the take list then do not take it. Do not take any supplements or vitamins that are not on the list. Stop taking the medications listed in the stop taking list Call during weekday business hours (8:00 AM to 3:00 PM) if you need refills. WALKING It is very important for you to walk after your operation beginning immediately! Please walk several times per day and increase the distance walked each time you walk. The more you walk the better. Elevate your legs in a recliner or with pillows on the couch several times during the day if you have leg swelling. NO LIFTING Do not lift more than 8 pounds for 12 weeks after your surgery. This helps your incision heal. 8 pounds is roughly the weight of a gallon of milk. Please do not pull with your arms. You may use your arms to stabilize yourself to stand and sit. INCISION PRECAUTIONS Please shower every day with normal soap and water. Please do not use special soap or Hibiclens. Shower only. Do not sit or lay in bathtub or swimming pool. You may gently wash the incisions with soap and water. No special healing ointments or creams etc. Should be applied to the incisions If you notice drainage from your long midline chest incision, please contact our office. Your small tube site incisions may drain, just keep them clean and dry. Cleanse them in the shower daily. Do not smoke. Do not drink alcohol. Your doctors will want to know what medications you are taking. Bring your medications bottles and list of medications to ALL of your doctor's appointments. documented in this encounter [facility] 06-22-2022 History of Presen t illness Narrative Patrick Randall is a 71 year old male that returns to the office today in follow up for CAD and is s/p CABGx5 on 02/25/22. He was discharged on 03/19/22 to [facility]. He was discharged home from rehab around 03/31/22. Current Outpatient Medications Medication Sig tiZANidine (ZANAFLEX) 4 mg tablet Take 4 mg by mouth every 8 hours as needed. docusate sodium (STOOL SOFTENER) 100 mg capsule Take 100 mg by mouth twice daily as needed for constipation. metoprolol tartrate, short acting, (LOPRESSOR) 25 mg tablet Take 1 tablet by mouth every 12 hours. citalopram (CELEXA) 20 mg tablet Take by mouth once daily. apixaban (ELIQUIS) 5 mg tab(s) Take 1 tablet by mouth twice daily. aspirin 81 mg chewable tablet Take 1 tablet by mouth once daily. atorvastatin (LIPITOR) 40 mg tablet Take 1 tablet by mouth daily at bedtime. prental multivitamin 27 mg iron- 800 mcg tablet Take 1 tablet by mouth once daily. pantoprazole DR (PROTONIX) 40 mg tablet Take 1 tablet by mouth DAILY (6 AM). acetaminophen (TYLENOL) 325 mg tablet Take 2 tablets by mouth every 6 hours as needed for pain. metFORMIN (GLUCOPHAGE) 500 mg tablet Take 500 mg by mouth twice daily. traZODone (DESYREL) 50 mg tablet Take 50 mg by mouth daily at bedtime. No current facility-administered medications for this visit. Subjective: He is doing well at home. He denies any chest pain, palpitations, shortness of breath, orthopnea, or pedal edema. Concerns today include: getting strength back faster. Objective: BP 140/104 (BP Site: Right Arm, BP Position: Sitting, BP Cuff Size: Regular Adult) Pulse 76 Temp 36.4 C (97.6 F) (Temporal Artery) Resp 16 Ht 172.7 cm (5' 8 ) Wt 105 kg (231 lb 6.4 oz) SpO2 95% BMI 35.18 kg/m Resp: Clear Cardiovascular: Regular rate & rhythm Incision clean and dry. No drainage noted. Extremities: No edema. Assessment/Plan: CAD -s/p CABG -Doing well at home. Incisions healing nicely -Reviewed/discussed activity, hygiene, medications, cardiac rehab. HTN -blood pressure monitoring at home - reports average 115's/80's. Checks daily and during cardiac rehab. Pulmonary nodules -Incidental finding on CT of chest. -Has followed up with PCP and will continue with annual monitoring by CT. Continues with cardiac rehab. Going well. f/u with cardiology and PCP as directed. Follow up: PRN Discharge from clinic: 06/22/22 Sammy Villaseñor APRN.DIETETICS TEACHER documented in this encounter [facility] 06-18-2022 Miscellaneous Notes Re scheduled patient appointment from 06/23/22 to 06/22/22. documented in this encounter [facility] 06-01-2022 Miscellaneous Notes Scheduled with patient. Patient called stating that he thinks that he is supposed to schedule one more f/up appt around 06/21/22. Please call patient to schedule at [phone]. documented in this encounter [facility] 05-17-2022 Miscellaneous Notes No longer under [facility] care. Refills need to come from wireless network engineer. Jeannie Herrmann RN documented in this encounter [facility] 04-21-2022 Instructions Holly Nuno APRN.DIETETICS TEACHER - 04/21/2022 10:39 AM EST MEDICATIONS Please take only the medicines on the take medications list. If it is not on the take list then do not take it. Do not take any supplements or vitamins that are not on the list. Stop taking the medications listed in the stop taking list Call during weekday business hours (8:00 AM to 3:00 PM) if you need refills. WALKING It is very important for you to walk after your operation beginning immediately! Please walk several times per day and increase the distance walked each time you walk. The more you walk the better. Elevate your legs in a recliner or with pillows on the couch several times during the day if you have leg swelling. NO LIFTING Do not lift more than 8 pounds for 12 weeks after your surgery. This helps your incision heal. 8 pounds is the roughly the weight of a gallon of milk. Please do not pull with your arms. You may use your arms to stabilize yourself to stand and sit. INCISION PRECAUTIONS Please shower every day with normal soap and water. Please do not use special soap or Hibiclens. Shower only. Do not sit or lay in bathtub or swimming pool. You may gently wash the incisions with soap and water. No special healing ointments or creams etc. Should be applied to the incisions If you notice drainage from your long midline chest incision, please contact our office. Your small tube site incisions may drain, just keep them clean and dry. Cleanse them in the shower daily. Do not smoke. Do not drink alcohol. Your doctors will want to know what medications you are taking. Bring your medications bottles and list of medications to ALL of your doctor's appointments. documented in this encounter [facility] 04-21-2022 History of Presen t illness Narrative Patrick Randall is a 71 year old male that returns to the office today in follow up for CAD and is s/p CABGx5 on 02/25/22. He was discharged on 03/19/22 to [facility]. He was discharged home from rehab around 03/31/22. Current Outpatient Medications Medication Sig traZODone (DESYREL) 50 mg tablet Take 50 mg by mouth daily at bedtime. citalopram (CELEXA) 20 mg tablet Take by mouth once daily. apixaban (ELIQUIS) 5 mg tab(s) Take 1 tablet by mouth twice daily. aspirin 81 mg chewable tablet Take 1 tablet by mouth once daily. atorvastatin (LIPITOR) 40 mg tablet Take 1 tablet by mouth daily at bedtime. metoprolol tartrate, short acting, (LOPRESSOR) 25 mg tablet Take 0.5 tablets by mouth every 12 hours. prental multivitamin 27 mg iron- 800 mcg tablet Take 1 tablet by mouth once daily. pantoprazole DR (PROTONIX) 40 mg tablet Take 1 tablet by mouth DAILY (6 AM). acetaminophen (TYLENOL) 325 mg tablet Take 2 tablets by mouth every 6 hours as needed for pain. metFORMIN (GLUCOPHAGE) 500 mg tablet Take 500 mg by mouth twice daily. No current facility-administered medications for this visit. Subjective: He is doing well at home. He denies any chest pain, palpitations, shortness of breath, orthopnea, or pedal edema. Concerns today include: increasing activity and returning to work/driving. Objective: BP 137/89 (BP Site: Right Arm, BP Position: Sitting, BP Cuff Size: Regular Adult) Pulse 79 Temp 36.7 C (98 F) (Temporal Artery) Resp 16 Ht 172.7 cm (5' 8 ) Wt 103.5 kg (228 lb 3.2 oz) SpO2 99% BMI 34.70 kg/m Resp: Clear and Decreased breath sounds Cardiovascular: Regular rate & rhythm and S1, S2 normal Incision clean and dry. Well healed Extremities: Trace edema. Assessment/Plan: CAD -s/p CABG -Doing well at home. Incisions healing nicely -Reviewed/discussed increasing activity, hygiene, medications, cardiac rehab HTN -increased lopressor to 25mg po BID due to hypertension -encouraged to monitor at home Pulmonary nodules -Incidental finding on CT of chest. -Discussed last visit with patient and his son. They are going to follow up with PCP Referral provided to cardiac rehab while hospitalized. f/u with cardiology and PCP as directed. Follow up: June 2022 Holly Nuno APRN.PAU documented in this encounter [facility] 04-07-2022 Instructions Holly Nuno APRN.CNP - 04/07/2022 10:58 AM EDT MEDICATIONS Please take only the medicines on the take medications list. If it is not on the take list then do not take it. Do not take any supplements or vitamins that are not on the list. Stop taking the medications listed in the stop taking list Call during weekday business hours (8:00 AM to 3:00 PM) if you need refills. WALKING It is very important for you to walk after your operation beginning immediately! Please walk several times per day and increase the distance walked each time you walk. The more you walk the better. Elevate your legs in a recliner or with pillows on the couch several times during the day if you have leg swelling. NO LIFTING Do not lift more than 8 pounds for 12 weeks after your surgery. This helps your incision heal. 8 pounds is the roughly the weight of a gallon of milk. Please do not pull with your arms. You may use your arms to stabilize yourself to stand and sit. INCISION PRECAUTIONS Please shower every day with normal soap and water. Please do not use special soap or Hibiclens. Shower only. Do not sit or lay in bathtub or swimming pool. You may gently wash the incisions with soap and water. No special healing ointments or creams etc. Should be applied to the incisions If you notice drainage from your long midline chest incision, please contact our office. Your small tube site incisions may drain, just keep them clean and dry. Cleanse them in the shower daily. Do not smoke. Do not drink alcohol. Your doctors will want to know what medications you are taking. Bring your medications bottles and list of medications to ALL of your doctor's appointments. documented in this encounter [facility] 04-07-2022 History of Presen t illness Narrative Patrick Randall is a 71 year old male that returns to the office today in follow up for CAD and is s/p CABGX5 on 02/25/22 He was discharged on 03/19/22 to [facility]. He was discharged home from rehab around 03/31/22. Current Outpatient Medications Medication Sig traZODone (DESYREL) 50 mg tablet Take 50 mg by mouth daily at bedtime. citalopram (CELEXA) 20 mg tablet Take by mouth once daily. apixaban (ELIQUIS) 5 mg tab(s) Take 1 tablet by mouth twice daily. aspirin 81 mg chewable tablet Take 1 tablet by mouth once daily. atorvastatin (LIPITOR) 40 mg tablet Take 1 tablet by mouth daily at bedtime. metoprolol tartrate, short acting, (LOPRESSOR) 25 mg tablet Take 0.5 tablets by mouth every 12 hours. prental multivitamin 27 mg iron- 800 mcg tablet Take 1 tablet by mouth once daily. pantoprazole DR (PROTONIX) 40 mg tablet Take 1 tablet by mouth DAILY (6 AM). acetaminophen (TYLENOL) 325 mg tablet Take 2 tablets by mouth every 6 hours as needed for pain. HYDROcodone-acetaminophen (NORCO) 5-325 mg per tablet Take 1 tablet by mouth every 8 hours as needed. metFORMIN (GLUCOPHAGE) 500 mg tablet Take 500 mg by mouth twice daily. albuterol (PROVENTIL) 2.5 mg /3 mL (0.083 %) nebulizer solution Use 3 mL via nebulizer every 6 hours as needed for wheezing/shortness of breath. (Patient not taking: Reported on 04/07/2022) budesonide (PULMICORT) 0.5 mg/2 mL nebulizer solution Use 2 mL via nebulizer twice daily. (Patient not taking: Reported on 04/07/2022) ipratropium-albuterol (DUONEB) 0.5 mg-3 mg(2.5 mg base)/3 mL nebu Inhale 3 mL as instructed three times daily. (Patient not taking: Reported on 04/07/2022) No current facility-administered medications for this visit. Subjective: He is doing well at home. He denies any chest pain, palpitations, shortness of breath, orthopnea, or pedal edema. Concerns today include: increasing activity and surgery restrictions. Objective: BP 114/65 (BP Site: Left Arm, BP Position: Sitting, BP Cuff Size: Regular Adult) Pulse 78 Temp 36.7 C (98.1 F) (Temporal Artery) Resp 16 Ht 172.7 cm (5' 8 ) Wt 103.5 kg (228 lb 3.2 oz) SpO2 99% BMI 34.70 kg/m Resp: Clear and Decreased breath sounds Cardiovascular: Regular rate & rhythm and S1, S2 normal Incision clean and dry. Well healed. Extremities: No edema. Assessment/Plan: CAD -s/p CABG -Doing well at home. Incisions healing nicely -Reviewed/discussed increasing activity, hygiene, medications, cardiac rehab Pulmonary nodules -Incidental finding on CT of chest. -Discussed with patient and his son. They are going to follow up with PCP Referral provided to cardiac rehab while hospitalized. f/u with cardiology and PCP as directed. Follow up: 2 weeks Holly Nuno APRN.CNP documented in this encounter [facility] 03-29-2022 [facility]isc[facility]. I offered an appointment for TuesdayMarch 31, but patient needs to arrange for transportation. The patient excepted an appointment for April 06 getting a CXR same morning @ 9am. After discussing with PAU Fitzgerald through secure chat. The patient is to follow up after he is discharged from Rehab. Double checked the patient D/C instructions which does say to follow up in two weeks. Spoke with patient son Bacilio. Bacilio stated that Dr. Zamudio said he did not want to see his father until he was out of Rehab/[place]. I stated that this is not the norm and I was not made aware of this. Bacilio started cursing at me stating that its my job to know this. I expressed to him that I was not going to listen to him talking to me this way and that I would speak with my LAWN SERVICE WORKER and find out how I am to handle this matter. I told him to have a good day and hung up. Left a voice message for patient to return call to schedule a post op appointment. documented in this encounter [facility] 08-03-2021 Hospital Discharg e instructions Patient Education 08/03/2021 12:16:03 Colon Polyps Colon Polyps Polyps are tissue growths inside the body. Polyps can grow in many places, including the large intestine (colon). A polyp may be a round bump or a mushroom-shaped growth. You could have one polyp or several. Most colon polyps are noncancerous (benign). However, some colon polyps can become cancerous over time. Finding and removing the polyps early can help prevent this. What are the causes? The exact cause of colon polyps is not known. What increases the risk? You are more likely to develop this condition if you: Have a family history of colon cancer or colon polyps. Are older than 50 or older than 45 if you are . Have inflammatory bowel disease, such as ulcerative colitis or Crohn's disease. Have certain hereditary conditions, such as: ?Familial adenomatous polyposis. ?Fletcher syndrome. ?Turcot syndrome. ?Peutz Jeghers syndrome. Are overweight. Smoke cigarettes. Do not get enough exercise. Drink too much alcohol. Eat a diet that is high in fat and red meat and low in fiber. Had childhood cancer that was treated with abdominal radiation. What are the signs or symptoms? Most polyps do not cause symptoms. If you have symptoms, they may include: Blood coming from your rectum when having a bowel movement. Blood in your stool. The stool may look dark red or black. Abdominal pain. A change in bowel habits, such as constipation or diarrhea. How is this diagnosed? This condition is diagnosed with a colonoscopy. This is a procedure in which a lighted, flexible scope is inserted into the anus and then passed into the colon to examine the area. Polyps are sometimes found when a colonoscopy is done as part of routine cancer screening tests. How is this treated? Treatment for this condition involves removing any polyps that are found. Most polyps can be removed during a colonoscopy. Those polyps will then be tested for cancer. Additional treatment may be needed depending on the results of testing. Follow these instructions at home: Lifestyle Maintain a healthy weight, or lose weight if recommended by your health care provider. Exercise every day or as told by your health care provider. Do not use any products that contain nicotine or tobacco, such as cigarettes and e-cigarettes. If you need help quitting, ask your health care provider. If you drink alcohol, limit how much you have: ?0 1 drink a day for women. ? 0 2 drinks a day for men. Be aware of how much alcohol is in your drink. In the [place] one drink equals one 12 oz bottle of beer (355 mL), one 5 oz glass of wine (148 mL), or one 1 oz shot of hard liquor (44 mL). Eating and drinking Eat foods that are high in fiber, such as fruits, vegetables, and whole grains. Eat foods that are high in calcium and vitamin D, such as milk, cheese, yogurt, eggs, liver, fish, and broccoli. Limit foods that are high in fat, such as fried foods and desserts. Limit the amount of red meat and processed meat you eat, such as hot dogs, sausage, paz, and lunch meats. General instructions Keep all follow-up visits as told by your health care provider. This is important. ?This includes having regularly scheduled colonoscopies. ?Talk to your health care provider about when you need a colonoscopy. Contact a health care provider if: You have new or worsening bleeding during a bowel movement. You have new or increased blood in your stool. You have a change in bowel habits. You lose weight for no known reason. Summary Polyps are tissue growths inside the body. Polyps can grow in many places, including the colon. Most colon polyps are noncancerous (benign), but some can become cancerous over time. This condition is diagnosed with a colonoscopy. Treatment for this condition involves removing any polyps that are found. Most polyps can be removed during a colonoscopy. This information is not intended to replace advice given to you by your health care provider. Make sure you discuss any questions you have with your health care provider. Document Released: 02/16/2005 Document Revised: 09/07/2018 Document Reviewed: 09/07/2018 [employer] Patient Education 2020 [employer]. 08/03/2021 12:16:03 Monitored Anesthesia Care, Care After Monitored Anesthesia Care, Care After These instructions provide you with information about caring for yourself after your procedure. Your health care provider may also give you more specific instructions. Your treatment has been planned according to current medical practices, but problems sometimes occur. Call your health care provider if you have any problems or questions after your procedure. What can I expect after the procedure? After your procedure, you may: Feel sleepy for several hours. Feel clumsy and have poor balance for several hours. Feel forgetful about what happened after the procedure. Have poor judgment for several hours. Feel nauseous or vomit. Have a sore throat if you had a breathing tube during the procedure. Follow these instructions at home: For at least 24 hours after the procedure: Have a responsible adult stay with you. It is important to have someone help care for you until you are awake and alert. Rest as needed. Do not: ?Participate in activities in which you could fall or become injured. ?Drive. ?Use heavy machinery. ?Drink alcohol. ?Take sleeping pills or medicines that cause drowsiness. ?Make important decisions or sign legal documents. ?Take care of children on your own. Eating and drinking Follow the diet that is recommended by your health care provider. If you vomit, drink water, juice, or soup when you can drink without vomiting. Make sure you have little or no nausea before eating solid foods. General instructions Take ujlp-rrr-olwazib and prescription medicines only as told by your health care provider. If you have sleep apnea, surgery and certain medicines can increase your risk for breathing problems. Follow instructions from your health care provider about wearing your sleep device: ?Anytime you are sleeping, including during daytime naps. ?While taking prescription pain medicines, sleeping medicines, or medicines that make you drowsy. If you smoke, do not smoke without supervision. Keep all follow-up visits as told by your health care provider. This is important. Contact a health care provider if: You keep feeling nauseous or you keep vomiting. You feel light-headed. You develop a rash. You have a fever. Get help right away if: You have trouble breathing. Summary For several hours after your procedure, you may feel sleepy and have poor judgment. Have a responsible adult stay with you for at least 24 hours or until you are awake and alert. This information is not intended to replace advice given to you by your health care provider. Make sure you discuss any questions you have with your health care provider. Document Released: 09/12/2016 Document Revised: 08/21/2018 Document Reviewed: 09/12/2016 [employer] Patient Education 2020 [employer]. 08/03/2021 12:16:02 Colonoscopy, Adult, Care After, Biuf-fb-Yyfy Colonoscopy, Adult, Care After This sheet gives you information about how to care for yourself after your procedure. Your doctor may also give you more specific instructions. If you have problems or questions, call your doctor. What can I expect after the procedure? After the procedure, it is common to have: A small amount of blood in your poop for 24 hours. Some gas. Mild cramping or bloating in your belly. Follow these instructions at home: General instructions For the first 24 hours after the procedure: ?Do not drive or use machinery. ?Do not sign important documents. ?Do not drink alcohol. ?Do your daily activities more slowly than normal. ?Eat foods that are soft and easy to digest. Take dfid-bfk-ipylyqa or prescription medicines only as told by your doctor. To help cramping and bloating: Try walking around. Put heat on your belly (abdomen) as told by your doctor. Use a heat source that your doctor recommends, such as a moist heat pack or a heating pad. ?Put a towel between your skin and the heat source. ?Leave the heat on for 20 30 minutes. ?Remove the heat if your skin turns bright red. This is especially important if you cannot feel pain, heat, or cold. You can get burned. Eating and drinking Drink enough fluid to keep your pee (urine) clear or pale yellow. Return to your normal diet as told by your doctor. Avoid heavy or fried foods that are hard to digest. Avoid drinking alcohol for as long as told by your doctor. Contact a doctor if: You have blood in your poop (stool) 2 3 days after the procedure. Get help right away if: You have more than a small amount of blood in your poop. You see large clumps of tissue (blood clots) in your poop. Your belly is swollen. You feel sick to your stomach (nauseous). You throw up (vomit). You have a fever. You have belly pain that gets worse, and medicine does not help your pain. Summary After the procedure, it is common to have a small amount of blood in your poop. You may also have mild cramping and bloating in your belly. For the first 24 hours after the procedure, do not drive or use machinery, do not sign important documents, and do not drink alcohol. Get help right away if you have a lot of blood in your poop, feel sick to your stomach, have a fever, or have more belly pain. This information is not intended to replace advice given to you by your health care provider. Make sure you discuss any questions you have with your health care provider. Document Released: 06/25/2011 Document Revised: 03/23/2018 Document Reviewed: 02/14/2017 [employer] Patient Education 2020 [employer]. Follow Up Care 06/08/2021 15:50:02 With:NUPUR ALAMO MD, Surgery Address: [phone] When: Unknown Comments:call the office for a 2 week follow up appointment [facility] Evaluation + Plan note Future Appointments Appointment Date:07/20/2021 09:05:00 AM Scheduled Provider:GIGI THOMPSON DO Location:[facility] Appointment Type:PC Wellness Medicare Appointment Date:07/31/2021 04:15:00 PM Scheduled Provider: Rodolfo:ASUNCION CHAD Appointment Type:PC Nurse [facility] Evaluation + Plan note Future Appointments Appointment Date:08/17/2021 08:50:00 AM Scheduled Provider:GIGI THOMPSON DO Location:[facility] Appointment Type: Wellness Medicare [facility] Evaluation + Plan note Future Appointments Appointment Date:06/25/2022 02:20:00 PM Scheduled Provider:GIGI THOMPSON DO Location:[facility] Appointment Type:PC OV Future Scheduled TestsCT Thorax w/o Contrast 04/03/22 [facility] Evaluation + Plan note Future Appointments Appointment Date:08/04/2022 02:00:00 PM Scheduled Provider:GIGI THOMPSON DO Location:[facility] Appointment Type:PC Wellness Annual Future Scheduled TestsCT Thorax w/o Contrast 04/03/22 [facility] Evaluation + Plan note Future Appointments Appointment Date:01/24/2023 10:50:00 AM Scheduled Provider:GIGI THOMPSON DO Location:[facility] Appointment Type:PC OV Future Scheduled TestsProstate Specific Antigen 08/04/22Testosterone Level Total 08/04/22A1C Hemoglobin 02/04/23Complete Blood Count 02/04/23Lipid Profile 02/04/23Complete Metabolic Panel 02/04/23CT Thorax w/o Contrast 04/03/22 [facility] Evaluation + Plan note Future Appointments Appointment Date:04/15/2023 01:50:00 PM Scheduled Provider:GIGI THOMPSON DO Location:[facility] Appointment Type:PC OV Appointment Date:08/11/2023 11:00:00 AM Scheduled Provider:GIGI THOMPSON DO Location:[facility] Appointment Type:PC OV Future Scheduled TestsProstate Specific Antigen 08/04/22Prostate Specific Antigen 02/10/23Testosterone Level Total 08/04/22A1C Hemoglobin 02/04/23A1C Hemoglobin 02/10/23Complete Blood Count 02/04/23Lipid Profile 02/04/23Lipid Profile 02/10/23Complete Metabolic Panel 02/04/23Complete Metabolic Panel 02/10/23 [facility] Evaluation + Plan note Future Appointments Appointment Date:08/11/2023 11:00:00 AM Scheduled Provider:GIGI THOMPSON DO Location:[facility] Appointment Type:PC OV Future Scheduled TestsProstate Specific Antigen 08/04/22Prostate Specific Antigen 02/10/23Testosterone Level Total 08/04/22A1C Hemoglobin 02/04/23A1C Hemoglobin 02/10/23Complete Blood Count 02/04/23Lipid Profile 02/04/23Lipid Profile 02/10/23Complete Metabolic Panel 02/04/23Complete Metabolic Panel 02/10/23 [facility] Evaluation + Plan note Future Appointments Appointment Date:08/11/2023 11:00:00 AM Scheduled Provider:GIGI THOMPSON DO Location:[facility] Appointment Type:PC OV Future Scheduled [id number] Hemoglobin 02/04/23Lipid Profile 02/04/23Complete Metabolic Panel 02/04/23 [facility] Diagnosis CAD s/p CABG- Primary documented in this encounter [facility] note* Diagnosis Coronary artery disease involving [place] coronary artery of [place] heart without angina pectoris- Primary [facility] Narrative No data available for this section [facility] Hospital Discharge instructions No data available for this section [facility] Progress note No data available for this section [facility] History of Present Illness * Ricarda Fuentes (Rn), RN - 03/31/2020 12:31 PM EDT COVID COMMUNITY MONITORING PROGRAM Provider Action/FYI: Caregiver for disable - no alternative caregiver Advised patient & spouse to wear masks, especially when direct care is being provided & wash hands thoroughly or use electrical electronics engineer often, especially before & after contact with each other Advised patient to call PCP to schedule COVID follow up Intake completed Assigned Junior Systems Analyst - verified e-mail address Monitoring Call: Date of symptoms onset: 03/28/2020 Patient is COVID-19 positive Contact made with patient Yes Patient identified by name and . Discussed care with patient Initial intake? Yes (Positive) - Elinor, my name is Ricarda Fuentes, GER and I am calling from the [facility]. I am calling to notify you that your COVID-19 testing was positive. I understand this is worrisome to you and want you to know we are here to help you. I am contacting you to help you understand what this means, monitor if you are getting better or worse and how we can work together to help you recover. Also, your local health department will also be contacting you, if they have not yet already. The Health Department will provide you with important information and help you, and your family, understand the next steps in working through this infection. It is very important to talk with them and provide any needed information. They will also help you with clearance back to your normal activities orwork once you have recovered from this infection. In some cases, your employer may provide additional guidance as well, but the health department will be the organization that officially provides youwith guidance on when you can discontinue isolation.(For [facility] Caregivers only: Occupational Health will provide the guidance to you on return to work and discontinuation of isolation). Diagnosed with COVID-19 on 03/30/2020 Symptom start date: 03/28/2020 Confirm PCP: Gigi Tohmpson, DO High Risk Category: Age > 60 years old Are you able to follow the quarantine guidelines? No. What is difficult? Cares for disabled spouse - no alternative caretakers We want to support you and closely monitor your symptoms. We will continue to check in with you during the early course of your illness, and help ensure that you have follow up scheduled with your PCP or another member of your care team to help ensure you are getting better. SYMPTOMS: NOTE TO CAREGIVER: ANSWER THE COVID-19 Caregiver Monitoring FLOWSHEET AND COVID Disposition QUESTIONS NOW COVID-19 Caregiver Adult Monitoring COVID-19 Monitoring 03/31/2020 Caregiver Entered Response Yes Are you feeling short of breath today? No Are you having a cough today? Yes Has it been worse over the past 24 hours? No Are you vomiting? No Are you experiencing diarrhea? No How is your appetite? Same Are you experiencing weakness today? Yes Is the weakness new, better, the same, or worse than yesterday? Same Highest Temperature - last 24 hours? (Caregiver Entered) 98.4 Do you have a pulse oximeter / Oxygen Monitor at home No Temperature (Patient Entered) (None) SpO2 (Patient Entered) (None) We would like to make sure you have what you need so that your basic needs are met- including your personal safety, food, housing and medications? Would you like to speak with a social work paper steamer to help give you support for any of these needs? No It can be normal to feel anxious or down during a time like this. Would you like to talk to a mental health professional about how you have been feeling? 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 We want to work with you to ensure that we arekeeping your medical conditions well-controlled and to keep you healthy and out of the doctor's office or hospital. Our team would like to stay connected with you to make sure you are feeling well. I am inviting you to complete a short questionnaire that will be sent to you via Workshare daily for the next 14 days. NightOwlhart is the best way for us to communicate about your health and well-being in between physician visits and telephone calls. This questionnaire is designed to check in on how you are feeling - and if certain symptoms are improving or getting worse. Your treatment team will, review your answers and then follow up if we notice any concerning changes in your symptoms. The questionnaire will come to you through your Cloud[employer] account and will replace the need for us to call you each day. May I sign you up for this? Yes, Do you have access to a computer/smartphone? Yes Great! I've set you up to receive the daily questionnaire. This will continue for 14 consecutive days. You will receive the questionnaire each day at around 8:00 am, please take a moment to complete.We will receive any reported worsening symptoms at which time we will call you. If you are doing well, you will not receive any additional phone calls. If you have concerns in between, please call your PCP's office right away. At the end of the 14 days, we will re-evaluate the need for further monitoring. Thank you. ACTION TAKEN Signed patient up for daily Junior Systems Analyst questionnaire (14 days). If you are worsening in any way please call your Primary Care Provider right away. [facility] and NON [facility] patients may call: [facility] Nurse communications advisor at [phone] Their PCP Office Caregivers may call: [facility] Employee Hotline: [phone] Patient verbalizes understanding of information provided. Denies any further questions at this time. Please visit CDC.gov website for any updated information about Coronavirus. You can also find information on the [facility] website. Additional information can be found on the CDC and [facility] web sites: https://www.cdc.gov/coronavirus/2019-nCoV/index.html [email or web address]/coronavirus End outreach documented in this encounter Health Concerns Infection Onset Date Last Indicated Resolved Time COVID-19 Rule-Out 03/30/2020 03/30/2020 03/31/2020 6:13 AM EDT COVID-19 Confirmed 03/30/2020 03/30/2020 Advance Directives Documents on File Type Date Recorded Patient Data Technician Expl anation Advance Directive(s) 03/30/2020 4:15 PM Latest Code Status on File Code Status Date Activated Date Inactivated Comments Full Code 02/25/2022 4:12 PM 03/19/2022 7:47 PM Full Code Order Discussed With: Patient Summary Purpose Family History No Family History Records Found No data available for this section No Family History Records Found No data available for this section No Family History Records Found No data available for this section Additional Source Comments Source Comments (unrecognize d section and content) In the event this informatio n is protected by the Federal Confidentiality of Alcohol and Drug Abuse Patient Records regulations: The Federal rules restrict any use of the information to criminally investigate or prosecute any alcohol or drug abuse patient.[facility] the event this information is protected by the Federal Confidentiality of Alcohol and Drug Abuse Patient Records regulations: The Federal rules restrict any use of the information to criminally investigate or prosecute any alcohol or drug abuse patient.[facility] the event this information is protected by the Federal Confidentiality of Alcohol and Drug Abuse Patient Records regulations: The Federal rules restrict any use of the information to criminally investigate or prosecute any alcohol or drug abuse patient.[facility] the event this information is protected by the Federal Confidentiality of Alcohol and Drug Abuse Patient Records regulations: The Federal rules restrict any use of the information to criminally investigate or prosecute any alcohol or drug abuse patient.[facility] the event this information is protected by the Federal Confidentiality of Alcohol and Drug Abuse Patient Records regulations: The Federal rules restrict any use of the information to criminally investigate or prosecute any alcohol or drug abuse patient.[facility] HospitalIn the event this information is protected by the Federal Confidentiality of Alcohol and Drug Abuse Patient Records regulations: The Federal rules restrict any use of the information to criminally investigate or prosecute any alcohol or drug abuse patient.[facility] HospitalIn the event this information is protected by the Federal Confidentiality of Alcohol and Drug Abuse Patient Records regulations: The Federal rules restrict any use of the information to criminally investigate or prosecute any alcohol or drug abuse patient.[facility] HospitalIn the event this information is protected by the Federal Confidentiality of Alcohol and Drug Abuse Patient Records regulations: The Federal rules restrict any use of the information to criminally investigate or prosecute any alcohol or drug abuse patient.[facility] HospitalIn the event this information is protected by the Federal Confidentiality of Alcohol and Drug Abuse Patient Records regulations: The Federal rules restrict any use of the information to criminally investigate or prosecute any alcohol or drug abuse patient.[facility] HospitalIn the event this information is protected by the Federal Confidentiality of Alcohol and Drug Abuse Patient Records regulations: The Federal rules restrict any use of the information to criminally investigate or prosecute any alcohol or drug abuse patient.[facility] HospitalIn the event this information is protected by the Federal Confidentiality of Alcohol and Drug Abuse Patient Records regulations: The Federal rules restrict any use of the information to criminally investigate or prosecute any alcohol or drug abuse patient.[facility] Reason for Visit (unrecogniz ed section and content) Reason Comments Appointment Reason Comments Med Change Request Reason Comments Refill Request Reason Comments Appointment F/up (unrecognized sect ion and content) No Status Records FoundNo Status Records FoundNo Status Records Found INFORMATION SOURCE (unrecogn ized section and content) DATE CREATED AUTHOR AUTHOR'S ORGANIZ ATION 04/30/2023 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 Advanced Member Role: Other Name: GIGI THOMPSON DO Position: P4 Physician - Primary Care Member Role: Primary Care Physician Address: Address: [address] Care Team Related Persons Name: BACILIO RANDALL Housing Inspectors Relationship Specialty Start Date End Date Gigi Thompson DO [address] [place] [facility] [address] PCP - General Family Medicine 03/31/20 Housing Inspectors Relationship Specialty Start Date End Date Gigi Thompson DO [address] [place] [address] PCP - General Family Medicine 03/31/20 Housing Inspectors Relationship Specialty Start Date End Date Gigi Thompson DO [address] [facility] [place] [address] PCP - General Family Medicine 03/31/20 Housing Inspectors Relationship Specialty Start Date End Date Gigi Thompson, [address] [place] [address] PCP - General Family Medicine 03/31/20 Housing Inspectors Relationship Specialty Start Date End Date Gigi Thompson, [address] [place] [address] PCP - General Family Medicine 03/31/20 Housing Inspectors Relationship Specialty Start Date End Date Gigi Thompson DO [address] [place] [id number] PCP - General Family Medicine 03/31/20 Housing Inspectors Relationship Specialty Start Date End Date Gigi Thompson DO [address] [place] [address] PCP - General Family Medicine 03/31/20 Care Team (unrecognized sect ion and content) Care Team Personnel Name: Jacky Sam PT Position: P3 Scheduling - Custom Shoe Designer And Maker Advanced Member Role: Other Name: GIGI THOMPSON DO Position: P4 Physician - Primary Care Member Role: Primary Care Physician Address: Address: [address] Care Team Related Persons Name: BACILIO RANDALL Care Team Personnel Name: Jacky Sam PT Position: P3 Scheduling - Custom Shoe Designer And Maker Advanced Member Role: Other Name: GIGI THOMPSON DO Position: P4 Physician - Primary Care Member Role: Primary Care Physician Address: Address: [address] Care Team Related Persons Name: BAICLIO RANDALL Care Team Personnel Name: Jacky Sam Clerk Kelle PT Position: P3 Scheduling - Custom Shoe Designer And Maker Advanced Member Role: Other Name: GIGI THOMPSON DO Position: P4 Physician - Primary Care Member Role: Primary Care Physician Address: Address: [address] [place] [address] Care Team Related Persons Name: BACLIIO RANDALL Care Team Personnel Name: Jacky Sam Clerk Kelle PT Position: P3 Scheduling - Custom Shoe Designer And Maker Advanced Member Role: Other Name: GIGI THOMPSON DO Position: P4 Physician - Primary Care Member Role: Primary Care Physician Address: Address: [address] [place] [address] Care Team Related Persons Name: BACILIO RANDALL FOR RECORDS PERTAINING TO PATIENTS WHO ARE OR HAVE BEEN ENROLLED IN A CHEMICAL DEPENDENCY/SUBSTANCEABUSE PROGRAM, SOME INFORMATION MAY BE OMITTED. This clinical summary was aggregated from multiple sources. Caution should be exercised in using it in the provision of clinical care. This summary normalizes information from multiple sources, and as a consequence, information in this document may materially change the coding, format and clinical context of patient data. In addition, data may be omitted in some cases. CLINICAL DECISIONS SHOULD BE BASED ON THE PRIMARY CLINICAL RECORDS. [facility] [employer] [facility]. provides no warranty or guarantee of the accuracy or completeness of information in this document.
[2023-08-15 07:47] VITALS: BP 132/89; PULSE 68; RESP 16; TEMP 36.3; O2SAT 98; BMI 36.0
[2023-08-15] MEDS: Lactated Ringers 1,000 ML 15 ML IV (08:05)
--- NOTE | 2023-08-15 08:44 | HP.PCM_ITS ---
History and Physical Date of Admission: 08/15/23 Intake Vital Signs :03 08/09/2413:02 Height 5 ft 8 in 5 ft 8 in Weight: 235 lb 235 lb BMI 35.7 35.7 BP 129/79 H 118/74 Blood Pressure Location Lt brachial Rt brachial Position Sitting Sitting Respiration 22 H 18 Pulse 62 Pulse Source Monitor Pulse Oximetry (%) 100 Intake Visit Reasons: TEMPORAL ARTERY BIOPSY Chief Complaint: temporal artery biopsy Skidway Worker Required: No Is patient in pain?: No Allergies No Known Allergies Allergy (Verified 08/10/23 14:03) Medications metformin 500 mg tablet 500 mg PO BID dm 02/21/22 [History Confirmed 08/10/23] acetaminophen 325 mg tablet (Tylenol) 650 mg PO Q6H PRN Pain 03/19/22 [History Confirmed 08/10/23] aspirin 81 mg chewable tablet 81 mg PO DAILY heart 03/19/22 [History Confirmed 08/10/23] atorvastatin 40 mg tablet See Rx Instructions .Route .COMPLEX #90 tabs 04/18/23 [Rx Confirmed 08/10/23] metoprolol tartrate 25 mg tablet 25 mg PO BID bp #180 tabs 05/25/23 [Rx Confirmed 08/10/23] multivitamin (One Daily Multivitamin tablet) 1 tab PO DAILY 08/02/23 [History Confirmed 08/10/23] ixekizumab 80 mg/mL subcutaneous auto-injector (Taltz Autoinjector) 80 mg subcut Q4W 08/04/23 [History Confirmed 08/10/23] prednisone 10 mg tablet mg PO 08/10/23 [History Confirmed 08/10/23] PFSH Medical History (Updated 08/10/23 @ 14:18 by Jane Aguilera) Acute respiratory insufficiency, postoperative (02/25/22) Atherosclerosis of coronary artery without angina pectoris BPH (benign prostatic hyperplasia) COVID-19 Deep vein thrombosis of left lower extremity (02/28/22) Depression Erectile dysfunction GERD (gastroesophageal reflux disease) Meniere disease Mitral regurgitation Multiple pulmonary nodules Non-STEMI (non-ST elevated myocardial infarction) (02/21/22) Obesity (BMI 30.0-34.9) Psoriasis Temporal arteritis Tobacco use disorder Triple vessel coronary artery disease Type II diabetes mellitus with complication Surgical History H/O coronary artery bypass surgery (02/25/22) H/O knee surgery H/O rotator cuff surgery H/O shoulder surgery History of left heart catheterization (02/22/22) Family History (Updated 08/10/23 @ 14:05 by Jane Aguilera) Father Small cell carcinoma Heart disease Hypertension Colon cancer Cancer CVA (cerebral vascular accident)Mother Sepsis Heart disease Social History household members: other details: Lives alone with his 2 dogs. passes away in December 2021. 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 pets and animals: Yes (2 dogs) leisure activities: other other: Likes motorcycles Smoking Status: Never smoker substance use type: does not use what type of physical activity do you participate in: walking HPI HPI HPI: Patient is a 72-year-old male sent here for left temporal tenderness for temporal artery biopsy. He had elevated CRP. He reports that his symptoms improved after starting steroids. ROS General General: Yes weight change and fatigue; No appetite, colon cancer, breast cancer or weakness HEENT HEENT: No difficulty swallowing, eye injury, eye surgery, swollen glands or hoarseness Endo Endocrine: Yes diabetes mellitus; No thyroid disease, thyroid cancer, Hair loss, heat intolerance or cold intolerance Skin Skin: Yes rash; No changing moles Breast Breast: No left breast lump, right breast lump, nipple discharge, breast pain, abnormal mammogram, abnormal US or breast enlargement Musc Musculoskeletal: Yes back problems and arthritis; No rheumatoid arthritis, gout or joint pain Cardio Cardiovascular: Yes heart attack; No murmur, pacemaker, heart disease, atrial fibrillation, high blood pressure, heart stent, palpitations, shortness of breat with exertion or chest pain Psych Psychiatric: Yes depression; No anxiety or hearing voices Resp Respiratory: No shortness of breath, No sleep apnea, No cough, No COPD, No asthma, No emphysema and No wheezing Gastro Gastrointestinal: No abdominal pain, No nausea or vomiting, No diarrhea, No constipation, No blood in stool, No acid reflux, No hemorrhoids, No ulcers, No gallbladder problem and No black,tarry stools Vladimir Hematologic: No blood thinners, No blood disorders, No bleeding, Yes anemia and No blood clots Neuro Neurologic: No system reviewed and no additional complaints, except as documented, No as per HPI, No abnormal gait, No abnormal hearing, No abnormal movements, No abnormal speech, No behavioral changes, No burning sensations, No confusion, No convulsions, No disequilibrium, No dizziness, No localized weakness, No frequent falls, No headache(s), No lack of coordination, No loss of vision, No memory loss, No numbness, No other visual disturbances, No radicular pain, No restless legs, No sensory deficit, No syncope, No tingling, No tremor(s ), No weakness and No other Exam Const General: cooperative Orientation: alert and oriented x3 HENMT Head: normal to inspection Neck Neck: normal visual inspection and full ROM Chest Chest palpation & inspection: normal inspection of the chest Resp Effort & Inspection: normal respiratory effort Auscultation: clear to auscultation bilaterally Cardio Rate: regular rate Rhythm: regular rhythm GI Inspection: non-distended Palpation: soft and nontender Skin General: no rashes or lesions noted Neuro General: patient alert and patient oriented x3 Extrem General: full ROM Psych Appearance: grossly normal Mental Status: mental status grossly normal Assessment and Plan Assessment and Plan (1) Temporal arteritis: Status: Acute Plan: Patient was sent here for left temporal artery biopsy to evaluate for temporal arteritis. Patient was having some headache on that side which improved with steroids and he did have a significantly elevated CRP. I discussed left temporal artery biopsy with him in detail. I discussed the risks including not limited to bleeding, infection, injury to surrounding organs. Patient understands the risks and will hold his aspirin until the day of surgery. I currently have him scheduled for Tuesday. Quinn Ken MD Pager: [facility] [address] [place] [address], [address] [place] [address] Office: I have examined the patient and the H&P has been reviewed. There are no clinical changes since date of exam.
[2023-08-15 08:47] LABS: Bedside Glucose 159 mg/dL (74-106)
--- NOTE | 2023-08-15 09:15 | TEM_PTH ---
PATHOLOGY RESULTS PATIENT: JESSICA RANDALL LOC: [facility] [place] U[place][id number] AGE/SX: 72/M ROOM: RE08/15/[address]: Dr. Quinn Ken MD : 1950 BED: DIS: 08/15/2023 SPEC #: [id number] RECD: 08/15/23 10:13 STATUS: AYANA DAWSONArnaldo #: [id number] ARVIND: 08/15/23 09:[address]: Quinn Ken DEPT: SURGICAL PATHOLOGY RECD BY: Emily Mendiola ENTERED: 08/15/23 11:51 SP TYPE: TEMPORAL OTHR DR: Dr. Leeroy Thompson, Tissues: Temporal region Procedures: Elastin Stain (control) Special Stain Group II Surgery Specimen Level IV HEADER OPERATION: Left temporal artery biopsy PRE-OP DIAGNOSIS: Temporal arteritis TISSUE SUBMITTED: Left temporal artery biopsy MICROSCOPIC DIAGNOSIS Left temporal artery, biopsy: Negative for giant cell arteritis. See comment. YADI:trini 08/16/2023 COMMENT Elastic stain with matched control is used in the evaluation of the specimen. Correlation with clinical findings and appropriate follow up are necessary. MICROSCOPIC DESCRIPTION Slides are reviewed. GROSS DESCRIPTION Received in fixative is one container labeled with the patient's name and designated left temporal artery biopsy. The specimen consists of an elongated fragment of price tissue measuring 2.5x 0.2 x 0.2cm. The specimen is totally submitted in one cassette. AM/mr 08/15/23 TC:5 CPT: 62745, 48867
[2023-08-15] MEDS: Lidocaine 1% (20 ml mdv) 20 ML Vial (09:45)
[2023-08-15 09:55] VITALS: BP 108/71; BP 132/89; PULSE 64; RESP 16; TEMP 36.3; O2SAT 94
--- NOTE | 2023-08-15 09:56 | PCM.OPRPT ---
Report of Operation Date of Procedure: 08/15/23 Pre-Operative Diagnosis: Left temporal headaches Post-Operative Diagnosis: Same Surgery/Procedure Performed:: Left temporal artery biopsy Type of Anesthesia: General/Regional Specimen's removed: Left temporal artery segment Estimated Blood Loss (mL): 10 Description of Procedure: Patient was brought back to the operating room and MAC anesthesia was induced. The left religious was inspected and the artery was identified with ultrasound and traced. The left religious was then prepped and draped in usual sterile fashion. An incision was marked and then injected with local anesthetic. Incision was made with a scalpel and deepened to the subcutaneous tissue. Sharp dissection was used to carry down to find the vein and underneath the vein there was the artery. The artery was dissected free along its path and the vein was spared. The proximal and distal end of the artery were clipped and the segment was removed. There was good hemostasis and the subcutaneous hemostasis was obtained using electrocautery. The area was irrigated and suctioned dry and inspected once more and there was good hemostasis. The dermis was closed with interrupted 4-0 Monocryl sutures. The skin was closed with running 4-0 Monocryl suture. Dermabond was applied. Patient was taken to PACU in stable condition.
--- NOTE | 2023-08-15 09:57 | DCINST_ITS ---
Discharge Instructions Diet Discharge Diet: No restrictions Activity Discharge Activity: May Drive (when off narcotics) and May Shower (tomorrow) Lifting Restrictions: 15 lbs for 2 days Additional Activity Instructions:: Alternate ibuprofen and Tylenol for pain. Oxycodone for breakthrough pain. Resume aspirin tomorrow Dressing / Incision Call your doctor if your incision/area has: Continuous Slow Oozing, Sudden Increased Bleeding, Increased Pain/ Swelling, Increased Redness, Foul Smelling Discharge and Swelling at the incision site Cleanse incision/area with: Soap & Water Follow Up Care Please Follow Up With: Quinn Ken MD When: Please call to schedule 2 week follow up appointment. [phone] Test Results: Test results from this visit will be discussed in further detail at your follow- up appointment, if applicable. Discharge Plan Admission Attending Provider: Quinn Ken Primary Care Provider: Leeroy Thompson Discharge Orders/Prescriptions Prescriptions: New oxycodone 5 mg Tablet 5 - 10 mg PO Q4H PRN PRN (Reason: Pain Score 4-10) 3 Days Qty: 5 0RF Continued Taltz Autoinjector 80 mg/mL auto-injector 80 mg subcut Q4W prednisone 10 mg tablet 60 mg PO DAILY Patient Comments: TAKE 6 TABLET BY MOUTH EVERY MORNING metformin 500 mg Tablet 500 mg PO BID acetaminophen [Tylenol] 325 mg Tablet 650 mg PO Q6H PRN (Reason: Pain) aspirin 81 mg Tablet,Chewable 81 mg PO DAILY multivitamin [One Daily Multivitamin] Tablet 1 tab PO DAILY atorvastatin 40 mg tablet 40 mg PO QHS Rx Instructions: TAKE 1 TABLET BY MOUTH EVERY DAY AT BEDTIME FOR CHOLESTEROL citalopram 20 mg tablet 20 mg PO DAILY Patient Comments: TAKE 1 TABLET BY MOUTH EVERY DAY metoprolol tartrate 25 mg tablet 25 mg PO BID Qty: 180 3RF Referrals / Follow Up: Leeroy Thompson DO [Primary Care Provider] - Disposition Disposition (needs filled in before D/C Order can be placed): Home, Self Care
[2023-08-15 10:00] VITALS: BP 112/70; BP 132/89; PULSE 60; RESP 16; O2SAT 97
[2023-08-15 10:05] VITALS: BP 108/71; BP 132/89; PULSE 63; RESP 16; TEMP 36.3; O2SAT 97
[2023-08-15 10:19] VITALS: BP 132/89
== END 2023-08-15 10:35 | disposition home or self-care (01) ==
LOC: SDC 07:32 → AC 07:33
PROVIDERS: PCP Family Medicine; Referring Provider Surgery; Visit Provider Surgery
PROC: (CPT 37609; principal; 2023-08-15 09:00)
DX: R51.9 Headache, unspecified (principal); M31.6 Other giant cell arteritis; E11.9 Type 2 diabetes mellitus without complications; I25.10 Atherosclerotic heart disease of native coronary artery without angina pectoris; I25.2 Old myocardial infarction; Z79.82 Long term (current) use of aspirin; Z79.899 Other long term (current) drug therapy; Z79.84 Long term (current) use of oral hypoglycemic drugs; Z86.16 Personal history of COVID-19; Z86.718 Personal history of other venous thrombosis and embolism; Z95.1 Presence of aortocoronary bypass graft
CPT/HCPCS: 37609; 00352; 82962; 88305; 88313; A4648; J7120; J2405

== ENCOUNTER → 2023-09-09 | Outpatient (CLI) | payer MEDICARE, OTHER, SELFPAY ==
[2022-07-08 10:01] VITALS: BMI 35.8
--- NOTE | 2023-09-09 12:37 | ECHOD_ITS ---
Reason For Study: CAD/ASHD Procedure This was a 2D Doppler, Color Flow transthoracic echocardiogram. Left Ventricle Normal LV size. Left ventricular systolic function is normal. The estimated ejection fraction is 55 %. No regional wall motion abnormalities noted. Right Ventricle Normal RV size. Normal systolic function. Atria Normal left atrium. Normal right atrium. Mitral Valve Normal mitral valve. Trivial eccentric mitral valve insufficiency. Tricuspid Valve Normal tricuspid valve. Mild tricuspid valve insufficiency. Pulmonary artery systolic pressure is 30 mmHg. Aortic Valve Trisinus/trileaflet aortic valve. Mild focal aortic valve thickening. Pulmonic Valve Normal pulmonic valve. Great Vessels Normal aortic root. The pulmonary artery is normal size. Inferior vena cava collapse with respiration. Pericardium/Pleural No pericardial effusion. MMode/2D Measurements & Calculations LVIDd: 4.7 cm IVSd: 1.4 cm Ao root diam: 3.4 cm LVIDs: 3.6 cm LVPWd: 1.0 cm LA dimension: 4.7 cm RVDd: 4.0 cm FS: 23.7 % LAV(MOD-bp): 45.1 ml LA A4 area: 20.5 cm2 RA A4 area: 8.9 cm2 LAV(MOD-bp) Indexed: 20.5 ml/m2 LAV(MOD-sp2): 35.1 ml LAV(MOD-sp4): 54.6 ml TAPSE: 1.5 cm Time Measurements MV dec time: 0.22 sec Doppler Measurements & Calculations MV E max david: 72.9 cm/sec Lat Peak E' David: 8.9 cm/sec Med Peak E' David: 8.2 cm/sec MV A max david: 64.4 cm/sec E/E' lat: 8.2 E/E' med: 8.8 MV E/A: 1.1 MV V2 max: 95.6 cm/sec MV P1/2t max david: 95.6 cm/sec Ao V2 max: 156.9 cm/sec MV max P.7 mmHg MV P1/2t: 80.5 msec Ao max P.9 mmHg MV V2 mean: 49.8 cm/sec Ao V2 mean: 103.6 cm/sec MV mean P.2 mmHg MV dec slope: 347.9 cm/sec2 Ao mean P.0 mmHg MV V2 VTI: 28.8 cm MVA(P1/2t): 2.7 cm2 Ao V2 VTI: 30.8 cm AV (velocity ratio): 0.70 LV V1 max: 102.8 cm/sec MR max david: 476.7 cm/sec PA V2 max: 151.5 cm/sec LV V1 max P.2 mmHg MR max P.9 mmHg PA V2 mean: 98.4 cm/sec LV V1 mean P.6 mmHg LV V1 mean: 76.5 cm/sec LV V1 VTI: 21.4 cm TR max david: 251.3 cm/sec TR max P.3 mmHg ECHO/Echo Complete Interpretation Summary Normal LV size. Left ventricular systolic function is normal. The estimated ejection fraction is 55 %. Pulmonary artery systolic pressure is 30 mmHg. Structurally normal valves. Ordering Physician: Becky Barkley Performed By: Jason Bonilla RCS
== END | disposition home or self-care (01) ==
LOC: CVS 12:37
PROVIDERS: PCP Family Medicine; Visit Provider Physician Assistant Medical
DX: I25.10 Atherosclerotic heart disease of native coronary artery without angina pectoris (principal); I34.0 Nonrheumatic mitral (valve) insufficiency
CPT/HCPCS: 93306

== ENCOUNTER → 2023-10-07 | Outpatient (CLI) | payer MEDICARE, OTHER, SELFPAY ==
[2022-07-08 10:01] VITALS: BMI 35.8
[2023-10-07 17:31] LABS: Absolute Lymphocyte Count 1.67 X10^3/uL (0.83-4.51); Absolute Neutrophil Count 6.1 X10^3/uL (2.0-7.7); Basophil# 0.07 X10^3/uL; Basophil% 0.8 % (0-1); Eosinophil# 0.13 X10^3/uL; Eosinophils% 1.5 % (0-5); Hematocrit 40.3 % (40-54); Hemoglobin 13.4 g/dL (13.0-16.5); Lymphocyte # 1.67 X10^3/ul (0.83-4.51); Lymphocyte % 19.2 % (19-41); Mean Corp Hgb Conc 33.3 g/dL (32-36); Mean Corpuscular Hgb 30.7 pg (27.0-32.0); Mean Corpuscular Volume 92.4 fL (80-94); Mean Platelet Vol. 9.7 fl (6.2-12.0); NRBC Flagged by Analyzer 0 % (0-5); Neutrophil # 6.12 X10^3/uL (2.7-7.7); Neutrophil % 70.3 % (47-70); Platelet Count 314 K/mm3 (150-450); RBC Distribution Width CV 13.6 % (11.6-14.6); RBC Distribution Width SD 46.5 fl (35.1-43.9); Red Blood Count 4.36 M/mm3 (4.6-6.2); White Blood Count 8.7 K/mm3 (4.4-11.0)
[2023-10-07 17:55] LABS: ALB/GLOB Ratio 0.8 RATIO (0.9-2.4); AST(SGOT) 18 U/L (15-37); Alanine Aminotransfer ALT/SGPT 30 U/L (16-61); Albumin, Serum 3.3 g/dL (3.2-5.0); Alkaline Phosphatase 69 U/L (45-117); Anion Gap 5 (5-15); BUN 20 mg/dL (7-18); BUN/Creat Ratio 23.1 RATIO (10-20); CRP < 2.90 mg/L (0.0-3.0); Calcium,Total 8.9 mg/dL (8.5-10.1); Chloride 106 mmol/L (98-107); Creatinine, Serum 0.86 mg/dL (0.70-1.30); EST Glomerular Filtration Rate 93 mL/min (>60); Est Glom Filt Rate - Afr Amer 112 mL/min (>60); Globulin 3.9 g/dL (2.2-4.2); Glucose 155 mg/dL (74-106); Potassium 3.6 mmol/L (3.5-5.1); Protein, Total 7.2 g/dL (6.4-8.2); Sodium Level 138 mmol/L (136-145)
[2023-10-07 17:57] LABS: Erythrocyte Sedimentation Rate 13 mm/hr (0-20)
[2023-10-07 18:52] LABS: Hepatitis B Surface Antibody Non-Reactive; Hepatitis B Surface Antigen Non-Reactive (Nonreactive); Hepatitis C Antibody Non-Reactive (Nonreactive)
[2023-10-10 10:07] LABS: ANTINUCLEAR ANTIBODIES DIRECT Negative (Negative)
[2023-10-11 15:08] LABS: CCP IgG Antibodies 6 units (0-19); QNTFERON TB Mitogen Value > 10.00 IU/mL (.); QNTFERON TB Nil Value 0.03 IU/mL (.); QNTFERON TB1+ Ag Value 0.04 IU/mL (.); QNTFERON TB2+ Ag Value 0.05 IU/mL (.); QNTIFERON TB Positive Criteria Negative (Negative)
== END | disposition home or self-care (01) ==
LOC: MTLAB 14:37
PROVIDERS: PCP Family Medicine; Referring Provider Internal Medicine Rheumatology; Visit Provider Internal Medicine Rheumatology
DX: M31.6 Other giant cell arteritis (principal); L40.59 Other psoriatic arthropathy; L40.8 Other psoriasis; Z79.899 Other long term (current) drug therapy
CPT/HCPCS: 36415; 80053; 85025; 85652; 86038; 86140; 86200; 86431; 86480; 86706; 86803; 87340

== ENCOUNTER → 2023-11-16 | Outpatient (CLI) | payer MEDICARE, OTHER, SELFPAY ==
[2022-07-08 10:01] VITALS: BMI 35.8
== END | disposition home or self-care (01) ==
LOC: MTLAB 16:16
PROVIDERS: PCP Family Medicine; Referring Provider Dermatology; Visit Provider Dermatology
DX: L57.0 Actinic keratosis (principal); L40.0 Psoriasis vulgaris; L40.8 Other psoriasis; Z79.899 Other long term (current) drug therapy; L20.89 Other atopic dermatitis; L82.1 Other seborrheic keratosis; D18.01 Hemangioma of skin and subcutaneous tissue; Z51.89 Encounter for other specified aftercare
CPT/HCPCS: 36415; 86480

== ENCOUNTER → 2023-12-22 | Outpatient (CLI) | payer MEDICARE, OTHER, SELFPAY ==
[2022-07-08 10:01] VITALS: BMI 35.8
[2023-12-22 18:02] LABS: Absolute Lymphocyte Count 2.64 X10^3/uL (0.83-4.51); Absolute Neutrophil Count 5.9 X10^3/uL (2.0-7.7); Basophil# 0.04 X10^3/uL; Basophil% 0.4 % (0-1); Eosinophil# 0.15 X10^3/uL; Eosinophils% 1.6 % (0-5); Hematocrit 43.5 % (40-54); Hemoglobin 14.5 g/dL (13.0-16.5); Lymphocyte # 2.64 X10^3/ul (0.83-4.51); Lymphocyte % 28.4 % (19-41); Mean Corp Hgb Conc 33.3 g/dL (32-36); Mean Corpuscular Hgb 30.1 pg (27.0-32.0); Mean Corpuscular Volume 90.4 fL (80-94); Mean Platelet Vol. 10.3 fl (6.2-12.0); Monocyte# 0.57 X10^3/uL; Monocyte% 6.1 % (0-10); NRBC Flagged by Analyzer 0 % (0-5); Neutrophil % 63.4 % (47-70); Platelet Count 322 K/mm3 (150-450); RBC Distribution Width CV 12.4 % (11.6-14.6); RBC Distribution Width SD 40.6 fl (35.1-43.9); Red Blood Count 4.81 M/mm3 (4.6-6.2); White Blood Count 9.3 K/mm3 (4.4-11.0)
[2023-12-22 18:35] LABS: AST(SGOT) 22 U/L (15-37); Alanine Aminotransfer ALT/SGPT 30 U/L (16-61); Albumin, Serum 3.7 g/dL (3.2-5.0); Alkaline Phosphatase 63 U/L (45-117); Anion Gap 7 (5-15); BUN 20 mg/dL (7-18); BUN/Creat Ratio 19.8 RATIO (10-20); Calcium,Total 9.1 mg/dL (8.5-10.1); Chloride 104 mmol/L (98-107); Creatinine, Serum 1.01 mg/dL (0.70-1.30); EST Glomerular Filtration Rate 77 mL/min (>60); Est Glom Filt Rate - Afr Amer 94 mL/min (>60); Globulin 3.8 g/dL (2.2-4.2); Glucose 181 mg/dL (74-106); Protein, Total 7.5 g/dL (6.4-8.2); Sodium Level 137 mmol/L (136-145)
== END | disposition home or self-care (01) ==
LOC: MTLAB 14:55
PROVIDERS: PCP Family Medicine; Referring Provider Dermatology; Visit Provider Dermatology
DX: Z79.899 Other long term (current) drug therapy (principal); L40.59 Other psoriatic arthropathy; M18.0 Bilateral primary osteoarthritis of first carpometacarpal joints; M17.0 Bilateral primary osteoarthritis of knee
CPT/HCPCS: 36415; 80053; 85025

== ENCOUNTER → 2024-02-07 | Outpatient (CLI) | payer MEDICARE, OTHER, SELFPAY ==
[2022-07-08 10:01] VITALS: BMI 35.8
[2024-02-07 09:56] LABS: Absolute Lymphocyte Count 1.95 X10^3/uL (0.83-4.51); Absolute Neutrophil Count 4.4 X10^3/uL (2.0-7.7); Basophil# 0.06 X10^3/uL; Basophil% 0.8 % (0-1); Eosinophil# 0.16 X10^3/uL; Eosinophils% 2.2 % (0-5); Hematocrit 42.6 % (40-54); Hemoglobin 14.1 g/dL (13.0-16.5); Lymphocyte # 1.95 X10^3/ul (0.83-4.51); Mean Corp Hgb Conc 33.1 g/dL (32-36); Mean Corpuscular Hgb 30.8 pg (27.0-32.0); Mean Platelet Vol. 10.3 fl (6.2-12.0); Monocyte# 0.65 X10^3/uL; NRBC Flagged by Analyzer 0 % (0-5); Neutrophil % 60.9 % (47-70); Platelet Count 308 K/mm3 (150-450); RBC Distribution Width CV 13.4 % (11.6-14.6); RBC Distribution Width SD 45.3 fl (35.1-43.9); Red Blood Count 4.58 M/mm3 (4.6-6.2); White Blood Count 7.2 K/mm3 (4.4-11.0)
[2024-02-07 10:19] LABS: ALB/GLOB Ratio 0.8 RATIO (0.9-2.4); AST(SGOT) 23 U/L (15-37); Alanine Aminotransfer ALT/SGPT 35 U/L (16-61); Albumin, Serum 3.2 g/dL (3.2-5.0); Alkaline Phosphatase 66 U/L (45-117); Anion Gap 5 (5-15); BUN 24 mg/dL (7-18); BUN/Creat Ratio 22.4 RATIO (10-20); Calcium,Total 9.1 mg/dL (8.5-10.1); Chloride 106 mmol/L (98-107); Creatinine, Serum 1.07 mg/dL (0.70-1.30); EST Glomerular Filtration Rate 72 mL/min (>60); Est Glom Filt Rate - Afr Amer 88 mL/min (>60); Globulin 3.9 g/dL (2.2-4.2); Glucose 171 mg/dL (74-106); Potassium 4.5 mmol/L (3.5-5.1); Protein, Total 7.1 g/dL (6.4-8.2); Sodium Level 140 mmol/L (136-145)
== END | disposition home or self-care (01) ==
LOC: MTLAB 08:16
PROVIDERS: PCP Family Medicine; Referring Provider Internal Medicine Rheumatology; Visit Provider Internal Medicine Rheumatology
DX: L40.59 Other psoriatic arthropathy (principal); L40.8 Other psoriasis; Z79.899 Other long term (current) drug therapy
CPT/HCPCS: 36415; 80053; 85025

== ENCOUNTER → 2024-04-06 | Outpatient (CLI) | payer MEDICARE, OTHER, SELFPAY ==
[2022-07-08 10:01] VITALS: BMI 35.8
[2024-04-06 14:44] LABS: AST(SGOT) 18 U/L (15-37); Alanine Aminotransfer ALT/SGPT 30 U/L (16-61); Albumin, Serum 3.2 g/dL (3.2-5.0); Alkaline Phosphatase 76 U/L (45-117); Anion Gap 4 (5-15); BUN 19 mg/dL (7-18); BUN/Creat Ratio 21.7 RATIO (10-20); Bilirubin, Direct 0.13 mg/dL (0.00-0.30); Calcium,Total 8.8 mg/dL (8.5-10.1); Chloride 108 mmol/L (98-107); Cholesterol 119 mg/dL (200); Creatinine, Serum 0.88 mg/dL (0.70-1.30); EST Glomerular Filtration Rate 91 mL/min (>60); Est Glom Filt Rate - Afr Amer 110 mL/min (>60); Globulin 3.7 g/dL (2.2-4.2); Glucose 131 mg/dL (74-106); High Density Lipoprotein 50 mg/dL; Potassium 4.1 mmol/L (3.5-5.1); Protein, Total 6.9 g/dL (6.4-8.2); Sodium Level 139 mmol/L (136-145); Triglycerides 169 mg/dL; Very Low Density Lipoprotein 34 mg/dL (5-40)
[2024-04-06 14:45] LABS: Hemoglobin A1c 6.8 % (3.8-5.6)
[2024-04-06 15:11] LABS: Microalbumin,Random Urine 10.4 mg/L (NO RANGE EST.)
== END | disposition home or self-care (01) ==
LOC: LAB 13:39
PROVIDERS: PCP Family Medicine; Referring Provider Internal Medicine Cardiovascular Disease; Visit Provider Internal Medicine Cardiovascular Disease
DX: E11.9 Type 2 diabetes mellitus without complications (principal); Z95.1 Presence of aortocoronary bypass graft
CPT/HCPCS: 36415; 80048; 80061; 80076; 82043; 83036

== ENCOUNTER → 2024-04-12 | Outpatient (CLI) | payer MEDICARE, OTHER, SELFPAY ==
[2022-07-08 10:01] VITALS: BMI 35.8
[2024-04-12 16:12] LABS: Microalbumin,Random Urine 10.8 mg/L (NO RANGE EST.); Microalbumin:Creatinine Ratio 7.4 mg/g CRE (<30 mg/g CRE)
== END | disposition home or self-care (01) ==
LOC: LAB 14:22
PROVIDERS: Nurse Practitioner Family; PCP Family Medicine; Referring Provider Internal Medicine Cardiovascular Disease; Visit Provider Internal Medicine Cardiovascular Disease
DX: E11.9 Type 2 diabetes mellitus without complications (principal)
CPT/HCPCS: 82043; 82570

== ENCOUNTER → 2024-06-14 | Outpatient (CLI) | payer MEDICARE, OTHER, SELFPAY ==
[2022-07-08 10:01] VITALS: BMI 35.8
[2024-06-14 17:30] LABS: Absolute Lymphocyte Count 2.63 X10^3/uL (0.83-4.51); Absolute Neutrophil Count 5.2 X10^3/uL (2.0-7.7); Basophil# 0.05 X10^3/uL; Basophil% 0.6 % (0-1); Eosinophil# 0.23 X10^3/uL; Eosinophils% 2.6 % (0-5); Hematocrit 43.2 % (40-54); Hemoglobin 14.6 g/dL (13.0-16.5); Lymphocyte # 2.63 X10^3/ul (0.83-4.51); Lymphocyte % 29.5 % (19-41); Mean Corp Hgb Conc 33.8 g/dL (32-36); Mean Corpuscular Hgb 31.1 pg (27.0-32.0); Mean Corpuscular Volume 92.1 fL (80-94); Mean Platelet Vol. 9.9 fl (6.2-12.0); Monocyte# 0.79 X10^3/uL; Monocyte% 8.8 % (0-10); NRBC Flagged by Analyzer 0 % (0-5); Neutrophil # 5.21 X10^3/uL (2.7-7.7); Neutrophil % 58.3 % (47-70); Platelet Count 330 K/mm3 (150-450); RBC Distribution Width CV 12.9 % (11.6-14.6); RBC Distribution Width SD 42.8 fl (35.1-43.9); Red Blood Count 4.69 M/mm3 (4.6-6.2); White Blood Count 8.9 K/mm3 (4.4-11.0)
[2024-06-14 17:58] LABS: ALB/GLOB Ratio 0.9 RATIO (0.9-2.4); AST(SGOT) 14 U/L (15-37); Alanine Aminotransfer ALT/SGPT 31 U/L (16-61); Albumin, Serum 3.5 g/dL (3.2-5.0); Alkaline Phosphatase 78 U/L (45-117); Anion Gap 5 (5-15); BUN 18 mg/dL (7-18); BUN/Creat Ratio 21.7 RATIO (10-20); Calcium,Total 9.2 mg/dL (8.5-10.1); Chloride 100 mmol/L (98-107); Creatinine, Serum 0.83 mg/dL (0.70-1.30); EST Glomerular Filtration Rate 97 mL/min (>60); Est Glom Filt Rate - Afr Amer 117 mL/min (>60); Globulin 3.8 g/dL (2.2-4.2); Glucose 109 mg/dL (74-106); Potassium 3.8 mmol/L (3.5-5.1); Protein, Total 7.3 g/dL (6.4-8.2); Sodium Level 135 mmol/L (136-145)
== END | disposition home or self-care (01) ==
LOC: MTLAB 14:13
PROVIDERS: PCP Family Medicine; Referring Provider Internal Medicine Rheumatology; Visit Provider Internal Medicine Rheumatology
DX: L40.59 Other psoriatic arthropathy (principal); H47.012 Ischemic optic neuropathy, left eye; M18.0 Bilateral primary osteoarthritis of first carpometacarpal joints; M17.0 Bilateral primary osteoarthritis of knee; Z79.899 Other long term (current) drug therapy
CPT/HCPCS: 36415; 80053; 85025

== ENCOUNTER → 2024-09-13 | Outpatient (CLI) | payer MEDICARE, OTHER, SELFPAY ==
[2022-07-08 10:01] VITALS: BMI 35.8
[2024-09-13 15:27] LABS: Absolute Lymphocyte Count 1.96 X10^3/uL (0.83-4.51); Basophil# 0.05 X10^3/uL; Basophil% 0.7 % (0-1); Eosinophil# 0.16 X10^3/uL; Eosinophils% 2.3 % (0-5); Hematocrit 40.4 % (40-54); Hemoglobin 13.7 g/dL (13.0-16.5); Lymphocyte # 1.96 X10^3/ul (0.83-4.51); Lymphocyte % 28.2 % (19-41); Mean Corp Hgb Conc 33.9 g/dL (32-36); Mean Corpuscular Hgb 31.6 pg (27.0-32.0); Mean Corpuscular Volume 93.1 fL (80-94); Mean Platelet Vol. 10.5 fl (6.2-12.0); Monocyte# 0.76 X10^3/uL; NRBC Flagged by Analyzer 0 % (0-5); Neutrophil # 3.99 X10^3/uL (2.7-7.7); Neutrophil % 57.5 % (47-70); Platelet Count 307 K/mm3 (150-450); RBC Distribution Width CV 13.4 % (11.6-14.6); RBC Distribution Width SD 45.3 fl (35.1-43.9); Red Blood Count 4.34 M/mm3 (4.6-6.2); White Blood Count 6.9 K/mm3 (4.4-11.0)
[2024-09-13 16:13] LABS: ALB/GLOB Ratio 1.2 RATIO (0.9-2.4); AST(SGOT) 24 U/L (<=37); Alanine Aminotransfer ALT/SGPT 26 U/L (<=46); Albumin, Serum 3.9 g/dL (3.4-4.8); Alkaline Phosphatase 79 U/L (40-129); Anion Gap 10 (5-15); BUN 20 mg/dL (4-19); Calcium,Total 9.5 mg/dL (7.6-11.0); Carbon Dioxide 25.2 mmol/L (21.0-32.0); Chloride 101 mmol/L (98-108); EST Glomerular Filtration Rate 90 (>60); Globulin 3.2 g/dL (2.2-4.2); Glucose 138 mg/dL (70-99); Potassium 4.6 mmol/L (3.3-5.1); Protein, Total 7.1 g/dL (5.9-8.4); Sodium Level 136 mmol/L (133-145); Total Bilirubin 0.45 mg/dL (0.00-1.30)
== END | disposition home or self-care (01) ==
LOC: MTLAB 11:40
PROVIDERS: PCP Family Medicine; Referring Provider Internal Medicine Rheumatology; Visit Provider Internal Medicine Rheumatology
DX: L40.59 Other psoriatic arthropathy (principal); M18.0 Bilateral primary osteoarthritis of first carpometacarpal joints; M17.0 Bilateral primary osteoarthritis of knee; Z79.899 Other long term (current) drug therapy
CPT/HCPCS: 36415; 80053; 85025

== ENCOUNTER → 2024-12-13 | Outpatient (CLI) | payer MEDICARE, OTHER, SELFPAY ==
[2022-07-08 10:01] VITALS: BMI 35.8
[2024-12-13 15:30] LABS: Hematocrit 41.1 % (40-54); Hemoglobin 14.2 g/dL (13.0-16.5); Immature Granulocytes Count 0.020 X10^3/uL (0.0-0.0); Mean Corp Hgb Conc 34.5 g/dL (32-36); Mean Corpuscular Volume 93.8 fL (80-94); Mean Platelet Vol. 10.9 fl (6.2-12.0); NRBC Flagged by Analyzer 0 % (0-5); Platelet Count 302 K/mm3 (150-450); RBC Distribution Width CV 12.9 % (11.6-14.6); RBC Distribution Width SD 44.0 fl (35.1-43.9); Red Blood Count 4.38 M/mm3 (4.6-6.2); White Blood Count 7.6 K/mm3 (4.4-11.0)
[2024-12-13 16:09] LABS: AST(SGOT) 24 U/L (<=37); Alanine Aminotransfer ALT/SGPT 26 U/L (<=46); Albumin, Serum 3.9 g/dL (3.4-4.8); Alkaline Phosphatase 76 U/L (40-129); Anion Gap 11 (5-15); BUN 18 mg/dL (4-19); BUN/Creat Ratio 21.7 RATIO (10-20); Calcium,Total 9.4 mg/dL (7.6-11.0); Carbon Dioxide 24.0 mmol/L (21.0-32.0); Chloride 105 mmol/L (98-108); Cholesterol 124 mg/dL (<=200); Globulin 3.2 g/dL (2.2-4.2); Glucose 153 mg/dL (70-99); Low Density Lipoprotein Calc. 53 mg/dL; Potassium 4.1 mmol/L (3.3-5.1); Triglycerides 121 mg/dL; Very Low Density Lipoprotein 24 mg/dL (5-40); cholesterol:hdl ratio screen 2.64
[2024-12-14 08:48] LABS: Bilirubin, Direct 0.16 mg/dL (0.00-0.30)
[2024-12-19 12:08] LABS: QNTFERON TB Mitogen Value > 10.00 IU/mL (.); QNTFERON TB Nil Value 0.11 IU/mL (.); QNTFERON TB1+ Ag Value 0.13 IU/mL (.); QNTFERON TB2+ Ag Value 0.14 IU/mL (.); QNTIFERON TB Positive Criteria Negative (Negative)
== END | disposition home or self-care (01) ==
PROVIDERS: Internal Medicine Cardiovascular Disease; PCP Family Medicine; Referring Provider Internal Medicine Rheumatology; Visit Provider Dermatology
DX: L40.59 Other psoriatic arthropathy (principal); H47.012 Ischemic optic neuropathy, left eye; M18.0 Bilateral primary osteoarthritis of first carpometacarpal joints; M17.0 Bilateral primary osteoarthritis of knee; Z79.899 Other long term (current) drug therapy
CPT/HCPCS: 36415; 80053; 80061; 82248; 85025; 86480

== ENCOUNTER → 2025-05-23 | Outpatient (CLI) | payer MEDICARE, OTHER, SELFPAY ==
[2022-07-08 10:01] VITALS: BMI 35.8
[2025-05-23 12:39] LABS: Hematocrit 40.7 % (40-54); Hemoglobin 14.0 g/dL (13.0-16.5); Immature Granulocytes Count 0.040 X10^3/uL (0.0-0.0); Mean Corp Hgb Conc 34.4 g/dL (32-36); Mean Corpuscular Volume 93.8 fL (80-94); Mean Platelet Vol. 10.1 fl (6.2-12.0); NRBC Flagged by Analyzer 0 % (0-5); Platelet Count 325 K/mm3 (150-450); RBC Distribution Width CV 13.2 % (11.6-14.6); RBC Distribution Width SD 44.1 fl (35.1-43.9); Red Blood Count 4.34 M/mm3 (4.6-6.2); White Blood Count 8.6 K/mm3 (4.4-11.0)
[2025-05-23 13:28] LABS: AST(SGOT) 22 U/L (<=37); Alanine Aminotransfer ALT/SGPT 25 U/L (<=46); Albumin, Serum 4.1 g/dL (3.4-4.8); Alkaline Phosphatase 69 U/L (40-129); Anion Gap 11 (5-15); BUN 21 mg/dL (4-19); BUN/Creat Ratio 24.4 RATIO (10-20); Calcium,Total 9.4 mg/dL (7.6-11.0); Carbon Dioxide 24.3 mmol/L (21.0-32.0); Chloride 102 mmol/L (98-108); Globulin 3.0 g/dL (2.2-4.2); Glucose 98 mg/dL (70-99); Potassium 4.2 mmol/L (3.3-5.1)
== END | disposition home or self-care (01) ==
LOC: MTLAB 11:14
PROVIDERS: PCP Family Medicine; Referring Provider Internal Medicine Rheumatology; Visit Provider Internal Medicine Rheumatology
DX: L40.59 Other psoriatic arthropathy (principal); H47.012 Ischemic optic neuropathy, left eye; M81.0 Age-related osteoporosis without current pathological fracture; M17.0 Bilateral primary osteoarthritis of knee; Z79.899 Other long term (current) drug therapy
CPT/HCPCS: 36415; 80053; 85025